=== PATIENT | male | born 1970 | race Caucasian/White ===

== ENCOUNTER 2023-07-01 12:40 | Outpatient (OUT) | payer BC, SELFPAY ==
[2023-07-01 13:27] LABS: Basophils Percent Auto 0.5 % (0.2-2.0); Eosinophils Absolute Auto 0.1 10^3/uL (0.0-0.7); Eosinophils Percent Auto 1.7 % (0.9-7.0); Hematocrit 39.2 % (42.0-54.0); Hemoglobin 12.4 g/dL (14.0-18.0); Immature Granulocytes Abs Auto 0.02 10^3/uL (0.00-0.03); Immature Granulocytes Pct Auto 0.3 % (0.0-0.5); Lymphocytes Absolute Auto 1.9 10^3/uL (1.2-3.8); Lymphocytes Percent Auto 24.4 % (20.5-60.0); Mean Corpuscular HGB Conc 31.6 g/dL (29.9-35.2); Mean Corpuscular Hemoglobin 26.4 pg (25.9-34.0); Mean Corpuscular Volume 83.6 fL (80.0-94.0); Mean Platelet Volume 10.8 fL (9.5-13.5); Monocytes Absolute Auto 0.5 10^3/uL (0.3-0.8); Monocytes Percent Auto 6.7 % (1.7-12.0); Neutrophils Absolute Auto 5.2 10^3/uL (1.4-6.5); Neutrophils Percent Auto 66.4 % (43.0-75.0); Platelet Count 280 10^3/uL (150-450); Red Blood Count 4.69 10^6/uL (4.70-6.10); Red Cell Distribution Width 15.3 % (11.0-15.0); White Blood Count 7.8 10^3/uL (4.0-11.0)
[2023-07-01 13:47] LABS: Estimated Average Glucose 134 mg/dL; Glycohemoglobin A1C 6.3 % (4.5-6.2)
[2023-07-01 14:05] LABS: Alanine Aminotransferase 31 U/L (16-63); Albumin Globulin Ratio 0.9; Albumin Level 3.5 g/dL (3.4-5.0); Alkaline Phosphatase 69 U/L (46-116); Aspartate Amino Transferase 18 U/L (15-37); BUN Creatinine Ratio 13.3; Bilirubin Total 0.5 mg/dL (0.2-1.0); Calcium 8.3 mg/dL (8.5-10.1); Carbon Dioxide 30.3 mmol/L (21.0-32.0); Chloride 102 mmol/L (98-107); Chol HDL Ratio 4.6; Cholesterol 205 mg/dL (<=200); Estimated GFR (African America >60 (>=60); Estimated GFR (Non-African Ame >60 (>=60); Free T3 2.54 pg/mL (2.18-3.98); Globulin 3.7 g/dL; Glucose 88 mg/dL (74-106); HDL Cholesterol 45 mg/dL (40-60); Potassium 3.3 mmol/L (3.5-5.1); Sodium 141 mmol/L (136-145); Thyroid Stimulating Hormone 0.834 uIU/mL (0.358-3.740); Total Protein 7.2 g/dL (6.4-8.2); Triglycerides 152 mg/dL (<=150); Uric Acid 9.2 mg/dL (3.5-7.2); VLDL CHOLESTEROL 30.4 mg/dL
[2023-07-01 14:34] LABS: Prostate Specific Antigen Scrn 168.74 ng/mL (<=4.00)
[2023-07-04 12:09] LABS: Insulin 20.5 uIU/mL (2.6-24.9)
== END 2023-07-01 12:41 | disposition home or self-care (01) ==
LOC: LAB 12:41
PROVIDERS: PCP Family Medicine; Visit Provider Family Medicine
DX: Z00.00 Encounter for general adult medical examination without abnormal findings (principal); Z12.5 Encounter for screening for malignant neoplasm of prostate; E78.5 Hyperlipidemia, unspecified; R73.09 Other abnormal glucose
CPT/HCPCS: 36415; 80053; 80061; 83036; 83525; 83880; 84436; 84443; 84481; 84550; 85025; G0103

== ENCOUNTER 2023-07-07 12:41 | Outpatient (OUT) | payer BC, SELFPAY ==
[2023-07-07 14:24] LABS: Prostate Specific Antigen Dx 180.42 ng/mL (<=4.00)
== END 2023-07-07 12:42 | disposition home or self-care (01) ==
LOC: LAB 12:42
PROVIDERS: PCP Family Medicine; Visit Provider Urology
DX: R97.20 Elevated prostate specific antigen [PSA] (principal)
CPT/HCPCS: 36415; 84153

== ENCOUNTER 2023-07-10 07:32 | Outpatient (OUT) | payer BC, SELFPAY ==
--- NOTE | 2023-07-10 07:36 | VEIN_ITS ---
Patient: BARRON CARTWRIGHT Exam Date: 07/10/2023 : 1970 Gender:M Ordering : DR Suleman Burden . Admission #: [id number] Family : Order #: [id number] CLICK HERE TO VIEW EXAM RADIOLOGY REPORT PROCEDURE: VC EXT VENOUS REFLUX REBEKA LMTD COMPARISON: None. INDICATIONS: Varicose veins bilateral lower extremity I86.8 TECHNIQUE: Duplex imaging of the lower extremity to assess the deep and superficial venous system for the presence of deep or superficial venous incompetence and to document the location and severity of disease. The study includes evaluation of the great saphenous vein (GSV), anterior accessory saphenous vein (AASV) and small saphenous vein (SSV). Patient scanned in reverse Trendelenburg and standing. 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 Compressibility: Partial compression of SSV. Flow: Moderate deep venous reflux. Preforator: Dist medial lower leg/ankle 5.1 mm with 4.8s reflux. Mid medial lower leg 3.9 mm with 0.8s reflux. Tech Note: Incompetent varicose vein mid medial lower leg measures 4.4 mm with 1.6s reflux. Mid medial thigh varicosity measures 5.2 mm with 0.5s reflux. LEFT LOWER EXTREMITY: Saphenofemoral Junction Reflux: Yes 11.5 mm 0.5 sec GSV: Diam (mm) Reflux/Time (sec) Proximal Thigh 8.7 Yes 1.6 Mid Thigh 7.3 Yes 4.1 Distal Thigh 5.0 Yes 0.9 Prox Calf 6.2 Yes 4.8 Mid Calf 3.8 Yes 0.8 Saphenopopliteal Junction Relux: 6.2 mm Yes 0.5 SSV: Proximal Calf 8.4 Yes 0.5 Mid Calf 5.1 Yes 1.6 AASV: Not present Thrombi: Partial chronic thrombus in mid SSV. Compressibility: Partial compression of mid SSV Flow: Mild deep venous reflux. Cotton Farmer: Distal medial lower leg 3.2 mm with 4.8s reflux. Tech Note: Incompetent varicose vein distal medial lower leg measures 5.2 mm with 4.4s reflux. Distal medial/anterior lower leg varicosity measures 5.4 mm with 4.8s reflux. Varicose vein proximal medial lower leg measures 7.5 mm with 4.9s reflux. Mid anterior thigh varicose vein measures 4.7 mm with 0.9s reflux. CONCLUSION: Severe bilateral great saphenous vein venous insufficiency with saphenofemoral junction reflux and dilatation Mild bilateral small saphenous vein venous insufficiency with dilatation Moderate right anterior accessory saphenous vein venous insufficiency Moderate right and mild deep vein reflux Bilateral incompetent perforating veins Bilateral incompetent varicose veins Dictated by: Barron Beckett MD on 07/10/2023 at 09:06 Approved by: Barron Beckett MD on 07/10/2023 at 09:10
== END 2023-07-10 07:33 | disposition home or self-care (01) ==
PROVIDERS: PCP Family Medicine; Visit Provider Family Medicine
DX: I86.8 Varicose veins of other specified sites (principal)
CPT/HCPCS: 93970

== ENCOUNTER 2023-08-04 12:13 | Outpatient (OUT) | payer BC, SELFPAY ==
--- NOTE | 2023-08-04 11:00 | NM_ITS ---
The [address] [address] Patient Name: 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 MRN: [id number] date: 1970 Sex: M Assigned Patient Location: [place] Current Patient Location: [place] Accession/Order Number: [id number] Exam Date: 08/04/2023 11:00 Report Date: 08/04/2023 15:03 At the request of: YANELI LUNDBERG Procedure: TX bone scan whole body EXAMINATION: TX bone scan whole body HISTORY: PROSTATE CANCER COMPARISON: No relevant comparison available. TECHNIQUE: After obtaining the patient's consent, 25.1 mCi Technetium 99m MDP was injected intravenously. Images were obtained approximately two hours later. FINDINGS: ABNORMALITIES: Single focus of intense radiotracer activity in anterior costochondral margin of right sixth rib . Mildly increased activity at the right sternoclavicular joint and at the skin internal-manubrial joint likely representing degenerative changes. Similar degenerative changes and radiotracer activity within the feet. OTHER: Negative. TX/TX bone scan whole body IMPRESSION: 1. Abnormal focus of radiotracer uptake in anterior costochondral margin of right sixth rib; fracture versus neoplastic activity. Correlate with clinical history. Consider CT chest without contrast for further evaluation; I doubt that a simple chest x-ray would provide clarification. Electronically authenticated by: DAVID WALLS Date: 08/04/2023 15:03
== END 2023-08-04 12:14 | disposition home or self-care (01) ==
LOC: NM 12:13
PROVIDERS: PCP Family Medicine; Visit Provider Urology
DX: C61 Malignant neoplasm of prostate (principal)
CPT/HCPCS: 78306; A9503

== ENCOUNTER 2023-08-08 13:37 | Outpatient (OUT) | payer BC, SELFPAY | END 2023-08-08 13:38 | disposition home or self-care (01) | LOC: PST 13:37 | PROVIDERS: PCP Family Medicine; Visit Provider Surgery | DX: Z01.818 Encounter for other preprocedural examination (principal); D50.0 Iron deficiency anemia secondary to blood loss (chronic) ==

== ENCOUNTER 2023-08-16 07:21 | Day surgery (SDC) | payer BC, SELFPAY ==
--- NOTE | 2023-08-16 | OP_ITS ---
OPERATION DATE: ??08/16/2023 PREOPERATIVE DIAGNOSIS:? Anemia. POSTOPERATIVE DIAGNOSIS:? Small hiatal hernia, normal colon. PROCEDURE:? EGD and colonoscopy to cecum. SURGEON:? Azeem Brito M.D. ANESTHESIA:? Monitored anesthesia care. ESTIMATED BLOOD LOSS:? Zero. INDICATIONS AND CONSENT:? Patient is a 52-year-old male, recently found to have anemia.? Indications, risks, benefits, alternatives of proceeding with EGD and colonoscopy were explained extensively to the patient, including the risks of bleeding, aspiration, esophageal/gastric/duodenal or colonic perforation or anesthetic complications.? \ All of his questions were answered.? Informed consent was obtained. PROCEDURE:? Patient brought to the operating room, placed in the left lateral decubitus position.? Monitored anesthesia care was provided.? Bite block was placed in the patient?s mouth.? Scope was inserted into the oropharynx.? Under direct visualization, it was advanced into the esophagus, past the cricopharyngeus, down to the stomach.? The stomach was insufflated with air.? The pylorus was traversed down to the descending portion of the duodenum.? There was no evidence of duodenitis or ulceration.? There was no scarring within the pyloric channel.?? Scope was pulled back into the stomach and retroflexed.? There was noted to be a small, sliding type hiatal hernia.? No other gastric mucosal abnormalities.? The GE junction was noted at approximately 45 cm.? There was no distal esophagitis or Flores?s changes. ?The remainder of the esophagus was unremarkable.? The scope was then withdrawn.? Patient was then positioned for colonoscopy.? Rectal exam was performed, which showed no masses or blood.? The scope was then inserted into the anal canal.? Under direct visualization, it was advanced.? It was advanced to the cecum where cecal markings were clearly identified.? There was noted to be a good prep.? Upon withdrawal of the scope, mucosal surfaces were carefully examined.? There were no mass lesions or inflammatory changes.? No significant diverticulosis.? The scope was retroflexed in the anal canal.? There was no significant hemorrhoidal disease.? The scope was then withdrawn.? The patient tolerated procedure well. Follow up screening colonoscopy should be in 10 years. CC:? Suleman Burden M.D. [facility]PITALWolfgang
[2023-08-16 07:27] VITALS: BP 142/100; PULSE 88; RESP 22; TEMP 36.3; O2SAT 97; BMI 45.3
[2023-08-16] MEDS: LACTATED RINGER'S SOLUTION 1,000 ML 50 ML IV (07:42)
[2023-08-16 08:30] VITALS: BP 91/60; PULSE 89; RESP 20; TEMP 36.4; O2SAT 96
[2023-08-16 08:45] VITALS: BP 115/60; PULSE 81; RESP 18; O2SAT 98
[2023-08-16 09:00] VITALS: BP 114/65; PULSE 80; RESP 18; O2SAT 96
== END 2023-08-16 09:03 | disposition home or self-care (01) ==
PROVIDERS: PCP Family Medicine; Visit Provider Surgery
PROC: (CPT 43235; principal; 2023-08-16 08:30)
DX: D50.0 Iron deficiency anemia secondary to blood loss (chronic) (principal); K44.9 Diaphragmatic hernia without obstruction or gangrene; R97.20 Elevated prostate specific antigen [PSA]; M10.9 Gout, unspecified; I10 Essential (primary) hypertension; E66.01 Morbid (severe) obesity due to excess calories; Z68.42 Body mass index [BMI] 45.0-49.9, adult; Z87.891 Personal history of nicotine dependence
CPT/HCPCS: 43235; 45378; J2704

== ENCOUNTER 2024-01-07 08:55 | Emergency (ER) | payer BC, SELFPAY ==
[2024-01-07] VITALS (13 sets, daily range): BP systolic 113–145; BP diastolic 63–92; PULSE 95–105; TEMP 37.1; O2SAT 96–100; BMI 47.5
--- OUTSIDE RECORDS SUMMARY | 2024-01-07 09:13 | XMS_ITS | CCD ---
Author Organization [facility] Care Team Providers Care Peanut Shaker Name Role Phone RUEL JAFFE Consulting Unavailable ALANNAH, RUEL Primary Care Unavailable RUEL JAFFE Admitting Unavailable RUEL JAFFE Attending Unavailable RUEL JAFFE Primary Care Unavailable CASPER, DR VUONG Attending Unavailable CASPER, DR VUONG Consulting Unavailable CASPER, DR VUONG Admitting Unavailable HENRY, DR OSIEL Meza Consulting Unavailable Carolann Shirley Primary Care Physician Carolann Shirley MD Primary Care Provider [phone] Gonzales INK JET OPERATOR.CONTROL SUPERVISOR, Damaris Unavailable Javi Singer MD Unavailable Lauren Paris MD Unavailable Kushal DIAZ, Trisha Unavailable [phone] Yaneli LUNDBERG Attending Unavailable LUNDBERG, Yaneli R Attending Unavailable LUNDBERG, Yaneli R Attending Unavailable LUNDBERG, Yaneli R Attending Unavailable LUNDBERG, Yaneli R Admitting Unavailable NILL, Azeem R Attending Unavailable NILL, Azeem R Attending Unavailable LUNDBERG, Yaneli R Attending Unavailable LUNDBERG, Yaneli R Attending Unavailable TOÑO, Yaneli Friedman Attending Unavailable Carolann Shirley MD Primary Care Provider [phone] YANELI LUNDBERG Referring Unavailable Lauren PARIS Attending Unavailable CAROLANN SHIRLEY Primary Care Unavailable JAVI SINGER Attending Unavailable Lauren PARIS Referring Unavailable CAROLANN SHIRLEY Primary Care Unavailable Lauren PARIS Attending Unavailable CAROLANN SHIRLEY M Primary Care Unavailable Lauren PARIS Referring Unavailable CAROLANN SHIRLEY M Primary Care Unavailable Lauren PARIS Referring Unavailable CAROLANN SHIRLEY Primary Care Unavailable CAROLANN SHIRLEY M Primary Care Unavailable Lauren PARIS Attending Unavailable CAROLANN SHIRLEY Primary Care Unavailable Lauren PARIS Referring Unavailable HOY, CAROLANN M Primary Care Unavailable Lauren PARIS Referring Unavailable HOY, CAROLANN M Primary Care Unavailable HOY, CAROLANN M Primary Care Unavailable HOY, CAROLANN M Primary Care Unavailable JAVI SINGER Referring Unavailable NEIL QUEZADA Attending Unavailable HOY, CAROLANN M Primary Care Unavailable Lauren PARIS Referring Unavailable HOY, CAROLANN M Primary Care Unavailable Lauren PARIS Attending Unavailable HOY, CAROLANN M Primary Care Unavailable Lauren PARIS Referring Unavailable HOY, CAROLANN M Primary Care Unavailable Lauren PARIS Referring Unavailable HOY, CAROLANN M Primary Care Unavailable Lauren PARIS Referring Unavailable HOY, CAROLANN M Primary Care Unavailable Lauren PARIS Attending Unavailable HOY, CAROLANN M Primary Care Unavailable Lauren PARIS Referring Unavailable HOY, CAROLANN M Primary Care Unavailable Lauren PARIS Referring Unavailable HOY, CAROLANN M Primary Care Unavailable Lauren PARIS Attending Unavailable HOY, CAROLANN M Primary Care Unavailable HOY, CAROLANN M Primary Care Unavailable Lauren PARIS Referring Unavailable HOY, CAROLANN M Primary Care Unavailable JAIV SINGER Attending Unavailable HOY, CAROLANN M Primary Care Unavailable JAVI SINGER Attending Unavailable HOY, CAROLANN M Primary Care Unavailable Lauren PARIS Referring Unavailable HOY, CAROLANN M Primary Care Unavailable Lauren PARIS Referring Unavailable HOY, CAROLANN M Primary Care Unavailable Lauren PARIS Referring Unavailable HOY, CAROLANN M Primary Care Unavailable Lauren PARIS Referring Unavailable HOY, CAROLANN M Primary Care Unavailable Lauren PARIS Attending Unavailable HOY, CAROLANN M Primary Care Unavailable Lauren PARIS Referring Unavailable Lauren PARIS Attending Unavailable HOY, CAROLANN M Primary Care Unavailable Lauren PARIS Referring Unavailable HOY, CAROLANN M Primary Care Unavailable Lauren PARIS Referring Unavailable HOY, CAROLANN M Primary Care Unavailable Lauren PARIS Attending Unavailable HOY, CAROLANN M Primary Care Unavailable Lauren PARIS Attending Unavailable HOY, CAROLANN M Primary Care Unavailable Lauren PARIS Referring Unavailable Lauren PARIS Attending Unavailable HOY, CAROLANN M Primary Care Unavailable HOY, CAROLANN M Primary Care Unavailable ENGELER, G GAURAV Referring Unavailable HOY, CAROLANN M Primary Care Unavailable ENGELER, G GAURAV Referring Unavailable HOY, CAROLANN M Primary Care Unavailable ENGELER, G GAURAV Referring Unavailable HOY, CAROLANN M Primary Care Unavailable ENGELER, G GAURAV Referring Unavailable HOY, CAROLANN M Primary Care Unavailable ENGELER, G GAURAV Attending Unavailable HOY, CAROLANN M Primary Care Unavailable ENGELER, G GAURAV Referring Unavailable HOY, CAROLANN M Primary Care Unavailable ENGELER, G GAURAV Referring Unavailable HOY, CAROLANN M Primary Care Unavailable ENGELER, G GAURAV Referring Unavailable HOY, CAROLANN M Primary Care Unavailable ENGELER, G GAURAV Referring Unavailable HOY, CAROLANN M Primary Care Unavailable ENGELER, G GAURAV Referring Unavailable HOY, CAROLANN M Primary Care Unavailable ENGELER, G GAURAV Referring Unavailable HOY, CAROLANN M Primary Care Unavailable YANELI LUNDBERG Referring Unavailable Allergies Allergy Classification Reported Allergen(s) Allergy Type Date of Onset Reaction(s) Facility (1 source) No Known Medication Allergies; Translations: [No Known Medication Allergies] Propensity to adverse reactions (disorder) [facility] Repository Medications Current Medications Medication Drug Class(es) Dates Sig (Normalized) Sig (Original) ciprofloxacin 500 mg oral tablet (3 sources) Quinolone Antimicrobial Start: 07-07-2023 End: 07-14-2023 take 1 tablet by mouth twice daily Cipro 500 mg Tab 500 mg = 1 tab(s), Oral, BID, X 7 day(s), # 14 tab(s), Refills(s) 0, Pharmacy: [id number], 182, cm, 07/07/23 10:41:00 EDT, Height/Length Dosing, 154, kg, 07/07/23 10:41:00 EDT, Weight Dosing Start Date: 07/07/23 Stop Date: 07/14/23 Status: Ordered Completed/Discontinued Medications Medication Drug Class(es) Dates Sig (Normalized) Sig (Original) abiraterone acetate 250 mg oral tablet (13 sources) Cytochrome P450 17A1 Inhibitor Start: 08-21-2023 End: 11-30-2023 take 4 tablets by mouth once daily abiraterone 250 mg tablet TAKE 4 TABLETS BY MOUTH 1 TIME A DAY 120 tablet 3 11/30/2023 Active Comment on above: Take 4 tablets by mo [facility] once daily. TAKE 4 TABLETS BY MO [facility] 1 TIME A DAY bicalutamide 50 mg oral tablet (10 sources) Androgen Receptor Inhibitor Start: 07-24-2023 End: 09-12-2023 take 1 tablet by mouth once bicalutamide (CASODEX) 50 mg tablet Take 1 tablet by mouth every afternoon. 0 07/24/2023 09/12/2023 Discontinued Start: 07-24-2023 take 1 tablet by benjamín every twenty-four hours Casodex 50 mg Tab 50 mg = 1 tab(s), Oral, q24hr, # 30 tab(s), Refills(s) 11, Pharmacy: [id number], 182, cm, 07/24/23 12:03:00 EDT, Height/Length Dosing, 154, kg, 07/24/23 12:03:00 EDT, Weight Dosing Start Date: 07/24/23 Status: Ordered Comment on above: Take 1 tablet by benjamín every afternoon. Calcium Carbonate / vitamin D3 (10 sources) take 1 tablet by mouth once daily calcium carbonate/vitamin D3 (CALCIUM WITH VITAMIN D ORAL) Take 1 tablet by mouth once daily. 0 Active Comment on above: Take 1 tablet by benjamín once daily. colchicine 0.6 mg oral tablet (20 sources) Start: colchicine 0.6 mg tablet Take 0.6 mg by mouth as needed. 0 07/06/2023 Active Comment on above: Refills(s) 0 Take 0.6 mg by mouth as needed. diclofenac sodium 75 mg delayed release oral tablet (20 sources) Nonsteroidal Anti-inflammatory Drug Start: 3 take 1 tablet by mouth every twelve hours diclofenac, EC, (VOLTAREN) 75 mg EC tablet Take 1 tablet by mouth every 12 hours. 0 06/27/2023 Active Comment on above: Take 1 tablet by benjamín every 12 hours. lisinopril 10 mg oral tablet (20 sources) Angiotensin Converting Enzyme Inhibitor Start: 3 take 1 tablet by mouth once lisinopril (ZESTRIL) 10 mg tablet Take 1 tablet by mouth every afternoon. 0 07/31/2023 Active Start: 07-06-2023 lisinopril 10 mg Tab Refills(s) 0 Start Date: 07/06/23 Status: Ordered Comment on above: Take 1 tablet by benjamín th every afternoon. predniSONE 5 mg oral tablet (13 sources) Start: 08-21-2023 End: 11-14-2023 take 1 tablet by mouth once daily predniSONE (DELTASONE) 5 mg tablet Take 1 tablet by mouth once daily. 90 tablet 3 11/14/2023 Active Comment on above: Take 1 tablet by benjamín th once daily. Problems Active Problems Problem Classification Problem Date Documented Da te Episodic/Chronic Cancer of prostate (15 sources) Malignant neoplasm of prostate; Translations: [Malignant tumor of prostate] Onset: 07-24-2023 Chronic Deficiency and other anemia (1 source) Anemia due to chronic blood loss; Translations: [Iron deficiency anemia secondary to blood loss (chronic)] Onset: 07-19-2023 Chronic Deficiency and other anemia (4 sources) Anemia due to blood loss 07-19-2023 Chronic Deficiency and other anemia (7 sources) Anemia 07-06-2023 Episodic Essential hypertension (7 sources) Hypertensive disorder 07-07-2023 Chronic Gout and other crystal arthropathies (7 sources) Gout 07-06-2023 Chronic Headache; including migraine (7 sources) Headache 07-07-2023 Episodic Other non-traumatic joint disorders (4 sources) Pain in right ankle and joints of right foot; Translations: [PAIN IN RIGHT ANKLE] Onset: 08-05-2022 Episodic Other nutritional; endocrine; and metabolic disorders (4 sources) Body mass index 40+ - severely obese 07-19-2023 Chronic Other nutritional; endocrine; and metabolic disorders (4 sources) Morbid obesity 07-19-2023 Chronic Other screening for suspected conditions (not mental disorders or infectious disease) (9 sources) Raised prostate specific antigen; Translations: [Elevated prostate specific antigen [PSA]] Onset: 07-07-2023 Episodic Unclassified (3 sources) CONTACT W/AND (SUSP) EXPOS COVID-19; Translations: [CONTACT W/AND (SUSP) EXPOS COVID-19] Onset: 10-21-2021 Unclassified (1 source) COUGH, UNSPECIFIED; Translations: [COUGH, UNSPECIFIED] Onset: 10-21-2021 Varicose veins of lower extremity (7 sources) Varicose veins of lower extremity 07-06-2023 Episodic Past or Other Problems Problem Classification Problem Date Documented Da te Episodic/Chronic Other upper respiratory infections (1 source) Acute sinusitis, unspecified; Translations: [ACUTE SINUSITIS UNSPECIFIED] Onset: 10-21-2021 Episodic Unclassified (1 source) CONTACT W/AND (SUSP) EXPOS COVID-19; Translations: [CONTACT W/AND (SUSP) EXPOS COVID-19] Onset: 10-19-2021 Results Test Name Value Interpretation Reference Range Facil ity CNOVon 12-06-2023 CNOV Office Visit (RADTSA ) ----- 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 ([id number]) 1970 M Date Time Provider Department 12/06/23 9:15 AM Lauren PARIS During your visit today, we recorded the following information about you: Temperature Pulse Respiration Blood pressure 96.5 degrees 92/minute 20/minute 123/80 Weight 160.3 kg Adrianne Weinstein RN 12/06/2023 9:02 AM Addendum AU 9 EMILY Schaffer G Phillip, MD 12/06/2023 9:16 AM Signed Radiation Oncology - Follow Up Note PATIENT NAME: Osiel Cartwright PATIENT DIAGNOSIS: Prostate adenocarcinoma, initial PSA 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 RADIATION SUMMARY: DATES OF TREATMENT: 10/10/2023 to 11/16/2023 AREA TREATED: Pelvis Prostate DELIVERED DOSE: Area: Pelvis Prostate 7,000 cGy in 28 fractions, 3 Verma, IMRT, 10MV with daily CBCT TOTAL: 7,000 cGy in 28 Fractions ELAPSED TIME: 37 days. INTERVAL HISTORY: The patient presents for routine follow-up. Having some continued urinary frequency. No significant obstructive symptoms. No dysuria or hematuria. He does have some generalized fatigue still working full-time. PSA HISTORY: PSA (ng/mL) Date Value 11/14/2023 0.60 09/19/2023 6.08 ALLERGIES No Known Allergies abiraterone 250 mg tablet TAKE 4 TABLETS BY MOUTH 1 TIME A DAY predniSONE (DELTASONE) 5 mg tablet Take 1 tablet by mouth once daily. calcium carbonate/vitamin D3 (CALCIUM WITH VITAMIN D ORAL) Take 1 tablet by mouth once daily. colchicine 0.6 mg tablet Take 0.6 mg by mouth as needed. diclofenac, EC, (VOLTAREN) 75 mg EC tablet Take 1 tablet by mouth every 12 hours. lisinopril (ZESTRIL) 10 mg tablet Take 1 tablet by mouth every afternoon. REVIEW OF SYSTEMS: D/N = 4-6/q2-3h Hematuria: No Dysuria: No Incontinence: No Urgency: mild Catheter use: No Medications to aid urination: no - Total AUA Score: 9 Bowel movement frequency: 1/day Bowel movement quality: normal Blood per rectum: none Last colonoscopy: na Androgen deprivation: lupron and abiriterone. PHYSICAL EXAM: BP 123/80 Pulse 92 Temp (!) 35.8 ?C (96.5 ?F) Resp 20 Wt (!) 160.3 kg (353 lb 6.4 oz) SpO2 98% BMI 47.92 kg/m? KPS: 100 General Appearance: Alert and oriented. No acute distress. Neck: No masses Lungs clear to auscultation percussion Cardiac regular S1-S2 without murmur or gallop Rectal exam is deferred. ASSESSMENT/PLAN: Prostate adenocarcinoma, initial PSA 180.42, biopsy Naco score 3 + 4 = 7 (grade group 2), clinical stage T2c, N0, M0, stage IIIA [T1-T2, N0, M0, PSA >=20, GG 1-4] (AJCC 8th ed.), s/p definitive pelvic and prostate radiation, continued ADT. Overall doing well. Resolving acute radiation related issues still with some bladder frequency. Has had a good PSA response. Continues ADT per Dr. Singer. Will plan to see patient back in 6 months for further postradiation follow-up. Signed by: Lauren Paris MD cc: Carolann Shirley [phone] [place] [address] No referring provider defined for this encounter. Allergies As of Date: 12/06/2023 (No Known Allergies) Date Reviewed: 12/06/2023 Reviewed by: Adrianne Weinstein RN - Fully Assessed Reason for Visit: Prostate Cancer [590] Primary Visit Diagnosis:Malignant neoplasm of prostate (HCC) [C61] Order(s):PSA/PROSTSPECAG DIAG [SQPSA] Order #: [id number] FUTURE Prescriptions as of 12/06/2023 - abiraterone 250 mg tablet TAKE 4 TABLETS BY MOUTH 1 TIME A DAY - predniSONE (DELTASONE) 5 mg tablet Take 1 tablet by mouth once daily. - calcium carbonate/vitamin D3 (CALCIUM WITH VITAMIN D ORAL) Take 1 tablet by mouth once daily. - colchicine 0.6 mg tablet Take 0.6 mg by mouth as needed. - diclofenac, EC, (VOLTAREN) 75 mg EC tablet Take 1 tablet by mouth every 12 hours. - lisinopril (ZESTRIL) 10 mg tablet Take 1 tablet by mouth every afternoon. Problem List As Of Date: 12/06/2023 (None) Visit Notes: >> Adrianne Weinstein RN MonDec 06, 2023 8:57 AM Status: Addendum AUA 9 Adrianne Weinstein RN Disposition: Return in about 6 months (around 06/05/2024). Follow-up and Disposition History for Encounter Date Provider Department Center 12/06/2023 [id number] PARIS [facility] Encounter Status:Closed by Lauren PARIS on 12/06/23 Normal [facility] Consultation Noteon 11-20-19 Consultation Note [id number] Normal [facility] CBC W Auto Differential pane l (Bld)on 11-14-2023 Basophils (Bld) [#/Vol] 10*3/uL Normal <0.11 [facility] Comment on above: Order Comment: Speci men Type: BLOOD SPECIMENOrdering Facility: [facility] Address: [address] [place] [address] [place] [address] Performed By: #### 5 7021-8 ####[facility] LABCLIA [id number] [place] [address] Basophils/100 WBC (Bld) 0.4 % Normal [facility] Comment on above: Order Comment: Speci men Type: BLOOD SPECIMENOrdering Facility: [facility] Address: [address] [place] [address] Performed By: #### 5 7021-8 ####[facility] LABCLIA [id number] [place] [address] Differential cell count method Nom (Bld) Auto Normal [facility] Comment on above: Order Comment: Speci men Type: BLOOD SPECIMENOrdering Facility: [facility] Address: [address] [place] [address] Performed By: #### 5 7021-8 ####[facility] LABCLIA [id number] [place] [address] Eosinophils (Bld) [#/Vol] 0.09 10*3/uL Normal <0.46 [facility] Comment on above: Order Comment: Speci men Type: BLOOD SPECIMENOrdering Facility: [facility] Address: [address] [place] [address] Performed By: #### 5 7021-8 ####[facility] LABCLIA [id number] [place] [address] Eosinophils/100 WBC (Bld) 1.8 % Normal [facility] Comment on above: Order Comment: Speci men Type: BLOOD SPECIMENOrdering Facility: [facility] Address: [address] [place] [address] Performed By: #### 5 7021-8 ####[facility] LABCLIA [id number] [place] [address] Erythrocyte distribution width (RBC) [Ratio] 17.6 % High 11.5-15.0 [facility] Comment on above: Order Comment: Speci men Type: BLOOD SPECIMENOrdering Facility: [facility] Address: [address] [place] [address] Performed By: #### 5 7021-8 ####[facility] LABCLIA [id number] [place] [address] Hematocrit (Bld) [Volume fraction] 35.8 % Low 39.0-51.0 [facility] Comment on above: Order Comment: Speci men Type: BLOOD SPECIMENOrdering Facility: [facility] Address: [address] [place] [address] Performed By: #### 5 7021-8 ####[facility] LABCLIA [id number] [place] [address] Hemoglobin (Bld) [Mass/Vol] 11.5 g/dL Low 13.0-17.0 [facility] Comment on above: Order Comment: Speci men Type: BLOOD SPECIMENOrdering Facility: [facility] Address: [address] [place] [address] Performed By: #### 5 7021-8 ####[facility] LABIA [id number] [place] [address] Immature granulocytes (Bld) [#/Vol] 0.03 10*3/uL Normal <0.10 [facility] Comment on above: Order Comment: Speci men Type: BLOOD SPECIMENOrdering Facility: [facility] Address: [address] [place] [address] Performed By: #### 5 7021-8 ####[facility] LABCLIA [id number] [place] [address] Immature granulocytes/100 WBC (Bld) 0.6 % Normal [facility] Comment on above: Order Comment: Speci men Type: BLOOD SPECIMENOrdering Facility: [facility] Address: [address] [place] [address] Performed By: #### 5 7021-8 ####[facility] LABCLIA [id number] [place] [address] Lymphocytes (Bld) [#/Vol] 0.37 10*3/uL Low 1.00-4.00 [facility] Comment on above: Order Comment: Speci men Type: BLOOD SPECIMENOrdering Facility: [facility] Address: [address] [place] [address] Performed By: #### 5 7021-8 ####[facility] LABCLIA [id number] [place] [address] Lymphocytes/100 WBC (Bld) 7.3 % Normal [facility] Comment on above: Order Comment: Speci men Type: BLOOD SPECIMENOrdering Facility: [facility] Address: [address] [place] [address] Performed By: #### 5 7021-8 ####[facility] LABCLIA [id number] [place] [address] MCH (RBC) [Entitic mass] 27.7 pg Normal 26.0-34.0 [facility] Comment on above: Order Comment: Speci men Type: BLOOD SPECIMENOrdering Facility: [facility] Address: [address] [place] [address] Performed By: #### 5 7021-8 ####[facility] LABCLIA [id number] [place] [address] MCHC (RBC) [Mass/Vol] 32.1 g/dL Normal 30.5-36.0 [facility] Comment on above: Order Comment: Speci men Type: BLOOD SPECIMENOrdering Facility: [facility] Address: [address] [place] [address] Performed By: #### 5 7021-8 ####[facility] LABCLIA [id number] [place] [address] MCV (RBC) [Entitic vol] 86.3 fL Normal 80.0-100.0 [facility] Comment on above: Order Comment: Speci men Type: BLOOD SPECIMENOrdering Facility: [facility] Address: [address] [place] [address] Performed By: #### 5 7021-8 ####[facility] LABCLIA [id number] [place] [address] Monocytes (Bld) [#/Vol] 0.47 10*3/uL Normal <0.87 [facility] Comment on above: Order Comment: Speci men Type: BLOOD SPECIMENOrdering Facility: [facility] Address: [address] [place] [address] Performed By: #### 5 7021-8 ####[facility] LABCLIA [id number] [place] [address] Monocytes/100 WBC (Bld) 9.3 % Normal [facility] Comment on above: Order Comment: Speci men Type: BLOOD SPECIMENOrdering Facility: [facility] Address: [address] [place] [address] Performed By: #### 5 7021-8 ####[facility] LABCLIA [id number] [place] [address] Neutrophils (Bld) [#/Vol] 4.09 10*3/uL Normal 1.45-7.50 [facility] Comment on above: Order Comment: Speci men Type: BLOOD SPECIMENOrdering Facility: [facility] Address: [address] [place] [address] Performed By: #### 5 7021-8 ####[facility] LABCLIA [id number] [place] [address] Neutrophils/100 WBC (Bld) 80.6 % Normal [facility] Comment on above: Order Comment: Speci men Type: BLOOD SPECIMENOrdering Facility: [facility] Address: [address] [place] [address] Performed By: #### 5 7021-8 ####[facility] LABCLIA [id number] [place] [address] Nucleated RBC (Bld) [#/Vol] 10*3/uL Normal <0.01 [facility] Comment on above: Order Comment: Speci men Type: BLOOD SPECIMENOrdering Facility: [facility] Address: [address] [place] [address] Performed By: #### 5 7021-8 ####[facility] LABCLIA [id number] [place] [address] Nucleated RBC/100 WBC (Bld) [Ratio] 0.0 /100 WBC Normal [facility] Comment on above: Order Comment: Speci men Type: BLOOD SPECIMENOrdering Facility: [facility] Address: [address] [place] [address] Performed By: #### 5 7021-8 ####[facility] LABIA [id number] [place] [address] Platelet mean volume (Bld) [Entitic vol] 9.7 fL Normal 9.0-12.7 [facility] Comment on above: Order Comment: Speci men Type: BLOOD SPECIMENOrdering Facility: [facility] Address: [address] [place] [address] Performed By: #### 5 7021-8 ####[facility] LABIA [id number] [place] [address] Platelets (Bld) [#/Vol] 232 10*3/uL Normal 150-400 [facility] Comment on above: Order Comment: Speci men Type: BLOOD SPECIMENOrdering Facility: [facility] Address: [address] [place] [address] Performed By: #### 5 7021-8 ####[facility] LABIA [id number] [place] [address] RBC (Bld) [#/Vol] 4.15 10*6/uL Low 4.20-6.00 [facility] Comment on above: Order Comment: Speci men Type: BLOOD SPECIMENOrdering Facility: [facility] Address: [address] [place] [address] Performed By: #### 5 7021-8 ####[facility] LABCLIA [id number] [place] [address] WBC (Bld) [#/Vol] 5.07 10*3/uL Normal 3.70-11.00 [facility] Comment on above: Order Comment: Speci men Type: BLOOD SPECIMENOrdering Facility: [facility] Address: [address] [place] [address] Performed By: #### 5 7021-8 ####[facility] LABCLIA [id number] [place] [address] Basophils (Bld) [#/Vol] <0.11 k/uL [facility] Basophils/100 WBC (Bld) 0.4 % [facility] Differential cell count method Nom (Bld) Auto [facility] Eosinophils (Bld) [#/Vol] 0.09 10*3/uL <0.46 k/uL [facility] Eosinophils/100 WBC (Bld) 1.8 % [facility] Erythrocyte distribution width (RBC) [Ratio] 17.6 % High 11.5 - 15.0 % [facility] Hematocrit (Bld) [Volume fraction] 35.8 % Low 39.0 - 51.0 % [facility] Hemoglobin (Bld) [Mass/Vol] 11.5 g/dL Low 13.0 - 17.0 g/dL [facility] Immature granulocytes (Bld) [#/Vol] 0.03 10*3/uL <0.10 k/uL [facility] Immature granulocytes/100 WBC (Bld) 0.6 % [facility] Lymphocytes (Bld) [#/Vol] 0.37 10*3/uL Low 1.00 - 4.00 k/uL [facility] Lymphocytes/100 WBC (Bld) 7.3 % [facility] MCH (RBC) [Entitic mass] 27.7 pg 26.0 - 34.0 pg [facility] MCHC (RBC) [Mass/Vol] 32.1 g/dL 30.5 - 36.0 g/dL [facility] MCV (RBC) [Entitic vol] 86.3 fL 80.0 - 100.0 fL [facility] Monocytes (Bld) [#/Vol] 0.47 10*3/uL <0.87 k/uL [facility] Monocytes/100 WBC (Bld) 9.3 % [facility] Neutrophils (Bld) [#/Vol] 4.09 10*3/uL 1.45 - 7.50 k/uL [facility] Neutrophils/100 WBC (Bld) 80.6 % [facility] Nucleated RBC (Bld) [#/Vol] <0.01 k/uL [facility] Nucleated RBC/100 WBC (Bld) [Ratio] 0.0 /100 WBC [facility] Platelet mean volume (Bld) [Entitic vol] 9.7 fL 9.0 - 12.7 fL [facility] Platelets (Bld) [#/Vol] 232 10*3/uL 150 - 400 k/uL [facility] RBC (Bld) [#/Vol] 4.15 10*6/uL Low 4.20 - 6.00 m/uL [facility] WBC (Bld) [#/Vol] 5.07 10*3/uL 3.70 - 11.00 k/u L [facility] CNOVSPon 11-14-2023 CNOVSP Visit (SP) Office ([place]) ----- 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 ([id number]) 1970 M Date Time Provider Department 11/14/23 9:00 AM JAVI SINGER During your visit today, we recorded the following information about you: Temperature Pulse Respiration Blood pressure 97.5 degrees 76/minute 18/minute 138/80 Weight Height 161.1 kg 1.829 m Javi Singer MD 11/14/2023 8:31 PM Signed PATIENT NAME: Osiel Cartwright DATE: 11/14/2021 PRIMARY CARE PHYSICIAN: Carolann Shirley MD OTHER PHYSICIANS: Dr. Lundberg, Dr. Paris Portions of this encounter note have been copied from my note from and has been updated where appropriate, and reflect my current medical decision making from today. CC: This is a 52 year old male with recently diagnosed prostate cancer, seen for scheduled follow-up. INTERIM HISTORY: Since the patient's last visit here he has remained on abiraterone/prednisone, and appears to be tolerating the medications well. He was started on radiation therapy 10/10/2022 and is tolerating it well. No difficulties with urination. No unusual pain. Overall feels well. MEDICATIONS: Current Outpatient Medications Medication Sig calcium carbonate/vitamin D3 (CALCIUM WITH VITAMIN D ORAL) Take 1 tablet by mouth once daily. abiraterone 250 mg tablet Take 4 tablets by mouth once daily. predniSONE (DELTASONE) 5 mg tablet Take 1 tablet by mouth once daily. colchicine 0.6 mg tablet Take 0.6 mg by mouth as needed. diclofenac, EC, (VOLTAREN) 75 mg EC tablet Take 1 tablet by mouth every 12 hours. lisinopril (ZESTRIL) 10 mg tablet Take 1 tablet by mouth every afternoon. No current facility-administered medications for this visit. ALLERGIES: ALLERGIES No Known Allergies PAST MEDICAL HISTORY: PAST MEDICAL HISTORY Diagnosis Date Arthritis Gout HTN (hypertension) Prostate cancer (HCC) PAST SURGICAL HISTORY: PAST SURGICAL HISTORY Procedure Laterality Date HERNIA REPAIR HX groin TONSILLECTOMY AND ADENOIDECTOMY US BIOPSY PROSTATE FAMILY HISTORY: FAMILY HISTORY Problem Relation Age of Onset Crohn's Disease Mother other (Rheumatoid arthritis) Mother other (Acute myocardial infarct) Father Diabetes Father SOCIAL HISTORY: Social History Tobacco Use Smoking status: Former Packs/day: 0.50 Years: 20.00 Additional pack years: 0.00 Total pack years: 10.00 Types: Cigarettes Quit date: 2012 Years since quittin.1 Passive exposure: Past Smokeless tobacco: Never Substance Use Topics Alcohol use: Yes Comment: socially Drug use: Not Currently COMPLETE REVIEW OF SYSTEMS: CONSTITUTION: Negative for pain, fatigue, weight loss, or appetite loss. EENT: Negative for mouth soreness, antibiotics use, epistaxis, visual problems, neck or facial swelling, fever/chills, bleeding gums, or hearing loss. CV: Negative for edema, calf swelling, palpitations, or chest pain. RESPIRATORY: Negative for cough, SOB, hemoptysis, or wheezing. GI: Negative for nausea/vomiting, heartburn, vomiting blood, dysphasia, diarrhea, blood in stool, constipation, early satiety, PICA, vegetarian, poor nutrition, abdominal fullness, or abdominal pain. NEUROLOGICAL: Negative for numbness/tingling, dizziness, gait disturbance, headache, speech disturbance, tremor, hemiparesis/sensory loss, or change in mental status. MUSCULOSKELETAL: Negative for joint pain, joint swelling, or proximal muscle weakness. SKIN: Negative for hair loss, bruising, nail changes, rash, itching, pallor, or jaundice. ENDO/URO: Negative for hot flashes, cold or heat intolerance, urinary frequency, urinary hesitancy, menorrhagia, or hematuria. PSYCH: Negative for anxiety, depression, or other. PHYSICAL EXAM: BP 138/80 Pulse 76 Temp 36.4 ?C (97.5 ?F) (Temporal) Resp 18 Ht 182.9 cm (6' 0.01 ) Wt (!) 161.1 kg (355 lb 2.6 oz) SpO2 99% BMI 48.16 kg/m? GENERAL EXAM: Well developed/well nourished; in no acute distress. SKIN: Negative for lesions, rashes, or ulcers on the upper and lower extremities and face. Negative for palpations/nodules, purpura, and ecchymosis. EENT: Negative for conjunctiva, mucosal pallor, JVD, LAP, thyromegaly, and glossitis. Supple AND PERRL. EXTREMITIES: Negative for cyanosis, clubbing, and crepitus. LUNGS: Negative to auscultation, respiratory effort, and percussion. CARDIOVASCULAR: Regular rate. Negative for murmurs/S3S4/abnormal sounds, edema, and carotid bruits. ABDOMEN: Negative for masses, hernia, and spleen/liver abnormalities. RECTAL: Not done PSYCHIATRIC: Negative for mood/affect changes, recent AND remote memory changes, and judgement and insight. NEUROLOGICAL: Alert, oriented x person, place, time. Cranial nerves 2-12 intact. Sensory for pain, light touch, vibration intact on all 4 extremities. Reflexes symmetric for biceps/brachioradial/rodrigues lla/achilles. MUSCULOSK (more content not included)... Normal [facility] Comprehensive metabolic 2000 panelon 11-14-2023 Albumin [Mass/Vol] 4.1 g/dL Normal 3.9-4.9 [facility] Comment on above: Order Comment: Speci men Type: BLOOD SPECIMENOrdering Facility: [facility] Address: [address] [place] [address] Performed By: #### 2 4323-8 ####[facility] LABCLIA [id number] [place] [address] ALP [Catalytic activity/Vol] 87 U/L Normal 38-113 [facility] Comment on above: Order Comment: Speci men Type: BLOOD SPECIMENOrdering Facility: [facility] Address: [address] [place] [address] Performed By: #### 2 4323-8 ####[facility] LABCLIA [id number] [place] [address] ALT [Catalytic activity/Vol] 24 U/L Normal 10-54 [facility] Comment on above: Order Comment: Speci men Type: BLOOD SPECIMENOrdering Facility: [facility] Address: [address] [place] [address] Performed By: #### 2 4323-8 ####[facility] LABCLIA [id number] [place] [address] Anion gap [Moles/Vol] 12 mmol/L Normal 9-18 [facility] Comment on above: Order Comment: Speci men Type: BLOOD SPECIMENOrdering Facility: [facility] Address: [address] [place] [address] Performed By: #### 2 4323-8 ####[facility] LABCLIA [id number] [place] [address] AST [Catalytic activity/Vol] 17 U/L Normal 14-40 [facility] Comment on above: Order Comment: Speci men Type: BLOOD SPECIMENOrdering Facility: [facility] Address: [address] [place] [address] Performed By: #### 2 4323-8 ####[facility] LABCLIA [id number] [place] [address] Bilirubin [Mass/Vol] 0.4 mg/dL Normal 0.2-1.3 [facility] Comment on above: Order Comment: Speci men Type: BLOOD SPECIMENOrdering Facility: [facility] Address: [address] [place] [address] Performed By: #### 2 4323-8 ####[facility] LABCLIA [id number] [place] [address] Calcium [Mass/Vol] 9.6 mg/dL Normal 8.5-10.2 [facility] Comment on above: Order Comment: Speci men Type: BLOOD SPECIMENOrdering Facility: [facility] Address: [address] [place] [address] Performed By: #### 2 4323-8 ####[facility] LABCLIA [id number] [place] [address] Chloride [Moles/Vol] 101 mmol/L Normal 97-105 [facility] Comment on above: Order Comment: Speci men Type: BLOOD SPECIMENOrdering Facility: [facility] Address: [address] [place] [address] Performed By: #### 2 4323-8 ####[facility] LABCLIA [id number] [place] [address] CO2 [Moles/Vol] 27 mmol/L Normal 22-30 [facility] Comment on above: Order Comment: Speci men Type: BLOOD SPECIMENOrdering Facility: [facility] Address: [address] [place] [address] Performed By: #### 2 4323-8 ####[facility] LABCLIA [id number] [place] [address] Creatinine [Mass/Vol] 0.83 mg/dL Normal 0.73-1.22 [facility] Comment on above: Order Comment: Speci men Type: BLOOD SPECIMENOrdering Facility: [facility] Address: [address] [place], [place] [address] Performed By: #### 2 4323-8 ####[facility] LABCLIA [id number] [place] [address] Creatinine and Glomerular filtration rate.predicted panel (S/P/Bld) 106 mL/min/1.73m??? Normal >=60 [facility] Comment on above: Order Comment: Michelle contreras Type: BLOOD SPECIMENOrdering Facility: [facility] Address: [address] [place] [address] Result Comment: Carmen mated Glomerular Filtration Rate (eGFR) is calculated using the 2020 CKD-EPI creatinine equation. This equation utilizes serum creatinine, sex, and age as parameters. The creatinine assay has traceable calibration to isotope dilution-mass spectrometry. Refer to KDIGO guidelines for clinical interpretation. In patients with unstable renal function, e.g. those with acute kidney injury, the eGFR may not accurately reflect actual GFR. Performed By: #### 2 4323-8 ####[facility] LABCLIA [id number] [place] [address] Glucose [Mass/Vol] 102 mg/dL High 74-99 [facility] Comment on above: Order Comment: Michelle contreras Type: BLOOD SPECIMENOrdering Facility: [facility] Address: [address] [place] [address] Result Comment: The [place] [employer] (ADA) provides guidance for cutoff values for fasting glucose and random glucose. The ADA defines fasting as no caloric intake for at least 8 hours. Fasting plasma glucose results between 100 to 125 mg/dL indicate increased risk for diabetes (prediabetes). Fasting plasma glucose results greater than or equal to 126 mg/dL meet the criteria for diagnosis of diabetes. In the absence of unequivocal hyperglycemia, results should be confirmed by repeat testing. In a patient with classic symptoms of hyperglycemia or hyperglycemic crisis, random plasma glucose results greater than or equal to 200 mg/dL meet the criteria for diagnosis of diabetes. Reference: Standards of Medical Care in Diabetes 2016, [place] [employer]. Diabetes Care. 2016.39(Suppl 1). Performed By: #### 2 4323-8 ####[facility] LABCLIA [id number] [place] [address] Potassium [Moles/Vol] 4.2 mmol/L Normal 3.7-5.1 [facility] Comment on above: Order Comment: Speci men Type: BLOOD SPECIMENOrdering Facility: [facility] Address: [address] [place] [address] Performed By: #### 2 4323-8 ####[facility] LABCLIA [id number] [place] [address] Protein [Mass/Vol] 6.7 g/dL Normal 6.3-8.0 [facility] Comment on above: Order Comment: Speci men Type: BLOOD SPECIMENOrdering Facility: [facility] Address: [address] [place] [address] Performed By: #### 2 4323-8 ####[facility] LABCLIA [id number] [place] [address] Sodium [Moles/Vol] 140 mmol/L Normal 136-144 [facility] Comment on above: Order Comment: Speci men Type: BLOOD SPECIMENOrdering Facility: [facility] Address: [address] [place] [address] Performed By: #### 2 4323-8 ####[facility] LABCLIA [id number] [place] [address] Urea nitrogen [Mass/Vol] 18 mg/dL Normal 9-24 [facility] Comment on above: Order Comment: Speci men Type: BLOOD SPECIMENOrdering Facility: [facility] Address: [address] [place] [address] Performed By: #### 2 4323-8 ####[facility] LABCLIA [id number] [place] [address] Albumin [Mass/Vol] 4.1 g/dL 3.9 - 4.9 g/dL [facility] ALP [Catalytic activity/Vol] 87 U/L 38 - 113 U/L [facility] ALT [Catalytic activity/Vol] 24 U/L 10 - 54 U/L [facility] Anion gap [Moles/Vol] 12 mmol/L 9 - 18 mmol/L [facility] AST [Catalytic activity/Vol] 17 U/L 14 - 40 U/L [facility] Bilirubin [Mass/Vol] 0.4 mg/dL 0.2 - 1.3 mg/dL [facility] Calcium [Mass/Vol] 9.6 mg/dL 8.5 - 10.2 mg/dL [facility] Chloride [Moles/Vol] 101 mmol/L 97 - 105 mmol/L [facility] CO2 [Moles/Vol] 27 mmol/L 22 - 30 mmol/L [facility] Creatinine [Mass/Vol] 0.83 mg/dL 0.73 - 1.22 mg/dL [facility] Estimated Glomerular Filtration Rate 106 mL/min/1.73m >=60 mL/min/1.73m [facility] Glucose [Mass/Vol] 102 mg/dL High 74 - 99 mg/dL [facility] Potassium [Moles/Vol] 4.2 mmol/L 3.7 - 5.1 mmol/L [facility] Protein [Mass/Vol] 6.7 g/dL 6.3 - 8.0 g/dL [facility] Sodium [Moles/Vol] 140 mmol/L 136 - 144 mmol/L [facility] Urea nitrogen [Mass/Vol] 18 mg/dL 9 - 24 mg/dL [facility] PSA SerPl-ncon 11-14-2023 Prostate specific Ag [Mass/Vol] 0.60 ng/mL Normal <2.60 [facility] Comment on above: Order Comment: Speci men Type: BLOOD SPECIMENOrdering Facility: [facility] Address: [address] [place] [address] Result Comment: Tota l PSA test methodology used is the Electrochemiluminescence Immunoassay by [employer]. Total PSA values by differing methodologies cannot be interchanged. Performed By: #### 2 857-1 ####[facility] LABCLIA [id number] [place] [address] [place] PSA/PROSTSPECAG DIAGon 11-14 Prostate specific Ag [Mass/Vol] 0.60 ng/mL <2.60 ng/mL [facility] CNOVon 11-13-2023 CNOV Office Visit (RADTSA ) ----- 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 ([id number]) 1970 M Date Time Provider Department 11/13/23 8:45 AM Lauren PARIS During your visit today, we recorded the following information about you: Temperature Pulse Respiration Blood pressure 96.7 degrees 79/minute 18/minute 143/92 Weight 160.7 kg Lauren Paris MD 11/13/2023 9:26 AM Signed Radiation Oncology - On Treatment Review (OTR) Note PATIENT NAME: Osiel Cartwright PATIENT DIAGNOSIS: Prostate adenocarcinoma, initial PSA 180.42, biopsy Jo-Ann score 3 + 4 = 7 (grade group 2), clinical stage T2c, N0, M0, stage IIIA [T1-T2, N0, M0, PSA >=20, GG 1-4] (AJCC 8th ed.), s/p TRUS Random biopsy. COURSE: definitive Current dose: 6250 cGy in 25 fx Planned dose: 7000 cGy in 28 fx SUBJECTIVE: Doing well. No new issues. PHYSICAL EXAM: 11/13/23 0917 BP: 143/92 Pulse: 79 Resp: 18 Temp: (!) 35.9 ?C (96.7 ?F) SpO2: 96% Weight: (!) 160.7 kg (354 lb 4.5 oz) KPS: 100 General Appearance: Alert and oriented. No acute distress. IMAGING/LAB RESULTS: Hemoglobin (g/dL) Date Value 09/19/2023 13.0 Hematocrit (%) Date Value 09/19/2023 40.3 WBC (k/uL) Date Value 09/19/2023 8.37 Platelet Count (k/uL) Date Value 09/19/2023 303 TOXICITY ASSESSMENT (CTC v4.0): Fatigue:grade 1 - Fatigue relieved by rest Radiation Dermatitis: grade 0 - No symptoms Diarrhea:grade 1 Proctitis: grade 0 - No symptoms Urinary frequency: grade 1 Dysuria: grade 0 - No symptoms Urinary incontinence: grade 0 (No symptoms) Urinary retention: grade 1 Treatment chart checked: Yes Patient treatment site reviewed and verified:Yes Port films reviewed and current:Yes Medications started: None ASSESSMENT/PLAN: Overall doing well. Patient will complete this week. He has follow-up with medical oncology. I will plan to see patient back in 3 to 4 weeks for follow-up. Lauren Paris MD Allergies As of Date: 11/13/2023 (No Known Allergies) Date Reviewed: 11/13/2023 Reviewed by: Adrianne Weinstein RN - Fully Assessed Primary Visit Diagnosis:Malignant neoplasm of prostate (HCC) [C61] Prescriptions as of 11/13/2023 - calcium carbonate/vitamin D3 (CALCIUM WITH VITAMIN D ORAL) Take 1 tablet by mouth once daily. - abiraterone 250 mg tablet Take 4 tablets by mouth once daily. - predniSONE (DELTASONE) 5 mg tablet Take 1 tablet by mouth once daily. - colchicine 0.6 mg tablet Take 0.6 mg by mouth as needed. - diclofenac, EC, (VOLTAREN) 75 mg EC tablet Take 1 tablet by mouth every 12 hours. - lisinopril (ZESTRIL) 10 mg tablet Take 1 tablet by mouth every afternoon. Problem List As Of Date: 11/13/2023 (None) Encounter Status:Closed by Lauren PARIS on 11/13/23 [facility] CNOVon 11-06-2023 CNOV Office Visit (RADTSA ) ----- CHAYOSIEL Drake ([id number]) 1970 M Date Time Provider Department 11/06/23 8:45 AM Lauren PARIS RADTSA During your visit today, we recorded the following information about you: Temperature Pulse Respiration Blood pressure 96.7 degrees 80/minute 18/minute 122/83 Weight 158.3 kg Lauren Paris MD 11/06/2023 10:42 AM Signed Radiation Oncology - On Treatment Review (OTR) Note PATIENT NAME: Osiel Cartwright PATIENT DIAGNOSIS: Prostate adenocarcinoma, initial PSA 180.42, biopsy Jo-Ann score 3 + 4 = 7 (grade group 2), clinical stage T2c, N0, M0, stage IIIA [T1-T2, N0, M0, PSA >=20, GG 1-4] (AJCC 8th ed.), s/p TRUS Random biopsy. COURSE: definitive Current dose: 5000 cGy in 20 fx Planned dose: 7000 cGy in 28 fx SUBJECTIVE: Doing well. Slight increased stool frequency couple episodes of diarrhea. Still some mild obstructive urinary symptoms. PHYSICAL EXAM: 11/06/23 1005 BP: 122/83 Pulse: 80 Resp: 18 Temp: (!) 35.9 ?C (96.7 ?F) SpO2: 96% Weight: (!) 158.3 kg (348 lb 15.8 oz) KPS: 100 General Appearance: Alert and oriented. No acute distress. IMAGING/LAB RESULTS: Hemoglobin (g/dL) Date Value 09/19/2023 13.0 Hematocrit (%) Date Value 09/19/2023 40.3 WBC (k/uL) Date Value 09/19/2023 8.37 Platelet Count (k/uL) Date Value 09/19/2023 303 TOXICITY ASSESSMENT (CTC v4.0): Fatigue:grade 1 - Fatigue relieved by rest Radiation Dermatitis: grade 0 - No symptoms Diarrhea:grade 1 Proctitis: grade 0 - No symptoms Urinary frequency: grade 1 Dysuria: grade 0 - No symptoms Urinary incontinence: grade 0 (No symptoms) Urinary retention: grade 1 Treatment chart checked: Yes Patient treatment site reviewed and verified:Yes Port films reviewed and current:Yes Medications started: None ASSESSMENT/PLAN: Overall doing well. Discussed diarrhea management. Hold off on Flomax for now. Continue radiation. Lauren Paris MD Allergies As of Date: 11/06/2023 (No Known Allergies) Date Reviewed: 11/06/2023 Reviewed by: Adrianne Weinstein RN - Fully Assessed Reason for Visit: Radiotherapy On-treatment Visit [1722] Primary Visit Diagnosis:Malignant neoplasm of prostate (HCC) [C61] Prescriptions as of 11/06/2023 - calcium carbonate/vitamin D3 (CALCIUM WITH VITAMIN D ORAL) Take 1 tablet by mouth once daily. - abiraterone 250 mg tablet Take 4 tablets by mouth once daily. - predniSONE (DELTASONE) 5 mg tablet Take 1 tablet by mouth once daily. - colchicine 0.6 mg tablet Take 0.6 mg by mouth as needed. - diclofenac, EC, (VOLTAREN) 75 mg EC tablet Take 1 tablet by mouth every 12 hours. - lisinopril (ZESTRIL) 10 mg tablet Take 1 tablet by mouth every afternoon. Problem List As Of Date: 11/06/2023 (None) Encounter Status:Closed by Lauren PARIS on 11/06/23 [facility] CNOVon 10-30-2023 CNOV Office Visit (RADTSA ) ----- SUKHWINDEROSIEL MICHELE ([id number]) 1970 M Date Time Provider Department 10/30/23 8:45 AM Lauren PARIS RADTSA During your visit today, we recorded the following information about you: Temperature Pulse Respiration Blood pressure 97.5 degrees 59/minute 18/minute 150/90 Weight 160 kg Lauren Paris MD 10/30/2023 10:49 AM Signed Radiation Oncology - On Treatment Review (OTR) Note PATIENT NAME: Osiel Prettysegundo PATIENT DIAGNOSIS: Prostate adenocarcinoma, initial PSA 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 COURSE: definitive Current dose: 3750 cGy in 15 fx Planned dose: 7000 cGy in 28 fx SUBJECTIVE: Doing well. Slight increase in obstructive symptoms. No other issues. PHYSICAL EXAM: 10/30/23 0931 BP: 150/90 Pulse: (!) 59 Resp: 18 Temp: 36.4 ?C (97.5 ?F) SpO2: 99% Weight: (!) 160 kg (352 lb 11.8 oz) KPS: 100 General Appearance: Alert and oriented. No acute distress. IMAGING/LAB RESULTS: None TOXICITY ASSESSMENT (CTC v4.0): Fatigue:grade 1 - Fatigue relieved by rest Radiation Dermatitis: grade 0 - No symptoms Diarrhea:grade 1 Proctitis: grade 0 - No symptoms Urinary frequency: grade 1 Dysuria: grade 0 - No symptoms Urinary incontinence: grade 0 (No symptoms) Urinary retention: grade 1 Treatment chart checked: Yes Patient treatment site reviewed and verified:Yes Port films reviewed and current:Yes Medications started: None ASSESSMENT/PLAN: Tolerating treatment well. Discussed Flomax for mild retention symptoms, will hold off for now. Encourage patient to let me know if should this worsen and we can start Flomax. Continue treatment as outlined. Lauren Paris MD Allergies As of Date: 10/30/2023 (No Known Allergies) Date Reviewed: 10/30/2023 Reviewed by: Ilda Rabago LPN - Fully Assessed Reason for Visit: Radiotherapy On-treatment Visit [1722] Primary Visit Diagnosis:Malignant neoplasm of prostate (HCC) [C61] Prescriptions as of 10/30/2023 - calcium carbonate/vitamin D3 (CALCIUM WITH VITAMIN D ORAL) Take 1 tablet by mouth once daily. - abiraterone 250 mg tablet Take 4 tablets by mouth once daily. - predniSONE (DELTASONE) 5 mg tablet Take 1 tablet by mouth once daily. - colchicine 0.6 mg tablet Take 0.6 mg by mouth as needed. - diclofenac, EC, (VOLTAREN) 75 mg EC tablet Take 1 tablet by mouth every 12 hours. - lisinopril (ZESTRIL) 10 mg tablet Take 1 tablet by mouth every afternoon. Problem List As Of Date: 10/30/2023 (None) Encounter Status:Closed by Lauren PARIS on 10/30/23 [facility] Nehemias 10-30-2023 SAY Telephone ([email or web address]) ----- 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 ([id number]) 1970 M Date Time Provider Department 10/30/23 NEIL QUEZADA During your visit today, we recorded the following information about you: Neil Quezada LGC 10/30/2023 3:08 PM Signed Results left on patient voicemail. Osiel Cartwright's Multi-Cancer panel through [facility] was negative for a pathogenic variant. Variant(s) of uncertain significance (VUS) detected: FLCN (c.175C>T). A VUS is a genetic variant for which insufficient data exists in order to determine if it is associated with disease (deleterious mutation) or is a normal genetic variant which can occur in the population without disease (benign polymorphism). Please see [employer] message for further discussion. Neil Quezada MS, [facility] Licensed, Certified Genetic Counselor Allergies As of Date: 10/30/2023 (No Known Allergies) Date Reviewed: 10/30/2023 Reviewed by: Ilda Rabago LPN - Fully Assessed Reason for Visit: Results [95] Prescriptions as of 10/30/2023 - calcium carbonate/vitamin D3 (CALCIUM WITH VITAMIN D ORAL) Take 1 tablet by mouth once daily. - abiraterone 250 mg tablet Take 4 tablets by mouth once daily. - predniSONE (DELTASONE) 5 mg tablet Take 1 tablet by mouth once daily. - colchicine 0.6 mg tablet Take 0.6 mg by mouth as needed. - diclofenac, EC, (VOLTAREN) 75 mg EC tablet Take 1 tablet by mouth every 12 hours. - lisinopril (ZESTRIL) 10 mg tablet Take 1 tablet by mouth every afternoon. Problem List As Of Date: 10/30/2023 (None) Encounter Status:Closed by NEIL QUEZADA on 10/30/23 [facility] CNOVon 10-23-2023 CNOV Office Visit (RADTSA ) ----- 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 ([id number]) 1970 M Date Time Provider Department 10/23/23 12:45 PM Lauren PARIS During your visit today, we recorded the following information about you: Temperature Pulse Respiration Blood pressure 96.9 degrees 93/minute 16/minute 124/78 Weight 159.4 kg Lauren Paris MD 10/23/2023 1:38 PM Signed Radiation Oncology - On Treatment Review (OTR) Note PATIENT NAME: Osiel Cartwright PATIENT DIAGNOSIS: Prostate adenocarcinoma, initial PSA 180.42, biopsy Jo-Ann score 3 + 4 = 7 (grade group 2), clinical stage T2c, N0, M0, stage IIIA [T1-T2, N0, M0, PSA >=20, GG 1-4] (AJCC 8th ed.), s/p TRUS Random biopsy. COURSE: definitive Current dose: 2500 cGy in 10 fx Planned dose: 7000 cGy in 28 fx SUBJECTIVE: Doing well. Some increased urinary frequency slightly slower stream. No further diarrhea. PHYSICAL EXAM: 10/23/23 1317 BP: 124/78 Pulse: 93 Resp: 16 Temp: 36.1 ?C (96.9 ?F) SpO2: 96% Weight: (!) 159.4 kg (351 lb 6.6 oz) KPS: 100 General Appearance: Alert and oriented. No acute distress. IMAGING/LAB RESULTS: None TOXICITY ASSESSMENT (CTC v4.0): Fatigue:grade 1 - Fatigue relieved by rest Radiation Dermatitis: grade 0 - No symptoms Diarrhea:grade 1 Proctitis: grade 0 - No symptoms Urinary frequency: grade 1 Dysuria: grade 0 - No symptoms Urinary incontinence: grade 0 (No symptoms) Urinary retention: grade 1 Treatment chart checked: Yes Patient treatment site reviewed and verified:Yes Port films reviewed and current:Yes Medications started: None ASSESSMENT/PLAN: Tolerating treatment well. Continue treatment as outlined. Lauren Paris MD Allergies As of Date: 10/23/2023 (No Known Allergies) Date Reviewed: 10/23/2023 Reviewed by: Adrianne Weinstein RN - Fully Assessed Reason for Visit: Radiotherapy On-treatment Visit [1722] Primary Visit Diagnosis:Malignant neoplasm of prostate (HCC) [C61] Prescriptions as of 10/23/2023 - calcium carbonate/vitamin D3 (CALCIUM WITH VITAMIN D ORAL) Take 1 tablet by mouth once daily. - abiraterone 250 mg tablet Take 4 tablets by mouth once daily. - predniSONE (DELTASONE) 5 mg tablet Take 1 tablet by mouth once daily. - colchicine 0.6 mg tablet Take 0.6 mg by mouth as needed. - diclofenac, EC, (VOLTAREN) 75 mg EC tablet Take 1 tablet by mouth every 12 hours. - lisinopril (ZESTRIL) 10 mg tablet Take 1 tablet by mouth every afternoon. Problem List As Of Date: 10/23/2023 (None) Encounter Status:Closed by Lauren PARIS on 10/23/23 [facility] SEND OUT TST 1on 2023 REFERRAL LAB 1 [facility] Comment on above: Order Comment: Michelle diane Type: BLOOD SPECIMENOrdering Facility: [facility] Address: [address] [place] [address] Performed By: #### M ISC1 ####NON-INTERFACED REF LABSCLIA SEE SCANNED RESULTS TEST 1 Multi Cancer Panel [facility] Comment on above: Order Comment: Michelle diane Type: BLOOD SPECIMENOrdering Facility: [facility] Address: [address] [place] [address] Performed By: #### M ISC1 ####NON-INTERFACED REF LABSCLIA SEE SCANNED RESULTS TEST RESULTS 1 View results in Scan marguerite Documents link when available. Normal [facility] Comment on above: Order Comment: Miguelmarie contreras Type: BLOOD SPECIMENOrdering Facility: [facility] Address: [address] [place] [address] Performed By: #### M ISC1 ####NON-INTERFACED REF LABSCLIA SEE SCANNED RESULTS CNOVon 10-16-2023 CNOV Office Visit (RADTSA ) ----- 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 ([id number]) 1970 M Date Time Provider Department 10/16/23 9:00 AM Lauren PARIS During your visit today, we recorded the following information about you: Temperature Pulse Respiration Blood pressure 96.9 degrees 86/minute 18/minute 112/72 Weight 160 kg Lauren Paris MD 10/16/2023 9:24 AM Signed Radiation Oncology - On Treatment Review (OTR) Note PATIENT NAME: Osiel Cartwright PATIENT DIAGNOSIS: Prostate adenocarcinoma, initial PSA 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 COURSE: definitive Current dose: 1250 cGy in 5 fx Planned dose: 7000 cGy in 28 fx SUBJECTIVE: Overall doing well. Episode of mild diarrhea today. No other issues. PHYSICAL EXAM: 10/16/23 0857 BP: 112/72 Pulse: 86 Resp: 18 Temp: 36.1 ?C (96.9 ?F) SpO2: 98% Weight: (!) 160 kg (352 lb 11.8 oz) KPS: 100 General Appearance: Alert and oriented. No acute distress. IMAGING/LAB RESULTS: None TOXICITY ASSESSMENT (CTC v4.0): Fatigue:grade 1 - Fatigue relieved by rest Radiation Dermatitis: grade 0 - No symptoms Diarrhea:grade 0 - No symptoms Proctitis: grade 0 - No symptoms Urinary frequency: grade 0 - No symptoms Dysuria: grade 0 - No symptoms Urinary incontinence: grade 0 (No symptoms) Urinary retention: grade 0 - No symptoms Treatment chart checked: Yes Patient treatment site reviewed and verified:Yes Port films reviewed and current:Yes Medications started: None ASSESSMENT/PLAN: Discussed diet and Imodium use for diarrhea. Tolerance good. Continue treatment as outlined. Lauren Paris MD Allergies As of Date: 10/16/2023 (No Known Allergies) Date Reviewed: 10/16/2023 Reviewed by: Ilda Rabago LPN - Fully Assessed Reason for Visit: Radiotherapy On-treatment Visit [1722] Primary Visit Diagnosis:Malignant neoplasm of prostate (HCC) [C61] Prescriptions as of 10/16/2023 - calcium carbonate/vitamin D3 (CALCIUM WITH VITAMIN D ORAL) Take 1 tablet by mouth once daily. - abiraterone 250 mg tablet Take 4 tablets by mouth once daily. - predniSONE (DELTASONE) 5 mg tablet Take 1 tablet by mouth once daily. - colchicine 0.6 mg tablet Take 0.6 mg by mouth as needed. - diclofenac, EC, (VOLTAREN) 75 mg EC tablet Take 1 tablet by mouth every 12 hours. - lisinopril (ZESTRIL) 10 mg tablet Take 1 tablet by mouth every afternoon. Problem List As Of Date: 10/16/2023 (None) Encounter Status:Closed by Lauren PARIS on 10/16/23 [facility] CNOVon 10-10-2023 CNOV Office Visit (RADTSA ) ----- 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 ([id number]) 1970 M Date Time Provider Department 10/10/23 9:00 AM Lauren PARIS During your visit today, we recorded the following information about you: Temperature Pulse Respiration Blood pressure 96.7 degrees 73/minute 18/minute 160/98 Weight 159.1 kg Lauren Paris MD 10/10/2023 9:43 AM Signed Radiation Oncology - On Treatment Review (OTR) Note PATIENT NAME: Osiel Cartwright PATIENT DIAGNOSIS: Prostate adenocarcinoma, initial PSA 180.42, biopsy Jo-Ann score 3 + 4 = 7 (grade group 2), clinical stage T2c, N0, M0, stage IIIA [T1-T2, N0, M0, PSA >=20, GG 1-4] (AJCC 8th ed.), s/p TRUS Random biopsy. COURSE: definitive Current dose: 250 cGy in 1 fx Planned dose: 7000 cGy in 28 fx SUBJECTIVE: Here to start radiation, doing well. PHYSICAL EXAM: KPS: 100 General Appearance: Alert and oriented. No acute distress. IMAGING/LAB RESULTS: None TOXICITY ASSESSMENT (CTC v4.0): Fatigue:grade 1 - Fatigue relieved by rest Radiation Dermatitis: grade 0 - No symptoms Diarrhea:grade 0 - No symptoms Proctitis: grade 0 - No symptoms Urinary frequency: grade 0 - No symptoms Dysuria: grade 0 - No symptoms Urinary incontinence: grade 0 (No symptoms) Urinary retention: grade 0 - No symptoms Treatment chart checked: Yes Patient treatment site reviewed and verified:Yes Port films reviewed and current:Yes Medications started: None ASSESSMENT/PLAN: Patient starting radiation today. Plan of care and expectations again reviewed. Plan, MU calculations and qa report reviewed. Initial imaging including cone beam ct and verification reviewed and approved. First treatment given. Continue radiation as prescribed. Lauren Paris MD Allergies As of Date: 10/10/2023 (No Known Allergies) Date Reviewed: 10/10/2023 Reviewed by: Adrianne Weinstein RN - Fully Assessed Primary Visit Diagnosis:Malignant neoplasm of prostate (HCC) [C61] Prescriptions as of 10/10/2023 - calcium carbonate/vitamin D3 (CALCIUM WITH VITAMIN D ORAL) Take 1 tablet by mouth once daily. - abiraterone 250 mg tablet Take 4 tablets by mouth once daily. - predniSONE (DELTASONE) 5 mg tablet Take 1 tablet by mouth once daily. - colchicine 0.6 mg tablet Take 0.6 mg by mouth as needed. - diclofenac, EC, (VOLTAREN) 75 mg EC tablet Take 1 tablet by mouth every 12 hours. - lisinopril (ZESTRIL) 10 mg tablet Take 1 tablet by mouth every afternoon. Problem List As Of Date: 10/10/2023 (None) Encounter Status:Closed by Lauren PARIS on 10/10/23 Normal [facility] Consultation Noteon 09-22-20 23 Consultation Note [id number]#[id number] Normal [facility] CBC W Auto Differential pane l (Bld)on 09-19-2023 Basophils (Bld) [#/Vol] 0.05 10*3/uL Normal <0.11 [facility] Comment on above: Order Comment: Speci men Type: BLOOD SPECIMENOrdering Facility: [facility] Address: [address] [place] [address] Performed By: #### 5 7021-8 ####[facility] LABCLIA [id number] [place] [address] Basophils/100 WBC (Bld) 0.6 % Normal [facility] Comment on above: Order Comment: Speci men Type: BLOOD SPECIMENOrdering Facility: [facility] Address: [address] [place] [address] Performed By: #### 5 7021-8 ####[facility] LABCLIA [id number] [place] [address] Differential cell count method Nom (Bld) Auto Normal [facility] Comment on above: Order Comment: Speci men Type: BLOOD SPECIMENOrdering Facility: [facility] Address: [address] [place] [address] Performed By: #### 5 7021-8 ####[facility] LABCLIA [id number] [place] [address] Eosinophils (Bld) [#/Vol] 0.06 10*3/uL Normal <0.46 [facility] Comment on above: Order Comment: Speci men Type: BLOOD SPECIMENOrdering Facility: [facility] Address: [address] [place] [address] Performed By: #### 5 7021-8 ####[facility] LABCLIA [id number] [place] [address] Eosinophils/100 WBC (Bld) 0.7 % Normal [facility] Comment on above: Order Comment: Speci men Type: BLOOD SPECIMENOrdering Facility: [facility] Address: [address] [place] [address] Performed By: #### 5 7021-8 ####[facility] LABCLIA [id number] [place] [address] Erythrocyte distribution width (RBC) [Ratio] 16.2 % High 11.5-15.0 [facility] Comment on above: Order Comment: Speci men Type: BLOOD SPECIMENOrdering Facility: [facility] Address: [address] [place] [address] Performed By: #### 5 7021-8 ####[facility] LABCLIA [id number] [place] [address] Hematocrit (Bld) [Volume fraction] 40.3 % Normal 39.0-51.0 [facility] Comment on above: Order Comment: Speci men Type: BLOOD SPECIMENOrdering Facility: [facility] Address: [address] [place] [address] Performed By: #### 5 7021-8 ####[facility] LABCLIA [id number] [place] [address] Hemoglobin (Bld) [Mass/Vol] 13.0 g/dL Normal 13.0-17.0 [facility] Comment on above: Order Comment: Speci men Type: BLOOD SPECIMENOrdering Facility: [facility] Address: [address] [place] [address] Performed By: #### 5 7021-8 ####[facility] LABCLIA [id number] [place] [address] Immature granulocytes (Bld) [#/Vol] 0.05 10*3/uL Normal <0.10 [facility] Comment on above: Order Comment: Speci men Type: BLOOD SPECIMENOrdering Facility: [facility] Address: [address] [place] [address] Performed By: #### 5 7021-8 ####[facility] LABCLIA [id number] [place] [address] Immature granulocytes/100 WBC (Bld) 0.6 % Normal [facility] Comment on above: Order Comment: Speci men Type: BLOOD SPECIMENOrdering Facility: [facility] Address: [address] [place] [address] Performed By: #### 5 7021-8 ####[facility] LABCLIA [id number] [place] [address] Lymphocytes (Bld) [#/Vol] 1.45 10*3/uL Normal 1.00-4.00 [facility] Comment on above: Order Comment: Speci men Type: BLOOD SPECIMENOrdering Facility: [facility] Address: [address] [place] [address] Performed By: #### 5 7021-8 ####[facility] LABCLIA [id number] [place] [address] Lymphocytes/100 WBC (Bld) 17.3 % Normal [facility] Comment on above: Order Comment: Speci men Type: BLOOD SPECIMENOrdering Facility: [facility] Address: [address] [place] [address] Performed By: #### 5 7021-8 ####[facility] LABCLIA [id number] [place] [address] MCH (RBC) [Entitic mass] 26.4 pg Normal 26.0-34.0 [facility] Comment on above: Order Comment: Speci men Type: BLOOD SPECIMENOrdering Facility: [facility] Address: [address] [place] [address] Performed By: #### 5 7021-8 ####[facility] LABCLIA [id number] [place] [address] MCHC (RBC) [Mass/Vol] 32.3 g/dL Normal 30.5-36.0 [facility] Comment on above: Order Comment: Speci men Type: BLOOD SPECIMENOrdering Facility: [facility] Address: [address] [place] [address] Performed By: #### 5 7021-8 ####[facility] LABCLIA [id number] [place] [address] MCV (RBC) [Entitic vol] 81.9 fL Normal 80.0-100.0 [facility] Comment on above: Order Comment: Speci men Type: BLOOD SPECIMENOrdering Facility: [facility] Address: [address] [place] [address] Performed By: #### 5 7021-8 ####[facility] LABCLIA [id number] [place] [address] Monocytes (Bld) [#/Vol] 0.69 10*3/uL Normal <0.87 [facility] Comment on above: Order Comment: Speci men Type: BLOOD SPECIMENOrdering Facility: [facility] Address: [address] [place] [address] Performed By: #### 5 7021-8 ####[facility] LABCLIA [id number] [place] [address] Monocytes/100 WBC (Bld) 8.2 % Normal [facility] Comment on above: Order Comment: Speci men Type: BLOOD SPECIMENOrdering Facility: [facility] Address: [address] [place] [address] Performed By: #### 5 7021-8 ####[facility] LABCLIA [id number] [place] [address] Neutrophils (Bld) [#/Vol] 6.07 10*3/uL Normal 1.45-7.50 [facility] Comment on above: Order Comment: Speci men Type: BLOOD SPECIMENOrdering Facility: [facility] Address: [address] [place] [address] Performed By: #### 5 7021-8 ####[facility] LABCLIA [id number] [place] [address] Neutrophils/100 WBC (Bld) 72.6 % Normal [facility] Comment on above: Order Comment: Speci men Type: BLOOD SPECIMENOrdering Facility: [facility] Address: [address] [place] [address] Performed By: #### 5 7021-8 ####[facility] LABCLIA [id number] [place] [address] Nucleated RBC (Bld) [#/Vol] 10*3/uL Normal <0.01 [facility] Comment on above: Order Comment: Speci men Type: BLOOD SPECIMENOrdering Facility: [facility] Address: [address] [place] [address] Performed By: #### 5 7021-8 ####[facility] LABCLIA [id number] [place] [address] Nucleated RBC/100 WBC (Bld) [Ratio] 0.0 /100 WBC Normal [facility] Comment on above: Order Comment: Speci men Type: BLOOD SPECIMENOrdering Facility: [facility] Address: [address] [place] [address] Performed By: #### 5 7021-8 ####[facility] LABCLIA [id number] [place] [address] Platelet mean volume (Bld) [Entitic vol] 9.9 fL Normal 9.0-12.7 [facility] Comment on above: Order Comment: Speci men Type: BLOOD SPECIMENOrdering Facility: [facility] Address: [address] [place] [address] Performed By: #### 5 7021-8 ####[facility] LABCLIA [id number] [place] [address] Platelets (Bld) [#/Vol] 303 10*3/uL Normal 150-400 [facility] Comment on above: Order Comment: Speci men Type: BLOOD SPECIMENOrdering Facility: [facility] Address: [address] [place] [address] Performed By: #### 5 7021-8 ####[facility] LABCLIA [id number] [place] [address] RBC (Bld) [#/Vol] 4.92 10*6/uL Normal 4.20-6.00 [facility] Comment on above: Order Comment: Speci men Type: BLOOD SPECIMENOrdering Facility: [facility] Address: [address] [place] [address] Performed By: #### 5 7021-8 ####[facility] LABCLIA [id number] [place] [address] WBC (Bld) [#/Vol] 8.37 10*3/uL Normal 3.70-11.00 [facility] Comment on above: Order Comment: Speci men Type: BLOOD SPECIMENOrdering Facility: [facility] Address: [facility] [place] [address] Performed By: #### 5 7021-8 ####[facility] LABCLIA [id number] [place] [address] CNOVon 09-19-2023 CNOV Office Visit (RADTSA ) ----- 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 ([id number]) 1970 M Date Time Provider Department 09/19/23 7:45 AM Lauren PARIS During your visit today, we recorded the following information about you: Allergies As of Date: 09/19/2023 (No Known Allergies) Date Reviewed: 09/12/2023 Reviewed by: Adrianne Weinstein, RN - Fully Assessed Reason for Visit: Simulation Request Form [1553] Primary Visit Diagnosis:Malignant neoplasm of prostate (HCC) [C61] Order(s):RADIATION TREATMENT PER RADIATION ONCOLOGIST PLAN [[id number]] Order #: [id number]: 1 PT ED CANCER [[id number]] Order #: [id number]: 1 CT SIM PLANNING RADIATION ONCOLOGY [0831832] Order #: [id number] Prescriptions as of 09/19/2023 - calcium carbonate/vitamin D3 (CALCIUM WITH VITAMIN D ORAL) Take 1 tablet by mouth once daily. - abiraterone 250 mg tablet Take 4 tablets by mouth once daily. - predniSONE (DELTASONE) 5 mg tablet Take 1 tablet by mouth once daily. - colchicine 0.6 mg tablet Take 0.6 mg by mouth as needed. - diclofenac, EC, (VOLTAREN) 75 mg EC tablet Take 1 tablet by mouth every 12 hours. - lisinopril (ZESTRIL) 10 mg tablet Take 1 tablet by mouth every afternoon. Problem List As Of Date: 09/19/2023 (None) Encounter Status:Closed by Lauren PARIS on 09/19/23 [facility] CNOVSPon 09-19-2023 CNOVSP Visit (SP) Office ([place]) ----- SUKHWINDEROSIEL MICHELE ([id number]) 1970 M Date Time Provider Department 09/19/23 3:45 PM JAVI SINGER During your visit today, we recorded the following information about you: Temperature Pulse Respiration Blood pressure 97.9 degrees 84/minute 16/minute 126/76 Weight Height 156.6 kg 1.829 m Javi Singer MD 09/20/2023 6:21 AM Signed PATIENT NAME: Osiel Cartwright DATE: 09/19/2023 PRIMARY CARE PHYSICIAN: Carolann Shirley MD OTHER PHYSICIANS: Dr. Lundberg, Dr. Paris Portions of this encounter note have been copied from my note from 08/21/2023 and has been updated where appropriate, and reflect my current medical decision making from today. CC: This is a 52 year old male with recently diagnosed prostate cancer, seen for scheduled follow-up. INTERIM HISTORY: Since the patient's initial visit here Casodex was discontinued and he started antiandrogen therapy with abiraterone/prednisone. He appears to be tolerating the medications well. He received his first Lupron injection on 08/22/2023. He has had mild hot flashes, no other adverse effects. On follow-up today feels quite well with no particular complaints. MEDICATIONS: Current Outpatient Medications Medication Sig calcium carbonate/vitamin D3 (CALCIUM WITH VITAMIN D ORAL) Take 1 tablet by mouth once daily. abiraterone 250 mg tablet Take 4 tablets by mouth once daily. predniSONE (DELTASONE) 5 mg tablet Take 1 tablet by mouth once daily. colchicine 0.6 mg tablet Take 0.6 mg by mouth as needed. diclofenac, EC, (VOLTAREN) 75 mg EC tablet Take 1 tablet by mouth every 12 hours. lisinopril (ZESTRIL) 10 mg tablet Take 1 tablet by mouth every afternoon. No current facility-administered medications for this visit. ALLERGIES: ALLERGIES No Known Allergies PAST MEDICAL HISTORY: PAST MEDICAL HISTORY Diagnosis Date Arthritis Gout HTN (hypertension) Prostate cancer (HCC) PAST SURGICAL HISTORY: PAST SURGICAL HISTORY Procedure Laterality Date HERNIA REPAIR HX groin TONSILLECTOMY AND ADENOIDECTOMY US BIOPSY PROSTATE FAMILY HISTORY: FAMILY HISTORY Problem Relation Age of Onset Crohn's Disease Mother other (Rheumatoid arthritis) Mother other (Acute myocardial infarct) Father Diabetes Father SOCIAL HISTORY: Social History Tobacco Use Smoking status: Former Packs/day: 0.50 Years: 20.00 Additional pack years: 0.00 Total pack years: 10.00 Types: Cigarettes Quit date: 2012 Years since quittin.9 Passive exposure: Past Smokeless tobacco: Never Substance Use Topics Alcohol use: Yes Comment: socially Drug use: Not Currently COMPLETE REVIEW OF SYSTEMS: CONSTITUTION: Negative for pain, fatigue, weight loss, or appetite loss. EENT: Negative for mouth soreness, antibiotics use, epistaxis, visual problems, neck or facial swelling, fever/chills, bleeding gums, or hearing loss. CV: Negative for edema, calf swelling, palpitations, or chest pain. RESPIRATORY: Negative for cough, SOB, hemoptysis, or wheezing. GI: Negative for nausea/vomiting, heartburn, vomiting blood, dysphasia, diarrhea, blood in stool, constipation, early satiety, PICA, vegetarian, poor nutrition, abdominal fullness, or abdominal pain. NEUROLOGICAL: Negative for numbness/tingling, dizziness, gait disturbance, headache, speech disturbance, tremor, hemiparesis/sensory loss, or change in mental status. MUSCULOSKELETAL: Negative for joint pain, joint swelling, or proximal muscle weakness. SKIN: Negative for hair loss, bruising, nail changes, rash, itching, pallor, or jaundice. ENDO/URO: Negative for hot flashes, cold or heat intolerance, urinary frequency, urinary hesitancy, menorrhagia, or hematuria. PSYCH: Negative for anxiety, depression, or other. PHYSICAL EXAM: BP 126/76 Pulse 84 Temp 36.6 ?C (97.9 ?F) (Temporal) Resp 16 Ht 182.9 cm (6' 0.01 ) Wt (!) 156.6 kg (345 lb 3.2 oz) SpO2 98% BMI 46.81 kg/m? GENERAL EXAM: Well developed/well nourished; in no acute distress. SKIN: Negative for lesions, rashes, or ulcers on the upper and lower extremities and face. Negative for palpations/nodules, purpura, and ecchymosis. EENT: Negative for conjunctiva, mucosal pallor, JVD, LAP, thyromegaly, and glossitis. Supple AND PERRL. EXTREMITIES: Negative for cyanosis, clubbing, and crepitus. LUNGS: Negative to auscultation, respiratory effort, and percussion. CARDIOVASCULAR: Regular rate. Negative for murmurs/S3S4/abnormal sounds, edema, and carotid bruits. ABDOMEN: Negative for masses, hernia, and spleen/liver abnormalities. RECTAL: Not done PSYCHIATRIC: Negative for mood/affect changes, recent AND remote memory changes, and judgement and insight. NEUROLOGICAL: Alert, oriented x person, place, time. Cranial nerves 2-12 intact. Sensory for pain, light touch, vibration intact (more content not included)... Normal [facility] Comprehensive metabolic 2000 panelon 09-19-2023 Albumin [Mass/Vol] 4.3 g/dL Normal 3.9-4.9 [facility] Comment on above: Order Comment: Speci men Type: BLOOD SPECIMENOrdering Facility: [facility] Address: [address] [place] [address] Performed By: #### 2 4323-8 ####[facility] LABCLIA [id number] [place] [address] ALP [Catalytic activity/Vol] 116 U/L High 38-113 [facility] Comment on above: Order Comment: Speci men Type: BLOOD SPECIMENOrdering Facility: [facility] Address: [address] [place] [address] Performed By: #### 2 4323-8 ####[facility] LABCLIA [id number] [place] [address] ALT [Catalytic activity/Vol] 30 U/L Normal 10-54 [facility] Comment on above: Order Comment: Speci men Type: BLOOD SPECIMENOrdering Facility: [facility] Address: [address] [place] [address] Performed By: #### 2 4323-8 ####[facility] LABCLIA [id number] [place] [address] Anion gap [Moles/Vol] 10 mmol/L Normal 9-18 [facility] Comment on above: Order Comment: Speci men Type: BLOOD SPECIMENOrdering Facility: [facility] Address: [address] [place] [address] Performed By: #### 2 4323-8 ####[facility] LABCLIA [id number] [place] [address] AST [Catalytic activity/Vol] Normal [facility] Comment on above: Order Comment: Speci men Type: BLOOD SPECIMENOrdering Facility: [facility] Address: [address] [place] [address] Result Comment: Unab le to assay. Specimen significantly hemolyzed. Performed By: #### 2 4323-8 ####[facility] LABCLIA [id number] [place] [address] Bilirubin [Mass/Vol] 0.3 mg/dL Normal 0.2-1.3 [facility] Comment on above: Order Comment: Speci men Type: BLOOD SPECIMENOrdering Facility: [facility] Address: [address] [place] [address] Performed By: #### 2 4323-8 ####[facility] LABCLIA [id number] [place] [address] Calcium [Mass/Vol] 9.4 mg/dL Normal 8.5-10.2 [facility] Comment on above: Order Comment: Speci men Type: BLOOD SPECIMENOrdering Facility: [facility] Address: [address] [place] [address] Performed By: #### 2 4323-8 ####[facility] LABCLIA [id number] [place] [address] Chloride [Moles/Vol] 99 mmol/L Normal 97-105 [facility] Comment on above: Order Comment: Speci men Type: BLOOD SPECIMENOrdering Facility: [facility] Address: [address] [place] [address] Performed By: #### 2 4323-8 ####[facility] LABCLIA [id number] [place] [address] CO2 [Moles/Vol] 29 mmol/L Normal 22-30 [facility] Comment on above: Order Comment: Speci men Type: BLOOD SPECIMENOrdering Facility: [facility] Address: [address] [place] [address] Performed By: #### 2 4323-8 ####[facility] LABCLIA [id number] [place] [address] Creatinine [Mass/Vol] 1.03 mg/dL Normal 0.73-1.22 [facility] Comment on above: Order Comment: Speci men Type: BLOOD SPECIMENOrdering Facility: [facility] Address: [address] [place] [address] Performed By: #### 2 4323-8 ####[facility] LABCLIA [id number] [place] [address] Creatinine and Glomerular filtration rate.predicted panel (S/P/Bld) 88 mL/min/1.73m??? Normal >=60 [facility] Comment on above: Order Comment: Speci men Type: BLOOD SPECIMENOrdering Facility: [facility] Address: [address] [place] [address] Result Comment: Carmen mated Glomerular Filtration Rate (eGFR) is calculated using the 2020 CKD-EPI creatinine equation. This equation utilizes serum creatinine, sex, and age as parameters. The creatinine assay has traceable calibration to isotope dilution-mass spectrometry. Refer to KDIGO guidelines for clinical interpretation. In patients with unstable renal function, e.g. those with acute kidney injury, the eGFR may not accurately reflect actual GFR. Performed By: #### 2 4323-8 ####[facility] LABCLIA [id number] [place] [address] Glucose [Mass/Vol] 104 mg/dL High 74-99 [facility] Comment on above: Order Comment: Speci men Type: BLOOD SPECIMENOrdering Facility: [facility] Address: [address] [place] [address] Result Comment: The [place] Diabetes Association (ADA) provides guidance for cutoff values for fasting glucose and random glucose. The ADA defines fasting as no caloric intake for at least 8 hours. Fasting plasma glucose results between 100 to 125 mg/dL indicate increased risk for diabetes (prediabetes). Fasting plasma glucose results greater than or equal to 126 mg/dL meet the criteria for diagnosis of diabetes. In the absence of unequivocal hyperglycemia, results should be confirmed by repeat testing. In a patient with classic symptoms of hyperglycemia or hyperglycemic crisis, random plasma glucose results greater than or equal to 200 mg/dL meet the criteria for diagnosis of diabetes. Reference: Standards of Medical Care in Diabetes 2016, [place] [employer] Association. Diabetes Care. 2016.39(Suppl 1). Performed By: #### 2 4323-8 ####[facility] LABCLIA [id number] [place] [address] Potassium [Moles/Vol] 4.8 mmol/L Normal 3.7-5.1 [facility] Comment on above: Order Comment: Speci men Type: BLOOD SPECIMENOrdering Facility: [facility] Address: [address] [place] [address] Performed By: #### 2 4323-8 ####[facility] LABCLIA [id number] [place] [address] Protein [Mass/Vol] 7.2 g/dL Normal 6.3-8.0 [facility] Comment on above: Order Comment: Speci men Type: BLOOD SPECIMENOrdering Facility: [facility] Address: [address] [place] [address] Performed By: #### 2 4323-8 ####[facility] LABCLIA [id number] [place] [address] Sodium [Moles/Vol] 138 mmol/L Normal 136-144 [facility] Comment on above: Order Comment: Speci men Type: BLOOD SPECIMENOrdering Facility: [facility] Address: [address] [place], [place] [address] Performed By: #### 2 4323-8 ####[facility] LABCLIA [id number] [place] [address] Urea nitrogen [Mass/Vol] 23 mg/dL Normal 9-24 [facility] Comment on above: Order Comment: Speci men Type: BLOOD SPECIMENOrdering Facility: [facility] Address: [address] [place] [address] Performed By: #### 2 4323-8 ####[facility] LABCLIA [id number] [place] [address] PSA [facility] 09-19-2023 Prostate specific Ag [Mass/Vol] 6.08 ng/mL High <2.60 [facility] Comment on above: Order Comment: Speci men Type: BLOOD SPECIMENOrdering Facility: [facility] Address: [address] [place] [address] Result Comment: Tota l PSA test methodology used is the Electrochemiluminescence Immunoassay by [employer]. Total PSA values by differing methodologies cannot be interchanged. For an individual patient, the significance of a PSA level should be interpreted in a broad clinical context, including age, race, family history, digital rectal exam, prostate size, results of prior testing (prostate biopsy, free PSA, PCA3), and use of 5-alpha reductase inhibitors. Considering the high incidence of asymptomatic cancer in the general population that may not pose an ultimate risk to a patient, the decision to recommend urological evaluation or prostate biopsy should be individualized after consideration of all these factors. REFERENCE: Siddhartha Fair M.D., M.P.H., Jeancarlos Mason M.D., Ph.D., Andre Espinoza M.D., Mary Blas, M.P.H., Amelia Lassiter Sc.D. Effect of Verification Bias on Screening for Prostate Cancer by Measurement of Prostatic Specific Antigen. N Engl J Med 2003,349:335-42. Performed By: #### 2 857-1 ####[facility] LABCLIA [id number] [place] [address] [place] Consultation Noteon 09-15-20 Consultation Note [id number] Normal [facility] CNCOon 09-12-2023 CNCO Letter Text Normal [facility] CNOVon 09-12-2023 CNOV Office Visit (RADTSA ) ----- 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 ([id number]) 1970 M Date Time Provider Department 09/12/23 9:00 AM Lauren PARIS During your visit today, we recorded the following information about you: Temperature Pulse Respiration Blood pressure 97.6 degrees 57/minute 18/minute 121/81 Weight 153.8 kg Lauren Paris MD 09/12/2023 11:10 AM Signed Radiation Oncology - Prostate Cancer New Patient/Consult Note PATIENT NAME: Osiel Cartwright PATIENT DIAGNOSIS: Prostate adenocarcinoma, initial PSA 180.42, biopsy Jo-Ann score 3 + 4 = 7 (grade group 2), clinical stage T2c, N0, M0, stage IIIA [T1-T2, N0, M0, PSA >=20, GG 1-4] (AJCC 8th ed.), s/p TRUS Random biopsy. HPI: Patient has started ADT including abiraterone and prednisone. Denies any problems. Bladder function stable. Staging Studies: Bone Scan Results: 08/04/2023; uptake within right sixth rib, fracture versus neoplastic activity. PSMA PET 08/09/2023: Head and neck: -No suspicious PSMA expressing neoplastic process. Chest: -No evidence of PSMA expressing neoplastic process Abdomens and Pelvis: -Avid uptake in the prostatic region suspicious for PSMA expressing neoplasm. Bones and soft tissues: - No evidence of PSMA expressing neoplastic process. Mild activity right anterior sixth rib likely trauma. Previous Treatment for Prostate Cancer: None Genomic Testing: None The patient reports the following pertinent history: Urinary frequency (D/N): 4-5/1-2 Dysuria: No Incontinence: 1- No pads Hematuria: No - Total AUA Score: 2 Bowel Movement Frequency: 1/day Bowel Movement Quality: Normal Blood per Rectum: No Last Colonoscopy: na Baseline Erectile Function: 2- Diminished but usually satisfactory for intercourse Prior Radiation Therapy, Collagen Vascular Disease, or Inflammatory Bowel Disease: No Any implanted or external electric devices? No Currently on Anticoagulation: No History of Hip Replacement: No History of Prior TURP: No ALLERGIES No Known Allergies calcium carbonate/vitamin D3 (CALCIUM WITH VITAMIN D ORAL) Take 1 tablet by mouth once daily. abiraterone 250 mg tablet Take 4 tablets by mouth once daily. predniSONE (DELTASONE) 5 mg tablet Take 1 tablet by mouth once daily. bicalutamide (CASODEX) 50 mg tablet Take 1 tablet by mouth every afternoon. colchicine 0.6 mg tablet Take 0.6 mg by mouth as needed. diclofenac, EC, (VOLTAREN) 75 mg EC tablet Take 1 tablet by mouth every 12 hours. lisinopril (ZESTRIL) 10 mg tablet Take 1 tablet by mouth every afternoon. PAST MEDICAL HISTORY Diagnosis Date Arthritis Gout HTN (hypertension) Prostate cancer (HCC) PAST SURGICAL HISTORY Procedure Laterality Date HERNIA REPAIR HX groin TONSILLECTOMY AND ADENOIDECTOMY US BIOPSY PROSTATE FAMILY HISTORY Problem Relation Age of Onset Crohn's Disease Mother other (Rheumatoid arthritis) Mother other (Acute myocardial infarct) Father Diabetes Father Social History Tobacco Use Smoking status: Former Packs/day: 0.50 Years: 20.00 Additional pack years: 0.00 Total pack years: 10.00 Types: Cigarettes Quit date: 2012 Years since quittin.9 Passive exposure: Past Smokeless tobacco: Never Substance Use Topics Alcohol use: Yes Comment: socially Drug use: Not Currently REVIEW OF SYSTEMS: GENERAL: feeling well without fatigue, no recent change in weight NECK: denies swelling or pain in neck RESPIRATORY: no cough, no wheezing or shortness of breath CARDIOVASCULAR: no chest pain, no palpitations MUSCULOSKELETAL: denies any painful or swollen joints, no muscle aches, patient does not recall traumatic rib injury but has been very active physically in the past All other ROS: negative As noted in HPI PHYSICAL EXAM: VS: There were no vitals taken for this visit. KARNOFSKY PERFORMANCE STATUS: 100 General Appearance: Alert and oriented. No acute distress. HEENT: NCAT. Sclera anicteric. PERRL. EOMI. Neck: Normal ROM. No palpable cervical or supraclavicular adenopathy. Chest: No respiratory distress. Lungs clear to auscultation bilaterally. Heart: Regular rate and rhythm. Abdomen: Soft. Nontender. Nondistended. Musculoskeletal: No edema. Normal ROM in extremities. No bone or spine tenderness. Neuro: Speech fluent. Gait normal. No focal deficits. Skin: No rashes noted Lymphatics: No palpable lymphadenopathy. GENITOURINARY: Deferred exam RECTAL: Deferred exam RADIOLOGY/LABORATORY DATA: see [facility] ASSESSMENT/PLAN: Prostate adenocarcinoma, initial PSA 180.42, biopsy Jo-Ann score 3 + 4 = 7 (grade group 2), clinical stage T2c, N0, M0, stage IIIA [T1-T2, N0, M0, PSA >=20, GG 1-4] (AJCC 8th ed.), s/p TRUS Random biopsy. Prostate cancer (C61), 2019 NCCN Risk Group: Very high risk group Clinical State: Localized Cancer - New Diagnosis Discussed again (more content not included)... Normal [facility] [place] 09-05-2023 [facility] Telephone (JENNY) ----- 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 ([id number]) 1970 M Date Time Provider Department 09/05/23 TRISHA NIEVES During your visit today, we recorded the following information about you: Trisha Nieves RN 09/05/2023 3:55 PM Signed ORAL ANTI-CANCER AGENTS FOLLOW-UP PHONE CALL/VISIT Patient identified by name and date of . YES Patient is on cycle 1, week 1, day 8 of Abiraterone (Zytiga) and Prednisone for Prostate Cancer. SYMPTOM ASSESSMENT Headache: No Visual Changes: No Dizziness: No Do you have any periods of confusion? No Mood changes: No Mouth or throat pain: No Appetite: no changes in appetite, appetite good Taste changes: No Nausea: No Vomiting: No Heartburn: No. Weight gain/loss: No Episodes of palpitations/chest discomfort/pressure/pain No Shortness of breath: No Cough: Yes; dry and occasional Diarrhea: no Constipation: Reports that he his having stools daily. Notes his stools appear to be harder though. Bladder/Urinary Changes: Increased output Pain: Denies any new pain. Fever: No Chills: No Cold sensitivity: No Numbness/weakness: No Edema: No Skin changes: No Itching: No Yellowing of skin or eyes: No Musculoskeletal/joint changes/issues No Bleeding issues: No Activity Level (0-100%): Rates his fatigue 4-5/10. Still working. Tires easily though w/ activity. Do you need to take naps? No Pt verbalizes correct dose and frequency of both the Abiraterone AND Prednisone. Does the patient need interventions or same day appointment:No ADDITIONAL FOLLOW UP: The next outreach call is due on: Advised pt to call w/ any questions or concerns and was scheduled NA The following lab tests are due: CBC, CMP, PSA on 09/19/23. Verified patient is aware of next appointment in the cancer center: Yes. Verified patient verbalized how to correctly refill the oral agent prescription. Yes Does the patient have any financial difficulties affording this medication? No Patient verbalizes understanding of when to seek Medical Attention? YES Patient verbalizes understanding of after-hours and weekend phone number? YES Patient verbalized importance of medication compliance in taking the oral agent as prescribed. Patient instructed to call if unable to comply. Trisha Nieves RN Allergies As of Date: 09/05/2023 (No Known Allergies) Date Reviewed: 08/28/2023 Reviewed by: Trisha Nieves RN - Fully Assessed Reason for Visit: Care Coordination [3491] Cmt: Oral Anti-Cancer Agent Follow Up Prescriptions as of 09/05/2023 - calcium carbonate/vitamin D3 (CALCIUM WITH VITAMIN D ORAL) Take 1 tablet by mouth once daily. - abiraterone 250 mg tablet Take 4 tablets by mouth once daily. - predniSONE (DELTASONE) 5 mg tablet Take 1 tablet by mouth once daily. - bicalutamide (CASODEX) 50 mg tablet Take 1 tablet by mouth every afternoon. - colchicine 0.6 mg tablet Take 0.6 mg by mouth as needed. - diclofenac, EC, (VOLTAREN) 75 mg EC tablet Take 1 tablet by mouth every 12 hours. - lisinopril (ZESTRIL) 10 mg tablet Take 1 tablet by mouth every afternoon. Problem List As Of Date: 09/05/2023 (None) Encounter Status:Closed by TRISHA NIEVES on 09/05/23 [facility] [place] 08-28-2023 [facility] Telephone (HEMASA) ----- 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 ([id number]) 1970 M Date Time Provider Department 08/28/23 TRISHA NIEVES During your visit today, we recorded the following information about you: Trisha Nieves RN 08/28/2023 9:23 AM Signed Patient started/will start taking Abiraterone AND Prednisone on 08/29/23. Trisha Nieves RN Allergies As of Date: 08/28/2023 (No Known Allergies) Date Reviewed: 08/28/2023 Reviewed by: Trisha Nieves RN - Fully Assessed Reason for Visit: Care Coordination [0701] Cmt: Abiraterone/Prednisone Start Date Prescriptions as of 08/28/2023 - calcium carbonate/vitamin D3 (CALCIUM WITH VITAMIN D ORAL) Take 1 tablet by mouth once daily. - abiraterone 250 mg tablet Take 4 tablets by mouth once daily. - predniSONE (DELTASONE) 5 mg tablet Take 1 tablet by mouth once daily. - bicalutamide (CASODEX) 50 mg tablet Take 1 tablet by mouth every afternoon. - colchicine 0.6 mg tablet Take 0.6 mg by mouth as needed. - diclofenac, EC, (VOLTAREN) 75 mg EC tablet Take 1 tablet by mouth every 12 hours. - lisinopril (ZESTRIL) 10 mg tablet Take 1 tablet by mouth every afternoon. Problem List As Of Date: 08/28/2023 (None) Encounter Status:Closed by TRISHA NIEVES on 08/28/23 [facility] Consultation Noteon 08-25-20 Consultation Note [id number] [facility] 08-23-2023 Screens [id number] [facility] Ambulatory Visit Summaryon 1 10-22-2022 Ambulatory Visit Summary CHAYOSIEL Drake :1970 Visit Date:08/22/2023 Ambulatory Visit Instructions Your Diagnosis Prostate cancer Your Care Team Attending Physician - Yaneli LUNDBERG MD Primary Care Physician - Carolann Shirley MD This Is Your Medications List bicalutamide (Casodex 50 mg Tab) Contact prescribing physician if questions or concerns colchicine (colchicine 0.6 mg Tab) diclofenac (diclofenac sodium 75 mg Oral EC Tab) lisinopril (lisinopril 10 mg Tab) Procedures Performed Transrectal biopsy of prostate using ultrasound (US) guidance (07/12/2023), Repair of right inguinal hernia, Tonsillectomy. Discharge Vitals Blood Pressure 132/84 Height 182 cm Height 72 in Weight 152.9 kg Weight 336.38 lb BMI 46.16 What to do next Scheduled Follow-Up Appointments Monday. 2023 8:00 AM EDT With: TOÑO STANTON, Yaneli Friedman Where: [facility] ----- 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 ([id number]) 1970 M Date Time Provider Department 08/22/23 SISSY SHARP [facility] During your visit today, we recorded the following information about you: Sissy Sharp [facility] 08/22/2023 10:29 AM Signed Abiraterone to be filled through [facility] per insurance. Rx pended - Unaware of cost at this time since filling at another pharmacy. If assistance is required, patient will be instructed how to apply, etc. by [facility]. Patient notified of this plan. Chemo Ed scheduled for 08/28/23. Allergies As of Date: 08/22/2023 (No Known Allergies) Date Reviewed: 08/21/2023 Reviewed by: Alba Issa - Fully Assessed Prescriptions as of 08/22/2023 - abiraterone 250 mg tablet Take 4 tablets by mouth once daily. - predniSONE (DELTASONE) 5 mg tablet Take 1 tablet by mouth once daily. - bicalutamide (CASODEX) 50 mg tablet Take 1 tablet by mouth every afternoon. - colchicine 0.6 mg tablet Refills(s) 0 - diclofenac, EC, (VOLTAREN) 75 mg EC tablet Take 1 tablet by mouth every 12 hours. - lisinopril (ZESTRIL) 10 mg tablet Take 1 tablet by mouth every afternoon. Problem List As Of Date: 08/22/2023 (None) Encounter Status:Closed by SISSY SHARP on 08/22/23 Normal [facility] Patient Educationon 08-22-20 Patient Education Oncology Prostate Cancer The prostate is a small gland that produces fluid that makes up semen (seminal fluid). It is located below the bladder in men, in front of the rectum. Prostate cancer is the abnormal growth of cells in the prostate gland. What are the causes? The exact cause of this condition is not known. What increases the risk? You are more likely to develop this condition if: ? You are 65 years of age or older. ? You have a family history of prostate cancer. ? You have a family history of breast and ovarian cancer. ? You have genes that are passed from parent to child (inherited), such as BRCA1 and BRCA2. ? You have Jones syndrome. men and men of descent are diagnosed with prostate cancer at higher rates than other men. The reasons for this are not well understood and are likely due to a combination of genetic and environmental factors. What are the signs or symptoms? Symptoms of this condition include: ? Problems with urination. This may include: ? A weak or interrupted flow of urine. ? Trouble starting or stopping urination. ? Trouble emptying the bladder all the way. ? The need to urinate more often, especially at night. ? Blood in urine or semen. ? Persistent pain or discomfort in the lower back, lower abdomen, or hips. ? Trouble getting an erection. ? Weakness or numbness in the legs or feet. How is this diagnosed? This condition can be diagnosed with: ? A digital rectal exam. For this exam, a health care provider inserts a gloved finger into the rectum to feel the prostate gland. ? A blood test called a prostate-specific antigen (PSA) test. ? A procedure in which a sample of tissue is taken from the prostate and checked under a microscope (prostate biopsy). ? An imaging test called transrectal ultrasonography. Once the condition is diagnosed, tests will be done to determine how far the cancer has spread. This is called staging the cancer. Staging may involve imaging tests, such as a bone scan, CT scan, PET scan, or MRI. Stages of prostate cancer The stages of prostate cancer are as follows: ? Stage 1 (I). At this stage, the cancer is found in the prostate only. The cancer is not visible on imaging tests, and it is usually found by accident, such as during prostate surgery. ? Stage 2 (II). At this stage, the cancer is more advanced than it is in stage 1, but the cancer has not spread outside the prostate. ? Stage 3 (III). At this stage, the cancer has spread beyond the outer layer of the prostate to nearby tissues. The cancer may be found in the seminal vesicles, which are near the bladder and the prostate. ? Stage 4 (IV). At this stage, the cancer has spread to other parts of the body, such as the lymph nodes, bones, bladder, rectum, liver, or lungs. Prostate cancer grading Prostate cancer is also graded according to how the cancer cells look under a microscope. This is called the Jo-Ann score and the total score can range from 6?10, indicating how likely it is that the cancer will spread (metastasize) to other parts of the body. The higher the score, the greater the likelihood that the cancer will spread. ? Jo-Ann 6 or lower: This indicates that the cancer cells look similar to normal prostate cells (well differentiated). ? Jo-Ann 7: This indicates that the cancer cells look somewhat similar to normal prostate cells (moderately differentiated). ? [place] 8, 9, or 10: This indicates that the cancer cells look very different than normal prostate cells (poorly differentiated). How is this treated? Treatment for this condition depends on several factors, including the stage of the cancer, your age, personal preferences, and your overall health. Talk with your health care provider about treatment options that are recommended for you. Common treatments include: ? Observation for early stage prostate cancer (active surveillance). This involves having exams, blood tests, and in some cases, more biopsies. For some men, this is the only treatment needed. ? Surgery. Types of surgeries include: ? Open surgery (radical prostatectomy). In this surgery, a larger incision is made to remove the prostate. ? A laparoscopic radical prostatectomy. This is a surgery to remove the prostate and lymph nodes through several small incisions. It is often referred to as a minimally invasive surgery. ? A robotic radical prostatectomy. This is laparoscopic surgery to remove the prostate and lymph nodes with the help of robotic arms that are controlled by the surgeon. ? Cryoablation. This is surgery to freeze and destroy cancer cells. ? Radiation treatment. Types of radiation treatment include: ? External beam radiation. This type aims beams of radiation from outside the body at the prostate to destroy cancerous cells. ? Brachytherapy. This type uses radioactive needles, seeds, wires, or tubes that are implanted into the prostate gland. Like external be (more content not included)... Normal [facility] Provider Letteron 08-22-2023 Provider Letter (Inserted Image. Sandhya ble to display) August 22, 2023 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 [address] [place] [id number] : 1970 To Whom It May Concern, Please excuse above patient from work. Date of Illness: From: 08/22/23 To: 08/22/23 May Return to Work On: 08/22/23 Restrictions: None Comments: Patient had an appointment with Dr. Lundberg today 08/22/23 Sincerely, [facility] Urology Office/Clinic Noteon 08-22-2023 Urology Office/Clinic Note Chief Complaint 2 week F/U for PSMA HPI Staff 2 week follow up w/PSMA done 08/09/23 w/Lupron injection. Previous DX: prostate ca. S/p TRUS/bx 07/12/23. Bone scan 08/04/23. IPSS 3 Could not give a urine sample today Dysuria: _denies Incomplete bladder emptying: denies Hematuria: denies visible blood Frequency: 6x daily Urgency: denies Nocturia: 1-2x nightly Stream: _denies hesitation, normal stream Leaking: denies Post void dripping: once and a while Wearing pads/ Depends: denies Urge incontinence: denies Stress incontinence: denies Incontinence without Sensory Awareness: denies Abdominal pain: denies Flank pain: denies Sexual complaints: denies History of Present Illness Tests reviewed: reviewed UA, and PSMA. I have reviewed the previous health record information and history for this patient from . I have reviewed and verified the staff HPI to be accurate for this encounter. There have been no associated fever, chills, flank pain, or blood in the urine. Denies any urinary infections since last encounter. Review of Systems PHQ Score Initial Depression Screen Score: 0 SCORE ROS - Provider Constitutional: denies weight loss, denies hot flashes. Eyes: denies eye problems. Gastrointestinal: denies nausea, denies vomiting. Cardiovascular: denies chest pain or angina. Integumentary: no dryness Musculoskeletal: denies musculoskeletal symptoms. ENMT: denies otolaryngeal symptoms. Respiratory: no shortness of breath. Heme/Lymph: denies easy bleeding tendency, denies easy bruising tendency. Psychiatric: no confusion, no anxiety. Genitourinary: See HPI. Physical Exam Vitals & Measurements BP: 132/84 HT: 72 in HT: 182 cm WT: 152.9 kg WT: 336.38 lb BMI: 46.16 General Appearance: alert, no distress, well nourished, well developed male. Assessment/Plan 1. Prostate cancer (C61: Malignant neoplasm of prostate) PSA: 07/03/23 - 168.74 (first PSA ever) 07/07/23 - 180.42 Denies family hx of prostate cancer [1]. JESUS 07/07/23 - 30 gms, not accurate due to prostate being distant. S/p TRUS/Bx 07/12/23 - GS 7 (3+4) in 12/12 cores, lowest percentage of core involvement 35%, highest percentage of core involvement 97%. Prostate volume 35.7 cc. NM bone scan whole body 08/04/23 [facility] - Abnormal focus of radiotracer uptake in the anterior costochondral margin of right sixth rib; fracture vs neoplastic activity. PSMA PET Scan 08/09/23 - avid uptake in the prostate region suspicious for PSMA expressing neoplasm, no evidence of PSMA expressing neoplastic process, mild activity Rt anterior sixth rib likely trauma IPSS 3(2.5) Could not give a urine sample today. Pt is taking Casodex 50 mg QD. he may switch to zytiga and prednisone if he can get it at a reasonable cost. Lupron 45 mgIM injection given today with no complications. Left glute. Pt. denies side effects at this time. Discussed Lupron side effects (hot flashes, decreased libido, difficulty achieving/maintaining erection, bone thinning). Pt to start taking OTC vitamin C and D QD for bone health. Discussed imaging results with pt, the only way to know if the rib had been effected with the prostate cancer would to get a bx done, but this is not recommended at this point. Discussed getting a normal KUB done but we can wait to do this. Pt states that he had talked to rad onc after his PSMA scan, discussed switching to a different alpha aide, may have needed to start the new one after his appt, was not told at that time. Advised pt that if he starts the Zytiga and low dose steroid, he is to stop the Casodex. Next appt for rad onc is September 12. Pt states that he is going to do a genetic testing due to not having any knowing family history of prostate cancer. Follow up in 6 mos w/PSA, T Level and Lupron. All questions/concerns were discussed. Pt to call the office if he encounters any issues prior. Pt acknowledges understanding. -Pt to start taking OTC vitamin C and D QD for bone health. -Will order PSA and Testosterone. Follow-up With When Contact Information Yaneli LUNDBERG MD, URL In 6 months [facility] [address], [place] [address]- Additional Instructions: w/PSA, Testosterone, and Lurpon Patient Education Prostate Cancer I, Mare Toussaint , personally scribed for Dr. Lundberg on 08/22/2023 09:40:52. . Portions of this record may have been created with voice recognition artificial intelligence software, specifically [employer], Portable [employer]ores and or epacube. Substitutions may have occurred due to the inherent limitations of voice recognition and artificial intelligence software. Documentation recorded by the scribeMare, accurately reflects the services(s) I performed and decisions made by me. Problem List/Past Medical History Ongoing Anemia Anemia due to GI blood loss BMI 45.0-49.9, adult E (more content not included)... Normal [facility] Comment on above: Result Comment: Elec tronically Signed By: Yaneli LUNDBERG MD\.br\Date and Time Signed: 08/22/23 09:42 EST\.br\Electronically Co-Signed By: Mare Toussaint\.br\Date and Time Co-Signed: 08/22/23 09:41 EST CNOVSPon 08-21-2023 CNOVSP Visit (SP) Office ([facility]) ----- 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 ([id number]) 1970 M Date Time Provider Department 08/21/23 4:00 PM JAVI SINGER During your visit today, we recorded the following information about you: Temperature Pulse Respiration Blood pressure 97.8 degrees 64/minute 18/minute 154/90 Weight Height 153.4 kg 1.829 m Javi Singer MD 08/23/2023 7:13 AM Signed PATIENT NAME: Osiel Cartwright DATE: 08/21/2023 PRIMARY CARE PHYSICIAN: Carolann Shirley MD OTHER PHYSICIANS: Dr. Lundberg, Dr. Paris HPI: This is a 52 year old male with recently diagnosed prostate cancer, referred for further management. The patient underwent a screening PSA on 07/03/2023 which was surprisingly elevated at 168. Repeat PSA 4 days later further elevated at 180. Subsequently he was seen by urology, and on 08/12/2023 underwent a TRUS prostate biopsy. This confirmed 12 of 12 cores involved with adenocarcinoma, [place] 7. Staging CAT scans and bone scan were negative. Subsequent PSMA PET scan 08/09/2023 revealed uptake in the prostate, but no evidence of distant metastases. Per urology he was started on Casodex July 2023. Plans are to proceed with Lupron starting 08/12/2023. He was seen by radiation oncology, and plans are to proceed with EBRT in the near future. He currently is referred to discuss other treatment options. On evaluation today he feels well. He has had no significant urinary symptoms. No unusual pain or other systemic complaints. Past medical history significant for hypertension and intermittent gout, otherwise no major problems. He has a history of smoking, quit in 2011. He drinks alcohol socially. Family history is essentially negative. He currently is but , and has 2 grown sons. 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 MEDICATIONS: Current Outpatient Medications Medication Sig bicalutamide (CASODEX) 50 mg tablet Take 1 tablet by mouth every afternoon. colchicine 0.6 mg tablet Refills(s) 0 diclofenac, EC, (VOLTAREN) 75 mg EC tablet Take 1 tablet by mouth every 12 hours. lisinopril (ZESTRIL) 10 mg tablet Take 1 tablet by mouth every afternoon. No current facility-administered medications for this visit. ALLERGIES: ALLERGIES No Known Allergies PAST MEDICAL HISTORY: PAST MEDICAL HISTORY Diagnosis Date Arthritis Gout HTN (hypertension) Prostate cancer (HCC) PAST SURGICAL HISTORY: PAST SURGICAL HISTORY Procedure Laterality Date HERNIA REPAIR HX groin TONSILLECTOMY AND ADENOIDECTOMY US BIOPSY PROSTATE FAMILY HISTORY: FAMILY HISTORY Problem Relation Age of Onset Crohn's Disease Mother other (Rheumatoid arthritis) Mother other (Acute myocardial infarct) Father Diabetes Father SOCIAL HISTORY: Social History Tobacco Use Smoking status: Former Packs/day: 0.50 Years: 20.00 Additional pack years: 0.00 Total pack years: 10.00 Types: Cigarettes Quit date: 2012 Years since quittin.8 Passive exposure: Past Smokeless tobacco: Never Substance Use Topics Alcohol use: Yes Comment: socially Drug use: Not Currently COMPLETE REVIEW OF SYSTEMS: CONSTITUTION: Negative for pain, fatigue, weight loss, or appetite loss. EENT: Negative for mouth soreness, antibiotics use, epistaxis, visual problems, neck or facial swelling, fever/chills, bleeding gums, or hearing loss. CV: Negative for edema, calf swelling, palpitations, or chest pain. RESPIRATORY: Negative for cough, SOB, hemoptysis, or wheezing. GI: Negative for nausea/vomiting, heartburn, vomiting blood, dysphasia, diarrhea, blood in stool, constipation, early satiety, PICA, vegetarian, poor nutrition, abdominal fullness, or abdominal pain. NEUROLOGICAL: Negative for numbness/tingling, dizziness, gait disturbance, headache, speech disturbance, tremor, hemiparesis/sensory loss, or change in mental status. MUSCULOSKELETAL: Negative for joint pain, joint swelling, or proximal muscle weakness. SKIN: Negative for hair loss, bruising, nail changes, rash, itching, pallor, or jaundice. ENDO/URO: Negative for hot flashes, cold or heat intolerance, urinary frequency, urinary hesitancy, menorrhagia, or hematuria. PSYCH: Negative for anxiety, depression, or other. PHYSICAL EXAM: BP 154/90 Pulse 64 Temp 36.6 ?C (97.8 ?F) (Temporal) Resp 18 Ht 182.9 cm (6' 0.01 ) Wt (!) 153.4 kg (338 lb 3.2 oz) SpO2 99% BMI 45.86 kg/m? GENERAL EXAM: Well developed/well nourished; in no acute distress. SKIN: Negative for lesions, rashes, or ulcers on the upper and lower extremities and face. Negative for palpations/nodules, purpura, and ecchymosis. EENT: Negative for conjunctiva, mucosal pallor, JVD, LAP, thyromegaly, and glossitis. Supple AND PERRL. EXTREMITIES: Negative for cyanosis, clubbing, and crepitus. LUNGS: Negative to auscultation, respiratory eff (more content not included)... [facility] Consultation Noteon 08-18-20 Consultation Note [id number]#[id number] Normal [facility] Outside Colonoscopyon 2022 Outside Colonoscopy [id number]#1.00TIFF Normal [facility] Reminderson 08-17-2023 Reminders - From: Britt Acosta LPN To: [facility] - Clinical; Sent: 08/17/2023 09:51:58 EST Show up: 07/16/2033 07:00:00 EDT Subject: colonoscopy recall Due Date/Time: 08/16/2033 07:00:00 EST Reminder/Recall Patient due for screening colonoscopy 08/16/2033. 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 :1970 Visit Date:08/09/2023 Ambulatory Visit Instructions Your Diagnosis Prostate cancer Tests Performed Urnls Dip Stick Auto w/o Microscopy POC 34296 Your Care Team Attending Physician - TOÑO STANTON, Yaneli Friedman Primary Care Physician - Carolann Shirley MD This Is Your Medications List bicalutamide (Casodex 50 mg Tab) Contact prescribing physician if questions or concerns colchicine (colchicine 0.6 mg Tab) diclofenac (diclofenac sodium 75 mg Oral EC Tab) lisinopril (lisinopril 10 mg Tab) Procedures Performed Transrectal biopsy of prostate using ultrasound (US) guidance (07/12/2023), Repair of right inguinal hernia, Tonsillectomy. Discharge Vitals Blood Pressure 124/84 Height 182 cm Height 72 in Weight 156.1 kg Weight 343.42 lb BMI 47.13 What to do next Scheduled Follow-Up Appointments Monday 8:45 AM EST With: TOÑO STANTON, Yaneli Friedman Where: [facility] CNOV 08-09-2023 CNOV Office Visit ([facility] ) ----- SUKHWINDEROSIEL MICHELE ([id number]) 1970 M Date Time Provider Department 08/09/23 3:30 PM Lauren PARIS During your visit today, we recorded the following information about you: Temperature Pulse Respiration Blood pressure 97.7 degrees 63/minute 18/minute 144/82 Weight Height 153.8 kg 1.829 m Ilda Rabago LPN 08/15/2023 8:36 AM Signed AUA= 2 Lauren Paris MD 08/15/2023 8:36 AM Signed Radiation Oncology - Prostate Cancer New Patient/Consult Note PATIENT NAME: Osiel Juan Chay PATIENT REQUESTING PROVIDER: Dr. Lundberg DIAGNOSIS: 52 year old male with prostate adenocarcinoma, initial PSA 180.42, biopsy Jo-Ann score 3 + 4 = 7 (grade group 2), clinical stage T2c, N0, M0, stage IIIA [T1-T2, N0, M0, PSA >=20, GG 1-4] (AJCC 8th ed.), s/p TRUS Random biopsy. HPI: 52 year old male with prostate adenocarcinoma who presents for an opinion regarding the role of radiation therapy in the management of the patient's disease. Final recommendations will be communicated back to the requesting physician by way of the shared medical record, or letter to requesting physician via US mail. The patient was diagnosed with prostate cancer and comes in today to discuss treatment options. Patient presented with PSA, first he had had, on 07/03/2023 he had a value 168.74. This was repeated 07/07/2023, 180.42. Patient subsidy underwent transrectal ultrasound-guided biopsy. Prostate biopsy on August 12, 2023 revealed: 45.7 cm? gland. All 12 cores involved with Jo-Ann 7 (3+4) adenocarcinoma. Perineural invasion described. Cribriform pattern identified. Total # of positive biopsy cores: 12 Total # of biopsy cores sampled: 12 Greatest % cancer in any single core: Greater than 50% Staging Studies: Bone Scan Results: 08/04/2023; uptake within right sixth rib, fracture versus neoplastic activity. PSMA PET 08/09/2023: Head and neck: -No suspicious PSMA expressing neoplastic process. Chest: -No evidence of PSMA expressing neoplastic process Abdomens and Pelvis: -Avid uptake in the prostatic region suspicious for PSMA expressing neoplasm. Bones and soft tissues: - No evidence of PSMA expressing neoplastic process. Mild activity right anterior sixth rib likely trauma. Previous Treatment for Prostate Cancer: None Genomic Testing: None The patient reports the following pertinent history: Urinary frequency (D/N): 4-5/1-2 Dysuria: No Incontinence: 1- No pads Hematuria: No - Total AUA Score: 2 Bowel Movement Frequency: 1/day Bowel Movement Quality: Normal Blood per Rectum: No Last Colonoscopy: na Baseline Erectile Function: 2- Diminished but usually satisfactory for intercourse Prior Radiation Therapy, Collagen Vascular Disease, or Inflammatory Bowel Disease: No Any implanted or external electric devices? No Currently on Anticoagulation: No History of Hip Replacement: No History of Prior TURP: No ALLERGIES No Known Allergies bicalutamide (CASODEX) 50 mg tablet Take 1 tablet by mouth every afternoon. colchicine 0.6 mg tablet Refills(s) 0 diclofenac, EC, (VOLTAREN) 75 mg EC tablet Take 1 tablet by mouth every 12 hours. lisinopril (ZESTRIL) 10 mg tablet Take 1 tablet by mouth every afternoon. PAST MEDICAL HISTORY Diagnosis Date Arthritis Gout HTN (hypertension) PAST SURGICAL HISTORY Procedure Laterality Date HERNIA REPAIR HX groin TONSILLECTOMY AND ADENOIDECTOMY History reviewed. No pertinent family history. Social History Tobacco Use Smoking status: Former Packs/day: 0.50 Years: 20.00 Additional pack years: 0.00 Total pack years: 10.00 Types: Cigarettes Quit date: 2012 Years since quittin.8 Smokeless tobacco: Never Substance Use Topics Alcohol use: Yes Comment: socially Drug use: Not Currently REVIEW OF SYSTEMS: GENERAL: feeling well without fatigue, no recent change in weight NECK: denies swelling or pain in neck RESPIRATORY: no cough, no wheezing or shortness of breath CARDIOVASCULAR: no chest pain, no palpitations MUSCULOSKELETAL: denies any painful or swollen joints, no muscle aches, patient does not recall traumatic rib injury but has been very active physically in the past All other ROS: negative As noted in HPI PHYSICAL EXAM: VS: BP 144/82 Pulse 63 Temp 36.5 ?C (97.7 ?F) Resp 18 Ht 182.9 cm (6') Wt (!) 153.8 kg (339 lb) SpO2 98% BMI 45.98 kg/m? KARNOFSKY PERFORMANCE STATUS: 100 General Appearance: Alert and oriented. No acute distress. HEENT: NCAT. Sclera anicteric. PERRL. EOMI. Neck: Normal ROM. No palpable cervical or supraclavicular adenopathy. Chest: No respiratory distress. Lungs clear to auscultation bilaterally. Heart: Regular rate and rhythm. Abdomen: Soft. Nontender. Nondistended. Musculoskeletal: No edema. Normal ROM in extremities. No bon (more content not included)... Normal [facility] PET/CT PROSTATE WBon 11-0 ID PET/CT PROSTATE WB * * *Final Report* * * DATE OF EXAM: Aug 09 2023 3:28PM NRN [id number] - ID PET/CT PROSTATE WB / PROCEDURE REASON: Prostate Cancer * * * * Physician Interpretation * * * * RESULT: [id number] WHOLE BODY PET/CT SCAN HISTORY: 52-year-old man prostate cancer OTHER COMPARISON: Bone scan 08/04/2023 TECHNIQUE: 10.8 mCi of [id number]-MECF. The PET imaging was obtained between TOP OF HEAD THROUGH PROXIMAL THIGH approximately 60 minutes after injection. Non-contrast spiral CT was also performed for attenuation correction. CT Dose-Length Product (DLP): 541mGy*cm CT Dose Reduction Employed: Yes RESULTS: Background liver SUV 8.3 HEAD AND NECK: Lymph nodes: No avid, PSMA expressing lymph nodes. Mild activity submental lymph node likely inflammatory. Other: Physiologic uptake in the salivary glands, lacrimal glands, tonsillar tissues, larynx. CHEST: Lymphnodes: No suspicious avid PSMA expressing lymph nodes. Few mild activity axillary and mediastinal lymph nodes likely reactive. Small focus of activity in the subcutaneous left anterior chest wall possibly due to inflammation. Lungs and airways: No avid lung nodules. Cardiovascular structures: No lesions with abnormal tracer uptake. Pleura: No pleural effusion or lesions with abnormal tracer uptake. ABDOMEN AND PELVIS: Physiologic uptake in the liver, spleen, stomach, loops of bowel, GI tract, kidneys, urinary bladder. Hepatobiliary and pancreas: Physiologic uptake. No PSMA-avid lesions. No PSMA-avid lesions. Spleen: Physiologic uptake. No splenomegaly or PSMA-avid lesions. Adrenal Glands: No PSMA-avid lesions. Kidneys: Physiologic activity but no PSMA-avid lesions. Mesentery and retroperitoneum: No PSMA-avid lymph nodes or other lesions. GI tract: Physiologic activity but no PSMA-avid abnormalities. Pelvis: Prostate bed: Diffuse uptake in the prostatic region (Max SUV 32). Seminal Vesicles bed: No avid uptake Lymph nodes: No avid PSMA expressing lymph nodes, in the iliac, presacral, perirectal or inguinal regions. Right: * Common iliac: No PSMA-avid nodes. * External iliac: No PSMA-avid nodes. * Internal iliac: No PSMA-avid nodes. * Obturator: No PSMA-avid nodes. Left: * Common iliac: No PSMA-avid nodes. * External iliac: No PSMA-avid nodes. * Internal iliac: No PSMA-avid nodes. * Obturator: No PSMA-avid nodes. Pre-sacral: No PSMA-avid nodes. Madie-rectal: No PSMA-avid nodes. Other findings: Right inguinal hernia. BONE AND OTHER FINDINGS: No PSMA-avid osseous destructive lesions. Mild activity associated with patchy changes/fracture deformity in the right anterior sixth rib (max SUV 1.8) favored to be due to trauma. IMPRESSION: Head and neck: -No suspicious PSMA expressing neoplastic process. Chest: -No evidence of PSMA expressing neoplastic process Abdomens and Pelvis: -Avid uptake in the prostatic region suspicious for PSMA expressing neoplasm. Bones and soft tissues: - No evidence of PSMA expressing neoplastic process. Mild activity right anterior sixth rib likely trauma. Transcribe Date/Time: Aug 09 2023 3:39P Dictated by: KENNETH VILLA MD This examination was interpreted and the report reviewed and electronically signed by: KENNETH VILLA MD on Aug 09 2023 4:26PM EST Thank you for allowing us to participate in the care of your patient. Should there be any questions regarding this interpretation, please call [phone]. If you are unable to reach us at the number above, please feel free to contact [facility] at [phone]. [id number] Normal [facility] Patient Educationon 08-09-20 Patient Education Oncology Brachytherapy for Prostate Cancer Brachytherapy for prostate cancer is a type of internal radiation treatment that involves placing a source of radiation right inside the prostate gland. This allows the delivery of a higher dose of radiation than would be possible with external radiation therapy treatment. There are many types of brachytherapy: ? Low-dose rate (LDR) therapy. This involves temporary or permanent implants of radioactive seeds or pellets that give off a low dose of radiation. ? Temporary low-dose implants are left in the prostate for 1?7 days. The radioactive material is contained within a delivery tool, which may be a needle, a small, thin tube (catheter), or another type of applicator. You will need to stay in the hospital while the delivery tool and radioactive material are in place. ? Permanent low-dose implants are left in the prostate. They slowly give off radiation for many months after they are inserted. After the radiation is gone, they just stay in the body. They do not cause any harm and are not removed. ? High-dose rate (HDR) therapy. This involves inserting a material that gives off a higher dose of radiation for only a few minutes. The radioactive material is often wires or ribbons contained within a delivery tool (needle, applicator, or catheter). The delivery tool is removed after treatment, and no radioactive material is left in the prostate. In brachytherapy, the radiation does not travel far from the prostate, so healthy tissues around the prostate receive only a small dose of radiation. This helps to protect those tissues from injury. In some cases, brachytherapy may be given along with external beam radiation. Tell a health care provider about: ? Any allergies you have. ? All medicines you are taking, including vitamins, herbs, eye drops, creams, and wsve-ijw-wvlsucz medicines. ? Any problems you or family members have had with anesthetic medicines. ? Any bleeding problems you have. ? Any surgeries you have had. ? Any medical conditions you have. ? Any prostate infections you have had. What are the risks? Generally, this is a safe procedure. However, problems may occur, including: ? Inflammation of the rectum. ? Problems getting or keeping an erection (erectile dysfunction). ? Inability to control when you urinate or have bowel movements (incontinence). ? Damage to nearby structures or organs. ? Diarrhea. ? Bleeding. What happens before the procedure? Staying hydrated Follow instructions from your health care provider about hydration, which may include: ? Up to 2 hours before the procedure ? you may continue to drink clear liquids, such as water, clear fruit juice, black coffee, and plain tea. Eating and drinking restrictions Follow instructions from your health care provider about eating and drinking, which may include: ? 8 hours before the procedure ? stop eating heavy meals or foods, such as meat, fried foods, or fatty foods. ? 6 hours before the procedure ? stop eating light meals or foods, such as toast or cereal. ? 6 hours before the procedure ? stop drinking milk or drinks that contain milk. ? 2 hours before the procedure ? stop drinking clear liquids. Medicines ? Ask your health care provider about: ? Changing or stopping your regular medicines. This is especially important if you are taking diabetes medicines or blood thinners. ? Taking medicines such as aspirin and ibuprofen. These medicines can thin your blood. Do not take these medicines unless your health care provider tells you to take them. ? Taking rpix-mei-odjgsay medicines, vitamins, herbs, and supplements. ? Follow your health care provider's instructions about cleaning out your bowels. Surgery safety Ask your health care provider: ? How your surgery site will be marked. ? What steps will be taken to help prevent infection. These may include: ? Removing hair at the procedure site. ? Washing skin with a germ-killing soap. ? Taking antibiotic medicine before and after the procedure. General instructions ? You may have exams or testing done before or after the procedure. Blood or urine samples may be taken. You may need imaging tests, such as a CT scan or an MRI. ? Do not use any products that contain nicotine or tobacco for at least 4 weeks before the procedure. This includes cigarettes, chewing tobacco, and vaping devices, such as e-cigarettes. If you need help quitting, ask your health care provider. ? Plan to have a responsible adult take you home from the hospital or clinic. ? Plan to have a responsible adult care for you for the time you are told after you leave the hospital or clinic. What happens during the procedure? ? An IV will be put into one of the veins in your arm or hand. ? You may be given: ? A medicine to help you relax (sedative). ? A medicine to numb the area (local anesthetic). ? A medicine to make you fall asleep (general anest (more content not included)... Normal [facility] Urology Office/Clinic Noteon 08-09-2023 Urology Office/Clinic Note Chief Complaint 2 week F/U HPI Staff 52 yo male here for 2 wk f/u with bone scan and pet scan. PSMA PET scan was denied by insurance. Getting this done this afternoon Previous Dx: prostate ca. S/p TRUS/bx 07/12/23. Bone scan 08/04/23 IPSS 2 Dysuria: denies Incomplete bladder emptying: denies Hematuria: denies visible blood Frequency: 4-5 x daily Urgency: denies Nocturia: 1-2 nightly Stream: denies hesitation, normal stream Leaking: denies Post void dripping: occasionally Wearing pads/ Depends: denies Urge incontinence: denies Stress incontinence: denies Incontinence without Sensory Awareness: denies Abdominal pain: denies Flank pain: denies Sexual complaints: denies History of Present Illness Tests reviewed: reviewed UA, bone scan I have reviewed the previous health record information and history for this patient from Dr. Lundberg. I have reviewed and verified the staff HPI to be accurate for this encounter. There have been no associated fever, chills, flank pain, or blood in the urine. Denies any urinary infections since last encounter. Review of Systems PHQ Score Initial Depression Screen Score: 0 ROS - Provider Constitutional: denies weight loss, denies hot flashes. Eyes: denies eye problems. Gastrointestinal: denies nausea, denies vomiting. Cardiovascular: denies chest pain or angina. Integumentary: no dryness Musculoskeletal: denies musculoskeletal symptoms. ENMT: denies otolaryngeal symptoms. Respiratory: no shortness of breath. Heme/Lymph: denies easy bleeding tendency, denies easy bruising tendency. Psychiatric: no confusion, no anxiety. Genitourinary: See HPI. Physical Exam Vitals & Measurements BP: 124/84 HT: 72 in HT: 182 cm WT: 156.1 kg WT: 343.42 lb BMI: 47.13 General Appearance: alert, no distress, well nourished, well developed male. Genitourinary: normal scrotum, normal testes, normal urethra, normal epididymis, normal vas deferens/spermatic cord. Flank Pain: none. Bladder: nonpalpable. Assessment/Plan 1. Prostate cancer (C61: Malignant neoplasm of prostate) PSA: 07/03/23 - 168.74 (first PSA ever) 07/07/23 - 180.42 Denies family hx of prostate cancer [1]. JESUS 07/07/23 - 30 gms, not accurate due to prostate being distant [1]. S/p TRUS/Bx 07/12/23 - GS 7 (3+4) in 12/12 cores, lowest percentage of core involvement 35%, highest percentage of core involvement 97%. Prostate volume 35.7 cc. NM bone scan whole body 08/04/23 [facility] - Abnormal focus of radiotracer uptake in the anterior costochondral margin of right sixth rib; fracture vs neoplastic activity. UA today negative for blood and infection. IPSS 2.5. Started Casodex 50 mg qd at prior encounter. PSMA PET scan was originally denied by insurance, was finally approved. Getting done this afternoon. Reviewed bone scan with pt, explained abnormal activity may be patient admitting representative of metastatic prostate ca. Pt is not aware of any personal hx of breaking a rib. Discussed further evaluating with a CT. Will wait to start Lupron pending PSMA PET scan results. Discussed referral to rad onc to discuss radiation therapy options like brachytherapy and EBRT. Follow up 2 weeks to review below and possible first Lupron injection, or sooner if needed. Pt understands and agrees with plan. -Refer to rad onc. -Will possibly order CT chest wo con pending PSMA PET scan results. Follow-up With When Contact Information TOÑO STANTON, Yaneli Friedman, URL [facility] [address], [place] [address]- Additional Instructions: 2 wks for possible first Lupron injection, PSMA PET and possible CT chest wo con pending PEt results Patient Education Brachytherapy for Prostate Cancer Hormone Suppression Therapy for Prostate Cancer I, Erin Pitt, personally scribed for Dr. Lundberg on 08/09/2023 08:42:34. . Documentation recorded by the scribe, Erin Pitt, accurately reflects the services(s) I performed and decisions made by me. Authenticated by Dr. Lundberg on 08/09/2023 08:45:56. Problem List/Past Medical History Ongoing Anemia Anemia due to GI blood loss BMI 45.0-49.9, adult Elevated PSA Gout Headache Hypertension Morbid obesity Prostate cancer Varicose veins of legs Historical No qualifying data Procedure/Surgical History Transrectal biopsy of prostate using ultrasound (US) guidance (07/12/2023), Repair of right inguinal hernia, Tonsillectomy. Medications Casodex 50 mg Tab, 50 mg= 1 tab(s), Oral, q24hr, 11 refills colchicine 0.6 mg Tab diclofenac sodium 75 mg Oral EC Tab lisinopril 10 mg Tab Allergies No Known Medication Allergies Social History Alcohol - Denies Alcohol Use, 07/19/2023 Substance Abuse - Denies Substance Abuse, 07/19/2023 Tobacco quit 10 years ago Tobacco Use:. Never Smokeless Tobacco Use:. Cigarettes, 0.5 per day. Started age 18.0 Years. Stopped age 38 Years., 08/09/2023 Family History Acute my (more content not included)... [facility] Comment on above: Result Comment: Elec tronically Signed By: Yaneli LUNDBERG MD\.br\Date and Time Signed: 08/09/23 08:46 EDT\.br\Electronically Co-Signed By: Erin Pitt\.br\Date and Time Co-Signed: 08/09/23 08:43 EDT Pre-Certification Formon Pre-Certification Form [id number]#1.00TIFF [facility] RAD - Pet Scan Reporton 07-11 RAD - Pet Scan Report [id number]#1.00TIFF [facility] CNPNon 08-01-2023 CNPN Telephone (NCCAP) ----- 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 ([id number]) 1970 M Date Time Provider Department 08/01/23 [facility] During your visit today, we recorded the following information about you: Owen Houser 08/01/2023 2:50 PM Signed This form is used for MAIN CAMPUS APPOINTMENTS ONLY. Is this request for a Main [place] PET scan appointment? Yes: Sports Journalist: Owen Knight Requesting Person Dr lundberg: Area Code + Phone/Pager: [phone] Who do we call to schedule this appointment? Other Contact: PSMA PLEASE ROUTE TO [place] MARTINEZ IN [place] Requesting Staff Dr lundberg Area Code + Phone/Pager: [phone] PET Orders (A delay in scheduling will result if the orders are not present at time of review): External. Has the External Clinical Order been scanned into [facility]? Yes ADDITIONAL ACTION MAY BE REQUIRED IF PATIENTS OON INSURANCE OR SELF PAY COVERAGE HAS NOT BEEN CLEARED FOR REQUESTED APPOINTMENT. Scheduling: ZACHERY: As soon as insurance will allow ((Pts insurance is already authed) outside order What account will this PET appointment be linked to? P/F Type of PET: Oncology: Are there additional diagnostic CT scans required to be done at time of PET scan? No Is the request for a PET MR ? No What account will diagnostic testing appointment be linked to? P/F Will the patient need anesthesia? NO Send requests to P COORD REVIEW Alba Hwang, EMILY 08/01/2023 4:14 PM Signed Authorization number: PSMA Authorization date range: PSMA Primary Insurance: Luca [id number] Diagnosis: Prostate cancer C61 DX Imaging: N/A Pathology: 07-12-23 Adenocarcinoma [place] Score 7 3+4 Labs: 06-02-23 PSA 168.74 9-29-23 PSA 180.42 Clinical Notes Reviewed: 07-24-23 Urology Date of last: Plan to start Casodex and Lupron Additional Information: N/A Radiologist Reviewed: N/A Initial/Subsequent: Initial Treatment Strategy: 92 PET Protocol: PSMA Diagnostic Imaging Requested: No Is this a Pretreatment and/or an initial Pet scan: No - Schedule as requested Comments for Credit Verification Clerk: Frandy ROUTE TO SCHEDULERS POOL P PET LITIGATION MANAGER MC or P NM SPECIAL STUDIES Alba Hwang RN 08/01/2023 4:14 PM Signed PET/Ct Prostate scan CPT 79961 with PSMA A9595 DX C61 approved by ordering physician auth [id number] from 07-24-23 to 08-22-23 1 dos Auth letter scanned into [employer] As of Date: 08/01/2023 (Not on File) Date Reviewed: Never Reviewed Reason for Visit: Nm Pet Request [3598] Problem List As Of Date: 08/01/2023 (None) Encounter Status:Closed by OWEN HOUSER on 08/02/23 Normal [facility] Insurance Correspondenceon 1 Insurance Correspondence [id number]#1.00TIFF Normal [facility] Insurance Correspondenceon 1 Insurance Correspondence [id number]#1.00TIFF Normal [facility] Insurance Correspondence [id number]#1.00TIFF [facility] Pre-Certification Formon Pre-Certification Form [id number]#1.00TIFF Normal [facility] Ambulatory Visit Summaryon 1 Ambulatory Visit Summary 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 Your Care Team Attending Physician - Yaneli LUNDBERG MD Primary Care Physician - Carolann Shirley MD This Is Your Medications List Contact prescribing physician if questions or concerns colchicine (colchicine 0.6 mg Tab) diclofenac (diclofenac sodium 75 mg Oral EC Tab) lisinopril (lisinopril 10 mg Tab) Procedures Performed Transrectal biopsy of prostate using ultrasound (US) guidance (07/12/2023), Repair of right inguinal hernia, Tonsillectomy. Discharge Vitals Heart Rate (Peripheral) 68 Respiratory Rate 16 Blood Pressure 132/86 Height 182 cm Height 72 in Weight 154 kg Weight 338.8 lb BMI 46.49 What to do next You Need to Schedule the Following Appointments Follow Up with TOÑO STANTON, Yaneli Friedman, DARIEL When: In 2 weeks Comments: w/PSMA PET Scan and Bone Scan Where: [facility] [address] , [place] [address]- Medications What When Instructions Unchanged colchicine (colchicine 0.6 mg Tab) Contact prescribing physician if questions or concerns Unchanged diclofenac (diclofenac sodium 75 mg Oral EC Tab) Contact prescribing physician if questions or concerns Unchanged lisinopril (lisinopril 10 mg Tab) Contact prescribing physician if questions or concerns Test Results Urnls Dip Stick Auto w/o Microscopy POC 17585 (07/24/2023) Bilirubin Urine Dipstick - Negative Blood Urine Dipstick - 2+ Moderate Glucose Urine Dipstick - Negative Ketones Urine Dipstick - Negative Leukocytes Urine Dipstick - Negative Nitrite Urine Dipstick - Negative Protein Urine Dipstick - Negative Specific [place] Urine Dipstick - 1.025 Urine Appearance Urine Dipstick - Clear Urine Color Urine Dipstick - Yellow Urobilinogen Urine Dipstick - Normal 0.2-1 EU/dl pH Urine Dipstick - 5.5 Allergies No Known Medication Allergies Problems Ongoing - Any problem that you are currently receiving treatment for. Anemia Anemia due to GI blood loss BMI 45.0-49.9, adult Elevated PSA Gout Headache Hypertension Morbid obesity Prostate cancer Varicose veins of legs Education Materials Prostate Cancer The prostate is a small gland that produces fluid that makes up semen (seminal fluid). It is located below the bladder in men, in front of the rectum. Prostate cancer is the abnormal growth of cells in the prostate gland. What are the causes? The exact cause of this condition is not known. What increases the risk? You are more likely to develop this condition if: ? You are 65 years of age or older. ? You have a family history of prostate cancer. ? You have a family history of breast and ovarian cancer. ? You have genes that are passed from parent to child (inherited), such as BRCA1 and BRCA2. ? You have Jones syndrome. men and men of descent are diagnosed with prostate cancer at higher rates than other men. The reasons for this are not well understood and are likely due to a combination of genetic and environmental factors. What are the signs or symptoms? Symptoms of this condition include: ? Problems with urination. This may include: ? A weak or interrupted flow of urine. ? Trouble starting or stopping urination. ? Trouble emptying the bladder all the way. ? The need to urinate more often, especially at night. ? Blood in urine or semen. ? Persistent pain or discomfort in the lower back, lower abdomen, or hips. ? Trouble getting an erection. ? Weakness or numbness in the legs or feet. How is this diagnosed? This condition can be diagnosed with: ? A digital rectal exam. For this exam, a health care provider inserts a gloved finger into the rectum to feel the prostate gland. ? A blood test called a prostate-specific antigen (PSA) test. ? A procedure in which a sample of tissue is taken from the prostate and checked under a microscope (prostate biopsy). ? An imaging test called transrectal ultrasonography. Once the condition is diagnosed, tests will be done to determine how far the cancer has spread. This is called staging the cancer. Staging may involve imaging tests, such as a bone scan, CT scan, PET scan, or MRI. Stages of prostate cancer The stages of prostate cancer are as follows: ? Stage 1 (I). At this stage, the cancer is found in the prostate only. The cancer is not visible on imaging tests, and it is usually found by accident, such as during prostate surgery. ? Stage 2 (II). At this stage, the cancer is more advanced than it is in stage 1, but the cancer has not sp (more content not included)... Normal [facility] Insurance Correspondenceon 1 Insurance Correspondence [id number]#1.00TIFF Normal [facility] Patient Educationon 07-24-20 23 Patient Education Oncology Prostate Cancer The prostate is a small gland that produces fluid that makes up semen (seminal fluid). It is located below the bladder in men, in front of the rectum. Prostate cancer is the abnormal growth of cells in the prostate gland. What are the causes? The exact cause of this condition is not known. What increases the risk? You are more likely to develop this condition if: ? You are 65 years of age or older. ? You have a family history of prostate cancer. ? You have a family history of breast and ovarian cancer. ? You have genes that are passed from parent to child (inherited), such as BRCA1 and BRCA2. ? You have Jones syndrome. men and men of descent are diagnosed with prostate cancer at higher rates than other men. The reasons for this are not well understood and are likely due to a combination of genetic and environmental factors. What are the signs or symptoms? Symptoms of this condition include: ? Problems with urination. This may include: ? A weak or interrupted flow of urine. ? Trouble starting or stopping urination. ? Trouble emptying the bladder all the way. ? The need to urinate more often, especially at night. ? Blood in urine or semen. ? Persistent pain or discomfort in the lower back, lower abdomen, or hips. ? Trouble getting an erection. ? Weakness or numbness in the legs or feet. How is this diagnosed? This condition can be diagnosed with: ? A digital rectal exam. For this exam, a health care provider inserts a gloved finger into the rectum to feel the prostate gland. ? A blood test called a prostate-specific antigen (PSA) test. ? A procedure in which a sample of tissue is taken from the prostate and checked under a microscope (prostate biopsy). ? An imaging test called transrectal ultrasonography. Once the condition is diagnosed, tests will be done to determine how far the cancer has spread. This is called staging the cancer. Staging may involve imaging tests, such as a bone scan, CT scan, PET scan, or MRI. Stages of prostate cancer The stages of prostate cancer are as follows: ? Stage 1 (I). At this stage, the cancer is found in the prostate only. The cancer is not visible on imaging tests, and it is usually found by accident, such as during prostate surgery. ? Stage 2 (II). At this stage, the cancer is more advanced than it is in stage 1, but the cancer has not spread outside the prostate. ? Stage 3 (III). At this stage, the cancer has spread beyond the outer layer of the prostate to nearby tissues. The cancer may be found in the seminal vesicles, which are near the bladder and the prostate. ? Stage 4 (IV). At this stage, the cancer has spread to other parts of the body, such as the lymph nodes, bones, bladder, rectum, liver, or lungs. Prostate cancer grading Prostate cancer is also graded according to how the cancer cells look under a microscope. This is called the Jo-Ann score and the total score can range from 6?10, indicating how likely it is that the cancer will spread (metastasize) to other parts of the body. The higher the score, the greater the likelihood that the cancer will spread. ? Jo-Ann 6 or lower: This indicates that the cancer cells look similar to normal prostate cells (well differentiated). ? Jo-Ann 7: This indicates that the cancer cells look somewhat similar to normal prostate cells (moderately differentiated). ? Jo-Ann 8, 9, or 10: This indicates that the cancer cells look very different than normal prostate cells (poorly differentiated). How is this treated? Treatment for this condition depends on several factors, including the stage of the cancer, your age, personal preferences, and your overall health. Talk with your health care provider about treatment options that are recommended for you. Common treatments include: ? Observation for early stage prostate cancer (active surveillance). This involves having exams, blood tests, and in some cases, more biopsies. For some men, this is the only treatment needed. ? Surgery. Types of surgeries include: ? Open surgery (radical prostatectomy). In this surgery, a larger incision is made to remove the prostate. ? A laparoscopic radical prostatectomy. This is a surgery to remove the prostate and lymph nodes through several small incisions. It is often referred to as a minimally invasive surgery. ? A robotic radical prostatectomy. This is laparoscopic surgery to remove the prostate and lymph nodes with the help of robotic arms that are controlled by the surgeon. ? Cryoablation. This is surgery to freeze and destroy cancer cells. ? Radiation treatment. Types of radiation treatment include: ? External beam radiation. This type aims beams of radiation from outside the body at the prostate to destroy cancerous cells. ? Brachytherapy. This type uses radioactive needles, seeds, wires, or tubes that are implanted into the prostate gland. Like external be (more content not included)... Normal [facility] Urology Office/Clinic Noteon 07-24-2023 Urology Office/Clinic Note Chief Complaint elevated PSA, prosate cancer HPI Staff 52 yo male here for f/u to review pathology from TRUS/bx done 07/12/23. Previous Dx: elevated PSA. Dysuria: no Incomplete bladder emptying: no Hematuria: no Frequency: no Urgency: no Nocturia: 1-2x Stream: no straining Leaking: no Post void dripping: no Wearing pads/ Depends: no Urge incontinence: no Stress incontinence: no Incontinence without Sensory Awareness: no Abdominal pain: no Flank pain: pt has back issues Sexual complaints: no History of Present Illness Tests reviewed: reviewed UA and Path Report. I have reviewed the previous health record information and history for this patient from . I have reviewed and verified the staff HPI to be accurate for this encounter. There have been no associated fever, chills, flank pain, or blood in the urine. Denies any urinary infections since last encounter. Review of Systems PHQ Score Initial Depression Screen Score: 0 ROS - Provider Constitutional: denies weight loss, denies hot flashes. Eyes: denies eye problems. Gastrointestinal: denies nausea, denies vomiting. Cardiovascular: denies chest pain or angina. Integumentary: no dryness Musculoskeletal: denies musculoskeletal symptoms. ENMT: denies otolaryngeal symptoms. Respiratory: no shortness of breath. Heme/Lymph: denies easy bleeding tendency, denies easy bruising tendency. Psychiatric: no confusion, no anxiety. Genitourinary: See HPI. Physical Exam Vitals & Measurements HR: 68(Peripheral) RR: 16 BP: 132/86 HT: 72 in HT: 182 cm WT: 154 kg WT: 338.8 lb BMI: 46.49 General Appearance: alert, no distress, well nourished, well developed male. Assessment/Plan 1. Prostate cancer (C61: Malignant neoplasm of prostate) JESUS 07/07/23: 30gms, not accurate due to prostate being distant Denies fam hx of prostate cancer. PSA 07/03/23 - 168.74 (first PSA ever) 07/07/23 - 180.42 S/p TRUS/Bx 07/12/23 - Path Report shows GS 7(3+4) in 12/12 cores. The pathology report was reviewed with the patient in detail today. The report confirms evidence of malignancy. This was discussed with the patient and all questions were answered in terms the patient could understand completely, along with the implications. We will be making plans for further treatment and evaluation as the results demand. The patient understands and agrees with this plan. Advised pt that he will need to get a PSMA PET scan, Bone scan, start Casodex, and start Lupron injections. Advised pt that he would not be able to have a prostatectomy and would need to start hormone therapy and have EBRT due to his PSA's. Advised pt that his cancer can be managed. Follow up in 2 weeks w/imaging. All questions/concerns were discussed. Pt to call the office if he encounters any issues prior. Pt acknowledges understanding. -Will order PSMA PET Scan and Bone Scan. -Will start Casodex 50mg q24hrs. and Lupron every 6 mos. Discussed the medication side effects, and the patient will monitor closely for these, as well as for symptom improvement. If severe side effects occur, the medication should be stopped and the office notified. Follow-up With When Contact Information TOÑO STANTON, Yaneli Friedman, DARIEL In 2 weeks [facility] [address], [place] [address]- Additional Instructions: w/PSMA PET Scan and Bone Scan Patient Education Prostate Cancer I, Mare Toussaint , personally scribed for Dr. Lundberg on 07/24/2023 12:55:21. . Documentation recorded by the scribe, Mare Toussaint, accurately reflects the services(s) I performed and decisions made by me. Problem List/Past Medical History Ongoing Anemia Anemia due to GI blood loss BMI 45.0-49.9, adult Elevated PSA Gout Headache Hypertension Morbid obesity Prostate cancer Varicose veins of legs Historical No qualifying data Procedure/Surgical History Transrectal biopsy of prostate using ultrasound (US) guidance (07/12/2023), Repair of right inguinal hernia, Tonsillectomy. Medications colchicine 0.6 mg Tab diclofenac sodium 75 mg Oral EC Tab lisinopril 10 mg Tab Allergies No Known Medication Allergies Social History Alcohol - Denies Alcohol Use, 07/19/2023 Substance Abuse - Denies Substance Abuse, 07/19/2023 Tobacco Former smoker, quit more than 30 days ago, quit 10 years ago Tobacco Use:. Never Smokeless Tobacco Use:. Cigarettes, 0.5 per day. Started age 18.0 Years. Stopped age 38 Years., 07/19/2023 Family History Acute myocardial infarction: Father. Crohn's disease: Mother. Diabetes mellitus type 2: Father. Rheumatoid arthritis: Mother. Lab Results Ambulatory Point of Care Results Bilirubin Urine Dipstick: Negative (07/24/23 11:57:00) Blood Urine Dipstick: 2+ Moderate (07/24/23 11:57:00) Glucose Urine Dipstick: Negative (07/24/23 11:57:00) Ketones Urine Dipstick: Negative (07/24/23 11:57:00) Leukocy (more content not included)... 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 Discharge Vitals Heart Rate (Peripheral) 72 Respiratory Rate 16 Blood Pressure 138/94 Height 182 cm Height 72 in Weight 158 kg Weight 347.6 lb BMI 47.7 What to do next Scheduled Follow-Up Appointments Monday 11:45 AM EDT With: TOÑO STANTON, Yaneli Friedman Where: [facility] [place] Normal [facility] Prostate Histology ([facility]) on 07-19-2023 Prostate Histology Diagnosis Info Invalid Interpretation Code [facility] Comment on above: Result Comment: A:Pr ostate,Left Lateral Base:Needle Biopsy Interpretation - - Acinar adenocarcinoma of prostate; Naco score 7(3+4); Tumor measures 1.2 cm in length; 85% of the core involved by tumor; 1 of 1 core involved; Perineural invasion identified. MicroScopic Description - B:Prostate,Left Lateral Mid:Needle Biopsy Interpretation - - Acinar adenocarcinoma of prostate; Naco score 7(3+4); Tumor measures 1.43 cm in length; 89% of the core involved by tumor; 1 of 1 core involved. MicroScopic Description - C:Prostate,Left Lateral [place]:Needle Biopsy Interpretation - - Acinar adenocarcinoma of prostate; Jo-Ann score 7(3+4); Tumor measures 0.5 cm in length; 35% of the core involved by tumor; 1 of 2 cores involved. MicroScopic Description - D:Prostate,Left Base:Needle Biopsy Interpretation - - Acinar adenocarcinoma of prostate; Naco score 7(3+4); Tumor measures 1.46 cm in length; 97% of the core involved by tumor; 1 of 1 core involved. MicroScopic Description - E:Prostate,Left Mid:Needle Biopsy Interpretation - - Acinar adenocarcinoma of prostate; Naco score 7(3+4); Tumor measures 1 cm in length; 66% of the core involved by tumor; 1 of 1 core involved. MicroScopic Description - F:Prostate,Left Val[place]:Needle Biopsy Interpretation - - Acinar adenocarcinoma of prostate; Naco score 7(3+4); Tumor measures 0.66 cm in length; 44% of the core involved by tumor; 1 of 1 core involved. MicroScopic Description - G:Prostate,Right Base:Needle Biopsy Interpretation - - Acinar adenocarcinoma of prostate; Jo-Ann score 7(3+4); Tumor measures 0.8 cm in length; 66% of the core involved by tumor; 1 of 1 core involved; Perineural invasion identified. MicroScopic Description - H:Prostate,Right Mid:Needle Biopsy Interpretation - - Acinar adenocarcinoma of prostate; Naco score 7(3+4); Tumor measures 1 cm in length; 58% of the core involved by tumor; 1 of 1 core involved. MicroScopic Description - I:Prostate,Right Val[place]:Needle Biopsy Interpretation - - Acinar adenocarcinoma of prostate; Naco score 7(3+4); Tumor measures 0.85 cm in length; 70% of the core involved by tumor; 1 of 2 cores involved. MicroScopic Description - J:Prostate,Right Lateral Base:Needle Biopsy Interpretation - - Acinar adenocarcinoma of prostate; Jo-Ann score 7(3+4); Tumor measures 0.6 cm in length; 37% of the core involved by tumor; 1 of 1 core involved. MicroScopic Description - K:Prostate,Right Lateral Mid:Needle Biopsy Interpretation - - Acinar adenocarcinoma of prostate; Jo-Ann score 7(3+4); Tumor measures 1.2 cm in length; 74% of the core involved by tumor; 1 of 1 core involved. MicroScopic Description - L:Prostate,Right Lateral Val[place]:Needle Biopsy Interpretation - - Acinar adenocarcinoma of prostate; Jo-Ann score 7(3+4); Tumor measures 0.8 cm in length; 61% of the core involved by tumor; 1 of 1 core involved. MicroScopic Description - Gross Description Site ID:A color mast-white fixative Formalin cores 1 units cm Site ID:B color mast-white fixative Formalin cores 1 units cm Site ID:C color mast-white fixative Formalin cores 2 units cm Site ID:D color mast-white fixative Formalin cores 1 units cm Site ID:E color mast-white fixative Formalin cores 1 units cm Site ID:F color mast-white fixative Formalin cores 1 units cm Site ID:G color mast-white fixative Formalin cores 1 units cm Site ID:H color mast-white fixative Formalin cores 1 units cm Site ID:I color mast-white fixative Formalin cores 2 units cm Site ID:J color mast-white fixative Formalin cores 1 units cm Site ID:K color mast-white fixative Formalin cores 1 units cm Site ID:L color mast-white fixative Formalin cores 1 units cm Highest grade group: Jo-Ann score 3+4=7, grade group 2. Highest percentage of core involvement: 97% Cribriform pattern 4: Identified Perineural invasion: Identified This Grade Group system was recently endorsed by both the International Society of Urological Pathology (ISUP, 2015) and the World Health Organization (WHO). CPT 31353 x 12 Electronically signed by : on: 07/19/2023 11:44:55 Performed By: #### 1 [id number] ####[facility] [address] [place] [address] RAD - Ultrasound Reporton RAD - Ultrasound Report [id number]#1.00TIFF Normal [facility] Lab Reportson 07-14-2023 Lab Reports [id number]#1.00TIFF Normal [facility] Consent for Procedure/Surger yon 07-13-2023 Consent for Procedure/Surgery [id number]#1.00CD:12 7 Normal [facility] Ambulatory Visit Summaryon 1 Ambulatory Visit Summary 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 Discharge Vitals Heart Rate (Peripheral) 89 Blood Pressure 140/88 Height 182 cm Height 72 in Weight 154 kg Weight 338.8 lb BMI 46.49 What to do next Scheduled Follow-Up Appointments Monday 3:40 PM EDT With: FRANCES STANTON, Azeem Friedman Where: General Surgery [facility] Normal [address] [place] [address]- \.br\ You Need to Schedule the Following Appointments\.br\ Follow Up with TOÑO STANTON, Yaneli Friedman, URL When: \.br\ Comments:\.br\ f/u scheduled 07/24/23 to review path\.br\ Where:\.br\ [facility] [address]\.br\ [place] [address]-\.br\ [phone]\.br\ Medications\.br\ What How Much When Instructions\.br\ Unchanged ciprofloxacin (Cipro 500 mg Tab) 1 Tablets By Mouth 2 times a day Duration: 7 Days\.br\ Unchanged colchicine (colchicine 0.6 mg Tab) Contact prescribing physician if questions or concerns \.br\ Unchanged diclofenac (diclofenac sodium 75 mg Oral EC Tab) Contact prescribing physician if questions or concerns \.br\ Unchanged lisinopril (lisinopril 10 mg Tab) Contact prescribing physician if questions or concerns \.br\ Medications and Immunizations Administered\.br\ Given\.br\ gentamicin 40 mg/mL Inj, 80 mg, IntraMuscular. For: Elevated PSA\.br\ lidocaine 2% Inj 20 mL, 10 mL, Misc. For: Elevated PSA\.br\ lidocaine Top 2% Gel w/Appl 11 mL, 11 mL, Topical. For: Elevated PSA\.br\ lidocaine Top 2% Gel w/Appl 11 mL, 11 mL, Topical. For: Elevated PSA\.br\ Allergies\.br\ No Known Allergies\.br\ No Known Medication Allergies\.br\ Problems\.br\ Ongoing - Any problem that you are currently receiving treatment for.\.br\ Anemia\.br\ Elevated PSA\.br\ Gout\.br\ Headache\.br\ Hypertension\.br\ Varicose veins of legs\.br\ Education Materials\.br\ Transrectal Ultrasound-Guided Prostate Biopsy, Care After\.br\ The following information offers guidance on how to care for yourself after your procedure. Your health care provider may also give you more specific instructions. If you have problems or questions, contact your health care provider.\.br\ What can I expect after the procedure?\.br\ After the procedure, it is common to have:\.br\ ? \.br\ Pain and discomfort near your rectum, especially while sitting.\.br\ ? \.br\ Farmland-colored urine due to small amounts of blood in your urine.\.br\ ? \.br\ A burning feeling while urinating.\.br\ ? \.br\ Blood in your stool (feces) or bleeding from your rectum.\.br\ ? \.br\ Blood in your semen.\.br\ Follow these instructions at home:\.br\ Medicines\.br\ ? \.br\ Take eevd-jek-ukxozpk and prescription medicines only as told by your health care provider.\.br\ ? \.br\ If you were given a sedative during your procedure, it can affect you for several hours. Do not drive or operate machinery until your health care provider says that it is safe.\.br\ ? \.br\ If you were prescribed an antibiotic medicine, take it as told by your health care provider. Do not stop using the antibiotic even if you start to feel better.\.br\ Activity\.br\ \.br\ ? \.br\ Return to your normal activities as told by your health care provider. Ask your health care provider what activities are safe for you.\.br\ ? \.br\ Ask your health care provider when it is okay for you to resume sexual activity.\.br\ ? \.br\ You may have to avoid lifting. Ask your health care provider how much you can safely lift.\.br\ General instructions\.br\ \.br\ ? \.br\ Drink enough fluid to keep your urine pale yellow.\.br\ ? \.br\ Watch your urine, stool, and semen for new or increased bleeding.\.br\ ? \.br\ Keep all follow-up visits. This is important.\.br\ Contact a health care provider if:\.br\ ? \.br\ You have any of the following:\.br\ ? \.br\ Blood clots in your urine or stool.\.br\ ? \.br\ Blood in your urine more than 2 weeks after the procedure.\.br\ ? \.br\ Blood in your semen more than 2 months after the procedure.\.br\ ? \.br\ New or increased bleeding in your urine, stool, or semen.\.br\ ? \.br\ Severe pain in your abdomen.\.br\ ? \.br\ Your urine smells bad or unusual.\.br\ ? \.br\ You have trouble urinating.\.br\ ? \.br\ Your lower abdomen feels firm.\.br\ ? \.br\ You have problems getting an erection.\.br\ ? \.br\ You have nausea or you vomit.\.br\ Get help right away if:\.br\ ? \.br\ You have a fever or chills. This could be a sign of infection.\.br\ ? \.br\ You have bright red urine.\.br\ ? \.br\ You have severe pain that does not get better with medicine.\.br\ ? \.br\ You cannot urinate.\.br\ Summary\.br\ ? \.br\ After this procedure, it is common to have pain and discomfort around your rectum, especially while sitting.\.br\ ? \.br\ You may have blood in your urine and stool after the procedure.\.br\ ? \.br\ It is common to have blood in your semen after this procedure.\.br\ ? \.br\ Get help right away if you have a fever or chills. This could be a sign of infection.\.br\ This information is not intended to replace advice given to you by your health care provider. Make sure you discuss any questions you have with your health care provider.\.br\ Document Revised: 03/21/2022 Document Reviewed: 03/21/2022 Elsevier Patient Education ? 2022 Elsevier Inc.\.br\ \.br\ [facility] Formson 07-12-2023 Forms [id number]#1.00CD:12 7 Normal [facility] Lab Reportson 07-12-2023 Lab Reports [id number]#1.00CD:12 7 Normal [facility] Patient Educationon 07-12-20 Patient Education Oncology Transrectal Ultrasound-Guided Prostate Biopsy, Care After The following information offers guidance on how to care for yourself after your procedure. Your health care provider may also give you more specific instructions. If you have problems or questions, contact your health care provider. What can I expect after the procedure? After the procedure, it is common to have: ? Pain and discomfort near your rectum, especially while sitting. ? Farmland-colored urine due to small amounts of blood in your urine. ? A burning feeling while urinating. ? Blood in your stool (feces) or bleeding from your rectum. ? Blood in your semen. Follow these instructions at home: Medicines ? Take hhez-poj-atirkpq and prescription medicines only as told by your health care provider. ? If you were given a sedative during your procedure, it can affect you for several hours. Do not drive or operate machinery until your health care provider says that it is safe. ? If you were prescribed an antibiotic medicine, take it as told by your health care provider. Do not stop using the antibiotic even if you start to feel better. Activity ? Return to your normal activities as told by your health care provider. Ask your health care provider what activities are safe for you. ? Ask your health care provider when it is okay for you to resume sexual activity. ? You may have to avoid lifting. Ask your health care provider how much you can safely lift. General instructions ? Drink enough fluid to keep your urine pale yellow. ? Watch your urine, stool, and semen for new or increased bleeding. ? Keep all follow-up visits. This is important. Contact a health care provider if: ? You have any of the following: ? Blood clots in your urine or stool. ? Blood in your urine more than 2 weeks after the procedure. ? Blood in your semen more than 2 months after the procedure. ? New or increased bleeding in your urine, stool, or semen. ? Severe pain in your abdomen. ? Your urine smells bad or unusual. ? You have trouble urinating. ? Your lower abdomen feels firm. ? You have problems getting an erection. ? You have nausea or you vomit. Get help right away if: ? You have a fever or chills. This could be a sign of infection. ? You have bright red urine. ? You have severe pain that does not get better with medicine. ? You cannot urinate. Summary ? After this procedure, it is common to have pain and discomfort around your rectum, especially while sitting. ? You may have blood in your urine and stool after the procedure. ? It is common to have blood in your semen after this procedure. ? Get help right away if you have a fever or chills. This could be a sign of infection. This information is not intended to replace advice given to you by your health care provider. Make sure you discuss any questions you have with your health care provider. Document Revised: 03/21/2022 Document Reviewed: 03/21/2022 [employer] Patient Education ? 2022 [employer] Normal [facility] Physician Referralon 023 Physician Referral [id number]#1.00CD:12 7 Normal [facility] Physician Referral [id number]#1.00CD:1 27 Normal [facility] Prostate Histology ( Labs) on 07-12-2023 PH Method of Extraction Needle Biopsy Normal [facility] Comment on above: Performed By: #### 1 [id number] ####[facility] [address] [place] [address] PH Number of Jars 2 Invalid Interpretation Code [facility] Comment on above: Performed By: #### 1 [id number] ####[facility] [address] [place] [address] PH Specimen 1 R Base Prostate Normal [facility] Comment on above: Performed By: #### 1 [id number] ####[facility] [address] [place] [address] PH Specimen 10 L Lat Mid Prost Normal [facility] Comment on above: Performed By: #### 1 [id number] ####[facility] [address] [place] [address] PH Specimen 11 L Apx Prostate Normal [facility] Comment on above: Performed By: #### 1 [id number] ####[facility] [address] [place] [address] PH Specimen 12 L Lat Apx Prost Normal [facility] Comment on above: Performed By: #### 1 [id number] ####[facility] [address] [place] [address] PH Specimen 2 R Lat Bse Prost Normal [facility] Comment on above: Performed By: #### 1 [id number] ####[facility] [address] [place] [address] PH Specimen 3 R Mid Prostate Normal [facility] Comment on above: Performed By: #### 1 [id number] ####[facility] [address] [place] [address] PH Specimen 4 R Lat Mid Prost Normal [facility] Comment on above: Performed By: #### 1 [id number] ####[facility] [address] [place] [address] PH Specimen 5 R Apx Prostate Normal [facility] Comment on above: Performed By: #### 1 [id number] ####[facility] [address] [place] [address] PH Specimen 6 R Lat Apx Prost Normal [facility] Comment on above: Performed By: #### 1 [id number] ####[facility] [address] [place] [address] PH Specimen 7 L Base Prostate Normal [facility] Comment on above: Performed By: #### 1 [id number] ####[facility] [address] [place] [address] PH Specimen 8 L Lat Bse Prost Normal [facility] Comment on above: Performed By: #### 1 [id number] ####[facility] [address] [place] [address] PH Specimen 9 L Mid Prostate Normal [facility] Comment on above: Performed By: #### 1 [id number] ####[facility] [address] [place] [address] PH Type of Service Technical Only Normal [facility] Comment on above: Performed By: #### 1 [id number] ####[facility] [address] [place] [address] Screenson 07-12-2023 Screens [id number]:1 27 Normal [facility] Urology Office/Clinic Noteon 07-12-2023 Urology Office/Clinic Note Chief Complaint Pt is here for TRUS/bx HPI Staff Osiel is a 52 y.o. male here for TRUS/bx. ABX taken. History of Present Illness Tests reviewed: none I have reviewed the previous health record information and history for this patient from Dr. Lundberg. I have reviewed and verified the staff HPI to be accurate for this encounter. There have been no associated fever, chills, flank pain, or blood in the urine. Denies any urinary infections since last encounter. Review of Systems PHQ Score Initial Depression Screen Score: 0 ROS - Provider Constitutional: denies weight loss, denies hot flashes. Eyes: denies eye problems. Gastrointestinal: denies nausea, denies vomiting. Cardiovascular: denies chest pain or angina. Integumentary: no dryness Musculoskeletal: denies musculoskeletal symptoms. ENMT: denies otolaryngeal symptoms. Respiratory: no shortness of breath. Heme/Lymph: denies easy bleeding tendency, denies easy bruising tendency. Psychiatric: no confusion, no anxiety. Genitourinary: See HPI. Physical Exam Vitals & Measurements HR: 89(Peripheral) BP: 140/88 HT: 72 in HT: 182 cm WT: 154 kg WT: 338.8 lb BMI: 46.49 General Appearance: alert, no distress, well nourished, well developed male. Genitourinary: normal scrotum, normal testes, normal urethra, normal epididymis, normal vas deferens/spermatic cord. Flank Pain: none. Bladder: nonpalpable. Procedure Operative Information Anesthesia Type: Local Procedure: Transrectal Ultrasound and Transrectal Ultrasound-Guided Biopsy of the Prostate Complications: None Surgical risks, benefits, details of the procedure have been explained to the patient. Full informed consent has been obtained. Intraoperative Information Prepped: The patient was brought into the office suite and placed in the modified left lateral Borden position. The patient was draped appropriately. 80 mg Gentamicin IM injection administered. Procedure: Then 2% Xylocaine jelly was used for intrarectal anesthesia. After waiting several minutes, a well lubricated ultrasound probe was introduced per rectum. The prostate was carefully evaluated in the AP and Sagittal views. Volume: _35.7 mL Specimens Removed: A total of 12 biopsies were taken, 6 from each side, and sent to pathology. Postoperative Information The patient tolerated the procedure well and was discharged home in satisfactory condition. The patient was instructed to finish antibiotics, avoid strenuous activity, and go to the emergency room for gross bleeding, fever, or chills. Radiology Report Procedure: Transrectal US guided needle biopsy of the prostate Narrative: Ultrasound probe is introduced and performed in the longitudinal and transverse plains. The prostatic capsule and seminal vesicles appear to be within normal limits. Ultrasound guidance was then utilized to obtain 12 biopsies. These were sent to pathology for evaluation. The gland measures: _ 48.8 MM Length, _ 53.1 MM Width, _ 26.3 MM Depth, with a calculated volume of _ 35.7 CC. The peripheral zone demonstrates: _ Rest of the prostate demonstrates: _ Assessment/Plan 1. Elevated PSA (R97.20: Elevated prostate specific antigen [PSA]) IPSS (5). JESUS 07/07/23: 30gms, not accurate due to prostate being distant Denies fam hx of prostate cancer. PSA 07/03/23 - 168.74 (first PSA ever) 07/07/23 - 180.42 Pt had TRUS/bx done IO today wo complications. Prophy abx taken prior. Follow up in 2 weeks to review pathology or sooner if needed. Pt understands and agrees with plan. Follow-up With When Contact Information TOÑO STANTON, Yaneli Friedman, URL [facility] [address], [place] [address] [phone] Additional Instructions: f/u scheduled 07/24/23 to review path Patient Education Transrectal Ultrasound-Guided Prostate Biopsy, Care After I, Cecily Carpenter, personally scribed for Dr. Lundberg on 07/12/2023 13:35:24. . Documentation recorded by the scribe, Cecily Carpenter, accurately reflects the services(s) I performed and decisions made by me. Authenticated by Dr. Lundberg on 07/12/2023 13:37:29. Problem List/Past Medical History Ongoing Anemia Elevated PSA Gout Headache Hypertension Varicose veins of legs Historical No qualifying data Procedure/Surgical History Transrectal biopsy of prostate using ultrasound (US) guidance (07/12/2023), Repair of right inguinal hernia, Tonsillectomy. Medications Cipro 500 mg Tab, 500 mg= 1 tab(s), Oral, BID colchicine 0.6 mg Tab diclofenac sodium 75 mg Oral EC Tab lisinopril 10 mg Tab Allergies No Known Allergies No Known Medication Allergies Social History Tobacco quit 10 years ago Tobacco Use:. Never Smokeless Tobacco Use:. Cigarettes, 07/07/2023 Family History Acute myocardial infarction: Father. Crohn's disease: Mother. Diabetes mellitus type 2: Father. Rheumatoid arthritis: Mother. Normal [facility] Comment on above: Result Comment: Elec tronically Signed By: Yaneli LUNDBERG MD\.br\Date and Time Signed: 07/12/23 13:37 EDT\.br\Electronically Co-Signed By: Cecily Carpenter\.br\Date and Time Co-Signed: 07/12/23 13:35 EDT Insurance Correspondenceon 1 Insurance Correspondence [id number]#1.00CD:12 7 Normal [facility] Ambulatory Visit Summaryon 0 07-07-2023 Ambulatory Visit Summary CHAY OSIEL :1970 Visit Date:07/07/2023 Ambulatory Visit Instructions Your Diagnosis Elevated PSA Your Care Team Attending Physician - Yaneli LUNDBERG MD Primary Care Physician - Carolann Shirley MD This Is Your Medications List ciprofloxacin (Cipro 500 mg Tab) Contact prescribing physician if questions or concerns colchicine (colchicine 0.6 mg Tab) diclofenac (diclofenac sodium 75 mg Oral EC Tab) lisinopril (lisinopril 10 mg Tab) Procedures Performed Repair of right inguinal hernia, Tonsillectomy. Discharge Vitals Temperature (Temporal Artery) 36.8 ?C Heart Rate (Peripheral) 78 Blood Pressure 128/84 Height 182 cm Height 72 in Weight 154 kg Weight 338.8 lb BMI 46.49 What to do next Scheduled Follow-Up Appointments Monday 3:40 PM EDT With: Azeem DANIELS MD Where: General [facility] [place] [facility] [address] [place] [address] [place] [address]- \.br\ You Need to Schedule the Following Appointments\.br\ Follow Up with TOÑO STANTON, Yaneli Friedman, URL When: \.br\ Comments:\.br\ Sched TRUS/bx of prostate\.br\ Where:\.br\ [facility] [address]\.br\ [place] [address].br\ Medications\.br\ What How Much When Instructions\.br\ New ciprofloxacin (Cipro 500 mg Tab) 1 Tablets By Mouth 2 times a day Duration: 7 Days Pickup at [facility]\.br\ Unchanged colchicine (colchicine 0.6 mg Tab) Contact prescribing physician if questions or concerns \.br\ Unchanged diclofenac (diclofenac sodium 75 mg Oral EC Tab) Contact prescribing physician if questions or concerns \.br\ Unchanged lisinopril (lisinopril 10 mg Tab) Contact prescribing physician if questions or concerns \.br\ Pharmacy Information\.br\ [facility]: [address] [place] [id number] [phone]\.br\ Allergies\.br\ No Known Allergies\.br\ No Known Medication Allergies\.br\ Problems\.br\ Ongoing - Any problem that you are currently receiving treatment for.\.br\ Anemia\.br\ Elevated PSA\.br\ Gout\.br\ Headache\.br\ Hypertension\.br\ Varicose veins of legs\.br\ Education Materials\.br\ Prostate Cancer Screening\.br\ \.br\ Prostate cancer screening is testing that is done to check for the presence of prostate cancer in men. The prostate gland is a walnut-sized gland that is located below the bladder and in front of the rectum in males. The function of the prostate is to add fluid to semen during ejaculation. Prostate cancer is one of the most common types of cancer in men.\.br\ Who should have prostate cancer screening?\.br\ Screening recommendations vary based on age and other risk factors, as well as between the professional organizations who make the recommendations.\ .br\ In general, screening is recommended if:\.br\ ? \.br\ You are age 50 to 70 and have an average risk for prostate cancer. You should talk with your health care provider about your need for screening and how often screening should be done. Because most prostate cancers are slow growing and will not cause , screening in this age group is generally reserved for men who have a 10- to 15-year life expectancy.\.br\ ? \.br\ You are younger than age 50, and you have these risk factors:\.br\ ? \.br\ Having a father, brother, or uncle who has been diagnosed with prostate cancer. The risk is higher if your family member's cancer occurred at an early age or if you have multiple family members with prostate cancer at an early age.\.br\ ? \.br\ Being a male who is Black or is of [place] or sub-Saharan descent.\.br\ In general, screening is not recommended if:\.br\ ? \.br\ You are younger than age 40.\.br\ ? \.br\ You are between the ages of 40 and 49 and you have no risk factors.\.br\ ? \.br\ You are 70 years of age or older. At this age, the risks that screening can cause are greater than the benefits that it may provide.\.br\ If you are at high risk for prostate cancer, your health care provider may recommend that you have screenings more often or that you start screening at a younger age.\.br\ How is screening for prostate cancer done?\.br\ The recommended prostate cancer screening test is a blood test called the prostate-specific antigen (PSA) test. PSA is a protein that is made in the prostate. As you age, your prostate naturally produces more PSA. Abnormally high PSA levels may be caused by:\.br\ ? \.br\ Prostate cancer.\.br\ ? \.br\ An enlarged prostate that is not caused by cancer (benign prostatic hyperplasia, or BPH). This condition is very common in older men.\.br\ ? \.br\ A prostate gland infection (prostatitis) or urinary tract infection.\.br\ ? \.br\ Certain medicines such as male hormones (like testosterone) or other medicines that raise testosterone levels.\.br\ A rectal exam may be done as part of prostate cancer screening to help provide information about the size of your prostate gland. When a rectal exam is performed, it should be done after the PSA level is drawn to avoid any effect on the results.\.br\ Depending on the PSA results, you may need more tests, such as:\.br\ ? \.br\ A physical exam to check the size of your prostate gland, if not done as part of screening.\.br\ ? \.br\ Blood and imaging tests.\.br\ ? \.br\ A procedure to remove tissue samples from your prostate gland for testing (biopsy). This is the only way to know for certain if you have prostate cancer.\.br\ What are the benefits of prostate cancer screening?\.br\ ? \.br\ Screening can help to identify cancer at an early stage, before symptoms start and when the cancer can be treated more easily.\.br\ ? \.br\ There is a small chance that screening may lower your risk of dying from prostate cancer. The chance is small because prostate cancer is a slow-growing cancer, and most men with prostate cancer from a different cause.\.br\ What are the risks of prostate cancer screening?\.br\ The main risk of prostate cancer screening is diagnosing and treating prostate cancer that would never have caused any symptoms or problems. This is called overdiagnosisand overtreatment. PSA screening cannot tell you if your PSA is high due to cancer or a different cause. A prostate biopsy is the only procedure to diagnose prostate cancer. Even the results of a biopsy may not tell you if your cancer needs to be treated. Slow-growing prostate cancer may not need any treatment other than monitoring, so diagnosing and treating it may cause unnecessary stress or other side effects.\.br\ Questions to ask your health care provider\.br\ ? \.br\ When should I start prostate cancer screening?\.br\ ? \.br\ What is my risk for prostate cancer?\.br\ ? \.br\ How often do I need screening?\.br\ ? \.br\ What type of screening tests do I need?\.br\ ? \.br\ How do I get my test results?\.br\ ? \.br\ What do my results mean?\.br\ ? \.br\ Do I need treatment?\.br\ Where to find more information\.br\ ? \.br\ The [place] [employer]: www.cancer.org\.b r\ ? \.br\ [place] [employer]: www.auanet.org\.b r\ Contact a health care provider if:\.br\ ? \.br\ You have difficulty urinating.\.br\ ? \.br\ You have pain when you urinate or ejaculate.\.br\ ? \.br\ You have blood in your urine or semen.\.br\ ? \.br\ You have pain in your back or in the area of your prostate.\.br\ Summary\.br\ ? \.br\ Prostate cancer is a common type of cancer in men. The prostate gland is located below the bladder and in front of the rectum. This gland adds fluid to semen during ejaculation.\.br\ ? \.br\ Prostate cancer screening may identify cancer at an early stage, when the cancer can be treated more easily and is less likely to have spread to other areas of the body.\.br\ ? \.br\ The prostate-specific antigen (PSA) test is the recommended screening test for prostate cancer, but it has associated risks.\.br\ ? \.br\ Discuss the risks and benefits of prostate cancer screening with your health care provider. If you are age 70 or older, the risks that screening can cause are greater than the benefits that it may provide.\.br\ This information is not intended to replace advice given to you by your health care provider. Make sure you discuss any questions you have with your health care provider.\.br\ Document Revised: 03/21/2022 Document Reviewed: 03/21/2022 Elsevier Patient Education ? 2022 [facility] Patient Educationon 07-07-20 23 Patient Education Oncology Prostate Cancer Screening Prostate cancer screening is testing that is done to check for the presence of prostate cancer in men. The prostate gland is a walnut-sized gland that is located below the bladder and in front of the rectum in males. The function of the prostate is to add fluid to semen during ejaculation. Prostate cancer is one of the most common types of cancer in men. Who should have prostate cancer screening? Screening recommendations vary based on age and other risk factors, as well as between the professional organizations who make the recommendations. In general, screening is recommended if: ? You are age 50 to 70 and have an average risk for prostate cancer. You should talk with your health care provider about your need for screening and how often screening should be done. Because most prostate cancers are slow growing and will not cause , screening in this age group is generally reserved for men who have a 10- to 15-year life expectancy. ? You are younger than age 50, and you have these risk factors: ? Having a father, brother, or uncle who has been diagnosed with prostate cancer. The risk is higher if your family member's cancer occurred at an early age or if you have multiple family members with prostate cancer at an early age. ? Being a male who is Black or is of [place] or sub-Saharan descent. In general, screening is not recommended if: ? You are younger than age 40. ? You are between the ages of 40 and 49 and you have no risk factors. ? You are 70 years of age or older. At this age, the risks that screening can cause are greater than the benefits that it may provide. If you are at high risk for prostate cancer, your health care provider may recommend that you have screenings more often or that you start screening at a younger age. How is screening for prostate cancer done? The recommended prostate cancer screening test is a blood test called the prostate-specific antigen (PSA) test. PSA is a protein that is made in the prostate. As you age, your prostate naturally produces more PSA. Abnormally high PSA levels may be caused by: ? Prostate cancer. ? An enlarged prostate that is not caused by cancer (benign prostatic hyperplasia, or BPH). This condition is very common in older men. ? A prostate gland infection (prostatitis) or urinary tract infection. ? Certain medicines such as male hormones (like testosterone) or other medicines that raise testosterone levels. A rectal exam may be done as part of prostate cancer screening to help provide information about the size of your prostate gland. When a rectal exam is performed, it should be done after the PSA level is drawn to avoid any effect on the results. Depending on the PSA results, you may need more tests, such as: ? A physical exam to check the size of your prostate gland, if not done as part of screening. ? Blood and imaging tests. ? A procedure to remove tissue samples from your prostate gland for testing (biopsy). This is the only way to know for certain if you have prostate cancer. What are the benefits of prostate cancer screening? ? Screening can help to identify cancer at an early stage, before symptoms start and when the cancer can be treated more easily. ? There is a small chance that screening may lower your risk of dying from prostate cancer. The chance is small because prostate cancer is a slow-growing cancer, and most men with prostate cancer from a different cause. What are the risks of prostate cancer screening? The main risk of prostate cancer screening is diagnosing and treating prostate cancer that would never have caused any symptoms or problems. This is called overdiagnosisand overtreatment. PSA screening cannot tell you if your PSA is high due to cancer or a different cause. A prostate biopsy is the only procedure to diagnose prostate cancer. Even the results of a biopsy may not tell you if your cancer needs to be treated. Slow-growing prostate cancer may not need any treatment other than monitoring, so diagnosing and treating it may cause unnecessary stress or other side effects. Questions to ask your health care provider ? When should I start prostate cancer screening? ? What is my risk for prostate cancer? ? How often do I need screening? ? What type of screening tests do I need? ? How do I get my test results? ? What do my results mean? ? Do I need treatment? Where to find more information ? The [place] [employer]: www.cancer.org ? [place] [employer]: www.auanet.org Contact a health care provider if: ? You have difficulty urinating. ? You have pain when you urinate or ejaculate. ? You have blood in your urine or semen. ? You have pain in your back or in the area of your prostate. Summary ? Prostate cancer is a common type of cancer in men. The prostate gland is located below the bladder and in front of the rectum. This gland adds flu (more content not included)... [facility] Provider Letteron 07-07-2023 Provider Letter (Inserted Image. Sandhya ble to display) July 07, 2023 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 [address] [place] [id number] : 1970 To Whom It May Concern, Please excuse above patient from work. Date of Illness: From: 07/07/2023 To: 07/07/2023 May Return to Work On:07/07/23 Restrictions: None Comments: Patient had an appointment at [facility] on 07/07/2023. 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 Shirley. Current PSA done 07/03/23 is 168.74. The only PSA he has ever done IPSS 5 Could not give a urine sample today Dysuria: _denies Incomplete bladder emptying: denies Hematuria: denies visible blood Frequency: 3-4 x times Urgency: _denies Nocturia: 1-2 times nightly Stream: _denies hesitation, normal stream Leaking: _denies Post void dripping: _sometimes Wearing pads/ Depends: denies Urge incontinence: denies Stress incontinence: denies Incontinence without Sensory Awareness: denies Abdominal pain: denies Flank pain: denies Sexual complaints: denies History of Present Illness Tests reviewed: reviewed UA and External Records. I have reviewed the previous health record information and history for this patient from External Provider. I have reviewed and verified the staff HPI to be accurate for this encounter. There have been no associated fever, chills, flank pain, or blood in the urine. Denies any urinary infections since last encounter. Review of Systems PHQ Score Initial Depression Screen Score: 0 ROS - Provider Constitutional: denies weight loss, denies hot flashes. Eyes: denies eye problems. Gastrointestinal: denies nausea, denies vomiting. Cardiovascular: denies chest pain or angina. Integumentary: no dryness Musculoskeletal: denies musculoskeletal symptoms. ENMT: denies otolaryngeal symptoms. Respiratory: no shortness of breath. Heme/Lymph: denies easy bleeding tendency, denies easy bruising tendency. Psychiatric: no confusion, no anxiety. Genitourinary: See HPI. Physical Exam Vitals & Measurements T: 36.8 ?C(Temporal Artery) HR: 78(Peripheral) BP: 128/84 HT: 72 in HT: 182 cm WT: 154 kg WT: 338.8 lb BMI: 46.49 General Appearance: alert, no distress, well nourished, well developed male. Head: normocephalic . Eyes: normal orbit and globe. ENMT: normal examination of external ears. Chest: Lungs CTA, respirations non labored. Cardiovascular: regular rate and rhythm. Abdomen: soft, non distended, no tenderness, no mass or organomegaly, no hernia. Genitourinary: normal scrotum, normal testes, normal urethra, normal epididymis, normal vas deferens/spermatic cord. Flank Pain: none. Bladder: nonpalpable. Penis: normal shaft, normal glans. Prostate: abnormal prostate, distant and unable to examine due to pt anatomy, estimated weight 30 gms, no hard nodule observed, not accurate due to prostate being distant. Lymph Nodes: unremarkable palpation of the cervical area. Skin: warm, dry, no bruising. Psychiatric: cooperative, affect appropriate for age, normal judgement, euthymic mood. Assessment/Plan 1. Elevated PSA (R97.20: Elevated prostate specific antigen [PSA]) Current PSA done 07/03/23 is 168.74. The only PSA he has ever done. Denies any fam hx of prostate cancer that he knows of. IPSS 5 Pt could not give UA today. Pt denies any urinary concerns, infections, and visible blood in urine. JESUS: 30gms, not accurate due to prostate being distant Counseled pt on what the PSA is and what it is used for. Advised pt of his levels and the risks of a PSA being this high. Discussed getting a repeat PSA for verification purposes and a TRUS/bx done. Advised pt that if the PSA is normal(lab error), then we can cxl the TRUS/bx. Pt inquired about how he doesn't have signs. Advised pt that there are not really any physical sxs that point towards prostate cancer. -PSA drawn IO today. -Will schedule TRUS of Prostate with Biopsy. The procedural risks, benefits, details, and treatment alternatives have been discussed with the patient. These include minimal to severe bleeding, infection, blood in the semen, inability to urinate, and severe infection requiring hospitalization and IV antibiotics, among others. Full informed consent has been obtained. Will order Local anesthesia. -Will send Cipro 500mg BID x7 days to pharm on file. Discussed the medication side effects, and the patient will monitor closely for these, as well as for symptom improvement. If severe side effects occur, the medication should be stopped and the office notified. Follow-up With When Contact Information TOÑO STANTON, Yaneli [place], URL [facility] [address] [place] [address]- Additional Instructions: Sched TRUS/bx of prostate Patient Education Prostate Cancer Screening I, Mare Toussaint , personally scribed for Dr. Lundberg on 07/07/2023 11:47:27. . Documentation recorded by the scribe, Mare Toussaint, accurately reflects the services(s) I performed and decisions made by me. Problem List/Past Medical History Ongoing Anemia Elevated PSA Gout Headache Hypertension Varicose veins of legs Historical No qualifying data Procedure/Surgical History Repair of right inguinal hernia, Tonsillectomy. Medications colchici (more content not included)... [facility] Comment on above: Result Comment: Elec tronically Signed By: TOÑO STANTON, Yaneli [place]\.br\Date and Time Signed: 07/07/23 11:55 EDT\.br\Electronically Co-Signed By: Mare Toussaint\.br\Date and Time Co-Signed: 07/07/23 11:47 EDT\.br\Electronically Co-Signed By: Mare Toussaint\.br\Date and Time Co-Signed: 07/07/23 11:51 EDT Physician Referralon 023 Physician Referral [id number]:[id number] [facility] SARS-CoV-2 (COVID-19) RNA ELVIS+probe Ql (Unsp spec) Not detected Normal NOT DETECTED [facility] Comment on above: Result Comment: This test is not yet approved or cleared by the [place] FDA. When there are no FDA-approved or cleared tests available, and other criteria are met, FDA can make tests available under an emergency access mechanism called an Emergency Use Authorization (EUA). The EUA for this test is supported by the Social And Human Services Assistant of Health and Human Service's (HHS's) declaration that circumstances exist to justify the emergency use of in vitro diagnostics for the detection and/or diagnosis of the virus that causes COVID-19. This EUA will remain in effect (meaning this test can be used) for the duration of the COVID-19 declaration justifying emergency of IVDs, unless it is terminated or revoked by FDA (after which the test may no longer be used). When diagnostic testing is negative, the possibility of a false negative should be considered in the context of a patient's recent exposures and the presence of clinical signs and symptoms consistent with SARS-CoV-2. Performed By: #### C TB #### [facility] [address] [place] [address] Dr. Katja Mendoza Vital Signs Date Time Vital Sign Value Performing Clinician Facility 12-06-2023 08:57-0500 Body temperature 96.49 [degF] TUCKER Paris MD Work Phone: [facility] 12-06-2023 08:57-0500 Body weight 160.3 kg TUCKER Paris MD Work Phone: [facility] 12-06-2023 08:57-0500 Diastolic blood pressure 80 mm[Hg] TUCKER Paris MD Work Phone: [facility] 12-06-2023 08:57-0500 Heart rate 92 /min TUCKER Paris MD Work Phone: [facility] 12-06-2023 08:57-0500 Respiratory rate 20 /min TUCKER Paris MD Work Phone: [facility] 12-06-2023 08:57-0500 SaO2% (BldA) [Mass fraction] 98 % TUCKER Paris MD Work Phone: [facility] 12-06-2023 08:57-0500 Systolic blood pressure 123 mm[Hg] TUCKER Paris MD Work Phone: [facility] 11-14-2023 09:16-0500 Diastolic blood pressure 80 mm[Hg] Javi Singer MD Work Phone: [facility] 11-14-2023 09:16-0500 Systolic blood pressure 138 mm[Hg] Javi Singer MD Work Phone: [facility] 11-14-2023 09:12-0500 Body height 182.9 cm Javi Singer MD Work Phone: [facility] 11-14-2023 09:12-0500 Body temperature 97.5 [degF] Javi Singer MD Work Phone: [facility] 11-14-2023 09:12-0500 Body weight 161.1 kg Javi Singer MD Work Phone: [facility] 11-14-2023 09:12-0500 Heart rate 76 /min Javi Singer MD Work Phone: [facility] 11-14-2023 09:12-0500 Respiratory rate 18 /min Javi Singer MD Work Phone: [facility] 11-14-2023 09:12-0500 SaO2% (BldA) [Mass fraction] 99 % Javi Singer MD Work Phone: [facility] 09-12-2023 08:59-0500 Body temperature 97.59 [degF] TUCKER Paris MD Work Phone: [facility] 09-12-2023 08:59-0500 Body weight 153.77 kg TUCKER Paris MD Work Phone: [facility] 09-12-2023 08:59-0500 Diastolic blood pressure 81 mm[Hg] TUCKER Paris MD Work Phone: [facility] 09-12-2023 08:59-0500 Heart rate 57 /min TUCKER Paris MD Work Phone: [facility] 09-12-2023 08:59-0500 Respiratory rate 18 /min TUCKER Paris MD Work Phone: [facility] 09-12-2023 08:59-0500 SaO2% (BldA) [Mass fraction] 98 % TUCKER Paris MD Work Phone: [facility] 09-12-2023 08:59-0500 Systolic blood pressure 121 mm[Hg] TUCKER Paris MD Work Phone: [facility] 08-22-2023 08:42-0500 Blood Pressure Location Yaneli TOÑO [facility] 08-22-2023 08:42-0500 Diastolic blood pressure 84 mm[Hg] Yaneli LUNDBERG [facility] 08-22-2023 08:42-0500 Systolic blood pressure 132 mm[Hg] Yaneli LUNDBERG [facility] 08-21-2023 15:35-0500 Body height 182.9 cm Javi Singer MD Work Phone: [facility] 08-21-2023 15:35-0500 Body temperature 97.81 [degF] Javi Singer MD Work Phone: [facility] 08-21-2023 15:35-0500 Body weight 153.41 kg Javi Singer MD Work Phone: [facility] 08-21-2023 15:35-0500 Diastolic blood pressure 90 mm[Hg] Javi Singer MD Work Phone: [facility] 08-21-2023 15:35-0500 Heart rate 64 /min Javi Singer MD Work Phone: [facility] 08-21-2023 15:35-0500 Respiratory rate 18 /min Javi Singer MD Work Phone: [facility] 08-21-2023 15:35-0500 SaO2% (BldA) [Mass fraction] 99 % Javi Singer MD Work Phone: [facility] 08-21-2023 15:35-0500 Systolic blood pressure 154 mm[Hg] Javi Singer MD Work Phone: [facility] 08-09-2023 15:35-0400 Body height 182.9 cm TUCKER Paris MD Work Phone: [facility] 08-09-2023 15:35-0400 Body temperature 97.7 [degF] TUCKER Paris MD Work Phone: [facility] 08-09-2023 15:35-0400 Body weight 153.77 kg TUCKER Paris MD Work Phone: [facility] 08-09-2023 15:35-0400 Diastolic blood pressure 82 mm[Hg] TUCKER Paris MD Work Phone: [facility] 08-09-2023 15:35-0400 Heart rate 63 /min TUCKER Paris MD Work Phone: [facility] 08-09-2023 15:35-0400 Respiratory rate 18 /min TUCKER Paris MD Work Phone: [facility] 08-09-2023 15:35-0400 SaO2% (BldA) [Mass fraction] 98 % TUCKER Paris MD Work Phone: [facility] 08-09-2023 15:35-0400 Systolic blood pressure 144 mm[Hg] TUCKER Paris MD Work Phone: [facility] 08-09-2023 07:59-0400 Blood Pressure Location Yaneli LUNDBERG [facility] 08-09-2023 07:59-0400 Diastolic blood pressure 84 mm[Hg] Yaneli LUNDBERG [facility] 08-09-2023 07:59-0400 Systolic blood pressure 124 mm[Hg] Yaneli LUNDBERG [facility] 07-24-2023 11:50-0400 Blood Pressure Location Yaneli LUNDBERG [facility] 07-24-2023 11:50-0400 Diastolic blood pressure 86 mm[Hg] Yaneli LUNDBERG [facility] 07-24-2023 11:50-0400 Heart rate 68 /min Ayneli LUNDBERG [facility] 07-24-2023 11:50-0400 Respiratory rate 16 /min Yaneli LUNDBERG [facility] 07-24-2023 11:50-0400 Systolic blood pressure 132 mm[Hg] Yaneli LUNDBERG [facility] 07-19-2023 15:49-0400 Blood Pressure Location Azeem NILL [facility] 07-19-2023 15:49-0400 Diastolic blood pressure 94 mm[Hg] Azeem NILL [facility] 07-19-2023 15:49-0400 Heart rate 72 /min Azeem NILL [facility] 07-19-2023 15:49-0400 Respiratory rate 16 /min Azeem NILL [facility] 07-19-2023 15:49-0400 Systolic blood pressure 138 mm[Hg] Azeem NILL [facility] 07-12-2023 13:03-0400 Blood Pressure Location Yaneli LUNDBERG [facility] 07-12-2023 13:03-0400 Diastolic blood pressure 88 mm[Hg] Yaneli LUNDBERG [facility] 07-12-2023 13:03-0400 Heart rate 89 /min Yaneli LUNDBERG [facility] 07-12-2023 13:03-0400 Systolic blood pressure 140 mm[Hg] Yaneli LUNDBERG [facility] 07-07-2023 10:34-0400 Blood Pressure Location Yaneli LUNDBERG [facility] 07-07-2023 10:34-0400 Body temperature 98.24 [degF] Yaneli LUNDBERG [facility] 07-07-2023 10:34-0400 Diastolic blood pressure 84 mm[Hg] Yaneli LUNDBERG [facility] 07-07-2023 10:34-0400 Heart rate 78 /min Yaneli LUNDBERG [facility] 07-07-2023 10:34-0400 Systolic blood pressure 128 mm[Hg] Yanelimicah LUNDBERG [facility] Encounters Encounter Date Encounter Type Care Provider Facility Start: 12-06-2023 End: 12-06-2023 ambulatory Lauren GARUAV PARIS Facility:[facility] Start: 12-06-2023 End: 12-06-2023 Patient encounter procedure Lauren Paris MD Work Phone: Radiation Oncology Comment on above: Malignant neoplasm o f prostate (HCC) (Primary Dx) Start: 11-30-2023 Refill Javi Singer MD Work Phone: Hematology/Oncology Comment on above: Refill Request Start: 11-16-2023 Patient encounter procedure Lauren Paris MD Work Phone: [facility] Start: 11-16-2023 Radiation Oncology Note Lauren Paris MD Work Phone: Radiation Oncology Comment on above: Completion Note Start: 11-16-2023 End: 11-16-2023 ambulatory Lauren PARIS Facility:[facility] Start: 11-15-2023 End: 11-15-2023 ambulatory Lauren PARIS Facility:[facility] Start: 11-14-2023 End: 11-14-2023 ambulatory Javi Singer MD Work Phone: Hematology/Oncology Comment on above: Prostate cancer (HCC ) (Primary Dx) Start: 11-14-2023 End: 11-14-2023 Patient encounter procedure Javi Singer MD Work Phone: [facility] Start: 11-13-2023 End: 11-13-2023 ambulatory G GAURAV ENGELER Facility:[facility] Start: 11-10-2023 End: 11-10-2023 ambulatory G GAURAV ENGELER Facility:[facility] Start: 11-09-2023 End: 11-09-2023 ambulatory G GAURAV ENGELER Facility:[facility] Start: 11-08-2023 End: 11-08-2023 ambulatory G GAURAV ENGELER Facility:[facility] Start: 11-07-2023 End: 11-07-2023 ambulatory G GAURAV ENGELER Facility:[facility] Start: 11-06-2023 End: 11-06-2023 ambulatory G GAURAV ENGELER Facility:[facility] Start: 11-03-2023 End: 11-03-2023 ambulatory G GAURAV ENGELER Facility:[facility] Start: 11-02-2023 End: 11-02-2023 ambulatory G GAURAV ENGELER Facility:[facility] Start: 11-01-2023 End: 11-01-2023 ambulatory G GAURAV ENGELER Facility:[facility] Start: 10-31-2023 End: 10-31-2023 ambulatory G GAURAV ENGELER Facility:[facility] Start: 10-30-2023 End: 10-30-2023 ambulatory G GAURAV ENGELER Facility:[facility] Start: 10-27-2023 End: 10-27-2023 ambulatory G GAURAV ENGELER Facility:[facility] Start: 10-26-2023 End: 10-26-2023 ambulatory G GAURAV ENGELER Facility:[facility] Start: 10-25-2023 End: 10-25-2023 ambulatory G GAURAV ENGELER Facility:[facility] Start: 10-24-2023 End: 10-24-2023 ambulatory G GAURAV ENGELER Facility:[facility] Start: 10-23-2023 End: 10-23-2023 ambulatory G GAURAV ENGELER Facility:[facility] Start: 10-20-2023 End: 10-20-2023 ambulatory G GAURAV ENGELER Facility:[facility] Start: 10-19-2023 End: 10-19-2023 ambulatory Lauren GAURAV PARIS Facility:[facility] Start: 10-18-2023 End: 10-18-2023 ambulatory JAVI SINGER Facility:[facility] Start: 10-17-2023 End: 10-17-2023 ambulatory Lauren GAURAV LUISAJUAN Facility:[facility] Start: 10-16-2023 End: 10-16-2023 ambulatory Lauren GAURAV PARIS Facility:[facility] Start: 10-13-2023 End: 10-13-2023 ambulatory Lauren GAURAV ENGJUAN Facility:[facility] Start: 10-12-2023 End: 10-12-2023 ambulatory Lauren GAURAV ENGJUAN Facility:[facility] Start: 10-11-2023 End: 10-11-2023 ambulatory Lauren GAURAV ENGJUAN Facility:[facility] Start: 10-10-2023 End: 10-10-2023 ambulatory Lauren GAURAV PARIS Facility:[facility] Start: 09-19-2023 End: 09-19-2023 ambulatory JAVI SINGER Facility:[facility] Start: 09-19-2023 End: 09-19-2023 Patient encounter procedure Lauren Paris MD Work Phone: Radiation Oncology Comment on above: Malignant neoplasm o f prostate (HCC) (Primary Dx) Start: 09-19-2023 Radiation Oncology Note Lauren Paris MD Work Phone: Radiation Oncology Comment on above: Treatment Planning Start: 09-19-2023 End: 09-20-2023 ambulatory Lauren PARIS Facility:[facility] Start: 09-12-2023 End: 09-12-2023 ambulatory Adrianne Weinstein RN Hematology/Oncology Comment on above: Patient Education Start: 09-12-2023 End: 09-12-2023 Patient encounter procedure Lauren Paris MD Work Phone: Radiation Oncology Comment on above: Malignant neoplasm o f prostate (HCC) (Primary Dx) Start: 08-28-2023 End: 08-28-2023 ambulatory Trisha Nieves RN Work Phone: Hematology/Oncology Comment on above: Oral Anti-cancer Age nt Education (Abiraterone & Prednisone) Start: 08-28-2023 Telephone encounter Trisha henry RN Work Phone: Hematology/Oncology Comment on above: Care Coordination (A biraterone/Prednisone Start Date) Start: 08-22-2023 Telephone encounter Sissy Sharp [facility] Start: 08-22-2023 End: 08-23-2023 ambulatory Yaneli LUNDBERG Facility: [facility] Start: 08-22-2023 End: 08-22-2023 Patient encounter procedure Yaneli LUNDBERG [facility] Start: 08-21-2023 End: 08-21-2023 ambulatory Javi Singer MD Work Phone: Hematology/Oncology Comment on above: Prostate cancer (HCC ) (Primary Dx) Start: 08-21-2023 End: 08-21-2023 Patient encounter procedure Javi Singer MD Work Phone: [facility] Start: 08-16-2023 End: 08-17-2023 ambulatory Azeem DANIELS Facility:[id number] Start: 08-15-2023 Patient encounter procedure [facility] Provider [facility] Department Start: 08-09-2023 End: 08-10-2023 ambulatory YANELI LUNDBERG Facility:[facility] Start: 08-09-2023 End: 08-09-2023 ambulatory YANELI LUNDBERG Facility:[facility] Start: 08-09-2023 End: 08-09-2023 Patient encounter procedure Lauren Paris MD Work Phone: Radiation Oncology Comment on above: Malignant neoplasm o f prostate (HCC) (Primary Dx) Start: 08-09-2023 End: 08-10-2023 ambulatory Yaneli LUNDBERG Facility:[facility] Start: 08-09-2023 End: 08-09-2023 Patient encounter procedure Yaneli LUNDBERG [facility] Start: 07-24-2023 End: 07-25-2023 ambulatory Yaneli LUNDBERG Facility:[facility] Start: 07-24-2023 End: 07-24-2023 Patient encounter procedure Yaneli LUNDBERG [facility] Start: 07-19-2023 End: 07-20-2023 ambulatory Azeem R NILL Facility: [facility] Start: 07-19-2023 End: 07-19-2023 Patient encounter procedure Azeem R NILL [facility] Start: 07-14-2023 ambulatory Yaneli LUNDBERG Facility : [facility] Start: 07-12-2023 End: 07-13-2023 ambulatory Yanelimicah LUNDBERG Facility:[facility] Start: 07-12-2023 End: 07-13-2023 ambulatory Yanelimicah LUNDBERG Facility:[facility] Start: 07-12-2023 End: 07-12-2023 Lab Drop off Yaneli LUNDBERG [facility] Start: 07-12-2023 End: 07-12-2023 Patient encounter procedure Yaneli LUNDBERG [facility] Start: 07-11-2023 ambulatory Yaneli LUNDBERG Facility :[facility] Start: 07-07-2023 End: 07-08-2023 ambulatory Yaneli R TOÑO Facility:[facility] Start: 07-07-2023 End: 07-07-2023 Patient encounter procedure Yaneli R LUNDBERG [facility] Start: 07-03-2023 ambulatory Yaneli LUNDBERG Facility : [place] Start: 08-05-2022 End: 08-06-2022 ambulatory RUEL JAFFE Facility:[facility] Start: 10-19-2021 End: 10-19-2021 ambulatory RUELEUSEBIO SHAHMER Facility:[facility] Procedures Date Procedure Procedure Detail Performing Clinician Start: 07-12-2023 Transrectal biopsy o f prostate using ultrasound guidance Yaneli TOÑO Repair of right ingu inal hernia Yaneli TOÑO Tonsillectomy Yaneli TOÑO Plan of Treatment Date Care Activity Detail Author Start: 11-14-2026 Diabetes Screening Diabetes Screenin [facility] Start: 09-19-2026 Diabetes Screening Diabetes Screenin [facility] Start: 06-05-2024 End: 09-04-2024 Prostate specific Ag [Mass/volume] in Serum or Plasma PSA/PROSTSPECAG DIAG Lab Routine Malignant neoplasm of prostate (HCC) Expected: 06/05/2024 (Approximate), Expires: 09/04/2024 [facility] Work Phone: Comment on above: Expected: 06/05/2024 (Approximate), Expires: 09/04/2024 Start: 02-07-2024 ambulatory Ambulatory Facility:[facility] Start: 02-06-2024 End: 05-07-2024 CBC W Auto Differential panel - Blood CBC + DIFF Lab Routine Prostate cancer (HCC) Expected: 02/06/2024, Expires: 05/07/2024 [facility] Work Phone: Comment on above: Expected: 02/06/2024 , Expires: 05/07/2024 Start: 02-06-2024 End: 05-07-2024 Comprehensive metabolic 2000 panel - Serum or Plasma COMP METABOLIC PANEL Lab Routine Prostate cancer (HCC) Expected: 02/06/2024, Expires: 05/07/2024 [facility] Work Phone: Comment on above: Expected: 02/06/2024 , Expires: 05/07/2024 Start: 02-06-2024 End: 05-07-2024 Prostate specific Ag [Mass/volume] in Serum or Plasma PSA/PROSTSPECAG DIAG Lab Routine Prostate cancer (HCC) Expected: 02/06/2024, Expires: 05/07/2024 [facility] Work Phone: Comment on above: Expected: 02/06/2024 , Expires: 05/07/2024 Start: 02-06-2024 End: 05-07-2024 Testosterone [Mass/volume] in Serum or Plasma TESTOSTERONE TOTAL Lab Routine Prostate cancer (HCC) Expected: 02/06/2024, Expires: 05/07/2024 [facility] Work Phone: Comment on above: Expected: 02/06/2024 , Expires: 05/07/2024 Start: 10-09-2023 [facility] Start: 06-09-2023 Influenza vaccination Influenza Vacc ine (#1) [facility] Start: 10-09-2022 Depression Assessment [facility] Start: 12-13-2021 Shingrix Vaccine (1 of 2) Shingrix Vaccine (1 of 2) [facility] Start: 12-13-2016 Cologuard (FIT-DNA) Cologuard (FIT-D NA) [facility] Start: 12-13-2016 Colonoscopy Colonoscopy [facility] Start: 12-13-2016 Colorectal Cancer Screening Colorectal Cancer Screening [facility] Start: 12-13-[address] Colonography [facility] Start: 12-13-2016 Diabetes Screening Diabetes Screenin g [facility] Start: 12-13-2016 Fecal Occult Blood Fecal Occult Bloo d [facility] Start: 12-13-2016 Screening for malign ant neoplasm of colon [facility] Start: 12-13-2016 Sigmoidoscopy Sigmoidoscopy [facility] Start: 12-13-2006 Lipid 1996 panel - S gale or Plasma Lipid Screening [facility] Start: 12-13-2006 Lipid panel Lipid Screening [facility] Start: 12-13-1990 Urine microalbumin profile DTaP,Tdap,Td Vaccine (1 - Tdap) [facility] Start: 12-13-1989 Hepatitis C Screening Hepatitis C [facility] Start: 12-13-1989 Hepatitis C screening Hepatitis C [facility] Start: 12-13-1989 HIV Screening HIV Screening [facility] Start: 12-13-1989 HIV screening HIV Screening [facility] Start: 06-15-1972 Covid-19 Vaccine (#1) Covid-19 Vacci ne (#1) [facility] Start: 1970 Hepatitis B Vaccine (1 of 3 - 3-dose series) Hepatitis B Vaccine (1 of 3 - 3-dose series) [facility] CT SIM [facility] RADIATION ONCOLOGY CT SIM PLANNING RADIATION ONCOLOGY Radiology Routine Malignant neoplasm of prostate (HCC) Ordered: 09/19/2023 [facility] Work Phone: Comment on above: Ordered: 09/19/2023 [facility] Payers Date Payer Category Payer Unknown [id number] 2022 Unknown [employer] PPO [id number] 2022-Present [phone] [address] [place] [address] PPO [id number] 1971 Unknown [id number] 1971 Unknown [id number] 1971 Unknown [id number] 1971 Unknown [id number] 1971 Unknown [id number] 1971 Unknown [id number] 1971 Unknown [id number] 1971 Unknown [id number] 1971 Unknown [id number] 1971 Unknown [id number] 1971 Unknown [id number] 1959 Unknown [id number] 1959 Unknown [id number] Social History Date Type Detail Facility Start: 07-07-2023 End: 08-22-2023 Tobacco smoking status Never [facility] Start: 08-09-2023 End: 08-21-2023 Sex Assigned At Male [facility] Start: 07-19-2023 End: 08-16-2023 Tobacco smoking status Ex-smoker (finding) [facility] End: 10-09-2012 History of tobacco use Current smoker [facility] End: 10-09-2012 History of tobacco use Cigarette Smoker [facility] Start: 08-09-2023 End: 08-21-2023 Cigarettes smoked current (pack per day) - Reported 0.5 [facility] Start: 08-09-2023 End: 08-16-2023 Tobacco use and exposure Smokeless tobacco non-user [facility] Start: 08-09-2023 End: 11-14-2023 Alcohol intake Current drinker of alcohol (finding) [facility] Start: 08-09-2023 Alcohol Comment socially [facility] Start: 1970 Sex Assigned At Not on file [facility] History of tobacco use Passive smoker [facility] Start: 1970 Sex Assigned At [facility] Start: 09-10-2023 Sexual orientation Heterosexual (caleb guzman) [facility] Functional Status Date Assessment Result Facility 08-22-2023 Functional Status N/A [facility] 08-09-2023 Functional Status N/A [facility] 07-24-2023 Functional Status N/A [facility] 07-19-2023 Functional Status N/A [facility] 07-12-2023 Functional Status N/A [facility] 07-07-2023 Functional Status N/A [facility] Clinical Notes 08-05-2022 to 12-06-2023 Lauren Paris MD - 12/06/2023 9:15 AM Adrianne Becerra RN - 12/06/2023 8:57 AM Lauren Del Real MD - 11/16/2023 12:00 AM Javi Khan MD - 11/14/2023 5:28 AM EST Note Date & Type Note Facility 12-06-2023 Note HNO ID: [id number] Author: Lauren PARIS MD Service: ? Author Type: Physician Type: Progress Notes Filed: 12/06/2023 09:16 Note Text: Radiation Oncology - Follow Up Note PATIENT NAME: Osiel Cartwright PATIENT DIAGNOSIS: Prostate adenocarcinoma, initial PSA 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 RADIATION SUMMARY: DATES OF TREATMENT: 10/10/2023 to 11/16/2023 AREA TREATED: Pelvis Prostate DELIVERED DOSE: Area: Pelvis Prostate 7,000 cGy in 28 fractions, 3 Verma, IMRT, 10MV with daily CBCT TOTAL: 7,000 cGy in 28 Fractions ELAPSED TIME: 37 days. INTERVAL HISTORY: The patient presents for routine follow-up. Having some continued urinary frequency. No significant obstructive symptoms. No dysuria or hematuria. He does have some generalized fatigue still working full-time. PSA HISTORY: PSA (ng/mL) Date Value 11/14/2023 0.60 09/19/2023 6.08 ALLERGIES No Known Allergies abiraterone 250 mg tablet TAKE 4 TABLETS BY MOUTH 1 TIME A DAY predniSONE (DELTASONE) 5 mg tablet Take 1 tablet by mouth once daily. calcium carbonate/vitamin D3 (CALCIUM WITH VITAMIN D ORAL) Take 1 tablet by mouth once daily. colchicine 0.6 mg tablet Take 0.6 mg by mouth as needed. diclofenac, EC, (VOLTAREN) 75 mg EC tablet Take 1 tablet by mouth every 12 hours. lisinopril (ZESTRIL) 10 mg tablet Take 1 tablet by mouth every afternoon. REVIEW OF SYSTEMS: D/N = 4-6/q2-3h Hematuria: No Dysuria: No Incontinence: No Urgency: mild Catheter use: No Medications to aid urination: no - Total AUA Score: 9 Bowel movement frequency: 1/day Bowel movement quality: normal Blood per rectum: none Last colonoscopy: na Androgen deprivation: lupron and abiriterone. PHYSICAL EXAM: BP 123/80 Pulse 92 Temp (!) 35.8 ?C (96.5 ?F) Resp 20 Wt (!) 160.3 kg (353 lb 6.4 oz) SpO2 98% BMI 47.92 kg/m? KPS: 100 General Appearance: Alert and oriented. No acute distress. Neck: No masses Lungs clear to auscultation percussion Cardiac regular S1-S2 without murmur or gallop Rectal exam is deferred. ASSESSMENT/PLAN: Prostate adenocarcinoma, initial PSA 180.42, biopsy Jo-Ann score 3 + 4 = 7 (grade group 2), clinical stage T2c, N0, M0, stage IIIA [T1-T2, N0, M0, PSA >=20, GG 1-4] (AJCC 8th ed.), s/p definitive pelvic and prostate radiation, continued ADT. Overall doing well. Resolving acute radiation related issues still with some bladder frequency. Has had a good PSA response. Continues ADT per Dr. Singer. Will plan to see patient back in 6 months for further postradiation follow-up. Signed by: Lauren Paris MD cc: Carolann Shirley [address] [phone] No referring provider defined for this encounter. [facility] 12-06-2023 History of Present illness Narrative Radiation Oncology - Follow Up Note PATIENT NAME: Osiel Cartwright PATIENT DIAGNOSIS: Prostate adenocarcinoma, initial PSA 180.42, biopsy Jo-Ann score 3 + 4 = 7 (grade group 2), clinical stage T2c, N0, M0, stage IIIA [T1-T2, N0, M0, PSA >=20, GG 1-4] (AJCC 8th ed.), s/p TRUS Random biopsy. RADIATION SUMMARY: DATES OF TREATMENT: 10/10/2023 to 11/16/2023 AREA TREATED: Pelvis Prostate DELIVERED DOSE: Area: Pelvis Prostate 7,000 cGy in 28 fractions, 3 Verma, IMRT, 10MV with daily CBCT TOTAL: 7,000 cGy in 28 Fractions ELAPSED TIME: 37 days. INTERVAL HISTORY: The patient presents for routine follow-up. Having some continued urinary frequency. No significant obstructive symptoms. No dysuria or hematuria. He does have some generalized fatigue still working full-time. PSA HISTORY: PSA (ng/mL) Date Value 11/14/2023 0.60 09/19/2023 6.08 ALLERGIES No Known Allergies abiraterone 250 mg tablet TAKE 4 TABLETS BY MOUTH 1 TIME A DAY predniSONE (DELTASONE) 5 mg tablet Take 1 tablet by mouth once daily. calcium carbonate/vitamin D3 (CALCIUM WITH VITAMIN D ORAL) Take 1 tablet by mouth once daily. colchicine 0.6 mg tablet Take 0.6 mg by mouth as needed. diclofenac, EC, (VOLTAREN) 75 mg EC tablet Take 1 tablet by mouth every 12 hours. lisinopril (ZESTRIL) 10 mg tablet Take 1 tablet by mouth every afternoon. REVIEW OF SYSTEMS: D/N = 4-6/q2-3h Hematuria: No Dysuria: No Incontinence: No Urgency: mild Catheter use: No Medications to aid urination: no - Total AUA Score: 9 Bowel movement frequency: 1/day Bowel movement quality: normal Blood per rectum: none Last colonoscopy: na Androgen deprivation: lupron and abiriterone. PHYSICAL EXAM: BP 123/80 Pulse 92 Temp (!) 35.8 C (96.5 F) Resp 20 Wt (!) 160.3 kg (353 lb 6.4 oz) SpO2 98% BMI 47.92 kg/m KPS: 100 General Appearance: Alert and oriented. No acute distress. Neck: No masses Lungs clear to auscultation percussion Cardiac regular S1-S2 without murmur or gallop Rectal exam is deferred. ASSESSMENT/PLAN: Prostate adenocarcinoma, initial PSA 180.42, biopsy Naco score 3 + 4 = 7 (grade group 2), clinical stage T2c, N0, M0, stage IIIA [T1-T2, N0, M0, PSA >=20, GG 1-4] (AJCC 8th ed.), s/p definitive pelvic and prostate radiation, continued ADT. Overall doing well. Resolving acute radiation related issues still with some bladder frequency. Has had a good PSA response. Continues ADT per Dr. Singer. Will plan to see patient back in 6 months for further postradiation follow-up. Signed by: Lauren Paris MD cc: Carolann Shirley [address] [place] [address] No referring provider defined for this encounter. documented in this encounter [facility] 12-06-2023 Nurse Note AUA 9 Adrianne Weinstein RN documented in this encounter [facility] 11-16-2023 Note HNO ID: [id number] Author: Lauren PARIS MD Service: ? Author Type: Physician Type: Progress Notes Filed: 11/29/2023 15:22 Note Text: [facility] Radiation Oncology Department RADIATION ONCOLOGY - COMPLETION NOTE PATIENT: 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: 1970 DATES OF TREATMENT: 10/10/2023 to 11/16/2023 DIAGNOSIS: Prostate adenocarcinoma, initial PSA 180.42, biopsy Jo-Ann score 3 + 4 = 7 (grade group 2), clinical stage T2c, N0, M0, stage IIIA [T1-T2, N0, M0, PSA >=20, GG 1-4] (AJCC 8th ed.), s/p TRUS Random biopsy. AREA TREATED: Pelvis Prostate DELIVERED DOSE: Area: Pelvis Prostate 7,000 cGy in 28 fractions, 3 Verma, IMRT, 10MV with daily CBCT TOTAL: 7,000 cGy in 28 Fractions ELAPSED TIME: 37 days. CLINICAL SUMMARY: The patient tolerated radiation with mild radiation related diarrhea, cystitis and fatigue as expected. No other issues. The patient was able to complete treatment as intended without break interruption or modification of prescription plan. The disease response will be assessed in clinic. The patient will be seen again in 2 weeks for post radiation follow-up. Staff Physician Gaurav Paris M.D. / KG 43:22 PM Electronically Signed cc: Dr. Casper Singer [facility] 11-16-2023 History of Present illness Narrative [facility] Radiation Oncology Department RADIATION ONCOLOGY - COMPLETION NOTE PATIENT: 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: 1970 DATES OF TREATMENT: 10/10/2023 to 11/16/2023 DIAGNOSIS: Prostate adenocarcinoma, initial PSA 180.42, biopsy Jo-Ann score 3 + 4 = 7 (grade group 2), clinical stage T2c, N0, M0, stage IIIA [T1-T2, N0, M0, PSA >=20, GG 1-4] (AJCC 8th ed.), s/p TRUS Random biopsy. AREA TREATED: Pelvis Prostate DELIVERED DOSE: Area: Pelvis Prostate 7,000 cGy in 28 fractions, 3 Verma, IMRT, 10MV with daily CBCT TOTAL: 7,000 cGy in 28 Fractions ELAPSED TIME: 37 days. CLINICAL SUMMARY: The patient tolerated radiation with mild radiation related diarrhea, cystitis and fatigue as expected. No other issues. The patient was able to complete treatment as intended without break interruption or modification of prescription plan. The disease response will be assessed in clinic. The patient will be seen again in 2 weeks for post radiation follow-up. Staff Physician Gaurav Paris M.D. / KG 43:22 PM Electronically Signed cc: Dr. Casper Singer documented in this encounter [facility] 11-14-2023 Note HNO ID: [id number] Author: JAVI SINGER MD Service: ? Author Type: Physician Type: Progress Notes Filed: 11/14/2023 20:31 Note Text: PATIENT NAME: Osiel Cartwright DATE: 11/14/2021 PRIMARY CARE PHYSICIAN: Carolann Shirley MD OTHER PHYSICIANS: Dr. Lundberg, Dr. Paris Portions of this encounter note have been copied from my note from /2023 and has been updated where appropriate, and reflect my current medical decision making from today. CC: This is a 52 year old male with recently diagnosed prostate cancer, seen for scheduled follow-up. INTERIM HISTORY: Since the patient's last visit here he has remained on abiraterone/prednisone, and appears to be tolerating the medications well. He was started on radiation therapy 10/10/2022 and is tolerating it well. No difficulties with urination. No unusual pain. Overall feels well. MEDICATIONS: Current Outpatient Medications Medication Sig calcium carbonate/vitamin D3 (CALCIUM WITH VITAMIN D ORAL) Take 1 tablet by mouth once daily. abiraterone 250 mg tablet Take 4 tablets by mouth once daily. predniSONE (DELTASONE) 5 mg tablet Take 1 tablet by mouth once daily. colchicine 0.6 mg tablet Take 0.6 mg by mouth as needed. diclofenac, EC, (VOLTAREN) 75 mg EC tablet Take 1 tablet by mouth every 12 hours. lisinopril (ZESTRIL) 10 mg tablet Take 1 tablet by mouth every afternoon. No current facility-administered medications for this visit. ALLERGIES: ALLERGIES No Known Allergies PAST MEDICAL HISTORY: PAST MEDICAL HISTORY Diagnosis Date Arthritis Gout HTN (hypertension) Prostate cancer (HCC) PAST SURGICAL HISTORY: PAST SURGICAL HISTORY Procedure Laterality Date HERNIA REPAIR HX groin TONSILLECTOMY AND ADENOIDECTOMY US BIOPSY PROSTATE FAMILY HISTORY: FAMILY HISTORY Problem Relation Age of Onset Crohn's Disease Mother other (Rheumatoid arthritis) Mother other (Acute myocardial infarct) Father Diabetes Father SOCIAL HISTORY: Social History Tobacco Use Smoking status: Former Packs/day: 0.50 Years: 20.00 Additional pack years: 0.00 Total pack years: 10.00 Types: Cigarettes Quit date: 2012 Years since quittin.1 Passive exposure: Past Smokeless tobacco: Never Substance Use Topics Alcohol use: Yes Comment: socially Drug use: Not Currently COMPLETE REVIEW OF SYSTEMS: CONSTITUTION: Negative for pain, fatigue, weight loss, or appetite loss. EENT: Negative for mouth soreness, antibiotics use, epistaxis, visual problems, neck or facial swelling, fever/chills, bleeding gums, or hearing loss. CV: Negative for edema, calf swelling, palpitations, or chest pain. RESPIRATORY: Negative for cough, SOB, hemoptysis, or wheezing. GI: Negative for nausea/vomiting, heartburn, vomiting blood, dysphasia, diarrhea, blood in stool, constipation, early satiety, PICA, vegetarian, poor nutrition, abdominal fullness, or abdominal pain. NEUROLOGICAL: Negative for numbness/tingling, dizziness, gait disturbance, headache, speech disturbance, tremor, hemiparesis/sensory loss, or change in mental status. MUSCULOSKELETAL: Negative for joint pain, joint swelling, or proximal muscle weakness. SKIN: Negative for hair loss, bruising, nail changes, rash, itching, pallor, or jaundice. ENDO/URO: Negative for hot flashes, cold or heat intolerance, urinary frequency, urinary hesitancy, menorrhagia, or hematuria. PSYCH: Negative for anxiety, depression, or other. PHYSICAL EXAM: BP 138/80 Pulse 76 Temp 36.4 ?C (97.5 ?F) (Temporal) Resp 18 Ht 182.9 cm (6' 0.01 ) Wt (!) 161.1 kg (355 lb 2.6 oz) SpO2 99% BMI 48.16 kg/m? GENERAL EXAM: Well developed/well nourished; in no acute distress. SKIN: Negative for lesions, rashes, or ulcers on the upper and lower extremities and face. Negative for palpations/nodules, purpura, and ecchymosis. EENT: Negative for conjunctiva, mucosal pallor, JVD, LAP, thyromegaly, and glossitis. Supple AND PERRL. EXTREMITIES: Negative for cyanosis, clubbing, and crepitus. LUNGS: Negative to auscultation, respiratory effort, and percussion. CARDIOVASCULAR: Regular rate. Negative for murmurs/S3S4/abnormal sounds, edema, and carotid bruits. ABDOMEN: Negative for masses, hernia, and spleen/liver abnormalities. RECTAL: Not done PSYCHIATRIC: Negative for mood/affect changes, recent AND remote memory changes, and judgement and insight. NEUROLOGICAL: Alert, oriented x person, place, time. Cranial nerves 2-12 intact. Sensory for pain, light touch, vibration intact on all 4 extremities. Reflexes symmetric for biceps/brachioradial/patella/achil les. MUSCULOSKELETAL: Negative examination of joints, bones, muscles/tendons of all four extremities for inspection, percussion, and palpation. Negative for misallignment, asymmetry, crepitation, tenderness, mass, effusions. Range of motion normal. Negative for joint instability, laxity, dislocation. Gait steady. Negative for s (more content not included)... [facility] 11-14-2023 History of Present illness Narrative PATIENT NAME: Osiel Cartwright DATE: 11/14/2021 PRIMARY CARE PHYSICIAN: Carolann Shirley MD OTHER PHYSICIANS: Dr. Lundberg, Dr. Paris Portions of this encounter note have been copied from my note from and has been updated where appropriate, and reflect my current medical decision making from today. CC: This is a 52 year old male with recently diagnosed prostate cancer, seen for scheduled follow-up. INTERIM HISTORY: Since the patient's last visit here he has remained on abiraterone/prednisone, and appears to be tolerating the medications well. He was started on radiation therapy 10/10/2022 and is tolerating it well. No difficulties with urination. No unusual pain. Overall feels well. MEDICATIONS: Current Outpatient Medications Medication Sig calcium carbonate/vitamin D3 (CALCIUM WITH VITAMIN D ORAL) Take 1 tablet by mouth once daily. abiraterone 250 mg tablet Take 4 tablets by mouth once daily. predniSONE (DELTASONE) 5 mg tablet Take 1 tablet by mouth once daily. colchicine 0.6 mg tablet Take 0.6 mg by mouth as needed. diclofenac, EC, (VOLTAREN) 75 mg EC tablet Take 1 tablet by mouth every 12 hours. lisinopril (ZESTRIL) 10 mg tablet Take 1 tablet by mouth every afternoon. No current facility-administered medications for this visit. ALLERGIES: ALLERGIES No Known Allergies PAST MEDICAL HISTORY: PAST MEDICAL HISTORY Diagnosis Date Arthritis Gout HTN (hypertension) Prostate cancer (HCC) PAST SURGICAL HISTORY: PAST SURGICAL HISTORY Procedure Laterality Date HERNIA REPAIR HX groin TONSILLECTOMY & ADENOIDECTOMY <AGE 13 US BIOPSY PROSTATE FAMILY HISTORY: FAMILY HISTORY Problem Relation Age of Onset Crohn's Disease Mother other (Rheumatoid arthritis) Mother other (Acute myocardial infarct) Father Diabetes Father SOCIAL HISTORY: Social History Tobacco Use Smoking status: Former Packs/day: 0.50 Years: 20.00 Additional pack years: 0.00 Total pack years: 10.00 Types: Cigarettes Quit date: 2012 Years since quittin.1 Passive exposure: Past Smokeless tobacco: Never Substance Use Topics Alcohol use: Yes Comment: socially Drug use: Not Currently COMPLETE REVIEW OF SYSTEMS: CONSTITUTION: Negative for pain, fatigue, weight loss, or appetite loss. EENT: Negative for mouth soreness, antibiotics use, epistaxis, visual problems, neck or facial swelling, fever/chills, bleeding gums, or hearing loss. CV: Negative for edema, calf swelling, palpitations, or chest pain. RESPIRATORY: Negative for cough, SOB, hemoptysis, or wheezing. GI: Negative for nausea/vomiting, heartburn, vomiting blood, dysphasia, diarrhea, blood in stool, constipation, early satiety, PICA, vegetarian, poor nutrition, abdominal fullness, or abdominal pain. NEUROLOGICAL: Negative for numbness/tingling, dizziness, gait disturbance, headache, speech disturbance, tremor, hemiparesis/sensory loss, or change in mental status. MUSCULOSKELETAL: Negative for joint pain, joint swelling, or proximal muscle weakness. SKIN: Negative for hair loss, bruising, nail changes, rash, itching, pallor, or jaundice. ENDO/URO: Negative for hot flashes, cold or heat intolerance, urinary frequency, urinary hesitancy, menorrhagia, or hematuria. PSYCH: Negative for anxiety, depression, or other. PHYSICAL EXAM: BP 138/80 Pulse 76 Temp 36.4 C (97.5 F) (Temporal) Resp 18 Ht 182.9 cm (6' 0.01 ) Wt (!) 161.1 kg (355 lb 2.6 oz) SpO2 99% BMI 48.16 kg/m GENERAL EXAM: Well developed/well nourished; in no acute distress. SKIN: Negative for lesions, rashes, or ulcers on the upper and lower extremities and face. Negative for palpations/nodules, purpura, and ecchymosis. EENT: Negative for conjunctiva, mucosal pallor, JVD, LAP, thyromegaly, and glossitis. Supple & PERRL. EXTREMITIES: Negative for cyanosis, clubbing, and crepitus. LUNGS: Negative to auscultation, respiratory effort, and percussion. CARDIOVASCULAR: Regular rate. Negative for murmurs/S3S4/abnormal sounds, edema, and carotid bruits. ABDOMEN: Negative for masses, hernia, and spleen/liver abnormalities. RECTAL: Not done PSYCHIATRIC: Negative for mood/affect changes, recent & remote memory changes, and judgement and insight. NEUROLOGICAL: Alert, oriented x person, place, time. Cranial nerves 2-12 intact. Sensory for pain, light touch, vibration intact on all 4 extremities. Reflexes symmetric for biceps/brachioradial/patella/achil les. MUSCULOSKELETAL: Negative examination of joints, bones, muscles/tendons of all four extremities for inspection, percussion, and palpation. Negative for misallignment, asymmetry, crepitation, tenderness, mass, effusions. Range of motion normal. Negative for joint instability, laxity, dislocation. Gait steady. Negative for swelling, erythema, tenderness, soft tissue swelling, and atrophy. PATHOLOGY: 07/12/2023 TRUS Prostate biopsy ([facility]) Acinar adenocarcinoma prostate, Jo-Ann score 7 (3+4). Grade 4 pattern identified. 12 of 12 cores involved. LABS: Hemoglobin (g/dL) Date Value 11/14/2023 11.5 Hematocrit (%) Date Value 11/14/2023 35.8 WBC (k/uL) Date Value 11/14/2023 5.07 Platelet Count (k/uL) Date Value 11/14/2023 232 PSA 07/01/2023 168.7 07/07/2023 180.4 09/19/2023 6.08 11/14/2027 RADIOLOGY/OTHER STUDIES: 08/09/2023 PSMA PET scan IMPRESSION: Head and neck: -No suspicious PSMA expressing neoplastic process. Chest: -No evidence of PSMA expressing neoplastic process Abdomens and Pelvis: -Avid uptake in the prostatic region suspicious for PSMA expressing neoplasm. Bones and soft tissues: - No evidence of PSMA expressing neoplastic process. Mild activity right anterior sixth rib likely trauma. 08/04/2023 Nuclear bone scan ([facility]) Abnormal focus of radiotracer uptake in the anterior costochondral margin of right sixth rib, fracture versus neoplastic activity. ASSESSMENT/PLAN: 1. Prostate cancer (HCC) - ICD9: 185, ICD10: C61 Stage IIIa adenocarcinoma of the prostate (T2, N0, M0; PSA >20; grade group 1-4) diagnosed August 2023. Screening PSA June 2023 significantly elevated at 180. TRUS prostate biopsy 08/12/2023 confirmed 12 of 12 cores involved with adenocarcinoma, [place] 7. PSMA PET scan 08/09/2023 revealed uptake in the prostate, but no evidence of distant metastases. Genomic analysis at the time of diagnosis was negative for deleterious mutations. Per urology he was started on Casodex July 2023. August 2023 Casodex was changed to abiraterone/prednisone. The patient received Lupron 45 mg on 08/22/2023, with plans to continue every 6 months. The patient received involved field radiation with EBRT starting 10/10/2023, scheduled to finish 11/16/2023. At this time the patient will continue his current medications, and continue radiation as planned. I will see him back in 12 weeks for follow-up and labs. He anticipates his next Lupron injection per Dr. Lundberg February 2024. 2. Hypertension Diagnosed age 51. Stable on current medications. Continue management per PCP. 3. History of intermittent gout Stable on current medications. Continue management per PCP. Javi Singer MD CC: Dr. Yaneli Lundberg, [facility] Urology documented in this encounter [facility] 11-13-2023 Note HNO ID: [id number] Author: Lauren PARIS MD Service: ? Author Type: Physician Type: Progress Notes Filed: 11/13/2023 09:26 Note Text: Radiation Oncology - On Treatment Review (OTR) Note PATIENT NAME: Osiel Cartwright PATIENT DIAGNOSIS: Prostate adenocarcinoma, initial PSA 180.42, biopsy Jo-Ann score 3 + 4 = 7 (grade group 2), clinical stage T2c, N0, M0, stage IIIA [T1-T2, N0, M0, PSA >=20, GG 1-4] (AJCC 8th ed.), s/p TRUS Random biopsy. COURSE: definitive Current dose: 6250 cGy in 25 fx Planned dose: 7000 cGy in 28 fx SUBJECTIVE: Doing well. No new issues. PHYSICAL EXAM: 11/13/23 0917 BP: 143/92 Pulse: 79 Resp: 18 Temp: (!) 35.9 ?C (96.7 ?F) SpO2: 96% Weight: (!) 160.7 kg (354 lb 4.5 oz) KPS: 100 General Appearance: Alert and oriented. No acute distress. IMAGING/LAB RESULTS: Hemoglobin (g/dL) Date Value 09/19/2023 13.0 Hematocrit (%) Date Value 09/19/2023 40.3 WBC (k/uL) Date Value 09/19/2023 8.37 Platelet Count (k/uL) Date Value 09/19/2023 303 TOXICITY ASSESSMENT (CTC v4.0): Fatigue:grade 1 - Fatigue relieved by rest Radiation Dermatitis: grade 0 - No symptoms Diarrhea:grade 1 Proctitis: grade 0 - No symptoms Urinary frequency: grade 1 Dysuria: grade 0 - No symptoms Urinary incontinence: grade 0 (No symptoms) Urinary retention: grade 1 Treatment chart checked: Yes Patient treatment site reviewed and verified:Yes Port films reviewed and current:Yes Medications started: None ASSESSMENT/PLAN: Overall doing well. Patient will complete this week. He has follow-up with medical oncology. I will plan to see patient back in 3 to 4 weeks for follow-up. Lauren Paris MD [facility] 11-06-2023 Note HNO ID: [id number] Author: Lauren PARIS MD Service: ? Author Type: Physician Type: Progress Notes Filed: 11/06/2023 10:42 Note Text: Radiation Oncology - On Treatment Review (OTR) Note PATIENT NAME: Osiel Cartwright PATIENT DIAGNOSIS: Prostate adenocarcinoma, initial PSA 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 COURSE: definitive Current dose: 5000 cGy in 20 fx Planned dose: 7000 cGy in 28 fx SUBJECTIVE: Doing well. Slight increased stool frequency couple episodes of diarrhea. Still some mild obstructive urinary symptoms. PHYSICAL EXAM: 11/06/23 1005 BP: 122/83 Pulse: 80 Resp: 18 Temp: (!) 35.9 ?C (96.7 ?F) SpO2: 96% Weight: (!) 158.3 kg (348 lb 15.8 oz) KPS: 100 General Appearance: Alert and oriented. No acute distress. IMAGING/LAB RESULTS: Hemoglobin (g/dL) Date Value 09/19/2023 13.0 Hematocrit (%) Date Value 09/19/2023 40.3 WBC (k/uL) Date Value 09/19/2023 8.37 Platelet Count (k/uL) Date Value 09/19/2023 303 TOXICITY ASSESSMENT (CTC v4.0): Fatigue:grade 1 - Fatigue relieved by rest Radiation Dermatitis: grade 0 - No symptoms Diarrhea:grade 1 Proctitis: grade 0 - No symptoms Urinary frequency: grade 1 Dysuria: grade 0 - No symptoms Urinary incontinence: grade 0 (No symptoms) Urinary retention: grade 1 Treatment chart checked: Yes Patient treatment site reviewed and verified:Yes Port films reviewed and current:Yes Medications started: None ASSESSMENT/PLAN: Overall doing well. Discussed diarrhea management. Hold off on Flomax for now. Continue radiation. Lauren Paris MD [facility] 10-30-2023 Note HNO ID: [id number] Author: Lauren PARIS MD Service: ? Author Type: Physician Type: Progress Notes Filed: 10/30/2023 10:49 Note Text: Radiation Oncology - On Treatment Review (OTR) Note PATIENT NAME: Osiel Cartwright PATIENT DIAGNOSIS: Prostate adenocarcinoma, initial PSA 180.42, biopsy Jo-Ann score 3 + 4 = 7 (grade group 2), clinical stage T2c, N0, M0, stage IIIA [T1-T2, N0, M0, PSA >=20, GG 1-4] (AJCC 8th ed.), s/p TRUS Random biopsy. COURSE: definitive Current dose: 3750 cGy in 15 fx Planned dose: 7000 cGy in 28 fx SUBJECTIVE: Doing well. Slight increase in obstructive symptoms. No other issues. PHYSICAL EXAM: 10/30/23 0931 BP: 150/90 Pulse: (!) 59 Resp: 18 Temp: 36.4 ?C (97.5 ?F) SpO2: 99% Weight: (!) 160 kg (352 lb 11.8 oz) KPS: 100 General Appearance: Alert and oriented. No acute distress. IMAGING/LAB RESULTS: None TOXICITY ASSESSMENT (CTC v4.0): Fatigue:grade 1 - Fatigue relieved by rest Radiation Dermatitis: grade 0 - No symptoms Diarrhea:grade 1 Proctitis: grade 0 - No symptoms Urinary frequency: grade 1 Dysuria: grade 0 - No symptoms Urinary incontinence: grade 0 (No symptoms) Urinary retention: grade 1 Treatment chart checked: Yes Patient treatment site reviewed and verified:Yes Port films reviewed and current:Yes Medications started: None ASSESSMENT/PLAN: Tolerating treatment well. Discussed Flomax for mild retention symptoms, will hold off for now. Encourage patient to let me know if should this worsen and we can start Flomax. Continue treatment as outlined. Lauren Paris MD [facility] 10-23-2023 Note HNO ID: [id number] Author: Lauren PARIS MD Service: ? Author Type: Physician Type: Progress Notes Filed: 10/23/2023 13:38 Note Text: Radiation Oncology - On Treatment Review (OTR) Note PATIENT NAME: Osiel Cartwright PATIENT DIAGNOSIS: Prostate adenocarcinoma, initial PSA 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 COURSE: definitive Current dose: 2500 cGy in 10 fx Planned dose: 7000 cGy in 28 fx SUBJECTIVE: Doing well. Some increased urinary frequency slightly slower stream. No further diarrhea. PHYSICAL EXAM: 10/23/23 1317 BP: 124/78 Pulse: 93 Resp: 16 Temp: 36.1 ?C (96.9 ?F) SpO2: 96% Weight: (!) 159.4 kg (351 lb 6.6 oz) KPS: 100 General Appearance: Alert and oriented. No acute distress. IMAGING/LAB RESULTS: None TOXICITY ASSESSMENT (CTC v4.0): Fatigue:grade 1 - Fatigue relieved by rest Radiation Dermatitis: grade 0 - No symptoms Diarrhea:grade 1 Proctitis: grade 0 - No symptoms Urinary frequency: grade 1 Dysuria: grade 0 - No symptoms Urinary incontinence: grade 0 (No symptoms) Urinary retention: grade 1 Treatment chart checked: Yes Patient treatment site reviewed and verified:Yes Port films reviewed and current:Yes Medications started: None ASSESSMENT/PLAN: Tolerating treatment well. Continue treatment as outlined. Lauren Paris MD [facility] 10-18-2023 Note HNO ID: [id number] Author: NEIL QUEZADA LGC Service: ? Author Type: Genetic Counselor Type: Progress Notes Filed: 10/18/2023 09:45 Note Text: [facility] Consultation Note Genetic Counselor: Neil Quezada, MS, [facility] Patient: Osiel Cartwright Patient Name and confirmed at initiation of visit. Appointment occurred with audiovisual communication through [employer] Virtual Visit. I have communicated my name and active licensure. The patient's identity and physical location were verified at the time of this visit. Either the patient or their legal patient admitting representative has been informed of the risks and benefits of -- and alternatives to -- treatment through a remote evaluation and consents to proceed with the evaluation remotely. HIGH LEVEL SUMMARY: The patient's personal history is potentially suggestive of a hereditary cancer syndrome. The patient provided informed consent for Multi-Cancer panel through [facility]. Results are expected in 2-3 weeks. IDENTIFICATION AND CHIEF COMPLAINT: Dr. Javi Singer requested a consultation for genetic counseling and risk assessment for Osiel Cartwright, a 52 year old male, for discussion of his recent diagnosis of prostate cancer. He presents to clinic today to discuss the possibility of a genetic predisposition to cancer, and to further clarify his risks, as well as his family members' risks for cancer. HISTORY OF PRESENT ILLNESS: In July of 2023, at the age of 52, Osiel Cartwright was diagnosed with adenocarcinoma of the prostate (Jo-Ann score 7). This is being treated with antiandrogen therapy with abiraterone/prednisone. She will also pursue radiation therapy. PAST MEDICAL HISTORY Diagnosis Date Arthritis Gout HTN (hypertension) Prostate cancer (HCC) PAST SURGICAL HISTORY Procedure Laterality Date HERNIA REPAIR HX groin TONSILLECTOMY AND ADENOIDECTOMY US BIOPSY PROSTATE SOCIAL HISTORY: Social History Tobacco Use Smoking status: Former Packs/day: 0.50 Years: 20.00 Additional pack years: 0.00 Total pack years: 10.00 Types: Cigarettes Quit date: 2012 Years since quittin.0 Passive exposure: Past Smokeless tobacco: Never Substance Use Topics Alcohol use: Yes Comment: socially Drug use: Not Currently FAMILY HISTORY: We obtained a detailed, 4-generation family history. Significant diagnoses are listed below: FAMILY HISTORY Problem Relation Age of Onset Crohn's Disease Mother other (Rheumatoid arthritis) Mother other (Acute myocardial infarct) Father Diabetes Father A copy of the patient's pedigree will be available under the scanned documents tab following today's visit. GENETIC COUNSELING RISK ASSESSMENT, DISCUSSION, AND SUGGESTED FOLLOW UP: We reviewed the natural history and genetic etiology of sporadic, familial and hereditary cancer syndromes. The patient's personal history is potentially suggestive of: a hereditary cancer syndrome The patient meets NCCN HBOC testing criteria based on his personal history of high- or dlxm-melc-ldzo group prostate cancer. We discussed that identification of a hereditary cancer syndrome may help his care providers tailor his medical management. If a mutation is detected, the patient will be referred back to the referring provider and to any additional appropriate care providers to discuss the relevant options. Inheritance of hereditary cancer syndromes was discussed with the patient. If a mutation is not found in the patient, this will decrease the likelihood of a hereditary cancer syndrome as the explanation for the patient's personal history of cancer. However, it cannot completely rule out this possibility. Cancer surveillance options would be discussed for the patient according to the appropriate standard National Comprehensive Cancer Network and [place] [employer] guidelines, with consideration of their personal and family history risk factors. In this case, the patient will be referred back to their care providers for discussions of management. Based on this assessment of the patient's family and personal history, genetic testing is recommended. The patient was offered Multi-Cancer panel through [facility]. After considering the risks, benefits, and limitations, the patient chose to pursue and provided informed consent for the following testing: Multi-Cancer panel through [facility]. The Multi-Cancer Panel includes AIP, ALK, APC, BERNARD, AXIN2, BAP1, BARD1, BLM, BMPR1A, BRCA1, BRCA2, BRIP1, CDC73, CDH1, CDK4, CDKN1B, CDKN2A, CHEK2, CTNNA1, DICER1, EGFR, EPCAM, FH, FLCN, GREM1, HOXB13, KIT, LZTR1, MAX, MBD4, MEN1, MET, MITF, MLH1, MSH2, MSH3, MSH6, MUTYH, NF1, NF2, NTHL1, PALB2, PDGFRA, PMS2, POLD1, POLE, POT1, UNBVE9V, PTCH1, PTEN, RAD51C, RAD51D, RB1, RET, SDHA, SDHAF2, SDHB, SDHC, SDHD, SMAD4, SMARCA4, SMARCB1, SMARCE1, STK11, SUFU, [id number] (more content not included)... [facility] 10-16-2023 Note HNO ID: [id number] Author: Lauren PARIS MD Service: ? Author Type: Physician Type: Progress Notes Filed: 10/16/2023 09:24 Note Text: Radiation Oncology - On Treatment Review (OTR) Note PATIENT NAME: Osiel Cartwright PATIENT DIAGNOSIS: Prostate adenocarcinoma, initial PSA 180.42, biopsy Jo-Ann score 3 + 4 = 7 (grade group 2), clinical stage T2c, N0, M0, stage IIIA [T1-T2, N0, M0, PSA >=20, GG 1-4] (AJCC 8th ed.), s/p TRUS Random biopsy. COURSE: definitive Current dose: 1250 cGy in 5 fx Planned dose: 7000 cGy in 28 fx SUBJECTIVE: Overall doing well. Episode of mild diarrhea today. No other issues. PHYSICAL EXAM: 10/16/23 0857 BP: 112/72 Pulse: 86 Resp: 18 Temp: 36.1 ?C (96.9 ?F) SpO2: 98% Weight: (!) 160 kg (352 lb 11.8 oz) KPS: 100 General Appearance: Alert and oriented. No acute distress. IMAGING/LAB RESULTS: None TOXICITY ASSESSMENT (CTC v4.0): Fatigue:grade 1 - Fatigue relieved by rest Radiation Dermatitis: grade 0 - No symptoms Diarrhea:grade 0 - No symptoms Proctitis: grade 0 - No symptoms Urinary frequency: grade 0 - No symptoms Dysuria: grade 0 - No symptoms Urinary incontinence: grade 0 (No symptoms) Urinary retention: grade 0 - No symptoms Treatment chart checked: Yes Patient treatment site reviewed and verified:Yes Port films reviewed and current:Yes Medications started: None ASSESSMENT/PLAN: Discussed diet and Imodium use for diarrhea. Tolerance good. Continue treatment as outlined. Lauren Paris MD [facility] 10-10-2023 Note HNO ID: [id number] Author: Lauren Paris MD Service: ? Author Type: Physician Type: Progress Notes Filed: 10/10/2023 9:43 AM Note Text: Radiation Oncology - On Treatment Review (OTR) Note PATIENT NAME: Osiel Cartwright PATIENT DIAGNOSIS: Prostate adenocarcinoma, initial PSA 180.42, biopsy Jo-Ann score 3 + 4 = 7 (grade group 2), clinical stage T2c, N0, M0, stage IIIA [T1-T2, N0, M0, PSA >=20, GG 1-4] (AJCC 8th ed.), s/p TRUS Random biopsy. COURSE: definitive Current dose: 250 cGy in 1 fx Planned dose: 7000 cGy in 28 fx SUBJECTIVE: Here to start radiation, doing well. PHYSICAL EXAM: KPS: 100 General Appearance: Alert and oriented. No acute distress. IMAGING/LAB RESULTS: None TOXICITY ASSESSMENT (CTC v4.0): Fatigue:grade 1 - Fatigue relieved by rest Radiation Dermatitis: grade 0 - No symptoms Diarrhea:grade 0 - No symptoms Proctitis: grade 0 - No symptoms Urinary frequency: grade 0 - No symptoms Dysuria: grade 0 - No symptoms Urinary incontinence: grade 0 (No symptoms) Urinary retention: grade 0 - No symptoms Treatment chart checked: Yes Patient treatment site reviewed and verified:Yes Port films reviewed and current:Yes Medications started: None ASSESSMENT/PLAN: Patient starting radiation today. Plan of care and expectations again reviewed. Plan, MU calculations and qa report reviewed. Initial imaging including cone beam ct and verification reviewed and approved. First treatment given. Continue radiation as prescribed. Lauren Paris MD [facility] 09-19-2023 Note HNO ID: [id number] Author: Lauren Paris MD Service: ? Author Type: Physician Type: Progress Notes Filed: 09/21/2023 12:36 AM Note Text: 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 [id number] 09/19/2023 [facility] Radiation Oncology Department SIMULATION NOTE DATE OF SIMULATION: 09/19/2023 THERAPIST: Amina Cesar MACHINE: [email or web address] mCT DIAGNOSIS: Malignant neoplasm of [id number] AREA: PELVIS CONTRAST: None Consent in Epic: Yes PATIENT POSITION: Supine. FIXATION DEVICE: In order to achieve accurate and reproducible treatments, the patient is immobilized with ORFIT AIO. A time-out was conducted and recorded by the therapist. CT scan was completed for target localization and planning. Field arrangement will be determined after plan has been completed. The patient is scheduled for a verification simulation on the treatment machine to ensure proper set-up and field arrangement is correct prior to the first treatment of primary and boost verma if applicable. Patient education will be completed per nursing. Electronically Signed Gaurav Paris M.D. / ANJEL :43 PM [facility] 09-19-2023 Note HNO ID: [id number] Author: Lauren Paris MD Service: ? Author Type: Physician Type: Progress Notes Filed: 09/30/2023 12:33 AM Note Text: 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 [id number] 09/19/2023 [facility] Department of Radiation Oncology Treatment Planning Note For reasons stated in the consult note, Osiel Cartwright is a candidate for radiation therapy. Based on review and interpretation of the relevant diagnostic studies together with the exam findings, Osiel Cartwright was simulated on 09/19/2023 at which time the target volume and/or requisite verma were delineated, as indicated in the simulation note, to be treated according to the prescription. The treatment target and organs at risk were contoured on the simulation scan using the fused MRI . After reviewing multiple treatment plans with dosimetry, the best plan was approved to deliver the prescribed course of radiation to the target area using inverse planning to allow for the best isodose distribution, treating to the 97.8% isodose line with 10MV and 3 verma. Custom MLC asym jaws for IMRT were the treatment devices used to shape/modify the beams. Limiting dose to normal tissue was confirmed upon review of the calculated dose volume histogram. IMRT planning was used because it best met the dose/volume constraints for the organs at risk for this patient, better than what could be achieved using conventional or 3D planning. The specific dose requirements for the PTV, organs at risk and dose-volume histograms are contained in this treatment plan and/or elsewhere in the medical record. A completed summary of this plan dated 09/29/2023 incorporated herein by reference includes dose, beam arrangements, energy, blocking, isodose distribution, and/or ports and DVH. Electronically Signed Gaurav Paris M.D. 0:04 AM [facility] 09-19-2023 Note HNO ID: [id number] Author: Javi Singer MD Service: ? Author Type: Physician Type: Progress Notes Filed: 09/20/2023 6:21 AM Note Text: PATIENT NAME: Osiel Cartwright DATE: 09/19/2023 PRIMARY CARE PHYSICIAN: Carolann Shirley MD OTHER PHYSICIANS: Dr. Lundberg, Dr. Paris Portions of this encounter note have been copied from my note from 08/21/2023 and has been updated where appropriate, and reflect my current medical decision making from today. CC: This is a 52 year old male with recently diagnosed prostate cancer, seen for scheduled follow-up. INTERIM HISTORY: Since the patient's initial visit here Casodex was discontinued and he started antiandrogen therapy with abiraterone/prednisone. He appears to be tolerating the medications well. He received his first Lupron injection on 08/22/2023. He has had mild hot flashes, no other adverse effects. On follow-up today feels quite well with no particular complaints. MEDICATIONS: Current Outpatient Medications Medication Sig calcium carbonate/vitamin D3 (CALCIUM WITH VITAMIN D ORAL) Take 1 tablet by mouth once daily. abiraterone 250 mg tablet Take 4 tablets by mouth once daily. predniSONE (DELTASONE) 5 mg tablet Take 1 tablet by mouth once daily. colchicine 0.6 mg tablet Take 0.6 mg by mouth as needed. diclofenac, EC, (VOLTAREN) 75 mg EC tablet Take 1 tablet by mouth every 12 hours. lisinopril (ZESTRIL) 10 mg tablet Take 1 tablet by mouth every afternoon. No current facility-administered medications for this visit. ALLERGIES: ALLERGIES No Known Allergies PAST MEDICAL HISTORY: PAST MEDICAL HISTORY Diagnosis Date Arthritis Gout HTN (hypertension) Prostate cancer (HCC) PAST SURGICAL HISTORY: PAST SURGICAL HISTORY Procedure Laterality Date HERNIA REPAIR HX groin TONSILLECTOMY AND ADENOIDECTOMY US BIOPSY PROSTATE FAMILY HISTORY: FAMILY HISTORY Problem Relation Age of Onset Crohn's Disease Mother other (Rheumatoid arthritis) Mother other (Acute myocardial infarct) Father Diabetes Father SOCIAL HISTORY: Social History Tobacco Use Smoking status: Former Packs/day: 0.50 Years: 20.00 Additional pack years: 0.00 Total pack years: 10.00 Types: Cigarettes Quit date: 2012 Years since quittin.9 Passive exposure: Past Smokeless tobacco: Never Substance Use Topics Alcohol use: Yes Comment: socially Drug use: Not Currently COMPLETE REVIEW OF SYSTEMS: CONSTITUTION: Negative for pain, fatigue, weight loss, or appetite loss. EENT: Negative for mouth soreness, antibiotics use, epistaxis, visual problems, neck or facial swelling, fever/chills, bleeding gums, or hearing loss. CV: Negative for edema, calf swelling, palpitations, or chest pain. RESPIRATORY: Negative for cough, SOB, hemoptysis, or wheezing. GI: Negative for nausea/vomiting, heartburn, vomiting blood, dysphasia, diarrhea, blood in stool, constipation, early satiety, PICA, vegetarian, poor nutrition, abdominal fullness, or abdominal pain. NEUROLOGICAL: Negative for numbness/tingling, dizziness, gait disturbance, headache, speech disturbance, tremor, hemiparesis/sensory loss, or change in mental status. MUSCULOSKELETAL: Negative for joint pain, joint swelling, or proximal muscle weakness. SKIN: Negative for hair loss, bruising, nail changes, rash, itching, pallor, or jaundice. ENDO/URO: Negative for hot flashes, cold or heat intolerance, urinary frequency, urinary hesitancy, menorrhagia, or hematuria. PSYCH: Negative for anxiety, depression, or other. PHYSICAL EXAM: BP 126/76 Pulse 84 Temp 36.6 ?C (97.9 ?F) (Temporal) Resp 16 Ht 182.9 cm (6' 0.01 ) Wt (!) 156.6 kg (345 lb 3.2 oz) SpO2 98% BMI 46.81 kg/m? GENERAL EXAM: Well developed/well nourished; in no acute distress. SKIN: Negative for lesions, rashes, or ulcers on the upper and lower extremities and face. Negative for palpations/nodules, purpura, and ecchymosis. EENT: Negative for conjunctiva, mucosal pallor, JVD, LAP, thyromegaly, and glossitis. Supple AND PERRL. EXTREMITIES: Negative for cyanosis, clubbing, and crepitus. LUNGS: Negative to auscultation, respiratory effort, and percussion. CARDIOVASCULAR: Regular rate. Negative for murmurs/S3S4/abnormal sounds, edema, and carotid bruits. ABDOMEN: Negative for masses, hernia, and spleen/liver abnormalities. RECTAL: Not done PSYCHIATRIC: Negative for mood/affect changes, recent AND remote memory changes, and judgement and insight. NEUROLOGICAL: Alert, oriented x person, place, time. Cranial nerves 2-12 intact. Sensory for pain, light touch, vibration intact on all 4 extremities. Reflexes symmetric for biceps/brachioradial/patella/achil les. MUSCULOSKELETAL: Negative examination of joints, bones, muscles/tendons of all four extremities for inspection, percussion, and palpation. Negative for misallignment, asymmetry, crepitation, tenderness, mass, effusions. Ran (more content not included)... [facility] 09-19-2023 History of Present illness Narrative SUKHWINDERSEGNUDOOSIEL Drake [id number] 09/19/2023 [facility] Department of Radiation Oncology Treatment Planning Note For reasons stated in the consult note, Osiel Cartwright is a candidate for radiation therapy. Based on review and interpretation of the relevant diagnostic studies together with the exam findings, Osiel Cartwright was simulated on 09/19/2023 at which time the target volume and/or requisite verma were delineated, as indicated in the simulation note, to be treated according to the prescription. The treatment target and organs at risk were contoured on the simulation scan using the fused MRI . After reviewing multiple treatment plans with dosimetry, the best plan was approved to deliver the prescribed course of radiation to the target area using inverse planning to allow for the best isodose distribution, treating to the 97.8% isodose line with 10MV and 3 verma. Custom MLC asym jaws for IMRT were the treatment devices used to shape/modify the beams. Limiting dose to normal tissue was confirmed upon review of the calculated dose volume histogram. IMRT planning was used because it best met the dose/volume constraints for the organs at risk for this patient, better than what could be achieved using conventional or 3D planning. The specific dose requirements for the PTV, organs at risk and dose-volume histograms are contained in this treatment plan and/or elsewhere in the medical record. A completed summary of this plan dated 09/29/2023 incorporated herein by reference includes dose, beam arrangements, energy, blocking, isodose distribution, and/or ports and DVH. Electronically Signed Gaurav Paris M.D. 0:04 AM documented in this encounter [facility] 09-12-2023 Note Education (HEMASA) 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 ([id number]) 1970 M Date Time Provider Department 09/12/23 ADRIANNE WEINSTEIN Reason for Visit: Patient Education [91] During your visit today, we recorded the following information about you: Allergies As of Date: 09/12/2023 (No Known Allergies) Date Reviewed: 09/12/2023 Reviewed by: Adrianne Weinstein RN - Fully Assessed Prescriptions as of 09/12/2023 - calcium carbonate/vitamin D3 (CALCIUM WITH VITAMIN D ORAL) Take 1 tablet by mouth once daily. - abiraterone 250 mg tablet Take 4 tablets by mouth once daily. - predniSONE (DELTASONE) 5 mg tablet Take 1 tablet by mouth once daily. - colchicine 0.6 mg tablet Take 0.6 mg by mouth as needed. - diclofenac, EC, (VOLTAREN) 75 mg EC tablet Take 1 tablet by mouth every 12 hours. - lisinopril (ZESTRIL) 10 mg tablet Take 1 tablet by mouth every afternoon. Encounter Status:Closed by ADRIANNE WEINSTEIN on 09/12/23 [facility] 09-12-2023 Note HNO ID: [id number] Author: Adrianne Weinstein RN Service: ? Author Type: Registered Nurse Type: Progress Notes Filed: 09/12/2023 9:33 AM Note Text: Radiation Therapy - Patient Education Note PATIENT NAME: Osiel Cartwright PATIENT September 12, 2023 [facility] FACILITY/LOCATION: [facility] READINESS TO LEARN Cognitive Ability: Alert and oriented Motivation to learn: Eager Family Support: Unable to assess - Family not present Instruction provide to: Patient Patient learns best by: Individual Instruction Factors effecting learning: None Physical limitations effecting learning: None LEARNING RESPONSE Diagnosis: Pt educated today for radiation therapy to pelvis. Education Topic/Teaching Points: Radiation therapy, Side effects, and OTV: Method of instruction: Individual instruction Patient /Family response: Patient verbalized understanding of radiation treatments, side effects, OTV, and transportation. Follow-up plan: Complete - No need for follow-up Supplemental material: Informational handouts on Pelvic handout and Prostate external beam. Referral (recommendation): None, Pt denied need for social work, van service, and broom stitcher. Was approved? No Signed by: Adrianne Weinstein RN [facility] 09-12-2023 Note HNO ID: [id number] Author: Lauren Paris MD Service: ? Author Type: Physician Type: Progress Notes Filed: 09/12/2023 11:10 AM Note Text: Radiation Oncology - Prostate Cancer New Patient/Consult Note PATIENT NAME: Osiel Cartwright PATIENT DIAGNOSIS: Prostate adenocarcinoma, initial PSA 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 HPI: Patient has started ADT including abiraterone and prednisone. Denies any problems. Bladder function stable. Staging Studies: Bone Scan Results: 08/04/2023; uptake within right sixth rib, fracture versus neoplastic activity. PSMA PET 08/09/2023: Head and neck: -No suspicious PSMA expressing neoplastic process. Chest: -No evidence of PSMA expressing neoplastic process Abdomens and Pelvis: -Avid uptake in the prostatic region suspicious for PSMA expressing neoplasm. Bones and soft tissues: - No evidence of PSMA expressing neoplastic process. Mild activity right anterior sixth rib likely trauma. Previous Treatment for Prostate Cancer: None Genomic Testing: None The patient reports the following pertinent history: Urinary frequency (D/N): 4-5/1-2 Dysuria: No Incontinence: 1- No pads Hematuria: No - Total AUA Score: 2 Bowel Movement Frequency: 1/day Bowel Movement Quality: Normal Blood per Rectum: No Last Colonoscopy: na Baseline Erectile Function: 2- Diminished but usually satisfactory for intercourse Prior Radiation Therapy, Collagen Vascular Disease, or Inflammatory Bowel Disease: No Any implanted or external electric devices? No Currently on Anticoagulation: No History of Hip Replacement: No History of Prior TURP: No ALLERGIES No Known Allergies calcium carbonate/vitamin D3 (CALCIUM WITH VITAMIN D ORAL) Take 1 tablet by mouth once daily. abiraterone 250 mg tablet Take 4 tablets by mouth once daily. predniSONE (DELTASONE) 5 mg tablet Take 1 tablet by mouth once daily. bicalutamide (CASODEX) 50 mg tablet Take 1 tablet by mouth every afternoon. colchicine 0.6 mg tablet Take 0.6 mg by mouth as needed. diclofenac, EC, (VOLTAREN) 75 mg EC tablet Take 1 tablet by mouth every 12 hours. lisinopril (ZESTRIL) 10 mg tablet Take 1 tablet by mouth every afternoon. PAST MEDICAL HISTORY Diagnosis Date Arthritis Gout HTN (hypertension) Prostate cancer (HCC) PAST SURGICAL HISTORY Procedure Laterality Date HERNIA REPAIR HX groin TONSILLECTOMY AND ADENOIDECTOMY US BIOPSY PROSTATE FAMILY HISTORY Problem Relation Age of Onset Crohn's Disease Mother other (Rheumatoid arthritis) Mother other (Acute myocardial infarct) Father Diabetes Father Social History Tobacco Use Smoking status: Former Packs/day: 0.50 Years: 20.00 Additional pack years: 0.00 Total pack years: 10.00 Types: Cigarettes Quit date: 2012 Years since quittin.9 Passive exposure: Past Smokeless tobacco: Never Substance Use Topics Alcohol use: Yes Comment: socially Drug use: Not Currently REVIEW OF SYSTEMS: GENERAL: feeling well without fatigue, no recent change in weight NECK: denies swelling or pain in neck RESPIRATORY: no cough, no wheezing or shortness of breath CARDIOVASCULAR: no chest pain, no palpitations MUSCULOSKELETAL: denies any painful or swollen joints, no muscle aches, patient does not recall traumatic rib injury but has been very active physically in the past All other ROS: negative As noted in HPI PHYSICAL EXAM: VS: There were no vitals taken for this visit. KARNOFSKY PERFORMANCE STATUS: 100 General Appearance: Alert and oriented. No acute distress. HEENT: NCAT. Sclera anicteric. PERRL. EOMI. Neck: Normal ROM. No palpable cervical or supraclavicular adenopathy. Chest: No respiratory distress. Lungs clear to auscultation bilaterally. Heart: Regular rate and rhythm. Abdomen: Soft. Nontender. Nondistended. Musculoskeletal: No edema. Normal ROM in extremities. No bone or spine tenderness. Neuro: Speech fluent. Gait normal. No focal deficits. Skin: No rashes noted Lymphatics: No palpable lymphadenopathy. GENITOURINARY: Deferred exam RECTAL: Deferred exam RADIOLOGY/LABORATORY DATA: see HPI ASSESSMENT/PLAN: Prostate adenocarcinoma, initial PSA 180.42, biopsy Jo-Ann score 3 + 4 = 7 (grade group 2), clinical stage T2c, N0, M0, stage IIIA [T1-T2, N0, M0, PSA >=20, GG 1-4] (AJCC 8th ed.), s/p TRUS Random biopsy. Prostate cancer (C61), 2019 NCCN Risk Group: Very high risk group Clinical State: Localized Cancer - New Diagnosis Discussed again options of local management. Discussed both external beam treatment alone or with brachytherapy boost. I do feel given PSMA PET that brachytherapy could be considered as a component of treatment. However after long discussion patient wants to proceed with external beam only. We will plan to (more content not included)... [facility] 09-12-2023 History of Present illness Narrative Radiation Therapy - Patient Education Note PATIENT NAME: Osiel Cartwright PATIENT September 12, 2023 [facility] FACILITY/LOCATION: [facility] READINESS TO LEARN Cognitive Ability: Alert and oriented Motivation to learn: Eager Family Support: Unable to assess - Family not present Instruction provide to: Patient Patient learns best by: Individual Instruction Factors effecting learning: None Physical limitations effecting learning: None LEARNING RESPONSE Diagnosis: Pt educated today for radiation therapy to pelvis. Education Topic/Teaching Points: Radiation therapy, Side effects, and OTV: Method of instruction: Individual instruction Patient /Family response: Patient verbalized understanding of radiation treatments, side effects, OTV, and transportation. Follow-up plan: Complete - No need for follow-up Supplemental material: Informational handouts on Pelvic handout and Prostate external beam. Referral (recommendation): None, Pt denied need for social work, van service, and broom stitcher. Was approved? No Signed by: Adrianne Weinstein, RN documented in this encounter [facility] 09-12-2023 History of Present illness Narrative Radiation Oncology - Prostate Cancer New Patient/Consult Note PATIENT NAME: Osiel Cartwright PATIENT DIAGNOSIS: Prostate adenocarcinoma, initial PSA 180.42, biopsy Jo-Ann score 3 + 4 = 7 (grade group 2), clinical stage T2c, N0, M0, stage IIIA [T1-T2, N0, M0, PSA >=20, GG 1-4] (AJCC 8th ed.), s/p TRUS Random biopsy. HPI: Patient has started ADT including abiraterone and prednisone. Denies any problems. Bladder function stable. Staging Studies: Bone Scan Results: 08/04/2023; uptake within right sixth rib, fracture versus neoplastic activity. PSMA PET 08/09/2023: Head and neck: -No suspicious PSMA expressing neoplastic process. Chest: -No evidence of PSMA expressing neoplastic process Abdomens and Pelvis: -Avid uptake in the prostatic region suspicious for PSMA expressing neoplasm. Bones and soft tissues: - No evidence of PSMA expressing neoplastic process. Mild activity right anterior sixth rib likely trauma. Previous Treatment for Prostate Cancer: None Genomic Testing: None The patient reports the following pertinent history: Urinary frequency (D/N): 4-5/1-2 Dysuria: No Incontinence: 1- No pads Hematuria: No - Total AUA Score: 2 Bowel Movement Frequency: 1/day Bowel Movement Quality: Normal Blood per Rectum: No Last Colonoscopy: na Baseline Erectile Function: 2- Diminished but usually satisfactory for intercourse Prior Radiation Therapy, Collagen Vascular Disease, or Inflammatory Bowel Disease: No Any implanted or external electric devices? No Currently on Anticoagulation: No History of Hip Replacement: No History of Prior TURP: No ALLERGIES No Known Allergies calcium carbonate/vitamin D3 (CALCIUM WITH VITAMIN D ORAL) Take 1 tablet by mouth once daily. abiraterone 250 mg tablet Take 4 tablets by mouth once daily. predniSONE (DELTASONE) 5 mg tablet Take 1 tablet by mouth once daily. bicalutamide (CASODEX) 50 mg tablet Take 1 tablet by mouth every afternoon. colchicine 0.6 mg tablet Take 0.6 mg by mouth as needed. diclofenac, EC, (VOLTAREN) 75 mg EC tablet Take 1 tablet by mouth every 12 hours. lisinopril (ZESTRIL) 10 mg tablet Take 1 tablet by mouth every afternoon. PAST MEDICAL HISTORY Diagnosis Date Arthritis Gout HTN (hypertension) Prostate cancer (HCC) PAST SURGICAL HISTORY Procedure Laterality Date HERNIA REPAIR HX groin TONSILLECTOMY & ADENOIDECTOMY <AGE 13 US BIOPSY PROSTATE FAMILY HISTORY Problem Relation Age of Onset Crohn's Disease Mother other (Rheumatoid arthritis) Mother other (Acute myocardial infarct) Father Diabetes Father Social History Tobacco Use Smoking status: Former Packs/day: 0.50 Years: 20.00 Additional pack years: 0.00 Total pack years: 10.00 Types: Cigarettes Quit date: 2012 Years since quittin.9 Passive exposure: Past Smokeless tobacco: Never Substance Use Topics Alcohol use: Yes Comment: socially Drug use: Not Currently REVIEW OF SYSTEMS: GENERAL: feeling well without fatigue, no recent change in weight NECK: denies swelling or pain in neck RESPIRATORY: no cough, no wheezing or shortness of breath CARDIOVASCULAR: no chest pain, no palpitations MUSCULOSKELETAL: denies any painful or swollen joints, no muscle aches, patient does not recall traumatic rib injury but has been very active physically in the past All other ROS: negative As noted in HPI PHYSICAL EXAM: VS: There were no vitals taken for this visit. KARNOFSKY PERFORMANCE STATUS: 100 General Appearance: Alert and oriented. No acute distress. HEENT: NCAT. Sclera anicteric. PERRL. EOMI. Neck: Normal ROM. No palpable cervical or supraclavicular adenopathy. Chest: No respiratory distress. Lungs clear to auscultation bilaterally. Heart: Regular rate and rhythm. Abdomen: Soft. Nontender. Nondistended. Musculoskeletal: No edema. Normal ROM in extremities. No bone or spine tenderness. Neuro: Speech fluent. Gait normal. No focal deficits. Skin: No rashes noted Lymphatics: No palpable lymphadenopathy. GENITOURINARY: Deferred exam RECTAL: Deferred exam RADIOLOGY/LABORATORY DATA: see HPI ASSESSMENT/PLAN: Prostate adenocarcinoma, initial PSA 180.42, biopsy Jo-Ann score 3 + 4 = 7 (grade group 2), clinical stage T2c, N0, M0, stage IIIA [T1-T2, N0, M0, PSA >=20, GG 1-4] (AJCC 8th ed.), s/p TRUS Random biopsy. Prostate cancer (C61), 2019 NCCN Risk Group: Very high risk group Clinical State: Localized Cancer - New Diagnosis Discussed again options of local management. Discussed both external beam treatment alone or with brachytherapy boost. I do feel given PSMA PET that brachytherapy could be considered as a component of treatment. However after long discussion patient wants to proceed with external beam only. We will plan to have him back in 1 to 2 weeks for simulation and anticipate starting treatment in early October. Signed by: Lauren Paris MD cc: Carolann Shirley [facility] [place] [address] Yaneli Lundberg [address] [place] [address] Dr. Singer documented in this encounter [facility] 09-12-2023 Nurse Note AUA 4 Adrianne Weinstein RN documented in this encounter [facility] 08-28-2023 Note Education (HEMASA) 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 ([id number]) 1970 M Date Time Provider Department 08/28/23 TRISHA NIEVES Reason for Visit: Oral Anti-cancer Agent Education [2512] Cmt: Abiraterone AND Prednisone Primary Visit Diagnosis:Prostate cancer (HCC) [C61] During your visit today, we recorded the following information about you: Allergies As of Date: 08/28/2023 (No Known Allergies) Date Reviewed: 08/28/2023 Reviewed by: Trisha Nieves RN - Fully Assessed Prescriptions as of 08/28/2023 - calcium carbonate/vitamin D3 (CALCIUM WITH VITAMIN D ORAL) Take 1 tablet by mouth once daily. - abiraterone 250 mg tablet Take 4 tablets by mouth once daily. - predniSONE (DELTASONE) 5 mg tablet Take 1 tablet by mouth once daily. - bicalutamide (CASODEX) 50 mg tablet Take 1 tablet by mouth every afternoon. - colchicine 0.6 mg tablet Take 0.6 mg by mouth as needed. - diclofenac, EC, (VOLTAREN) 75 mg EC tablet Take 1 tablet by mouth every 12 hours. - lisinopril (ZESTRIL) 10 mg tablet Take 1 tablet by mouth every afternoon. Encounter Status:Closed by TRISHA NIEVES on 08/28/23 [facility] 08-28-2023 Note HNO ID: [id number] Author: Trisha Nieves RN Service: ? Author Type: Registered Nurse Type: Progress Notes Filed: 08/28/2023 9:21 AM Note Text: ORAL ANTI-CANCER AGENTS EDUCATION patient here today for oral medication education of Abiraterone AND Prednisone for Prostate Cancer READINESS TO LEARN Cognitive Ability: Alert and oriented Motivation to Learn: Interested Family Support: Unable to assess - Family not present Instruction Provided to: Patient Patient learns best by: Multiple Methods Factors affecting learning: None Physical limitation affecting learning: None JARAMILLO ASSESSMENT: 1.) Verified that patient knows that the oral agents are for cancer and are taken by mouth. Yes 2.) Medication review completed during visit. Yes 3.) Patient is able to swallow pills. Yes 4.) Patient is able to read the drug label/information. Yes 5.) Patient is able to open the medication bottles and packages. Yes 6.) Has patient taken other pills for cancer? YES, please explain: Casodex - pt is aware that he is to stop taking the Casodex. 7.) Is patient experiencing any symptoms that would affect their ability to keep down pills, for example nausea or vomiting? No 8.) Verified that patient understands prescription delivery, benefit investigation and refill process. Yes - Phone number for [facility] pharmacy provided. DRUG-SPECIFIC EDUCATION: 1.) Verified patient knows the drug name. Yes 2.) Verified patient understands the dose and schedule of oral anti cancer agent. Yes 3.) Verified patient knows what to do if a medication dose is missed. Yes 4.) Verified patient understands where to store the drug. Yes 5.) Verified patient understands potential side effects and how to manage them. Yes 6.)Verified patient understands handling precautions of oral anti cancer agent. Yes 7.) Verified patient was given written instructions and understands when and whom to call with questions. Yes 8.) Verified patient understands where and how to return drug. Yes 9.) Verified patient received drug specific adult education handout and neutropenic wallet card Yes EVALUATE: The patient demonstrated an understanding of all the above education using the teach-back method. Yes Instructed to call us with any questions, concerns, and/or unresolved symptoms. Will continue to follow up and provide reinforcement of teaching topics as needed. Trisha Neives RN [facility] 08-28-2023 Miscellaneous Notes Patient started/will start taking Abiraterone & Prednisone on 08/29/23. Trisha Nieves, RN documented in this encounter [facility] 08-28-2023 History of Present illness Narrative ORAL ANTI-CANCER AGENTS EDUCATION patient here today for oral medication education of Abiraterone & Prednisone for Prostate Cancer READINESS TO LEARN Cognitive Ability: Alert and oriented Motivation to Learn: Interested Family Support: Unable to assess - Family not present Instruction Provided to: Patient Patient learns best by: Multiple Methods Factors affecting learning: None Physical limitation affecting learning: None JARAMILLO ASSESSMENT: 1.) Verified that patient knows that the oral agents are for cancer and are taken by mouth. Yes 2.) Medication review completed during visit. Yes 3.) Patient is able to swallow pills. Yes 4.) Patient is able to read the drug label/information. Yes 5.) Patient is able to open the medication bottles and packages. Yes 6.) Has patient taken other pills for cancer? YES, please explain: Casodex - pt is aware that he is to stop taking the Casodex. 7.) Is patient experiencing any symptoms that would affect their ability to keep down pills, for example nausea or vomiting? No 8.) Verified that patient understands prescription delivery, benefit investigation and refill process. Yes - Phone number for [facility] pharmacy provided. DRUG-SPECIFIC EDUCATION: 1.) Verified patient knows the drug name. Yes 2.) Verified patient understands the dose and schedule of oral anti cancer agent. Yes 3.) Verified patient knows what to do if a medication dose is missed. Yes 4.) Verified patient understands where to store the drug. Yes 5.) Verified patient understands potential side effects and how to manage them. Yes 6.)Verified patient understands handling precautions of oral anti cancer agent. Yes 7.) Verified patient was given written instructions and understands when and whom to call with questions. Yes 8.) Verified patient understands where and how to return drug. Yes 9.) Verified patient received drug specific adult education handout and neutropenic wallet card Yes EVALUATE: The patient demonstrated an understanding of all the above education using the teach-back method. Yes Instructed to call us with any questions, concerns, and/or unresolved symptoms. Will continue to follow up and provide reinforcement of teaching topics as needed. Trisha Nieves RN documented in this encounter [facility] 08-22-2023 Hospital Discharge instructions Patient Education 08/22/2023 09:32:41 Prostate Cancer Prostate Cancer The prostate is a small gland that produces fluid that makes up semen (seminal fluid). It is located below the bladder in men, in front of the rectum. Prostate cancer is the abnormal growth of cells in the prostate gland. What are the causes? The exact cause of this condition is not known. What increases the risk? You are more likely to develop this condition if: You are 65 years of age or older. You have a family history of prostate cancer. You have a family history of breast and ovarian cancer. You have genes that are passed from parent to child (inherited), such as BRCA1 and BRCA2. You have Jones syndrome. men and men of descent are diagnosed with prostate cancer at higher rates than other men. The reasons for this are not well understood and are likely due to a combination of genetic and environmental factors. What are the signs or symptoms? Symptoms of this condition include: Problems with urination. This may include: ?A weak or interrupted flow of urine. ?Trouble starting or stopping urination. ?Trouble emptying the bladder all the way. ?The need to urinate more often, especially at night. Blood in urine or semen. Persistent pain or discomfort in the lower back, lower abdomen, or hips. Trouble getting an erection. Weakness or numbness in the legs or feet. How is this diagnosed? This condition can be diagnosed with: A digital rectal exam. For this exam, a health care provider inserts a gloved finger into the rectum to feel the prostate gland. A blood test called a prostate-specific antigen (PSA) test. A procedure in which a sample of tissue is taken from the prostate and checked under a microscope (prostate biopsy). An imaging test called transrectal ultrasonography. Once the condition is diagnosed, tests will be done to determine how far the cancer has spread. This is called staging the cancer. Staging may involve imaging tests, such as a bone scan, CT scan, PET scan, or MRI. Stages of prostate cancer The stages of prostate cancer are as follows: Stage 1 (I). At this stage, the cancer is found in the prostate only. The cancer is not visible on imaging tests, and it is usually found by accident, such as during prostate surgery. Stage 2 (II). At this stage, the cancer is more advanced than it is in stage 1, but the cancer has not spread outside the prostate. Stage 3 (III). At this stage, the cancer has spread beyond the outer layer of the prostate to nearby tissues. The cancer may be found in the seminal vesicles, which are near the bladder and the prostate. Stage 4 (IV). At this stage, the cancer has spread to other parts of the body, such as the lymph nodes, bones, bladder, rectum, liver, or lungs. Prostate cancer grading Prostate cancer is also graded according to how the cancer cells look under a microscope. This is called the Naco score and the total score can range from 6 10, indicating how likely it is that the cancer will spread (metastasize) to other parts of the body. The higher the score, the greater the likelihood that the cancer will spread. Jo-Ann 6 or lower: This indicates that the cancer cells look similar to normal prostate cells (well differentiated). Jo-Ann 7: This indicates that the cancer cells look somewhat similar to normal prostate cells (moderately differentiated). Naco 8, 9, or 10: This indicates that the cancer cells look very different than normal prostate cells (poorly differentiated). How is this treated? Treatment for this condition depends on several factors, including the stage of the cancer, your age, personal preferences, and your overall health. Talk with your health care provider about treatment options that are recommended for you. Common treatments include: Observation for early stage prostate cancer (active surveillance). This involves having exams, blood tests, and in some cases, more biopsies. For some men, this is the only treatment needed. Surgery. Types of surgeries include: ?Open surgery (radical prostatectomy). In this surgery, a larger incision is made to remove the prostate. ?A laparoscopic radical prostatectomy. This is a surgery to remove the prostate and lymph nodes through several small incisions. It is often referred to as a minimally invasive surgery. ?A robotic radical prostatectomy. This is laparoscopic surgery to remove the prostate and lymph nodes with the help of robotic arms that are controlled by the surgeon. ?Cryoablation. This is surgery to freeze and destroy cancer cells. Radiation treatment. Types of radiation treatment include: ?External beam radiation. This type aims beams of radiation from outside the body at the prostate to destroy cancerous cells. ?Brachytherapy. This type uses radioactive needles, seeds, wires, or tubes that are implanted into the prostate gland. Like external beam radiation, brachytherapy destroys cancerous cells. An advantage is that this type of radiation limits the damage to surrounding tissue and has fewer side effects. Chemotherapy. This treatment kills cancer cells or stops them from multiplying. It kills both cancer cells and normal cells. Targeted therapy. This treatment uses medicines to kill cancer cells without damaging normal cells. Hormone treatment. This treatment involves taking medicines that act on testosterone, one of the male hormones, by: ?Stopping your body from producing testosterone. ?Blocking testosterone from reaching cancer cells. Follow these instructions at home: Lifestyle Do not use any products that contain nicotine or tobacco. These products include cigarettes, chewing tobacco, and vaping devices, such as e-cigarettes. If you need help quitting, ask your health care provider. Eat a healthy diet. To do this: ?Eat foods that are high in fiber. These include beans, whole grains, and fresh fruits and vegetables. ?Limit foods that are high in fat and sugar. These include fried or sweet foods. Treatment for prostate cancer may affect sexual function. If you have a partner, continue to have intimate moments. This may include touching, holding, hugging, and caressing your partner. Get plenty of sleep. Consider joining a support group for men who have prostate cancer. Meeting with a support group may help you learn to manage the stress of having cancer. General instructions Take [id number] and prescription medicines only as told by your health care provider. If you have to go to the hospital, notify your cancer specialist (oncologist). Keep all follow-up visits. This is important. Where to find more information [place] [employer]: www.cancer.org [place] [employer]: www.cancer.net National Cancer [place]: www.cancer.gov Contact a health care provider if: You have new or increasing trouble urinating. You have new or increasing blood in your urine. You have new or increasing pain in your hips, back, or chest. Get help right away if: You have weakness or numbness in your legs. You cannot control urination or your bowel movements (incontinence). You have chills or a fever. Summary The prostate is a small gland that is involved in the production of semen. It is located below a man's bladder, in front of the rectum. Prostate cancer is the abnormal growth of cells in the prostate gland. Treatment for this condition depends on the stage of the cancer, your age, personal preferences, and your overall health. Talk with your health care provider about treatment options that are recommended for you. Consider joining a support group for men who have prostate cancer. Meeting with a support group may help you learn to manage the stress of having cancer. This information is not intended to replace advice given to you by your health care provider. Make sure you discuss any questions you have with your health care provider. Document Revised: 12/22/2021 Document Reviewed: 12/22/2021 [employer] Patient Education 2022 [employer]. Follow Up Care 08/09/2023 08:54:33 With:TOÑO STANTON, Yaneli Friedman, URL Address: [facility] [address] [place] [address]- When:Within 6 Month(s) Comments:w/PSA, Testosterone, and Lurpon [facility] 08-22-2023 Miscellaneous Notes Abiraterone to be filled through [facility] per insurance. Rx pended - Unaware of cost at this time since filling at another pharmacy. If assistance is required, patient will be instructed how to apply, etc. by [facility]. Patient notified of this plan. Chemo Ed scheduled for 08/28/23. documented in this encounter [facility] 08-21-2023 Note HNO ID: [id number] Author: Javi Singer MD Service: ? Author Type: Physician Type: Progress Notes Filed: 08/23/2023 7:13 AM Note Text: PATIENT NAME: Osiel Cartwright DATE: 08/21/2023 PRIMARY CARE PHYSICIAN: Carolann Shirley MD OTHER PHYSICIANS: Dr. Lundberg, Dr. Paris HPI: This is a 52 year old male with recently diagnosed prostate cancer, referred for further management. The patient underwent a screening PSA on 07/03/2023 which was surprisingly elevated at 168. Repeat PSA 4 days later further elevated at 180. Subsequently he was seen by urology, and on 08/12/2023 underwent a TRUS prostate biopsy. This confirmed 12 of 12 cores involved with adenocarcinoma, Jo-Ann 7. Staging CAT scans and bone scan were negative. Subsequent PSMA PET scan 08/09/2023 revealed uptake in the prostate, but no evidence of distant metastases. Per urology he was started on Casodex July 2023. Plans are to proceed with Lupron starting 08/12/2023. He was seen by radiation oncology, and plans are to proceed with EBRT in the near future. He currently is referred to discuss other treatment options. On evaluation today he feels well. He has had no significant urinary symptoms. No unusual pain or other systemic complaints. Past medical history significant for hypertension and intermittent gout, otherwise no major problems. He has a history of smoking, quit in 2011. He drinks alcohol socially. Family history is essentially negative. He currently is but , and has 2 grown sons. 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 MEDICATIONS: Current Outpatient Medications Medication Sig bicalutamide (CASODEX) 50 mg tablet Take 1 tablet by mouth every afternoon. colchicine 0.6 mg tablet Refills(s) 0 diclofenac, EC, (VOLTAREN) 75 mg EC tablet Take 1 tablet by mouth every 12 hours. lisinopril (ZESTRIL) 10 mg tablet Take 1 tablet by mouth every afternoon. No current facility-administered medications for this visit. ALLERGIES: ALLERGIES No Known Allergies PAST MEDICAL HISTORY: PAST MEDICAL HISTORY Diagnosis Date Arthritis Gout HTN (hypertension) Prostate cancer (HCC) PAST SURGICAL HISTORY: PAST SURGICAL HISTORY Procedure Laterality Date HERNIA REPAIR HX groin TONSILLECTOMY AND ADENOIDECTOMY US BIOPSY PROSTATE FAMILY HISTORY: FAMILY HISTORY Problem Relation Age of Onset Crohn's Disease Mother other (Rheumatoid arthritis) Mother other (Acute myocardial infarct) Father Diabetes Father SOCIAL HISTORY: Social History Tobacco Use Smoking status: Former Packs/day: 0.50 Years: 20.00 Additional pack years: 0.00 Total pack years: 10.00 Types: Cigarettes Quit date: 2012 Years since quittin.8 Passive exposure: Past Smokeless tobacco: Never Substance Use Topics Alcohol use: Yes Comment: socially Drug use: Not Currently COMPLETE REVIEW OF SYSTEMS: CONSTITUTION: Negative for pain, fatigue, weight loss, or appetite loss. EENT: Negative for mouth soreness, antibiotics use, epistaxis, visual problems, neck or facial swelling, fever/chills, bleeding gums, or hearing loss. CV: Negative for edema, calf swelling, palpitations, or chest pain. RESPIRATORY: Negative for cough, SOB, hemoptysis, or wheezing. GI: Negative for nausea/vomiting, heartburn, vomiting blood, dysphasia, diarrhea, blood in stool, constipation, early satiety, PICA, vegetarian, poor nutrition, abdominal fullness, or abdominal pain. NEUROLOGICAL: Negative for numbness/tingling, dizziness, gait disturbance, headache, speech disturbance, tremor, hemiparesis/sensory loss, or change in mental status. MUSCULOSKELETAL: Negative for joint pain, joint swelling, or proximal muscle weakness. SKIN: Negative for hair loss, bruising, nail changes, rash, itching, pallor, or jaundice. ENDO/URO: Negative for hot flashes, cold or heat intolerance, urinary frequency, urinary hesitancy, menorrhagia, or hematuria. PSYCH: Negative for anxiety, depression, or other. PHYSICAL EXAM: BP 154/90 Pulse 64 Temp 36.6 ?C (97.8 ?F) (Temporal) Resp 18 Ht 182.9 cm (6' 0.01 ) Wt (!) 153.4 kg (338 lb 3.2 oz) SpO2 99% BMI 45.86 kg/m? GENERAL EXAM: Well developed/well nourished; in no acute distress. SKIN: Negative for lesions, rashes, or ulcers on the upper and lower extremities and face. Negative for palpations/nodules, purpura, and ecchymosis. EENT: Negative for conjunctiva, mucosal pallor, JVD, LAP, thyromegaly, and glossitis. Supple AND PERRL. EXTREMITIES: Negative for cyanosis, clubbing, and crepitus. LUNGS: Negative to auscultation, respiratory effort, and percussion. CARDIOVASCULAR: Regular rate. Negative for murmurs/S3S4/abnormal sounds, edema, and carotid bruits. ABDOMEN: Negative for masses, hernia, and spleen/liver abnormalities. RECTAL: Not done PSYCHIATRIC: Negative for mood/affect changes, recent AND remote memory changes, and judgement an (more content not included)... [facility] 08-21-2023 History of Present illness Narrative PATIENT NAME: Osiel Cartwright DATE: 08/21/2023 PRIMARY CARE PHYSICIAN: Carolann Shirley MD OTHER PHYSICIANS: Dr. Lundberg, Dr. Paris HPI: This is a 52 year old male with recently diagnosed prostate cancer, referred for further management. The patient underwent a screening PSA on 07/03/2023 which was surprisingly elevated at 168. Repeat PSA 4 days later further elevated at 180. Subsequently he was seen by urology, and on 08/12/2023 underwent a TRUS prostate biopsy. This confirmed 12 of 12 cores involved with adenocarcinoma, Jo-Ann 7. Staging CAT scans and bone scan were negative. Subsequent PSMA PET scan 08/09/2023 revealed uptake in the prostate, but no evidence of distant metastases. Per urology he was started on Casodex July 2023. Plans are to proceed with Lupron starting 08/12/2023. He was seen by radiation oncology, and plans are to proceed with EBRT in the near future. He currently is referred to discuss other treatment options. On evaluation today he feels well. He has had no significant urinary symptoms. No unusual pain or other systemic complaints. Past medical history significant for hypertension and intermittent gout, otherwise no major problems. He has a history of smoking, quit in 2011. He drinks alcohol socially. Family history is essentially negative. He currently is but , and has 2 grown sons. 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 MEDICATIONS: Current Outpatient Medications Medication Sig bicalutamide (CASODEX) 50 mg tablet Take 1 tablet by mouth every afternoon. colchicine 0.6 mg tablet Refills(s) 0 diclofenac, EC, (VOLTAREN) 75 mg EC tablet Take 1 tablet by mouth every 12 hours. lisinopril (ZESTRIL) 10 mg tablet Take 1 tablet by mouth every afternoon. No current facility-administered medications for this visit. ALLERGIES: ALLERGIES No Known Allergies PAST MEDICAL HISTORY: PAST MEDICAL HISTORY Diagnosis Date Arthritis Gout HTN (hypertension) Prostate cancer (HCC) PAST SURGICAL HISTORY: PAST SURGICAL HISTORY Procedure Laterality Date HERNIA REPAIR HX groin TONSILLECTOMY & ADENOIDECTOMY <AGE 13 US BIOPSY PROSTATE FAMILY HISTORY: FAMILY HISTORY Problem Relation Age of Onset Crohn's Disease Mother other (Rheumatoid arthritis) Mother other (Acute myocardial infarct) Father Diabetes Father SOCIAL HISTORY: Social History Tobacco Use Smoking status: Former Packs/day: 0.50 Years: 20.00 Additional pack years: 0.00 Total pack years: 10.00 Types: Cigarettes Quit date: 2012 Years since quittin.8 Passive exposure: Past Smokeless tobacco: Never Substance Use Topics Alcohol use: Yes Comment: socially Drug use: Not Currently COMPLETE REVIEW OF SYSTEMS: CONSTITUTION: Negative for pain, fatigue, weight loss, or appetite loss. EENT: Negative for mouth soreness, antibiotics use, epistaxis, visual problems, neck or facial swelling, fever/chills, bleeding gums, or hearing loss. CV: Negative for edema, calf swelling, palpitations, or chest pain. RESPIRATORY: Negative for cough, SOB, hemoptysis, or wheezing. GI: Negative for nausea/vomiting, heartburn, vomiting blood, dysphasia, diarrhea, blood in stool, constipation, early satiety, PICA, vegetarian, poor nutrition, abdominal fullness, or abdominal pain. NEUROLOGICAL: Negative for numbness/tingling, dizziness, gait disturbance, headache, speech disturbance, tremor, hemiparesis/sensory loss, or change in mental status. MUSCULOSKELETAL: Negative for joint pain, joint swelling, or proximal muscle weakness. SKIN: Negative for hair loss, bruising, nail changes, rash, itching, pallor, or jaundice. ENDO/URO: Negative for hot flashes, cold or heat intolerance, urinary frequency, urinary hesitancy, menorrhagia, or hematuria. PSYCH: Negative for anxiety, depression, or other. PHYSICAL EXAM: BP 154/90 Pulse 64 Temp 36.6 C (97.8 F) (Temporal) Resp 18 Ht 182.9 cm (6' 0.01 ) Wt (!) 153.4 kg (338 lb 3.2 oz) SpO2 99% BMI 45.86 kg/m GENERAL EXAM: Well developed/well nourished; in no acute distress. SKIN: Negative for lesions, rashes, or ulcers on the upper and lower extremities and face. Negative for palpations/nodules, purpura, and ecchymosis. EENT: Negative for conjunctiva, mucosal pallor, JVD, LAP, thyromegaly, and glossitis. Supple & PERRL. EXTREMITIES: Negative for cyanosis, clubbing, and crepitus. LUNGS: Negative to auscultation, respiratory effort, and percussion. CARDIOVASCULAR: Regular rate. Negative for murmurs/S3S4/abnormal sounds, edema, and carotid bruits. ABDOMEN: Negative for masses, hernia, and spleen/liver abnormalities. RECTAL: Not done PSYCHIATRIC: Negative for mood/affect changes, recent & remote memory changes, and judgement and insight. NEUROLOGICAL: Alert, oriented x person, place, time. Cranial nerves 2-12 intact. Sensory for pain, light touch, vibration intact on all 4 extremities. Reflexes symmetric for biceps/brachioradial/patella/achil les. MUSCULOSKELETAL: Negative examination of joints, bones, muscles/tendons of all four extremities for inspection, percussion, and palpation. Negative for misallignment, asymmetry, crepitation, tenderness, mass, effusions. Range of motion normal. Negative for joint instability, laxity, dislocation. Gait steady. Negative for swelling, erythema, tenderness, soft tissue swelling, and atrophy. PATHOLOGY: 07/12/2023 TRUS Prostate biopsy ([facility]) Acinar adenocarcinoma prostate, Naco score 7 (3+4). Grade 4 pattern identified. 12 of 12 cores involved. LABS: PSA 07/01/2023 168.7 07/07/2023 180.4 RADIOLOGY/OTHER STUDIES: 08/09/2023 PSMA PET scan IMPRESSION: Head and neck: -No suspicious PSMA expressing neoplastic process. Chest: -No evidence of PSMA expressing neoplastic process Abdomens and Pelvis: -Avid uptake in the prostatic region suspicious for PSMA expressing neoplasm. Bones and soft tissues: - No evidence of PSMA expressing neoplastic process. Mild activity right anterior sixth rib likely trauma. 08/04/2023 Nuclear bone scan ([facility]) Abnormal focus of radiotracer uptake in the anterior costochondral margin of right sixth rib, fracture versus neoplastic activity. ASSESSMENT/PLAN: 1. Prostate cancer (HCC) - ICD9: 185, ICD10: C61 Stage IIIa adenocarcinoma of the prostate (T2, N0, M0; PSA >20; grade group 1-4) diagnosed August 2023. Screening PSA June 2023 significantly elevated at 180. TRUS prostate biopsy 08/12/2023 confirmed 12 of 12 cores involved with adenocarcinoma, Naco 7. PSMA PET scan 08/09/2023 revealed uptake in the prostate, but no evidence of distant metastases. Options for further management were discussed at length with the patient. Standard of care would be EBRT plus hormonal therapy with total androgen blockade. Per urology he was started on Casodex July 2023. Plans are to proceed with Lupron starting 08/22/2023. He was seen by radiation oncology, and plans are to proceed with EBRT in the near future. Recent data indicates that novel antiandrogens improve disease-free survival when given upfront. After much discussion we have elected to change Casodex to abiraterone/prednisone. The patient will start when the medications are available. Otherwise he will continue as planned with Lupron per urology, and EBRT per radiation oncology. I will see the patient back in 4 weeks for follow-up. Because of his young age he will be referred to medical genetics for genomic analysis. Results of this would influence his potential future treatment options, and would dictate the need for screening for his immediate family members. 2. Hypertension Diagnosed age 51. Stable on current medications. Continue management per PCP. 3. History of intermittent gout Stable on current medications. Continue management per PCP. Javi Singer MD CC: Dr. Yaneli Lundberg, [facility] Urology documented in this encounter [facility] 08-09-2023 Note HNO ID: [id number] Author: Lauren Paris MD Service: ? Author Type: Physician Type: Progress Notes Filed: 08/15/2023 8:36 AM Note Text: Radiation Oncology - Prostate Cancer New Patient/Consult Note PATIENT NAME: Osiel Cartwright PATIENT REQUESTING PROVIDER: Dr. Lundberg DIAGNOSIS: 52 year old male with prostate adenocarcinoma, initial PSA 180.42, biopsy Jo-Ann score 3 + 4 = 7 (grade group 2), clinical stage T2c, N0, M0, stage IIIA [T1-T2, N0, M0, PSA >=20, GG 1-4] (AJCC 8th ed.), s/p TRUS Random biopsy. HPI: 52 year old male with prostate adenocarcinoma who presents for an opinion regarding the role of radiation therapy in the management of the patient's disease. Final recommendations will be communicated back to the requesting physician by way of the shared medical record, or letter to requesting physician via [place] mail. The patient was diagnosed with prostate cancer and comes in today to discuss treatment options. Patient presented with PSA, first he had had, on 07/03/2023 he had a value 168.74. This was repeated 07/07/2023, 180.42. Patient subsidy underwent transrectal ultrasound-guided biopsy. Prostate biopsy on August 12, 2023 revealed: 45.7 cm? gland. All 12 cores involved with Naco 7 (3+4) adenocarcinoma. Perineural invasion described. Cribriform pattern identified. Total # of positive biopsy cores: 12 Total # of biopsy cores sampled: 12 Greatest % cancer in any single core: Greater than 50% Staging Studies: Bone Scan Results: 08/04/2023; uptake within right sixth rib, fracture versus neoplastic activity. PSMA PET 08/09/2023: Head and neck: -No suspicious PSMA expressing neoplastic process. Chest: -No evidence of PSMA expressing neoplastic process Abdomens and Pelvis: -Avid uptake in the prostatic region suspicious for PSMA expressing neoplasm. Bones and soft tissues: - No evidence of PSMA expressing neoplastic process. Mild activity right anterior sixth rib likely trauma. Previous Treatment for Prostate Cancer: None Genomic Testing: None The patient reports the following pertinent history: Urinary frequency (D/N): 4-5/1-2 Dysuria: No Incontinence: 1- No pads Hematuria: No - Total AUA Score: 2 Bowel Movement Frequency: 1/day Bowel Movement Quality: Normal Blood per Rectum: No Last Colonoscopy: na Baseline Erectile Function: 2- Diminished but usually satisfactory for intercourse Prior Radiation Therapy, Collagen Vascular Disease, or Inflammatory Bowel Disease: No Any implanted or external electric devices? No Currently on Anticoagulation: No History of Hip Replacement: No History of Prior TURP: No ALLERGIES No Known Allergies bicalutamide (CASODEX) 50 mg tablet Take 1 tablet by mouth every afternoon. colchicine 0.6 mg tablet Refills(s) 0 diclofenac, EC, (VOLTAREN) 75 mg EC tablet Take 1 tablet by mouth every 12 hours. lisinopril (ZESTRIL) 10 mg tablet Take 1 tablet by mouth every afternoon. PAST MEDICAL HISTORY Diagnosis Date Arthritis Gout HTN (hypertension) PAST SURGICAL HISTORY Procedure Laterality Date HERNIA REPAIR HX groin TONSILLECTOMY AND ADENOIDECTOMY History reviewed. No pertinent family history. Social History Tobacco Use Smoking status: Former Packs/day: 0.50 Years: 20.00 Additional pack years: 0.00 Total pack years: 10.00 Types: Cigarettes Quit date: 2012 Years since quittin.8 Smokeless tobacco: Never Substance Use Topics Alcohol use: Yes Comment: socially Drug use: Not Currently REVIEW OF SYSTEMS: GENERAL: feeling well without fatigue, no recent change in weight NECK: denies swelling or pain in neck RESPIRATORY: no cough, no wheezing or shortness of breath CARDIOVASCULAR: no chest pain, no palpitations MUSCULOSKELETAL: denies any painful or swollen joints, no muscle aches, patient does not recall traumatic rib injury but has been very active physically in the past All other ROS: negative As noted in HPI PHYSICAL EXAM: VS: BP 144/82 Pulse 63 Temp 36.5 ?C (97.7 ?F) Resp 18 Ht 182.9 cm (6') Wt (!) 153.8 kg (339 lb) SpO2 98% BMI 45.98 kg/m? KARNOFSKY PERFORMANCE STATUS: 100 General Appearance: Alert and oriented. No acute distress. HEENT: NCAT. Sclera anicteric. PERRL. EOMI. Neck: Normal ROM. No palpable cervical or supraclavicular adenopathy. Chest: No respiratory distress. Lungs clear to auscultation bilaterally. Heart: Regular rate and rhythm. Abdomen: Soft. Nontender. Nondistended. Musculoskeletal: No edema. Normal ROM in extremities. No bone or spine tenderness. Neuro: Speech fluent. Gait normal. No focal deficits. Skin: No rashes noted Lymphatics: No palpable lymphadenopathy. GENITOURINARY: Deferred exam RECTAL: Deferred exam RADIOLOGY/LABORATORY DATA: see HPI ASSESSMENT/PLAN: Prostate cancer (C61), 2019 NCCN Risk Group: Very high risk group Clinical State: Localized Cancer - New Diag (more content not included)... [facility] 08-09-2023 History of Present illness Narrative Radiation Oncology - Prostate Cancer New Patient/Consult Note PATIENT NAME: Osiel Cartwright PATIENT REQUESTING PROVIDER: Dr. Lundberg DIAGNOSIS: 52 year old male with prostate adenocarcinoma, initial PSA 180.42, biopsy Jo-Ann score 3 + 4 = 7 (grade group 2), clinical stage T2c, N0, M0, stage IIIA [T1-T2, N0, M0, PSA >=20, GG 1-4] (AJCC 8th ed.), s/p TRUS Random biopsy. HPI: 52 year old male with prostate adenocarcinoma who presents for an opinion regarding the role of radiation therapy in the management of the patient's disease. Final recommendations will be communicated back to the requesting physician by way of the shared medical record, or letter to requesting physician via [place] mail. The patient was diagnosed with prostate cancer and comes in today to discuss treatment options. Patient presented with PSA, first he had had, on 07/03/2023 he had a value 168.74. This was repeated 07/07/2023, 180.42. Patient subsidy underwent transrectal ultrasound-guided biopsy. Prostate biopsy on August 12, 2023 revealed: 45.7 cm gland. All 12 cores involved with Naco 7 (3+4) adenocarcinoma. Perineural invasion described. Cribriform pattern identified. Total # of positive biopsy cores: 12 Total # of biopsy cores sampled: 12 Greatest % cancer in any single core: Greater than 50% Staging Studies: Bone Scan Results: 08/04/2023; uptake within right sixth rib, fracture versus neoplastic activity. PSMA PET 08/09/2023: Head and neck: -No suspicious PSMA expressing neoplastic process. Chest: -No evidence of PSMA expressing neoplastic process Abdomens and Pelvis: -Avid uptake in the prostatic region suspicious for PSMA expressing neoplasm. Bones and soft tissues: - No evidence of PSMA expressing neoplastic process. Mild activity right anterior sixth rib likely trauma. Previous Treatment for Prostate Cancer: None Genomic Testing: None The patient reports the following pertinent history: Urinary frequency (D/N): 4-5/1-2 Dysuria: No Incontinence: 1- No pads Hematuria: No - Total AUA Score: 2 Bowel Movement Frequency: 1/day Bowel Movement Quality: Normal Blood per Rectum: No Last Colonoscopy: na Baseline Erectile Function: 2- Diminished but usually satisfactory for intercourse Prior Radiation Therapy, Collagen Vascular Disease, or Inflammatory Bowel Disease: No Any implanted or external electric devices? No Currently on Anticoagulation: No History of Hip Replacement: No History of Prior TURP: No ALLERGIES No Known Allergies bicalutamide (CASODEX) 50 mg tablet Take 1 tablet by mouth every afternoon. colchicine 0.6 mg tablet Refills(s) 0 diclofenac, EC, (VOLTAREN) 75 mg EC tablet Take 1 tablet by mouth every 12 hours. lisinopril (ZESTRIL) 10 mg tablet Take 1 tablet by mouth every afternoon. PAST MEDICAL HISTORY Diagnosis Date Arthritis Gout HTN (hypertension) PAST SURGICAL HISTORY Procedure Laterality Date HERNIA REPAIR HX groin TONSILLECTOMY & ADENOIDECTOMY <AGE 13 History reviewed. No pertinent family history. Social History Tobacco Use Smoking status: Former Packs/day: 0.50 Years: 20.00 Additional pack years: 0.00 Total pack years: 10.00 Types: Cigarettes Quit date: 2012 Years since quittin.8 Smokeless tobacco: Never Substance Use Topics Alcohol use: Yes Comment: socially Drug use: Not Currently REVIEW OF SYSTEMS: GENERAL: feeling well without fatigue, no recent change in weight NECK: denies swelling or pain in neck RESPIRATORY: no cough, no wheezing or shortness of breath CARDIOVASCULAR: no chest pain, no palpitations MUSCULOSKELETAL: denies any painful or swollen joints, no muscle aches, patient does not recall traumatic rib injury but has been very active physically in the past All other ROS: negative As noted in HPI PHYSICAL EXAM: VS: BP 144/82 Pulse 63 Temp 36.5 C (97.7 F) Resp 18 Ht 182.9 cm (6') Wt (!) 153.8 kg (339 lb) SpO2 98% BMI 45.98 kg/m KARNOFSKY PERFORMANCE STATUS: 100 General Appearance: Alert and oriented. No acute distress. HEENT: NCAT. Sclera anicteric. PERRL. EOMI. Neck: Normal ROM. No palpable cervical or supraclavicular adenopathy. Chest: No respiratory distress. Lungs clear to auscultation bilaterally. Heart: Regular rate and rhythm. Abdomen: Soft. Nontender. Nondistended. Musculoskeletal: No edema. Normal ROM in extremities. No bone or spine tenderness. Neuro: Speech fluent. Gait normal. No focal deficits. Skin: No rashes noted Lymphatics: No palpable lymphadenopathy. GENITOURINARY: Deferred exam RECTAL: Deferred exam RADIOLOGY/LABORATORY DATA: see HPI ASSESSMENT/PLAN: Prostate cancer (C61), 2019 NCCN Risk Group: Very high risk group Clinical State: Localized Cancer - New Diagnosis Patient presents with a very high risk process given his PSA greater than 100 and 12 of 12 cores positive on biopsy. However no high-grade disease, though there is cribriform histology present. I did discuss with patient the implications of his presentation. Fortunately no evidence of metastatic disease. I do feel patient would benefit from definitive treatment. Discussed options including surgical approach as well as radiation approach. In terms of radiation approach would consider combined androgen deprivation therapy (which is being initiated by Dr. Lundberg) and radiation with either external beam or with external beam and brachytherapy boost. The latter would allow for dose escalation and this I do feel it is important given extent of disease on staging biopsies. It is unclear whether patient would benefit from additional/second generation antiandrogen i.e. abiraterone and he may benefit from medical oncology consult regarding this. We will plan to have patient back for further discussion and planning of treatment management. Signed by: Lauren Paris MD cc: Carolann Shirley [address] [place] [phone] Yaneli Lundberg [address] [facility] [id number] documented in this encounter [facility] 08-09-2023 Nurse Note AUA= 2 documented in this encounter [facility] 08-09-2023 Note HNO ID: [id number] Author: Trisha Martinez RT(R) Service: ? Author Type: Technologist Type: Progress Notes Filed: 08/09/2023 1:54 PM Note Text: RADIOLOGY SERVICE PROGRESS NOTE SERVICE DATE: 08/09/2023 SERVICE TIME: 1:53 PM PATIENT IDENTITY VERIFICATION COMPLETED USING TWO (2) STANDARD IDENTIFIERS: Name and Date of confirmed by patient verbally POST EXAM PIV STATUS: Discontinued PROCEDURE TYPE: NM INJECT: PET/CT BODY SCAN. 10.8 mCi [id number]. No other medications given.. ADMINISTRATION TIME: 1337 PATIENT DISCHARGED TO: Ambulatory patient, left ID department area. A Diagnostic radioactive procedure has taken place, with no further precautions necessary other than routine body substance precautions. More information regarding radiation safety can be found using this link: [email or web address] SIGNATURE: RT Alejandro(R) PATIENT NAME: Osiel Cartwright DATE: August 09, 2023 TIME: 1:53 PM PAGER/CONTACT #: [facility] 08-09-2023 Note HNO ID: [id number] Author: Kaleigh Daniels RN Service: ? Author Type: Registered Nurse Type: Progress Notes Filed: 08/09/2023 1:40 PM Note Text: Radiology Service Progress Note DATE OF SERVICE: August 09, 2023 TIME: 1:39 PM PATIENT IDENTITY VERIFICATION COMPLETED USING TWO (2) STANDARD IDENTIFIERS: Name and Date of confirmed by patient verbally. FALL SCREENING: Has the patient had 2 falls in the last year or 1 fall with injury or currently using an Ambulatory Assistive Device (Walker, Cane, Wheelchair, Crutches, etc.)? No PATIENT GENDER DATA: Male EXAM: CT -CONTRAST INDUCED NEPHROPATHY RISK FACTORS: Not applicable CREATININE: No results found for: CREAT , EGFROTH , EGFRAA P.O.C.T. RESULTS: N/A August 09, 2023 TREATMENT: N/A IV SITE: Ambulatory: A peripheral IV was started in the Right hand with a Angio cath: 22 gauge. IV SITE APPEARANCE: Clean,Dry and Intact SIGNATURE: Kaleigh Daniels RN PATIENT NAME: Osiel Cartwright DATE: August 09, 2023 TIME: 1:39 PM [facility] 08-09-2023 Hospital Discharge instructions Patient Education 08/09/2023 08:39:48 Brachytherapy for Prostate Cancer Brachytherapy for Prostate Cancer Brachytherapy for prostate cancer is a type of internal radiation treatment that involves placing a source of radiation right inside the prostate gland. This allows the delivery of a higher dose of radiation than would be possible with external radiation therapy treatment. There are many types of brachytherapy: Low-dose rate (LDR) therapy. This involves temporary or permanent implants of radioactive seeds or pellets that give off a low dose of radiation. ?Temporary low-dose implants are left in the prostate for 1 7 days. The radioactive material is contained within a delivery tool, which may be a needle, a small, thin tube (catheter), or another type of applicator. You will need to stay in the hospital while the delivery tool and radioactive material are in place. ?Permanent low-dose implants are left in the prostate. They slowly give off radiation for many months after they are inserted. After the radiation is gone, they just stay in the body. They do not cause any harm and are not removed. High-dose rate (HDR) therapy. This involves inserting a material that gives off a higher dose of radiation for only a few minutes. The radioactive material is often wires or ribbons contained within a delivery tool (needle, applicator, or catheter). The delivery tool is removed after treatment, and no radioactive material is left in the prostate. In brachytherapy, the radiation does not travel far from the prostate, so healthy tissues around the prostate receive only a small dose of radiation. This helps to protect those tissues from injury. In some cases, brachytherapy may be given along with external beam radiation. Tell a health care provider about: Any allergies you have. All medicines you are taking, including vitamins, herbs, eye drops, creams, and qyct-scm-btiwweh medicines. Any problems you or family members have had with anesthetic medicines. Any bleeding problems you have. Any surgeries you have had. Any medical conditions you have. Any prostate infections you have had. What are the risks? Generally, this is a safe procedure. However, problems may occur, including: Inflammation of the rectum. Problems getting or keeping an erection (erectile dysfunction). Inability to control when you urinate or have bowel movements (incontinence). Damage to nearby structures or organs. Diarrhea. Bleeding. What happens before the procedure? Staying hydrated Follow instructions from your health care provider about hydration, which may include: Up to 2 hours before the procedure you may continue to drink clear liquids, such as water, clear fruit juice, black coffee, and plain tea. Eating and drinking restrictions Follow instructions from your health care provider about eating and drinking, which may include: 8 hours before the procedure stop eating heavy meals or foods, such as meat, fried foods, or fatty foods. 6 hours before the procedure stop eating light meals or foods, such as toast or cereal. 6 hours before the procedure stop drinking milk or drinks that contain milk. 2 hours before the procedure stop drinking clear liquids. Medicines Ask your health care provider about: ?Changing or stopping your regular medicines. This is especially important if you are taking diabetes medicines or blood thinners. ?Taking medicines such as aspirin and ibuprofen. These medicines can thin your blood. Do not take these medicines unless your health care provider tells you to take them. ?Taking [id number] medicines, vitamins, herbs, and supplements. Follow your health care provider's instructions about cleaning out your bowels. Surgery safety Ask your health care provider: How your surgery site will be marked. What steps will be taken to help prevent infection. These may include: ?Removing hair at the procedure site. ?Washing skin with a germ-killing soap. ?Taking antibiotic medicine before and after the procedure. General instructions You may have exams or testing done before or after the procedure. Blood or urine samples may be taken. You may need imaging tests, such as a CT scan or an MRI. Do not use any products that contain nicotine or tobacco for at least 4 weeks before the procedure. This includes cigarettes, chewing tobacco, and vaping devices, such as e-cigarettes. If you need help quitting, ask your health care provider. Plan to have a responsible adult take you home from the hospital or clinic. Plan to have a responsible adult care for you for the time you are told after you leave the hospital or clinic. What happens during the procedure? An IV will be put into one of the veins in your arm or hand. You may be given: ?A medicine to help you relax (sedative). ?A medicine to numb the area (local anesthetic). ?A medicine to make you fall asleep (general anesthetic). A thin, flexible tube (Tovar catheter) might be put into your penis, through your urethra, and into your bladder to drain your urine. Your surgeon will insert the radioactive material. The method used will depend on whether you are receiving temporary or permanent brachytherapy. Temporary low-dose or high-dose brachytherapy A delivery tool (needle, applicator, or catheter) will be put into the prostate. It will be inserted through a body cavity, like the rectum, or through the perineum, which is the area beneath the scrotum. An X-ray, ultrasound, MRI, or CT scan will be used to guide the delivery tool into the prostate. Radioactive seeds, pellets, wires, or ribbons will be fed through the delivery tool. If the high-dose method is used: ?The radioactive material will be left in for a few minutes and then removed. ?When the treatment is finished, the delivery tool will be removed. If the low-dose method is used: ?The delivery tool containing the radioactive material will stay in place for 1 7 days. ?You will stay in the hospital while the implant is in place. ?When the treatment is finished, the radioactive material and delivery tool will be removed. Permanent low-dose brachytherapy A tube or needle will be used to inject small, radioactive seeds or pellets into your prostate. The needle or tube will be removed, leaving the seeds or pellets in the prostate. The procedure may vary among health care providers and hospitals. What happens after the procedure? Your blood pressure, heart rate, breathing rate, and blood oxygen level will be monitored until you leave the hospital or clinic. If you were given a sedative during the procedure, it can affect you for several hours. Do not drive or operate machinery until your health care provider says that it is safe. If radiation seeds were left in your prostate, be sure you understand any safety precautions you are to follow at home. Summary Brachytherapy for prostate cancer is a type of radiation treatment that involves placing a source of radiation right inside the prostate gland. There are several types of brachytherapy for prostate cancer: low-dose temporary treatment, low-dose permanent treatment, and high-dose temporary treatment. The amount of time that the source of radiation is left in your prostate will depend on the type of brachytherapy you are having. This information is not intended to replace advice given to you by your health care provider. Make sure you discuss any questions you have with your health care provider. Document Revised: 12/22/2021 Document Reviewed: 12/22/2021 [employer] Patient Education 2022 [employer]. 08/09/2023 08:03:55 Hormone Suppression Therapy for Prostate Cancer Hormone Suppression Therapy for Prostate Cancer Hormone suppression therapy is a treatment for prostate cancer that can help slow the growth of cancer cells in the prostate gland. It is also called androgen deprivation therapy (ADT) or androgen suppression therapy. Hormone suppression therapy targets male sex hormones (androgens) in the body that help cancer cells grow. Hormone suppression therapy alone will not cure prostate cancer, but it can slow the growth of cancer cells and may shrink tumors over time. Your health care provider can help you find the best treatment that fits your lifestyle. Hormone suppression therapy may be used in the following cases: When prostate cancer has spread too far to other places in the body and cannot be cured by surgery or radiation. When a person has health problems that prevent the use of surgery or radiation. Before radiation to help shrink the size of the cancer and make the radiation treatment more effective. If the prostate cancer remains or comes back following treatment with surgery or radiation. What are the types of hormone suppression therapy? Orchiectomy Orchiectomy, also called surgical castration, is a surgery to remove one or both testicles. The testicles make the two main androgens testosterone and dihydrotestosterone (DHT). This surgery reduces the levels of testosterone in the blood, leading to decreased androgen production. Medicine therapy Medicine therapy, also called medical or chemical castration, involves taking medicines to keep your body from making or using androgens. Medicines can do this in one of three ways: 1.Reducing androgen production by the testicles. Luteinizing hormone-releasing hormone (LHRH) agonists. These medicines are injected or implanted under your skin to lower the amount of androgens that your testicles make. Depending on the medicine, they can be given monthly or up to every 3 to 6 months. If you take these medicines, you may also be prescribed other medicines to help with side effects. LHRH antagonists. These medicines also work to lower the amount of androgens made in the testicles, but they work faster than LHRH agonist medicines and have less severe side effects. They are given as a monthly injection under the skin, and they are used when prostate cancer is in an advanced stage. Estrogens. These medicines are female hormones that help to reduce androgen production by the testicles. Estrogens are not used as commonly as other types of hormone suppression therapy due to their side effects. However, they may be used if other treatments do not work. 2.Blocking androgen attachment throughout the body. Anti-androgen medicines, also called androgen receptor antagonists, block areas on the body where androgens attach. These are pills that are usually used in combination with other types of hormone suppression therapy, like orchiectomy and other medicines. 3.Blocking androgen production throughout the body. Androgen synthesis inhibitor medicines. These medicines help to stop other areas of the body from making androgens. They are taken as pills. They may be used if the prostate cancer is advanced and has not gotten better with surgery or other medicines. A steroid medicine may be given with this type of medicine to help with side effects. What are the risks? Hormone suppression therapy may cause side effects, including: Hot flashes. Diarrhea and nausea. Itching. Sexual side effects, such as: ?Decrease or lack of sexual desire. ?Decrease in size of the penis or testicles. ?Inability to get an erection (erectile dysfunction, or impotence). ?Breast tenderness or increase in breast size. Fatigue. Weight gain. Anemia. Thinning of the bones (osteoporosis) and loss of muscle mass. Depression, mood swings, and trouble with thinking or focusing. Hormone suppression therapy may also increase your risk of high blood pressure, increased cholesterol levels, stroke, heart attack, or diabetes. What are the benefits? One of the main benefits of hormone suppression therapy is having additional treatment options. You may have only one type of treatment, or two or more types at the same time. Treatments may be combined to: Help with side effects. Treat advanced cancer. Where to find more information [place] [employer]: www.cancer.org National Cancer [place]: www.cancer.gov Contact a health care provider if: You have pain or side effects that do not get better with treatment. You have trouble urinating. You have new side effects that do not go away. Get help right away if: You have severe chest pain. You have trouble breathing. You have an irregular heartbeat. You have numbness or paralysis in the lower half of your body. You are confused. You have trouble talking or understanding speech. These symptoms may be an emergency. Do not wait to see if the symptoms will go away. Get medical help right away. Call your local emergency services (911 in the [place] Do not drive yourself to the hospital. Summary Hormone suppression therapy is a treatment for prostate cancer that can help to slow the growth of cancer cells in the prostate gland. Hormone suppression therapy alone will not cure prostate cancer, but it can slow the growth of prostate cancer and may shrink tumors over time. Treatment to suppress hormones may include surgery or medicines. Side effects such as hot flashes, changes in sexual function or desire, and weakened bones can result from hormone suppression therapy. This information is not intended to replace advice given to you by your health care provider. Make sure you discuss any questions you have with your health care provider. Document Revised: 01/06/2022 Document Reviewed: 01/06/2022 [employer] Patient Education 2022 [employer]. Follow Up Care 07/24/2023 13:01:11 With:TOÑO STANTONYaneli, URL Address: [facility] [address] [place] [address]- When: Unknown [facility] 07-24-2023 Hospital Discharge instructions Patient Education 07/24/2023 12:50:13 Prostate Cancer Prostate Cancer The prostate is a small gland that produces fluid that makes up semen (seminal fluid). It is located below the bladder in men, in front of the rectum. Prostate cancer is the abnormal growth of cells in the prostate gland. What are the causes? The exact cause of this condition is not known. What increases the risk? You are more likely to develop this condition if: You are 65 years of age or older. You have a family history of prostate cancer. You have a family history of breast and ovarian cancer. You have genes that are passed from parent to child (inherited), such as BRCA1 and BRCA2. You have Jones syndrome. men and men of descent are diagnosed with prostate cancer at higher rates than other men. The reasons for this are not well understood and are likely due to a combination of genetic and environmental factors. What are the signs or symptoms? Symptoms of this condition include: Problems with urination. This may include: ?A weak or interrupted flow of urine. ?Trouble starting or stopping urination. ?Trouble emptying the bladder all the way. ?The need to urinate more often, especially at night. Blood in urine or semen. Persistent pain or discomfort in the lower back, lower abdomen, or hips. Trouble getting an erection. Weakness or numbness in the legs or feet. How is this diagnosed? This condition can be diagnosed with: A digital rectal exam. For this exam, a health care provider inserts a gloved finger into the rectum to feel the prostate gland. A blood test called a prostate-specific antigen (PSA) test. A procedure in which a sample of tissue is taken from the prostate and checked under a microscope (prostate biopsy). An imaging test called transrectal ultrasonography. Once the condition is diagnosed, tests will be done to determine how far the cancer has spread. This is called staging the cancer. Staging may involve imaging tests, such as a bone scan, CT scan, PET scan, or MRI. Stages of prostate cancer The stages of prostate cancer are as follows: Stage 1 (I). At this stage, the cancer is found in the prostate only. The cancer is not visible on imaging tests, and it is usually found by accident, such as during prostate surgery. Stage 2 (II). At this stage, the cancer is more advanced than it is in stage 1, but the cancer has not spread outside the prostate. Stage 3 (III). At this stage, the cancer has spread beyond the outer layer of the prostate to nearby tissues. The cancer may be found in the seminal vesicles, which are near the bladder and the prostate. Stage 4 (IV). At this stage, the cancer has spread to other parts of the body, such as the lymph nodes, bones, bladder, rectum, liver, or lungs. Prostate cancer grading Prostate cancer is also graded according to how the cancer cells look under a microscope. This is called the Naco score and the total score can range from 6 10, indicating how likely it is that the cancer will spread (metastasize) to other parts of the body. The higher the score, the greater the likelihood that the cancer will spread. Naco 6 or lower: This indicates that the cancer cells look similar to normal prostate cells (well differentiated). Jo-Ann 7: This indicates that the cancer cells look somewhat similar to normal prostate cells (moderately differentiated). Naco 8, 9, or 10: This indicates that the cancer cells look very different than normal prostate cells (poorly differentiated). How is this treated? Treatment for this condition depends on several factors, including the stage of the cancer, your age, personal preferences, and your overall health. Talk with your health care provider about treatment options that are recommended for you. Common treatments include: Observation for early stage prostate cancer (active surveillance). This involves having exams, blood tests, and in some cases, more biopsies. For some men, this is the only treatment needed. Surgery. Types of surgeries include: ?Open surgery (radical prostatectomy). In this surgery, a larger incision is made to remove the prostate. ?A laparoscopic radical prostatectomy. This is a surgery to remove the prostate and lymph nodes through several small incisions. It is often referred to as a minimally invasive surgery. ?A robotic radical prostatectomy. This is laparoscopic surgery to remove the prostate and lymph nodes with the help of robotic arms that are controlled by the surgeon. ?Cryoablation. This is surgery to freeze and destroy cancer cells. Radiation treatment. Types of radiation treatment include: ?External beam radiation. This type aims beams of radiation from outside the body at the prostate to destroy cancerous cells. ?Brachytherapy. This type uses radioactive needles, seeds, wires, or tubes that are implanted into the prostate gland. Like external beam radiation, brachytherapy destroys cancerous cells. An advantage is that this type of radiation limits the damage to surrounding tissue and has fewer side effects. Chemotherapy. This treatment kills cancer cells or stops them from multiplying. It kills both cancer cells and normal cells. Targeted therapy. This treatment uses medicines to kill cancer cells without damaging normal cells. Hormone treatment. This treatment involves taking medicines that act on testosterone, one of the male hormones, by: ?Stopping your body from producing testosterone. ?Blocking testosterone from reaching cancer cells. Follow these instructions at home: Lifestyle Do not use any products that contain nicotine or tobacco. These products include cigarettes, chewing tobacco, and vaping devices, such as e-cigarettes. If you need help quitting, ask your health care provider. Eat a healthy diet. To do this: ?Eat foods that are high in fiber. These include beans, whole grains, and fresh fruits and vegetables. ?Limit foods that are high in fat and sugar. These include fried or sweet foods. Treatment for prostate cancer may affect sexual function. If you have a partner, continue to have intimate moments. This may include touching, holding, hugging, and caressing your partner. Get plenty of sleep. Consider joining a support group for men who have prostate cancer. Meeting with a support group may help you learn to manage the stress of having cancer. General instructions Take [id number] and prescription medicines only as told by your health care provider. If you have to go to the hospital, notify your cancer specialist (oncologist). Keep all follow-up visits. This is important. Where to find more information [place] [employer]: www.cancer.org [place] [employer]: www.cancer.net National Cancer [place]: www.cancer.gov Contact a health care provider if: You have new or increasing trouble urinating. You have new or increasing blood in your urine. You have new or increasing pain in your hips, back, or chest. Get help right away if: You have weakness or numbness in your legs. You cannot control urination or your bowel movements (incontinence). You have chills or a fever. Summary The prostate is a small gland that is involved in the production of semen. It is located below a man's bladder, in front of the rectum. Prostate cancer is the abnormal growth of cells in the prostate gland. Treatment for this condition depends on the stage of the cancer, your age, personal preferences, and your overall health. Talk with your health care provider about treatment options that are recommended for you. Consider joining a support group for men who have prostate cancer. Meeting with a support group may help you learn to manage the stress of having cancer. This information is not intended to replace advice given to you by your health care provider. Make sure you discuss any questions you have with your health care provider. Document Revised: 12/22/2021 Document Reviewed: 12/22/2021 [employer] Patient Education 2022 [employer]. Follow Up Care 07/07/2023 12:01:52 With:TOÑO STANTON, Yaneli Friedman, URL Address: [facility] [address] [place] [address]- When:Within 2 Week(s) Comments:w/PSMA PET Scan and Bone Scan [facility] 07-19-2023 Note Chief Complaint consultation for anemia HPI Staff 52 year old male presents on consultation from Dr. Shirley for anemia. Labs completed 07/01- H/H 12.4/39.2. Denies abdominal or rectal pain. No rectal bleeding or change in bowel habits. Denies nausea or vomiting. No unexplained weight loss. Denies dizziness, lightheadedness, SOB or fatigue. Never had colonoscopy in the past. No known family history of colon cancer. Mother with history of Crohn's. History of Present Illness 52 yo male with h/o htn, gout, elevated psa, referred for anemia; found on routine blood work; no change in bms or blood in stools, no abd complaints; only abd operation RIHR, no previous endoscopy; on Diclofenac daily, no asa or NSAID use; no tobacco use; fmhx of Crohn's disease in patient's mother and son, no fmhx of GI malignancy. Review of Systems PHQ Score Initial Depression Screen Score: 0 ROS - Provider Constitutional: no fever, no sweats, no weight loss. Eyes: no glasses, no blurred vision, no visual loss. ENMT: no dentures, no hoarseness, no swallowing difficulties, no hearing loss, no ear infection(s), no nose bleeds. Cardiovascular: normal blood pressure, no chest pain, regular heartbeat, no heart murmur. Respiratory: no shortness of breath, no cough, no asthma, no wheezing. Gastrointestinal: no nausea, no vomiting, no diarrhea, no constipation, no blood in stool, no change in bowel habits, no abdominal pain, no hepatitis. Genitourinary: no kidney stones, no urine infection, no dysuria. Musculoskeletal: no pain, no weakness. Skin: no changing moles, no rash, no skin lumps. Neurologic: no seizures, no epilepsy, no headache. Psychiatric: no emotional or psychiatric problem. Heme/Lymph: no bleeding problems, no anemia, no blood clots, no transfusions. Allergy/Immunologic: no swollen lymph nodes/glands, no IV drug abuse. Other: Additional ROS info: Except as noted in the above Review of Systems and in the History of Present Illness, all other systems have been reviewed and are negative or noncontributory. Physical Exam Vitals & Measurements HR: 72(Peripheral) RR: 16 BP: 138/94 HT: 72 in HT: 182 cm WT: 158 kg WT: 347.6 lb BMI: 47.7 HEENT: normal conjunctiva, sclera clear, no scleral icterus, EOM intact, PERRLA, oral mucosa moist without lesions. Neck: trachea midline, no mass, symmetric, no thyromegaly or nodules, no adenopathy Respiratory: lungs CTA, respirations non labored. Cardiovascular: regular rate and rhythm, no murmur, no pedal edema or varicosities. Gastrointestinal: soft, non distended, no tenderness, no masses, no palpable hernias, diastasis recti no, no hepatosplenomegaly; normal bs Lymphatic: no cervical adenopathy, no supraclavicular adenopathy. Musculoskeletal: normal gait, digits and nails without infection, nodes, cyanosis, clubbing. Skin: no rashes, no lesions, no ulcers, no subcutaneous nodules, induration. Psychiatric/Neuro: oriented to time, place, person, judgement normal, affect appropriate for age, insight intact, no focal deficits. Tests: labs reviewed, review of old records completed , Discussed surgical options, risks, and possible complications with patient. Assessment/Plan 1. 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 Follow-up No qualifying data available Problem List/Past Medical History Ongoing Anemia Anemia due to GI blood loss BMI 45.0-49.9, adult Elevated PSA Gout Headache Hypertension Morbid obesity Varicose veins of legs Historical No qualifying data Procedure/Surgical History Transrectal biopsy of prostate using ultrasound (US) guidance (07/12/2023), Repair of right inguinal hernia, Tonsillectomy. Medications colchicine 0.6 mg Tab diclofenac sodium 75 mg Oral EC Tab lisinopril 10 mg Tab Allergies No Known Allergies No Known Medication Allergies Social History Alcohol - Denies Alcohol Use, 07/19/2023 Substance Abuse - Denies Substance Abuse, 07/19/2023 Tobacco Former smoker, quit more than 30 days ago, quit 10 years ago Tobacco Use:. Never Smokeless Tobacco Use:. Cigarettes, 0.5 per day. Started age 17.0 Years. Stopped age 38 Years., 07/19/2023 Family History Acute myocardial infarction: Father. Crohn's disease: Mother. Diabetes mellitus type 2: Father. Rheumatoid arthritis: Mother. [facility] Comment on above: Result Comment: Elec tronically Signed By: FRANCES STANTON, Azeem Noriega.dylan\Date and Time Signed: 07/19/23 16:14 EDT 07-12-2023 Hospital Discharge instructions Patient Education 07/12/2023 12:25:46 Transrectal Ultrasound-Guided Prostate Biopsy, Care After Transrectal Ultrasound-Guided Prostate Biopsy, Care After The following information offers guidance on how to care for yourself after your procedure. Your health care provider may also give you more specific instructions. If you have problems or questions, contact your health care provider. What can I expect after the procedure? After the procedure, it is common to have: Pain and discomfort near your rectum, especially while sitting. [place]-colored urine due to small amounts of blood in your urine. A burning feeling while urinating. Blood in your stool (feces) or bleeding from your rectum. Blood in your semen. Follow these instructions at home: Medicines Take yxya-cfc-[id number] and prescription medicines only as told by your health care provider. If you were given a sedative during your procedure, it can affect you for several hours. Do not drive or operate machinery until your health care provider says that it is safe. If you were prescribed an antibiotic medicine, take it as told by your health care provider. Do not stop using the antibiotic even if you start to feel better. Activity Return to your normal activities as told by your health care provider. Ask your health care provider what activities are safe for you. Ask your health care provider when it is okay for you to resume sexual activity. You may have to avoid lifting. Ask your health care provider how much you can safely lift. General instructions Drink enough fluid to keep your urine pale yellow. Watch your urine, stool, and semen for new or increased bleeding. Keep all follow-up visits. This is important. Contact a health care provider if: You have any of the following: ?Blood clots in your urine or stool. ?Blood in your urine more than 2 weeks after the procedure. ?Blood in your semen more than 2 months after the procedure. ?New or increased bleeding in your urine, stool, or semen. ?Severe pain in your abdomen. Your urine smells bad or unusual. You have trouble urinating. Your lower abdomen feels firm. You have problems getting an erection. You have nausea or you vomit. Get help right away if: You have a fever or chills. This could be a sign of infection. You have bright red urine. You have severe pain that does not get better with medicine. You cannot urinate. Summary After this procedure, it is common to have pain and discomfort around your rectum, especially while sitting. You may have blood in your urine and stool after the procedure. It is common to have blood in your semen after this procedure. Get help right away if you have a fever or chills. This could be a sign of infection. This information is not intended to replace advice given to you by your health care provider. Make sure you discuss any questions you have with your health care provider. Document Revised: 03/21/2022 Document Reviewed: 03/21/2022 [employer] Patient Education 2022 [employer]. Follow Up Care 07/07/2023 14:11:29 With:TOÑO STANTON, Yaneli Friedman, URL Address: [facility] [address] , [place] [address]- [phone] When: Unknown Comments:f/u scheduled 07/24/23 to review path [facility] 07-07-2023 Hospital Discharge instructions Patient Education 07/07/2023 11:40:43 Prostate Cancer Screening Prostate Cancer Screening Prostate cancer screening is testing that is done to check for the presence of prostate cancer in men. The prostate gland is a walnut-sized gland that is located below the bladder and in front of the rectum in males. The function of the prostate is to add fluid to semen during ejaculation. Prostate cancer is one of the most common types of cancer in men. Who should have prostate cancer screening? Screening recommendations vary based on age and other risk factors, as well as between the professional organizations who make the recommendations. In general, screening is recommended if: You are age 50 to 70 and have an average risk for prostate cancer. You should talk with your health care provider about your need for screening and how often screening should be done. Because most prostate cancers are slow growing and will not cause , screening in this age group is generally reserved for men who have a 10- to 15-year life expectancy. You are younger than age 50, and you have these risk factors: ?Having a father, brother, or uncle who has been diagnosed with prostate cancer. The risk is higher if your family member's cancer occurred at an early age or if you have multiple family members with prostate cancer at an early age. ?Being a male who is Black or is of [place] or sub-Saharan descent. In general, screening is not recommended if: You are younger than age 40. You are between the ages of 40 and 49 and you have no risk factors. You are 70 years of age or older. At this age, the risks that screening can cause are greater than the benefits that it may provide. If you are at high risk for prostate cancer, your health care provider may recommend that you have screenings more often or that you start screening at a younger age. How is screening for prostate cancer done? The recommended prostate cancer screening test is a blood test called the prostate-specific antigen (PSA) test. PSA is a protein that is made in the prostate. As you age, your prostate naturally produces more PSA. Abnormally high PSA levels may be caused by: Prostate cancer. An enlarged prostate that is not caused by cancer (benign prostatic hyperplasia, or BPH). This condition is very common in older men. A prostate gland infection (prostatitis) or urinary tract infection. Certain medicines such as male hormones (like testosterone) or other medicines that raise testosterone levels. A rectal exam may be done as part of prostate cancer screening to help provide information about the size of your prostate gland. When a rectal exam is performed, it should be done after the PSA level is drawn to avoid any effect on the results. Depending on the PSA results, you may need more tests, such as: A physical exam to check the size of your prostate gland, if not done as part of screening. Blood and imaging tests. A procedure to remove tissue samples from your prostate gland for testing (biopsy). This is the only way to know for certain if you have prostate cancer. What are the benefits of prostate cancer screening? Screening can help to identify cancer at an early stage, before symptoms start and when the cancer can be treated more easily. There is a small chance that screening may lower your risk of dying from prostate cancer. The chance is small because prostate cancer is a slow-growing cancer, and most men with prostate cancer from a different cause. What are the risks of prostate cancer screening? The main risk of prostate cancer screening is diagnosing and treating prostate cancer that would never have caused any symptoms or problems. This is called overdiagnosisand overtreatment. PSA screening cannot tell you if your PSA is high due to cancer or a different cause. A prostate biopsy is the only procedure to diagnose prostate cancer. Even the results of a biopsy may not tell you if your cancer needs to be treated. Slow-growing prostate cancer may not need any treatment other than monitoring, so diagnosing and treating it may cause unnecessary stress or other side effects. Questions to ask your health care provider When should I start prostate cancer screening? What is my risk for prostate cancer? How often do I need screening? What type of screening tests do I need? How do I get my test results? What do my results mean? Do I need treatment? Where to find more information The [place] [employer]: www.cancer.org [place] [employer]: www.auanet.org Contact a health care provider if: You have difficulty urinating. You have pain when you urinate or ejaculate. You have blood in your urine or semen. You have pain in your back or in the area of your prostate. Summary Prostate cancer is a common type of cancer in men. The prostate gland is located below the bladder and in front of the rectum. This gland adds fluid to semen during ejaculation. Prostate cancer screening may identify cancer at an early stage, when the cancer can be treated more easily and is less likely to have spread to other areas of the body. The prostate-specific antigen (PSA) test is the recommended screening test for prostate cancer, but it has associated risks. Discuss the risks and benefits of prostate cancer screening with your health care provider. If you are age 70 or older, the risks that screening can cause are greater than the benefits that it may provide. This information is not intended to replace advice given to you by your health care provider. Make sure you discuss any questions you have with your health care provider. Document Revised: 03/21/2022 Document Reviewed: 03/21/2022 [employer] Patient Education 2022 [employer]. Follow Up Care 07/03/2023 12:08:52 With:Yaneli LUNDBERG MD, URL Address: [facility] [address], [place] [address]- When: Unknown Comments:Sched TRUS/bx of prostate [facility] 08-05-2022 Note PROCEDURE: XR ANKLE RT MIN 3 VIEWS COMPARISON: None. HISTORY: Arthralgia of the ankle and/or foot FINDINGS: BONES:No acute fracture or dislocation. Moderate enthesopathic spurring of the calcaneus. Mild degenerative changes. SOFT TISSUES:Mild diffuse soft tissue swelling EFFUSION:Moderate ankle joint effusion OTHER: Negative. IMPRESSION: Degenerative changes and joint effusion No acute fracture Electronically authenticated by: OSIEL FIGUEROA Date: 2022-08-05 18:23 [facility] Evaluation + Plan note Future Appointments Appointment Date:07/12/2023 01:00:00 PM Scheduled Provider:Yaneli LUNDBERG MD Location:[facility] Appointment Type:URO Procedure 30 min Appointment Date:07/19/2023 03:40:00 PM Scheduled Provider:Azeem DANIELS MD Location:[facility] Appointment Type: Appointment Date:07/24/2023 11:45:00 AM Scheduled Provider:Yaneli LUNDBERG MD Location:[facility] Appointment Type:URO Office Visit Diagnostic Tests PendingPSA Total 07/07/23 [facility] Evaluation + Plan note Future Appointments Appointment Date:07/19/2023 03:40:00 PM Scheduled Provider:Azeem DANIELS MD Location:[facility] Appointment Type: Appointment Date:07/24/2023 11:45:00 AM Scheduled Provider:Yaneli LUNDBERG MD Location:[facility] Appointment Type:URO Office Visit [facility] Evaluation + Plan note Future Appointments Appointment Date:07/19/2023 03:40:00 PM Scheduled Provider:Azeem DANIELS MD Location:[facility] Appointment Type: Appointment Date:07/24/2023 11:45:00 AM Scheduled Provider:Yaneli LUNDBERG MD Location:[facility] Appointment Type:URO Office Visit Diagnostic Tests PendingProstate Histology ([facility]) 07/12/23 [facility] Evaluation + Plan note Future Appointments Appointment Date:07/24/2023 11:45:00 AM Scheduled Provider:Yaneli LUNDBERG MD Location:[facility] Appointment Type:URO Office Visit General Surgery [facility] Evaluation + Plan note Future Appointments Appointment Date:08/09/2023 08:00:00 AM Scheduled Provider:Yaneli LUNDBERG MD Location:[facility] Appointment Type:URO Office Visit [facility] Evaluation + Plan note Future Appointments Appointment Date:08/22/2023 08:45:00 AM Scheduled Provider:Yaneli LUNDBERG MD Location:[facility] Appointment Type:URO Office Visit [facility] Evaluation + Plan note Future Appointments Appointment Date:02/07/2024 08:00:00 AM Scheduled Provider:Yaneli LUNDBERG MD Location:[facility] Appointment Type:URO Office Visit Diagnostic Tests PendingPSA Total 08/22/23Testosterone Level Total 08/22/23 [facility] Evaluation note Diagnosis Malignant neoplasm of prostate (HCC)- Primary Malignant neoplasm of prostate documented in this encounter [facility] note* Diagnosis Prostate cancer (HCC)- Primary Malignant neoplasm of prostate documented in this encounter [facility] note* Diagnosis Prostate cancer (HCC)- Primary Malignant neoplasm of prostate documented in this encounter [facility] note* Diagnosis Malignant neoplasm of prostate (HCC)- Primary Malignant neoplasm of prostate documented in this encounter [facility] note* Diagnosis Malignant neoplasm of prostate (HCC)- Primary Malignant neoplasm of prostate documented in this encounter [facility] note* Diagnosis Prostate cancer (HCC)- Primary Malignant neoplasm of prostate documented in this encounter [facility] note* Diagnosis Malignant neoplasm of prostate (HCC)- Primary Malignant neoplasm of prostate [facility] course Narrative No data available for this section [facility] Discharge instructions No data available for this section [facility] No data available for this section [facility] Summary Purpose Family History No Family History Records Found No data available for this section No data available for this section No data available for this section No data available for this section No data available for this section No data available for this section No data available for this section No Family History Records FoundNo Family History Records Found Advance Directives No Advanced Directives Records FoundNo Advanced Directives Records FoundNo Advanced Directives Records Found Reason for Referral Specialty Diagnoses / Procedures Referred By Contac t Referred To Contact Diagnoses Malignant neoplasm of prostate (HCC) Procedures CT SIM PLANNING RADIATION ONCOLOGY THER RAD SIMULAJ-AIDED FIELD SETTING COMPLEX Lauren Paris MD [facility] [place] [address] Referral ID Status Reason Start Date Expiration Date Visits Requested Visits Authorized [id number] Pending Review PCP Requested Referral 3 12/18/2023 1 1 Specialty Diagnoses / Procedures Referred By Contac t Referred To Contact Diagnoses Prostate cancer (HCC) Procedures CONSULT TO MEDICAL GENETICS - CANCER MEDICAL GENETICS COUNSELING EACH 30 MINUTES Javi Singer MD [facility] [place] [address] [facility] [place] [address] Referral ID Status Reason Start Date Expiration Date Visits Requested Visits Authorized [id number] Pending Review PCP Requested Referral Auto-Generate d Referral 08/20/2024 1 1 Specialty Diagnoses / Procedures Referred By Contac t Referred To Contact Oncology Diagnoses Malignant neoplasm of prostate (HCC) Procedures CONSULT TO ONCOLOGY OFFICE/OUTPATIENT [facility] HIGH MDM 60-74 MINUTES Lauren Paris MD [address] [place] [address] [place] [address] Referral ID Status Reason Start Date Expiration Date Visits Requested Visits Authorized [id number] Authorized PCP Requested Referral 08/09/2023 08/08/2024 1 1 Additional Source Comments (unrecognized sect ion and content) No Status Records FoundNo Status Records FoundNo Status Records Found INFORMATION SOURCE (unrecogn ized section and content) DATE CREATED AUTHOR 08/09/2022 [facility] DATE CREATED AUTHOR AUTHOR'S ORGANIZ ATION 11/21/2023 [facility] DATE CREATED AUTHOR AUTHOR'S ORGANIZ ATION 12/07/2023 [facility] Patient Care team informatio n (unrecognized section and content) Peanut Shaker Relationship Specialty Start Date End Date Carolann Shirley MD [address] [place] [address] PCP - General Family Medicine 08/09/23 Peanut Shaker Relationship Specialty Start Date End Date Carolann Shirley MD [address] [place] [address] PCP - General Family Medicine 08/09/23 Peanut Shaker Relationship Specialty Start Date End Date Carolann Shirley MD [address] [place] [address] PCP - General Family Medicine 08/09/23 Damaris Rolon, INK JET OPERATOR.CONTROL SUPERVISOR [address] [facility] [place] [address] Nurse Practitioner Hematology/Oncology 08/22/23 Javi Singer MD [address] [facility] [place] [address] Physician Hematology/Oncology 08/22/23 Lauren Paris MD [address] [facility] [place] [address] Physician Radiation Oncology 08/22/23 Trisha Nieves, EMILY [address] [facility] [place] [address] Specialty Telescope Operator Hematology/Oncology 08/22/23 Peanut Shaker Relationship Specialty Start Date End Date Carolann Shirley MD [address] [place] [address] PCP - General Family Medicine 08/09/23 Peanut Shaker Relationship Specialty Start Date End Date Carolann Shirley MD [address] [place] [address] PCP - General Family Medicine 08/09/23 Damaris Rolon, INK JET OPERATOR.CONTROL SUPERVISOR [address] [facility] [facility] [place] [address] Nurse Practitioner Hematology/Oncology 08/22/23 Javi Singer MD [address] [facility] [place] [address] Physician Hematology/Oncology 08/22/23 Lauren Paris MD [address] [facility] [place] [address] Physician Radiation Oncology 08/22/23 Trisha Nieves, EMILY [address] [facility] [address] Specialty Telescope Operator Hematology/Oncology 08/22/23 Peanut Shaker Relationship Specialty Start Date End Date Carolann Shirley MD [address] [place] [address] PCP - General Family Medicine 08/09/23 Damaris Rolon, INK JET OPERATOR.CONTROL SUPERVISOR [address] [facility] [place] [address] Nurse Practitioner Hematology/Oncology 08/22/23 Javi Singer MD [address] [facility] [place] [address] Physician Hematology/Oncology 08/22/23 Lauren Paris MD [address] [facility] [place] [address] Physician Radiation Oncology 08/22/23 Trisha Nieves, EMILY [address] [facility] [place] [address] Specialty Telescope Operator Hematology/Oncology 08/22/23 Peanut Shaker Relationship Specialty Start Date End Date Carolann Shirley MD [address] [place] [address] PCP - General Family Medicine 08/09/23 Damaris Rolon, INK JET OPERATOR.CONTROL SUPERVISOR [address] [facility] [place] [address] Nurse Practitioner Hematology/Oncology 08/22/23 Javi Singer MD [address] [facility] [place] [address] Physician Hematology/Oncology 08/22/23 Lauren Paris MD [address] [facility] [place] [address] Physician Radiation Oncology 08/22/23 Trisha Nieves, EMILY [address] [facility] [place] [address] Specialty Telescope Operator Hematology/Oncology 08/22/23 Peanut Shaker Relationship Specialty Start Date End Date Carolann Shirley MD [address] [place] [address] PCP - General Family Medicine 08/09/23 Damaris Rolon, CYNTHIA.CONTROL SUPERVISOR [address] [facility] [place] [address] Nurse Practitioner Hematology/Oncology 08/22/23 Javi Singer MD [address] [facility] [place] [address] Physician Hematology/Oncology 08/22/23 Lauren Paris MD [address] [facility] [place] [address] Physician Radiation Oncology 08/22/23 Trisha Nieves, EMILY [address] [facility] [place] [address] Specialty Telescope Operator Hematology/Oncology 08/22/23 Peanut Shaker Relationship Specialty Start Date End Date Carolann Shirley MD [address] [place] [address] PCP - General Family Medicine 08/09/23 Damaris Rolon, CYNTHIA.CONTROL SUPERVISOR [address] [facility] [place] [address] Nurse Practitioner Hematology/Oncology 08/22/23 Javi Singer MD [address] [facility] [place] [address] Physician Hematology/Oncology 08/22/23 Lauren Paris MD [address] [facility] [place] [address] Physician Radiation Oncology 08/22/23 Trisha Nieves, RN [address] [facility] [place] [address] Specialty Telescope Operator Hematology/Oncology 08/22/23 Peanut Shaker Relationship Specialty Start Date End Date Carolann Shirley MD [address] [place] [address] PCP - General Family Medicine 08/09/23 Damaris Rolon, INK JET OPERATOR.CONTROL SUPERVISOR [address] [facility] [address] Nurse Practitioner Hematology/Oncology 08/22/23 Javi Singer MD [address] [facility] [address] Physician Hematology/Oncology 08/22/23 Lauren Paris MD [address] [facility] [address] Physician Radiation Oncology 08/22/23 Trisha Nieves, EMILY [address] [place] [address] Specialty Telescope Operator Hematology/Oncology 08/22/23 Peanut Shaker Relationship Specialty Start Date End Date Carolann Shirley MD [address] [facility] [place] [address] PCP - General Family Medicine 08/09/23 Damaris Rolon, INK JET OPERATOR.CONTROL SUPERVISOR [address] [facility] [place] [address] Nurse Practitioner Hematology/Oncology 08/22/23 Javi Singer MD [address] [facility] [place] [address] Physician Hematology/Oncology 08/22/23 Lauren Paris MD [address] [facility] [place] [address] Physician Radiation Oncology 08/22/23 Trisha Nieves, EMILY [address] [facility] [place] [address] Specialty Telescope Operator Hematology/Oncology 08/22/23 Peanut Shaker Relationship Specialty Start Date End Date Carolann Shirley MD [address] [facility] [place] [address] PCP - General Family Medicine 08/09/23 Damaris Rolon, INK JET OPERATOR.CONTROL SUPERVISOR [address] [facility] [place] [address] Nurse Practitioner Hematology/Oncology 08/22/23 Javi Singer MD [address] [facility] [place] [address] Physician Hematology/Oncology 08/22/23 Lauren Paris MD [address] [facility] [address] Physician Radiation Oncology 08/22/23 Trisha Nieves RN [address] [facility] [address] Specialty Telescope Operator Hematology/Oncology 08/22/23 Source Comments (unrecognize d section and content) In the event this informatio n is protected by the Federal Confidentiality of Alcohol and Drug Abuse Patient Records regulations: The Federal rules restrict any use of the information to criminally investigate or prosecute any alcohol or drug abuse patient.[facility] the event this information is protected by the Federal Confidentiality of Alcohol and Drug Abuse Patient Records regulations: The Federal rules restrict any use of the information to criminally investigate or prosecute any alcohol or drug abuse patient.[facility] Hospital[facility] the event this information is protected by the Federal Confidentiality of Alcohol and Drug Abuse Patient Records regulations: The Federal rules restrict any use of the information to criminally investigate or prosecute any alcohol or drug abuse patient.[facility] Hospital[facility] the event this information is protected by the Federal Confidentiality of Alcohol and Drug Abuse Patient Records regulations: The Federal rules restrict any use of the information to criminally investigate or prosecute any alcohol or drug abuse patient.[facility] Hospital[facility] the event this information is protected by the Federal Confidentiality of Alcohol and Drug Abuse Patient Records regulations: The Federal rules restrict any use of the information to criminally investigate or prosecute any alcohol or drug abuse patient.[facility] HospitalIn the event this information is protected by the Federal Confidentiality of Alcohol and Drug Abuse Patient Records regulations: The Federal rules restrict any use of the information to criminally investigate or prosecute any alcohol or drug abuse patient.[facility] HospitalIn the event this information is protected by the Federal Confidentiality of Alcohol and Drug Abuse Patient Records regulations: The Federal rules restrict any use of the information to criminally investigate or prosecute any alcohol or drug abuse patient.[facility] Hospital[facility] the event this information is protected by the Federal Confidentiality of Alcohol and Drug Abuse Patient Records regulations: The Federal rules restrict any use of the information to criminally investigate or prosecute any alcohol or drug abuse patient.[facility] Hospital[facility] the event this information is protected by the Federal Confidentiality of Alcohol and Drug Abuse Patient Records regulations: The Federal rules restrict any use of the information to criminally investigate or prosecute any alcohol or drug abuse patient.[facility] HospitalIn the event this information is protected by the Federal Confidentiality of Alcohol and Drug Abuse Patient Records regulations: The Federal rules restrict any use of the information to criminally investigate or prosecute any alcohol or drug abuse patient.[facility] HospitalIn the event this information is protected by the Federal Confidentiality of Alcohol and Drug Abuse Patient Records regulations: The Federal rules restrict any use of the information to criminally investigate or prosecute any alcohol or drug abuse patient.[facility] HospitalIn the event this information is protected by the Federal Confidentiality of Alcohol and Drug Abuse Patient Records regulations: The Federal rules restrict any use of the information to criminally investigate or prosecute any alcohol or drug abuse patient.[facility] HospitalIn the event this information is protected by the Federal Confidentiality of Alcohol and Drug Abuse Patient Records regulations: The Federal rules restrict any use of the information to criminally investigate or prosecute any alcohol or drug abuse patient.[facility] Hospital[facility] the event this information is protected by the Federal Confidentiality of Alcohol and Drug Abuse Patient Records regulations: The Federal rules restrict any use of the information to criminally investigate or prosecute any alcohol or drug abuse patient.[facility] Reason for Visit (unrecogniz ed section and content) Reason Comments Consult Reason Comments Consult Prostate Cancer Reason Comments Oral Anti-cancer Agent Education Abirate spencer & Prednisone Reason Comments Care Coordination Abiraterone/Predniso ne Start Date Reason Comments Patient Education Reason Comments Prostate Cancer Reason Onset Date Comments Simulation Request Form 09/19/2023 Reason Comments Prostate Cancer Follow up Reason Comments Refill Request FOR RECORDS PERTAINING TO PATIENTS WHO ARE OR HAVE BEEN ENROLLED IN A CHEMICAL DEPENDENCY/SUBSTANCEABUSE PROGRAM, SOME INFORMATION MAY BE OMITTED. This clinical summary was aggregated from multiple sources. Caution should be exercised in using it in the provision of clinical care. This summary normalizes information from multiple sources, and as a consequence, information in this document may materially change the coding, format and clinical context of patient data. In addition, data may be omitted in some cases. CLINICAL DECISIONS SHOULD BE BASED ON THE PRIMARY CLINICAL RECORDS. [employer] provides no warranty or guarantee of the accuracy or completeness of information in this document.
[2024-01-07] MEDS: ONDANSETRON PF 4 MG/2 ML VIAL IV (09:16)
[2024-01-07] MEDS: 0.9 % SODIUM CHLORIDE 1,000 ML 1000 ML IV (09:16)
[2024-01-07 09:30] LABS: Hematocrit 39.6 % (42.0-54.0); Hemoglobin 12.3 g/dL (14.0-18.0); Mean Corpuscular HGB Conc 31.1 g/dL (29.9-35.2); Mean Corpuscular Hemoglobin 28.3 pg (25.9-34.0); Mean Corpuscular Volume 91.2 fL (80.0-94.0); Platelet Count 257 10^3/uL (150-450); Red Blood Count 4.34 10^6/uL (4.70-6.10); Red Cell Distribution Width 15.9 % (11.0-15.0); White Blood Count 7.2 10^3/uL (4.0-11.0)
[2024-01-07 09:54] LABS: Alanine Aminotransferase 30 U/L (16-63); Albumin Globulin Ratio 0.9; Albumin Level 3.5 g/dL (3.4-5.0); Alkaline Phosphatase 95 U/L (46-116); Anion Gap 18.1; Aspartate Amino Transferase 17 U/L (15-37); BUN Creatinine Ratio 17.4; Bilirubin Total 0.5 mg/dL (0.2-1.0); Calcium 9.1 mg/dL (8.5-10.1); Carbon Dioxide 26.8 mmol/L (21.0-32.0); Chloride 101 mmol/L (98-107); Estimated GFR (African America >60 (>=60); Estimated GFR (Non-African Ame >60 (>=60); Globulin 4.1 g/dL; Glucose 135 mg/dL (74-106); Potassium 3.9 mmol/L (3.5-5.1); Sodium 142 mmol/L (136-145); Total Protein 7.6 g/dL (6.4-8.2)
[2024-01-07 10:12] LABS: Band Neutrophils Absolute 0.5 10^3/uL (0.0-0.3); Eosinophils Absolute Manual 0.07 10^3/uL (0.00-0.70); Lymphocytes Absolute Manual 0.14 10^3/uL (1.20-3.80); Monocytes Absolute Manual 0.14 10^3/uL (0.30-0.80); Segmented Neut Absolute Manual 6.33 10^3/uL (1.4-6.5)
--- NOTE | 2024-01-07 16:08 | ED.GENADUL1 ---
HPI HPI - General Adult General Chief complaint: Nausea/Vomiting/Diarrhea Stated complaint: DEHYDRATION Time Seen by Provider: 01/07/24 09:03 Mode of arrival: ambulance History of Present Illness HPI narrative: Patient is coming to the ER with few hours history of nausea vomiting and diarrhea that started this morning, no other complaints other than that no chest pain no fever no chills he has been exposed to his son who have similar symptoms Related Data Home Medications ?Medication ?Instructions ?Recorded ?Confirmed bicalutamide 50 mg tablet 50 mg PO DAILY 08/08/23 08/16/23 colchicine 0.6 mg tablet 0.6 mg PO PRN PRN GOUT 08/08/23 08/16/23 diclofenac sodium 75 mg 75 mg PO Q12H PAIN 08/08/23 08/16/23 tablet,delayed release lisinopril 10 mg tablet 10 mg PO DAILY HYPERTENSION 08/08/23 08/16/23 Previous Rx's ?Medication ?Instructions ?Recorded ondansetron HCl 4 mg tablet 4 mg PO Q8H PRN nausea and 01/07/24 vomiting 3 days #10 tabs Allergies Allergy/AdvReac Type Severity Reaction Status Date / Time No Known Drug Allergies Allergy Verified 08/08/23 12:42 Opioid HPI Opioid Management Most Recent Opioid Data: Last Pain Scale 9 08/16/23 07:27 Last ED Pain Assessment 01/07/24 09:21 Review of Systems ROS Status of ROS 10 or more systems reviewed and unremarkable except as noted in history and below [facility] Medical History (Updated 01/07/24 @ 10:53 by Lisy Burns MD) Prostate cancer ?C61 - Malignant neoplasm of prostate (ICD-10) Abnormal TRUS (transrectal ultrasound), prostate ?R93.89 - Abnormal findings on diagnostic imaging of other specified body structures (ICD-10) Varicose ulcer of left lower extremity ?I83.029 - Varicose veins of left lower extremity with ulcer of unspecified site (ICD-10) ?L97.929 - Non-pressure chronic ulcer of unspecified part of left lower leg with unspecified severity (ICD-10) Morbid obesity ?E66.01 - Morbid (severe) obesity due to excess calories (ICD-10) Hypertension ?I10 - Essential (primary) hypertension (ICD-10) Headache ?R51.9 - Headache, unspecified (ICD-10) Elevated PSA ?R97.20 - Elevated prostate specific antigen [PSA] (ICD-10) BMI 45.0-49.9, adult ?Z68.42 - Body mass index [BMI] 45.0-49.9, adult (ICD-10) Anemia ?D64.9 - Anemia, unspecified (ICD-10) Gout attack ?M10.9 - Gout, unspecified (ICD-10) Surgical History (Updated 08/16/23 @ 07:33 by Pat Parrish RN) History of tonsillectomy ?Z90.89 - Acquired absence of other organs (ICD-10) H/O right inguinal hernia repair ?Z98.890 - Other specified postprocedural states (ICD-10) ?Z87.19 - Personal history of other diseases of the digestive system (ICD-10) Family History (Updated 08/08/23 @ 12:51 by Debby Mcdaniel) Father Family history of myocardial infarction Family history of diabetes mellitus Mother Acute Crohn's disease Rheumatoid arthritis Social History (Updated 08/16/23 @ 07:33 by Pat Parrish RN) Within the past year, how often did you have a drink containing alcohol: monthly or less Within the past year, how many standard drinks containing alcohol did you have on a typical day: 1 or 2 Within the past year, how often did you have six or more drinks on one occasion: less than monthly Total score: 1 Score interpretation: A score less than 4 is consistent with normal alcohol consumption. Smoking status: Former smoker Second hand tobacco smoke exposure: No Non-prescribed substance use: denies use Do you think of yourself as: straight/heterosexual Gender Identity: male Exam Narrative Exam Narrative: Nurses notes and vital signs reviewed and patient is not hypoxic. General: Well-appearing and in no apparent distress. Skin: Warm, dry, no pallor noted. No rash. Head: Normocephalic, atraumatic. Neck: Supple, non-tender. Eye: Pupils are equal, round and EOMI. No scleral icterus. Ears, Nose, Mouth, and Throat: TM are clear, no nasal mucosal hypertrophy. Oral mucosa is moist, no posterior oropharynx erythema, uvula is mid-line Cardiovascular: Regular Rate and Rhythm without murmur, gallop or rub. Respiratory: No accessory muscle use or respiratory distress. Lungs are clear to auscultation, no wheezing, rales or rhonchi Chest Wall: no tenderness Back: No midline thoracic or lumbar vertebral tenderness. No CVA tenderness Musculoskeletal: normal ROM, no calf or popliteal tenderness, no lower extremity edema/swelling GI: Abdomen is soft, non-distended. Normal bowel sounds. No masses appreciated. No tenderness to palpation. No rebound, guarding, or rigidity noted. Neurological: A&O x4. No cranial nerve dysfunction observed. No truncal ataxia. Moves all extremities. Sensation intact. Psychiatric: Cooperative and interactive. Normal mood and affect. Constitutional Vital Signs, click to edit/add: Last Vital Signs Temp 98.8 F 01/07/24 08:57 Pulse 98 H 01/07/24 11:12 Resp 18 01/07/24 11:12 BP 124/63 01/07/24 10:01 Pulse Ox 98 01/07/24 10:38 O2 Del Method Room Air 01/07/24 09:21 Course Vital Signs Vital signs: Vital Signs Temperature 98.8 F 01/07/24 08:57 Pulse Rate 95 H 01/07/24 08:57 Respiratory Rate 22 H 01/07/24 08:57 Blood Pressure 145/68 H 01/07/24 08:57 Pulse Oximetry 98 01/07/24 08:57 Oxygen Delivery Method Room Air 01/07/24 08:57 Temperature 98.8 F 01/07/24 08:57 Pulse Rate 98 H 01/07/24 11:12 Respiratory Rate 18 01/07/24 11:12 Blood Pressure 124/63 01/07/24 10:01 Pulse Oximetry 98 01/07/24 10:38 Oxygen Delivery Method Room Air 01/07/24 09:21 Medical Decision Making [facility] Narrative Medical decision making narrative: The patient CBC and chemistry showed no acute significant pathology except for mild decrease in the bicarb The patient was given a liter of fluid as well as Zofran after which she was feeling much better he was discharged home to continue supportive care The patient is to follow up with primary care physician in next 2-3 days or to return to the emergency department should any of the signs or symptoms worsen or new symptoms develop. The patient agrees with the following Diagnosis and Treatment plan and the patient will be discharged home. Lab Data Labs: Lab Results 01/07/24 Range/Units 09:20 WBC 7.2 (4.0-11.0) 10^3/uL RBC 4.34 L (4.70-6.10) 10^6/uL Hgb 12.3 L (14.0-18.0) g/dL Hct 39.6 L (42.0-54.0) % MCV 91.2 (80.0-94.0) fL MCH 28.3 (25.9-34.0) pg MCHC 31.1 (29.9-35.2) g/dL RDW 15.9 H (11.0-15.0) % Plt Count 257 (150-450) 10^3/uL MPV 10.0 (9.5-13.5) fL Seg Neuts % (Manual) 88.0 Band Neutrophils % 7.0 H (0-5) % Lymphocytes % (Manual) 2.0 L (20.5-60.0) % Monocytes % (Manual) 2.0 (1.7-12.0) % Eosinophils % (Manual) 1.0 (0.9-7.0) % Basophils % (Manual) 0.0 L (0.2-2.0) % Neutrophils # (Manual) 6.33 (1.4-6.5) 10^3/uL Band Neutrophils # 0.5 H (0.0-0.3) 10^3/uL Lymphocytes # (Manual) 0.14 L (1.20-3.80) 10^3/uL Monocytes # (Manual) 0.14 L (0.30-0.80) 10^3/uL Eosinophils # (Manual) 0.07 (0.00-0.70) 10^3/uL Basophils # (Manual) 0.00 (0.00-0.10) 10^3/uL Sodium 142 (136-145) mmol/L Potassium 3.9 (3.5-5.1) mmol/L Chloride 101 (98-107) mmol/L Carbon Dioxide 26.8 (21.0-32.0) mmol/L Anion Gap 18.1 BUN 20.0 H (7.0-18.0) mg/dL Creatinine 1.15 (0.70-1.30) mg/dL Est GFR ( Amer) >60 (>=60) Est GFR (Non-Af Amer) >60 (>=60) BUN/Creatinine Ratio 17.4 Glucose 135 H (74-106) mg/dL Calcium 9.1 (8.5-10.1) mg/dL Total Bilirubin 0.5 (0.2-1.0) mg/dL AST 17 (15-37) U/L ALT 30 (16-63) U/L Alkaline Phosphatase 95 (46-116) U/L Total Protein 7.6 (6.4-8.2) g/dL Albumin 3.5 (3.4-5.0) g/dL Globulin 4.1 g/dL Albumin/Globulin Ratio 0.9 Discharge Plan Discharge Stand Alone Forms: Portal Instructions Chief Complaint: Nausea/Vomiting/Diarrhea Clinical Impression: Gastroenteritis Patient Disposition: Home, Self-Care Time of Disposition Decision: 10:53 Condition: Good Prescriptions / Home Meds: New ondansetron HCl 4 mg tablet 4 mg PO Q8H PRN (Reason: nausea and vomiting) 3 Days Qty: 10 0RF No Action bicalutamide 50 mg tablet 50 mg PO DAILY lisinopril 10 mg tablet 10 mg PO DAILY diclofenac sodium 75 mg tablet,delayed release (DR/EC) 75 mg PO Q12H colchicine 0.6 mg tablet 0.6 mg PO PRN PRN (Reason: GOUT) Print Language: Azerbaijani Instructions: Gastroenteritis (ED) Referrals: Suleman Burden MD [Primary Care Provider] - 1 week Discharge Date/Time: 01/07/24 11:15
== END 2024-01-07 11:15 | disposition home or self-care (01) ==
PROVIDERS: Emergency Provider Emergency Medicine; PCP Family Medicine
DX: K52.9 Noninfective gastroenteritis and colitis, unspecified (principal); Z79.899 Other long term (current) drug therapy; Z85.46 Personal history of malignant neoplasm of prostate; E66.01 Morbid (severe) obesity due to excess calories; I10 Essential (primary) hypertension; M10.9 Gout, unspecified; Z90.89 Acquired absence of other organs; Z98.890 Other specified postprocedural states; Z87.891 Personal history of nicotine dependence; Z68.42 Body mass index [BMI] 45.0-49.9, adult
CPT/HCPCS: 36415; 80053; 85007; 85027; 96361; 96374; 99284

== ENCOUNTER 2024-05-07 06:54 | Outpatient (OUT) | payer BC, SELFPAY ==
--- NOTE | 2024-05-07 | US_ITS ---
[place] [address] Patient Name: 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 MRN: [id number] date: 1970 Sex: M Assigned Patient Location: US Current Patient Location: Accession/Order Number: [id number] Exam Date: 05/07/2024 07:00 Report Date: 05/07/2024 12:11 At the request of: THERESE BARNES Procedure: US venous doppler LE BI EXAM: US venous doppler LE BI HISTORY: localized swelling [id number] COMPARISON: None. TECHNIQUE: Grayscale, color and Doppler FINDINGS: Region: Bilateral legs Thrombus: None Flow: Normal Augmentation: Normal Compressibility: Normal Other: Bilateral moderate varicose veins US/US venous doppler LE BI IMPRESSION: No deep or superficial vein thrombus identified in the legs Electronically authenticated by: OSIEL FIGUEROA Date: 05/07/2024 12:11
--- OUTSIDE RECORDS SUMMARY | 2024-05-07 06:58 | XMS_ITS | CCD ---
Author Organization [facility] Care Team Providers Care 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 Name Role Phone RUEL JAFFE Consulting Unavailable ALANNAH, RUEL Primary Care Unavailable RUEL JAFFE Admitting Unavailable RUEL JAFFE Attending Unavailable ALANNAH, RUEL Primary Care Unavailable CASPER, DR VUONG Attending Unavailable CASPER, DR VUONG Consulting Unavailable DR CAROLANN SHIRLEY Admitting Unavailable HENRY, DR OSIEL Meza Consulting Unavailable Carolann Shirley Primary Care Physician [phone] Carolann Shirley MD Primary Care Provider [phone] Gonzales KETTLE LOADER.CREW PERSON, Damaris Unavailable Enmanuel STANTON, Javi Friedman Unavailable Lauren Paris MD Unavailable Kushal RN, Trisha Unavailable Carolann Shirley MD Primary Care Provider [phone] Carolann Shirley MD Primary Care Provider TOÑO, Yaneli R Attending Unavailable LUNDBERG, Yaneli R Attending Unavailable LUNDBERG, Yaneli R Attending Unavailable LUNDBERG, Yaneli R Admitting Unavailable NILL, Azeem R Attending Unavailable NILL, Azeem R Attending Unavailable LUNDBERG, Yaneli R Attending Unavailable LUNDBERG, Yaneli R Attending Unavailable LUNDBERG, Yaneli R Attending Unavailable LUNDBERG, Yaneli R Attending Unavailable TOÑO, Yaneli R Attending Unavailable Lauren PARIS Attending Unavailable CAROLANN SHIRLEY Primary Care Unavailable Lauren PARIS Referring Unavailable CAROLANN SHIRLEY Primary Care Unavailable TOÑO YANELI R Referring Unavailable Lauren PARIS Attending Unavailable CAROLANN SHIRLEY Primary Care Unavailable TOÑO YANELI R Referring Unavailable Lauren PARIS Referring Unavailable CAROLANN SHIRLEY [...] SINGER Attending Unavailable Lauren PARIS Referring Unavailable HOY, CAROLANN [...] Unavailable HOY, CAROLANN M Primary Care Unavailable Allergies Allergy Classification Reported Allergen(s) Allergy Type Date of Onset Reaction(s) Facility (1 source) No Known Medication Allergies; Translations: [No Known Medication Allergies] Propensity to adverse reactions (disorder) [facility] Repository Medications Current Medications Medication Drug Class(es) Dates Sig (Normalized) Sig (Original) abiraterone acetate 250 mg oral tablet (19 sources) Cytochrome P450 17A1 Inhibitor Start: 04-08-2024 take 4 tablets by mouth once daily abiraterone 250 mg tablet TAKE 4 TABLETS BY MOUTH 1 TIME A DAY 120 tablet 3 04/08/2024 Active Start: 08-21-2023 End: 04-08-2024 take 4 tablets by mouth once daily abiraterone 250 mg oral tablet 1,000 mg = 4 tab(s), Oral, Daily, # 120 tab(s) Start Date: 02/07/24 Status: Ordered Comment on above: Take 4 tablets by mo ut once daily. TAKE 4 TABLETS BY MO UT 1 TIME A DAY Calcium Carbonate / vitamin D3 (12 sources) take 1 tablet by mouth once daily calcium carbonate/vitamin D3 (CALCIUM WITH VITAMIN D ORAL) Take 1 tablet by mouth once daily. 0 Active Comment on above: Take 1 tablet by benjamín th once daily. ciprofloxacin 500 mg oral tablet (3 sources) Quinolone Antimicrobial Start: 3 End: 3 take 1 tablet by mouth twice daily Cipro 500 mg Tab 500 mg = 1 tab(s), Oral, BID, X 7 day(s), # 14 tab(s), Refills(s) 0, Pharmacy: [facility], 182, cm, 07/07/23 10:41:00 EDT, Height/Length Dosing, 154, kg, 07/07/23 10:41:00 EDT, Weight Dosing Start Date: 07/07/23 Stop Date: 07/14/23 Status: Ordered colchicine 0.6 mg oral tablet (20 sources) Start: 3 colchicine 0.6 mg tablet Take 0.6 mg [...] Take 1 tablet by benjamín th every 12 hours. lisinopril 10 mg oral [...] every afternoon. predniSONE 5 mg oral tablet (17 sources) Start: 08-21-2023 End: 11-14-2023 take 1 mg by mouth once daily predniSONE 5 mg Tab mg tab(s), Oral, Daily Start Date: 02/07/24 Status: Ordered Comment on above: Take 1 tablet by benjamín th once daily. Completed/Discontinued Medications Medication Drug Class(es) Dates Sig (Normalized) Sig (Original) bicalutamide 50 mg oral tablet (11 sources) Androgen Receptor Inhibitor Start: 07-24-2023 End: 09-12-2023 take 1 tablet by mouth once bicalutamide (CASODEX) 50 mg tablet Take 1 tablet by mouth every afternoon. 0 07/24/2023 09/12/2023 Discontinued Start: 07-24-2023 take 1 tablet by benjamín th every twenty-four hours Casodex 50 mg Tab 50 mg = 1 tab(s), Oral, q24hr, # 30 tab(s), Refills(s) 11, Pharmacy: [facility], 182, cm, 07/24/23 12:03:00 EDT, Height/Length Dosing, 154, kg, 07/24/23 12:03:00 EDT, Weight Dosing Start Date: 07/24/23 Status: Ordered Comment on above: Take 1 tablet by benjamín th every afternoon. Problems Active Problems Problem Classification Problem Date Documented Da te Episodic/Chronic Cancer of prostate (19 sources) Malignant neoplasm of prostate; Translations: [Malignant tumor of prostate] Onset: 07-24-2023 Chronic Deficiency and other anemia (1 source) Anemia due to chronic blood loss; Translations: [Iron deficiency anemia secondary to blood loss (chronic)] Onset: 07-19-2023 Chronic Deficiency and other anemia (5 sources) Anemia due to blood loss 07-19-2023 Chronic Deficiency and other anemia (8 sources) Anemia 07-06-2023 Episodic Essential hypertension (8 sources) Hypertensive disorder 07-07-2023 Chronic Gout and other crystal arthropathies (8 sources) Gout 07-06-2023 Chronic Headache; including migraine (8 sources) Headache 07-07-2023 Episodic Other non-traumatic joint disorders (4 sources) Pain in right ankle and joints of right foot; Translations: [PAIN IN RIGHT ANKLE] Onset: 08-05-2022 Episodic Other nutritional; endocrine; and metabolic disorders (5 sources) Body mass index 40+ - severely obese 07-19-2023 Chronic Other nutritional; endocrine; and metabolic disorders (5 sources) Morbid obesity 07-19-2023 Chronic Other screening for suspected conditions (not mental disorders or infectious disease) (10 sources) Raised prostate specific antigen; Translations: [Elevated prostate specific antigen [PSA]] Onset: 07-07-2023 Episodic Unclassified (3 sources) CONTACT W/AND (SUSP) EXPOS COVID-19; Translations: [CONTACT W/AND (SUSP) EXPOS COVID-19] Onset: 10-21-2021 Unclassified (1 source) COUGH, UNSPECIFIED; Translations: [COUGH, UNSPECIFIED] Onset: 10-21-2021 Varicose veins of lower extremity (8 sources) Varicose veins of lower extremity 07-06-2023 Episodic Past or Other Problems Problem Classification Problem Date Documented Da te Episodic/Chronic Other upper respiratory infections (1 source) Acute sinusitis, unspecified; Translations: [ACUTE SINUSITIS UNSPECIFIED] Onset: 10-21-2021 Episodic Unclassified (1 source) CONTACT W/AND (SUSP) EXPOS COVID-19; Translations: [CONTACT W/AND (SUSP) EXPOS COVID-19] Onset: 10-19-2021 Results Test Name Value Interpretation Reference Range Facil ity Lab Reportson 02-08-2024 Lab Reports [id number]#1.00TIFF Normal [facility] Lab Reports [id number]#1.00TIFF Normal [facility] Screenson 02-08-2024 Screens [id number]#1.00TIFF Normal [facility] Ambulatory Visit Summaryon 0 02-07-2024 Ambulatory Visit Summary 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 :1970 Visit Date:02/07/2024 Ambulatory Visit Instructions Your Diagnosis Prostate cancer Your Care Team Attending Physician - TOÑO STANTON, Yaneli Friedman Primary Care Physician - Carolann Shirley MD This Is Your Medications List Contact prescribing physician if questions or concerns abiraterone (abiraterone 250 mg oral tablet) colchicine (colchicine 0.6 mg Tab) diclofenac (diclofenac sodium 75 mg Oral EC Tab) lisinopril (lisinopril 10 mg Tab) predniSONE (predniSONE 5 mg Tab) [Image Removed: STOP]Stop taking these medications bicalutamide (Casodex 50 mg Tab) Procedures Performed Transrectal biopsy of prostate using ultrasound (US) guidance (07/12/2023), Repair of right inguinal hernia, Tonsillectomy. What to do next Scheduled Follow-Up Appointments Monday 8:45 AM EDT With: Yaneli LUNDBERG MD Where: [facility] Frandy Bernal [facility] Patient Educationon 02-07-20 Patient Education Oncology Hormone Suppression Therapy for Prostate Cancer Hormone [...] may be used in the following cases: ? When prostate cancer has spread too far to other places in the body and cannot be cured by surgery or radiation. ? When a person has health problems that prevent the use of surgery or radiation. ? Before radiation to help shrink the size of the cancer and make the radiation treatment more effective. ? If the prostate cancer remains or comes back following treatment with surgery or radiation. What are the types of hormone suppression therapy? Orchiectomy Orchiectomy, also called surgical castration, is a surgery to remove one or both testicles. The testicles make the two main androgens?testosterone and dihydrotestosterone (DHT). This surgery reduces the levels of testosterone in the blood, leading to decreased androgen production. Medicine therapy Medicine therapy, also called medical or chemical castration, involves taking medicines to keep your body from making or using androgens. Medicines can do this in one of three ways: 1. Reducing androgen production by the testicles. ? Luteinizing hormone-releasing hormone (LHRH) agonists. These medicines are injected or implanted under your skin to lower the amount of androgens that your testicles make. Depending on the medicine, they can be given monthly or up to every 3 to 6 months. If you take these medicines, you may also be prescribed other medicines to help with side effects. ? LHRH antagonists. These medicines also work to lower the amount of androgens made in the testicles, but they work faster than LHRH agonist medicines and have less severe side effects. They are given as a monthly injection under the skin, and they are used when prostate cancer is in an advanced stage. ? Estrogens. These medicines are female hormones that help to reduce androgen production by the testicles. Estrogens are not used as commonly as other types of hormone suppression therapy due to their side effects. However, they may be used if other treatments do not work. 2. Blocking androgen attachment throughout the body. ? Anti-androgen medicines, also called androgen receptor antagonists, block areas on the body where androgens attach. These are pills that are usually used in combination with other types of hormone suppression therapy, like orchiectomy and other medicines. 3. Blocking androgen production throughout the body. ? Androgen synthesis inhibitor medicines. These medicines help [...] suppression therapy may cause side effects, including: ? Hot flashes. ? Diarrhea and nausea. ? Itching. ? Sexual side effects, such as: ? Decrease or lack of sexual desire. ? Decrease in size of the penis or testicles. ? Inability to get an erection (erectile dysfunction, or impotence). ? Breast tenderness or increase in breast size. ? Fatigue. ? Weight gain. ? Anemia. ? Thinning of the bones (osteoporosis) and loss of muscle mass. ? Depression, mood swings, and trouble with thinking [...] same time. Treatments may be combined to: ? Help with side effects. ? Treat advanced cancer. Where to find more information ? [employer]: www.cancer.org ? [employer] [place]: www.cancer.gov Contact a health care provider if: ? You have pain or side effects that do not get better with treatment. ? You have trouble urinating. ? You have new side effects that do not go away. Get help right away if: ? You have severe chest pain. ? You have trouble breathing. ? You have an irregular heartbeat. ? You have numbness or paralysis in the lower half of your body. ? You are confused. ? You have trouble talking or understanding speech. These symptoms may be an emergenc (more content not included)... Normal [facility] Urology Office/Clinic Noteon 02-07-2024 Urology Office/Clinic Note HPI Staff Pt is here for a 6 month F/U with PSA, T-Levels and Lupron inj. Pt unable to give urine sample today. Last Lupron was 08/22/23 Previous DX; Prostate cancer 07/03/23 - 168.74 (first PSA ever) 07/07/23 - 180.42 11/14/23 - 0.60 02/05/24 - 0.13 Testosterone level 02/05/24 is <12 (193-824) Dysuria: denies pain and burning Incomplete bladder emptying: denies Hematuria: denies visible blood Frequency: 5-6x a day Urgency: denies Nocturia: a few times depending on fluid intake Stream: denies hesitancy Leaking: denies Post void dripping: denies Wearing pads/ Depends: denies Urge incontinence: denies Stress incontinence: denies Incontinence without Sensory Awareness: denies Abdominal pain: denies Flank pain: denies Sexual complaints: _ History of Present Illness Tests reviewed: reviewed UA, PSA, T level, consult note I have reviewed the previous health record information and history for this patient from Dr. Lundberg. I have reviewed and verified the staff HPI to be accurate for this encounter. There have been no associated fever, chills, flank pain, or blood in the urine. Denies any urinary infections since last encounter. Review of Systems ROS - Provider Constitutional: denies weight loss, denies hot flashes. Eyes: denies eye problems. Gastrointestinal: denies nausea, denies vomiting. Cardiovascular: denies chest pain or angina. Integumentary: no dryness Musculoskeletal: denies musculoskeletal symptoms. ENMT: denies otolaryngeal symptoms. Respiratory: no shortness of breath. Heme/Lymph: denies easy bleeding tendency, denies easy bruising tendency. Psychiatric: no confusion, no anxiety. Genitourinary: See HPI. Physical Exam General Appearance: alert, no distress, well nourished, well developed male. Genitourinary: normal scrotum, normal testes, normal urethra, normal epididymis, normal vas deferens/spermatic cord. Flank Pain: none. Bladder: nonpalpable. Assessment/Plan 1. Prostate cancer (C61: Malignant neoplasm of prostate) PSA: 07/03/23 - 168.74 (first PSA ever) 07/07/23 - 180.42 11/14/23 - 0.60 02/05/24 - 0.13 Testosterone (ref range 193-824): 02/05/24 - <12 Denies family hx of prostate cancer [1]. JESUS 07/07/23 - 30 gms, not accurate due to prostate being distant. S/p TRUS/Bx 07/12/23 - GS 7 (3+4) in 12/12 cores, lowest percentage of core involvement 35%, highest percentage of core involvement 97%. Prostate volume 35.7 cc. NM bone scan whole body 08/04/23 [facility] - Abnormal focus of radiotracer uptake in the anterior costochondral margin of right sixth rib; fracture vs neoplastic activity. PSMA PET Scan 08/09/23 - Avid uptake in the prostate region suspicious for PSMA expressing neoplasm, no evidence of PSMA expressing neoplastic process, mild activity Rt anterior sixth rib likely trauma. S/p first Lupron 08/22/23. S/p EBRT 10/10/23 - 11/16/23. Pt unable to provide urine sample today. Taking abiraterone and prednisone. Educated pt on total androgen blockage. Experiencing fatigue. PSA decreased and T level zero, both favorable. Will cont to monitor PSA. Voiding fine. Taking daily Ca and Vit D supplements. Lupron 45 mgIM injection given today with no complications. Right glute. Pt. denies side effects at this time. Follow up 6 mos with PSA, Lupron or sooner if needed. Pt understands and agrees with plan. Follow-up With When Contact Information TOÑO STANTON, Yaneli Friedman, URL [facility] [address], [place] [address]- Additional Instructions: 6 mos with PSA, Lupron Patient Education Hormone Suppression Therapy for Prostate Cancer I, Erin Pitt, personally scribed for Dr. Lundberg on 02/07/2024 08:52:54. . Documentation recorded by the scribe, Erin Pitt, accurately reflects the services(s) I performed and decisions made by me. Authenticated by Dr. Lundberg on 02/07/2024 08:53:42. Problem List/Past Medical History Ongoing Anemia Anemia due to GI blood loss BMI 45.0-49.9, adult Elevated PSA Gout Headache Hypertension Morbid obesity Prostate cancer Varicose veins of legs Historical No qualifying data Procedure/Surgical History Transrectal biopsy of prostate using ultrasound (US) guidance (07/12/2023), Repair of right inguinal hernia, Tonsillectomy. Medications abiraterone 250 mg oral tablet, 1000 mg= 4 tab(s), Oral, Daily Casodex 50 mg Tab, 50 mg= 1 tab(s), Oral, q24hr, 11 refills colchicine 0.6 mg Tab diclofenac sodium 75 mg Oral EC Tab lisinopril 10 mg Tab Lupron Depot 45 mg/6 months intramuscular injection, extended release, 45 mg, IntraMuscular, Once predniSONE 5 mg Tab, Oral, Daily Allergies No Known Medication Allergies Social History Alcohol - Denies Alcohol Use, 07/19/2023 Substance Abuse - Denies Substance Abuse, 07/19/2023 Tobacco quit 10 years ago Tobacco Use:. Never Smokeless Tobacco Use:. Cigarettes, 0.5 per day. Start (more content not included)... Normal [facility] Comment on above: Result Comment: Elec tronically Signed By: Yaneli LUNDBERG MD\.br\Date and Time Signed: 02/07/24 08:53 EDT\.br\Electronically Co-Signed By: Erin Pitt\.br\Date and Time Co-Signed: 02/07/24 08:53 EDT CBC W Auto Differential pane l (Bld)on 02-05-2024 Basophils (Bld) [#/Vol] 10*3/uL Normal <0.11 [facility] Comment on above: Order Comment: Speci men Type: BLOOD SPECIMENOrdering Facility: [facility] Address: [address] [place] [address] Performed By: #### 5 7021-8 ####[facility] [id number] [place] [address] Basophils/100 WBC (Bld) 0.4 % Normal [facility] Comment on above: Order Comment: Speci men Type: BLOOD SPECIMENOrdering Facility: [facility] Address: [address] [place] [address] Performed By: #### 5 7021-8 ####[facility] [id number] [place] [address] Differential cell count method Nom (Bld) Auto Normal [facility] Comment on above: Order Comment: Speci men Type: BLOOD SPECIMENOrdering Facility: [facility] Address: [address] [place] [address] Performed By: #### 5 7021-8 ####[facility] [id number] [place] [address] Eosinophils (Bld) [#/Vol] 0.14 10*3/uL Normal <0.46 [facility] Comment on above: Order Comment: Speci men Type: BLOOD SPECIMENOrdering Facility: [facility] Address: [address] [place] [address] Performed By: #### 5 7021-8 ####[facility] [id number] [place] [address] Eosinophils/100 WBC (Bld) 2.9 % Normal [facility] Comment on above: Order Comment: Speci men Type: BLOOD SPECIMENOrdering Facility: [facility] Address: [address] [place] [address] Performed By: #### 5 7021-8 ####[facility] [id number] [place] [address] Erythrocyte distribution width (RBC) [Ratio] 15.9 % High 11.5-15.0 [facility] Comment on above: Order Comment: Speci men Type: BLOOD SPECIMENOrdering Facility: [facility] Address: [address] [place] [address] Performed By: #### 5 7021-8 ####[facility] [id number] [place] [address] Hematocrit (Bld) [Volume fraction] 33.5 % Low 39.0-51.0 [facility] Comment on above: Order Comment: Speci men Type: BLOOD SPECIMENOrdering Facility: [facility] Address: [address] [place] [address] Performed By: #### 5 7021-8 ####[facility] [id number] [place] [address] Hemoglobin (Bld) [Mass/Vol] 10.5 g/dL Low 13.0-17.0 [facility] Comment on above: Order Comment: Speci men Type: BLOOD SPECIMENOrdering Facility: [facility] Address: [address] [place] [address] Performed By: #### 5 7021-8 ####[facility] [id number] [place] [address] Immature granulocytes (Bld) [#/Vol] 0.06 10*3/uL Normal <0.10 [facility] Comment on above: Order Comment: Speci men Type: BLOOD SPECIMENOrdering Facility: [facility] Address: [address] [place] [address] Performed By: #### 5 7021-8 ####[facility] [id number] [place] [address] Immature granulocytes/100 WBC (Bld) 1.2 % Normal [facility] Comment on above: Order Comment: Speci men Type: BLOOD SPECIMENOrdering Facility: [facility] Address: [address] [place] [address] Performed By: #### 5 7021-8 ####[facility] [id number] [place] [address] Lymphocytes (Bld) [#/Vol] 0.50 10*3/uL Low 1.00-4.00 [facility] Comment on above: Order Comment: Speci men Type: BLOOD SPECIMENOrdering Facility: [facility] Address: [address] [place] [address] Performed By: #### 5 7021-8 ####[facility] [id number] [place] [address] Lymphocytes/100 WBC (Bld) 10.4 % Normal [facility] Comment on above: Order Comment: Speci men Type: BLOOD SPECIMENOrdering Facility: [facility] Address: [address] [place] [address] Performed By: #### 5 7021-8 ####[facility] [id number] [place] [address] MCH (RBC) [Entitic mass] 27.5 pg Normal 26.0-34.0 [facility] Comment on above: Order Comment: Speci men Type: BLOOD SPECIMENOrdering Facility: [facility] Address: [address] [place] [address] Performed By: #### 5 7021-8 ####[facility] [id number] [place] [address] MCHC (RBC) [Mass/Vol] 31.3 g/dL Normal 30.5-36.0 [facility] Comment on above: Order Comment: Speci men Type: BLOOD SPECIMENOrdering Facility: [facility] Address: [address] [place] [address] Performed By: #### 5 7021-8 ####[facility] [id number] [place] [address] MCV (RBC) [Entitic vol] 87.7 fL Normal 80.0-100.0 [facility] Comment on above: Order Comment: Speci men Type: BLOOD SPECIMENOrdering Facility: [facility] Address: [address] [place] [address] Performed By: #### 5 7021-8 ####[facility] [id number] [place] [address] Monocytes (Bld) [#/Vol] 0.46 10*3/uL Normal <0.87 [facility] Comment on above: Order Comment: Speci men Type: BLOOD SPECIMENOrdering Facility: [facility] Address: [address] [place] [address] Performed By: #### 5 7021-8 ####[facility] [id number] [place] [address] Monocytes/100 WBC (Bld) 9.5 % Normal [facility] Comment on above: Order Comment: Speci men Type: BLOOD SPECIMENOrdering Facility: [facility] Address: [address] [place] [address] Performed By: #### 5 7021-8 ####[facility] [id number] [place] [address] Neutrophils (Bld) [#/Vol] 3.64 10*3/uL Normal 1.45-7.50 [facility] Comment on above: Order Comment: Speci men Type: BLOOD SPECIMENOrdering Facility: [facility] Address: [address] [place] [address] Performed By: #### 5 7021-8 ####[facility] [id number] [place] [address] Neutrophils/100 WBC (Bld) 75.6 % Normal [facility] Comment on above: Order Comment: Speci men Type: BLOOD SPECIMENOrdering Facility: [facility] Address: [address] [place] [address] Performed By: #### 5 7021-8 ####[facility] [id number] [place] [address] Nucleated RBC (Bld) [#/Vol] 10*3/uL Normal <0.01 [facility] Comment on above: Order Comment: Speci men Type: BLOOD SPECIMENOrdering Facility: [facility] Address: [address] [place] [address] Performed By: #### 5 7021-8 ####[facility] [id number] [place] [address] Nucleated RBC/100 WBC (Bld) [Ratio] 0.0 /100 WBC Normal [facility] Comment on above: Order Comment: Speci men Type: BLOOD SPECIMENOrdering Facility: [facility] Address: [address] [place] [address] Performed By: #### 5 7021-8 ####[facility] [id number] [place] [address] Platelet mean volume (Bld) [Entitic vol] 9.6 fL Normal 9.0-12.7 [facility] Comment on above: Order Comment: Speci men Type: BLOOD SPECIMENOrdering Facility: [facility] Address: [address] [place] [address] Performed By: #### 5 7021-8 ####[facility] [id number] [place] [address] Platelets (Bld) [#/Vol] 238 10*3/uL Normal 150-400 [facility] Comment on above: Order Comment: Speci men Type: BLOOD SPECIMENOrdering Facility: [facility] Address: [address] [place] [address] Performed By: #### 5 7021-8 ####[facility] [id number] [place] [address] RBC (Bld) [#/Vol] 3.82 10*6/uL Low 4.20-6.00 [facility] [facility] Comment on above: Order Comment: Speci men Type: BLOOD SPECIMENOrdering Facility: [facility] Address: [address] [place] [address] Performed By: #### 5 7021-8 ####[facility] LABCLIA [id number] [place] [address] WBC (Bld) [#/Vol] 4.82 10*3/uL Normal 3.70-11.00 [facility] Comment on above: Order Comment: Speci men Type: BLOOD SPECIMENOrdering Facility: [facility] Address: [address] [place] [address] Performed By: #### 5 7021-8 ####[facility] LABCLIA [id number] [place] [address] CNOVSPon 02-05-2024 CNOVSP Visit (SP) Office (HEMASA) ----- 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 ([id number]) 1970 Date Time Provider Department 02/05/24 9:00 AM JAVI SINGER During your visit today, we recorded the following information about you: Temperature Pulse Respiration Blood pressure 97.7 degrees 80/minute 18/minute 157/90 Weight Height 165.1 kg 1.829 m Javi Singer MD 02/07/2024 6:13 AM Signed PATIENT NAME: Osiel Cartwright DATE: 02/05/2024 PRIMARY CARE PHYSICIAN: Carolann Shirley MD OTHER PHYSICIANS: Dr. Lundberg, Dr. Paris Portions of this encounter note have been copied from my note from 11/14/2023 and has been updated where appropriate, and reflect my current medical decision making from today. CC: This is a 53 year old male with prostate cancer, seen for scheduled follow-up. INTERIM HISTORY: Since the patient's last visit here he apparently barbecues nausea/vomiting and diarrhea on 01/07/2024 and was seen at the [place] emergency room. His symptoms resolved with IV fluids and antiemetics. Presumably he had food poisoning. Otherwise he has had no significant medical changes. He remains on abiraterone/prednisone and appears to be tolerating the medications well. No difficulties with urination. No unusual pain. Overall feels well at this time. MEDICATIONS: Current Outpatient Medications Medication Sig abiraterone 250 mg tablet TAKE 4 TABLETS [...] Types: Cigarettes Quit date: 2012 Years since quittin.3 Passive exposure: Past Smokeless tobacco: Never Substance [...] anxiety, depression, or other. PHYSICAL EXAM: BP 157/90 Pulse 80 Temp 36.5 ?C (97.7 ?F) (Temporal) Resp 18 Ht 182.9 cm (6' 0.01 ) Wt (!) 165.1 kg (363 lb 15.7 oz) SpO2 94% BMI 49.35 kg/m? GENERAL EXAM: Well developed/well nourished; in [...] insight. NEUROLOGICAL: Alert, oriented x person, place, (more content not included)... Normal [facility] Comprehensive metabolic 2000 panelon 02-05-2024 Albumin [Mass/Vol] 3.9 g/dL Normal 3.9-4.9 [facility] Comment on above: Order Comment: Speci men Type: BLOOD SPECIMENOrdering Facility: [facility] Address: [address] [place] [address] Performed By: #### 2 4323-8 ####[facility] LABCLIA [id number] [place] [address] ALP [Catalytic activity/Vol] 81 U/L Normal 38-113 [facility] Comment on above: Order Comment: Speci men Type: BLOOD SPECIMENOrdering Facility: [facility] Address: [address] [place] [address] Performed By: #### 2 4323-8 ####[facility] LABCLIA [id number] [place] [address] ALT [Catalytic activity/Vol] 20 U/L Normal 10-54 [facility] Comment on above: Order Comment: Speci men Type: BLOOD SPECIMENOrdering Facility: [facility] Address: [address] [place], [place] [address] Performed By: #### 2 4323-8 ####[facility] LABCLIA [id number] [place] [address] Anion gap [Moles/Vol] 13 mmol/L Normal 9-18 [facility] Comment on above: Order Comment: Speci men Type: BLOOD SPECIMENOrdering Facility: [facility] Address: [address] [place] [address] Performed By: #### 2 4323-8 ####[facility] LABCLIA [id number] [place] [address] AST [Catalytic activity/Vol] 19 U/L Normal 14-40 [facility] Comment on above: Order Comment: Speci men Type: BLOOD SPECIMENOrdering Facility: [facility] Address: [address] [place], [place] [address] Performed By: #### 2 4323-8 ####[facility] LABCLIA [id number] [place] [address] Bilirubin [Mass/Vol] 0.4 mg/dL Normal 0.2-1.3 [facility] Comment on above: Order Comment: Speci men Type: BLOOD SPECIMENOrdering Facility: [facility] Address: [address] [place], [place] [address] Performed By: #### 2 4323-8 ####[facility] LABCLIA [id number] [place] [address] Calcium [Mass/Vol] 9.0 mg/dL Normal 8.5-10.2 [facility] Comment on above: Order Comment: Speci men Type: BLOOD SPECIMENOrdering Facility: [facility] Address: [address] [place] [address] Performed By: #### 2 4323-8 ####[facility] LABCLIA [id number] [place] [address] Chloride [Moles/Vol] 105 mmol/L Normal 97-105 [facility] Comment on above: Order Comment: Speci men Type: BLOOD SPECIMENOrdering Facility: [facility] Address: [address] [place] [address] Performed By: #### 2 4323-8 ####[facility] LABCLIA [id number] [place] [address] CO2 [Moles/Vol] 26 mmol/L Normal 22-30 [facility] Comment on above: Order Comment: Speci men Type: BLOOD SPECIMENOrdering Facility: [facility] Address: [address] [place] [address] Performed By: #### 2 4323-8 ####[facility] LABCLIA [id number] [place] [address] Creatinine [Mass/Vol] 0.83 mg/dL Normal 0.73-1.22 [facility] Comment on above: Order Comment: Speci men Type: BLOOD SPECIMENOrdering Facility: [facility] Address: [address] [place] [address] Performed By: #### 2 4323-8 ####[facility] LABCLIA [id number] [place] [address] Creatinine and Glomerular filtration rate.predicted panel (S/P/Bld) 105 mL/min/1.73m??? Normal >=60 [facility] Comment on above: Order Comment: Speci men Type: BLOOD SPECIMENOrdering Facility: [facility] Address: [address] [place] [address] Result Comment: Carmen mated Glomerular Filtration Rate [...] actual GFR. Performed By: #### 2 4323-8 ####[facility] LABCLIA [id number] [place] [address] Glucose [Mass/Vol] 121 mg/dL High 74-99 [facility] Comment on above: Order Comment: Speci men Type: BLOOD SPECIMENOrdering Facility: [facility] Address: [address] [place] [address] Result Comment: The [place] Diabetes Association (ADA) provides guidance for cutoff [...] Standards of Medical Care in Diabetes 2016, French Diabetes Association. Diabetes Care. 2016.39(Suppl 1). Performed By: #### 2 4323-8 ####[facility] LABCLIA [id number] [place] [address] Potassium [Moles/Vol] 3.8 mmol/L Normal 3.7-5.1 [facility] Comment on above: Order Comment: Migueli men Type: BLOOD SPECIMENOrdering Facility: [facility] Address: [address] [place] [address] Performed By: #### 2 4323-8 ####[facility] LABCLIA [id number] [place] [address] Protein [Mass/Vol] 6.5 g/dL Normal 6.3-8.0 [facility] Comment on above: Order Comment: Speci men Type: BLOOD SPECIMENOrdering Facility: [facility] Address: [address] [place] [address] Performed By: #### 2 4323-8 ####[facility] LABCLIA [id number] [place] [address] Sodium [Moles/Vol] 144 mmol/L Normal 136-144 [facility] Comment on above: Order Comment: Speci men Type: BLOOD SPECIMENOrdering Facility: [facility] Address: [address] [place] [address] Performed By: #### 2 4323-8 ####[facility] LABCLIA [id number] [place] [address] Urea nitrogen [Mass/Vol] 15 mg/dL Normal 9-24 [facility] Comment on above: Order Comment: Speci men Type: BLOOD SPECIMENOrdering Facility: [facility] Address: [address] [place] [address] Performed By: #### 2 4323-8 ####[facility] LABCLIA [id number] [place] [address] PSA SerPl-mCncon 02-05-2024 Prostate specific Ag [Mass/Vol] 0.13 ng/mL Normal <2.60 [facility] Comment on above: Order Comment: Speci men Type: BLOOD SPECIMENOrdering Facility: [facility] Address: [address] [place] [address] Result Comment: Tota l PSA test methodology used is the Electrochemiluminescence Immunoassay by [employer]. Total PSA values by differing methodologies cannot be interchanged. Performed By: #### 2 857-1 ####[facility] LABCLIA [id number] [place] [address] [place] Testost SerPl-mCncon 024 Testosterone [Mass/Vol] ng/dL Low 193-824 [facility] Comment on above: Order Comment: Speci men Type: BLOOD SPECIMENOrdering Facility: [facility] Address: [address], [place] [address] Result Comment: A te stosterone level in the 193-320 ng/dL range with associated clinical symptoms is considered low and may indicate hypogonadism (from NEJ 2010 363:123-135). Results >320 ng/dL are considered normal. Result rechecked. Performed By: #### 2 986-8 ####[facility] LABCLIA [id number] [address] [facility] CNOVon 12-06-2023 CNOV Office Visit (RADTSA ) ----- 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 ([id number]) 1970 M Date Time Provider Department 12/06/23 9:15 AM Lauren PARIS During your visit today, we recorded the following information about you: Temperature Pulse Respiration Blood pressure 96.5 degrees 92/minute 20/minute 123/80 Weight 160.3 kg Adrianne Weinstein RN 12/06/2023 9:02 AM Addendum AUA 9 EMILY Schaffer G Phillip, MD 12/06/2023 9:16 AM Signed Radiation Oncology - Follow Up Note PATIENT NAME: Osiel Cartwright PATIENT DIAGNOSIS: Prostate adenocarcinoma, initial PSA 180.42, biopsy [place] score 3 + 4 = 7 (grade [...] ASSESSMENT/PLAN: Prostate adenocarcinoma, initial PSA 180.42, biopsy [place] score 3 + 4 = 7 (grade [...] Paris MD cc: Carolann Shirley [address] [place] [address] No referring provider defined for this encounter. Allergies As of Date: 12/06/2023 (No Known Allergies) Date Reviewed: 12/06/2023 Reviewed by: Adrianne Weinstein RN - Fully Assessed Reason for Visit: Prostate Cancer [590] Primary Visit Diagnosis:Malignant neoplasm of prostate (HCC) [C61] Order(s):PSA/PROSTSPECAG DIAG [SQPSA] Order #: [id number] FUTURE Prescriptions as of 12/06/2023 - abiraterone [...] (None) Visit Notes: >> Adrianne Weinstein RN Wed Dec 06, 2023 8:57 AM Status: Addendum AUA 9 Adrianne Weinstein RN Disposition: Return in about 6 months (around 06/05/2024). Follow-up and Disposition History for Encounter Date Provider Department Center 12/06/2023 [id number]-ESDAHWDLauren PARIS [facility] Encounter Status:Closed by Lauren PARIS on 12/06/23 Normal [facility] Consultation Noteon 12-04-19 Consultation Note [id number]. [id number]#1.00TIFF Normal [facility] Consultation Noteon 11-20-19 Consultation Note [id number]#1.00TIFF Normal [facility] CBC W Auto Differential pane l (Bld)on 11-14-2023 Basophils (Bld) [#/Vol] 10*3/uL Normal <0.11 [facility] Comment on above: Order Comment: Speci men Type: BLOOD SPECIMENOrdering Facility: [facility] Address: [address] [place] [address] Performed By: #### 5 7021-8 ####[facility] LABCLIA [id number] [place] [address] Basophils/100 WBC (Bld) 0.4 % Normal [facility] Comment on above: Order Comment: Speci men Type: BLOOD SPECIMENOrdering Facility: [facility] Address: [address] [place] [address] Performed By: #### 5 7021-8 ####[facility] LABCLIA [id number] [place] [address] Differential cell count method Nom (Bld) Auto Normal [facility] Comment on above: Order Comment: Speci men Type: BLOOD SPECIMENOrdering Facility: [facility] Address: [address] [place] [address] Performed By: #### 5 7021-8 ####[facility] LABCLIA [id number] [place] [address] Eosinophils (Bld) [#/Vol] 0.09 10*3/uL Normal <0.46 [facility] Comment on above: Order Comment: Speci men Type: BLOOD SPECIMENOrdering Facility: [facility] Address: [address] [place] [address] Performed By: #### 5 7021-8 ####[facility] LABCLIA [id number] [place] [address] Eosinophils/100 WBC (Bld) 1.8 % Normal [facility] Comment on above: Order Comment: Speci men Type: BLOOD SPECIMENOrdering Facility: [facility] Address: [address] [place] [address] Performed By: #### 5 7021-8 ####[facility] LABCLIA [id number] [place] [address] Erythrocyte distribution width (RBC) [Ratio] 17.6 % High 11.5-15.0 [facility] Comment on above: Order Comment: Speci men Type: BLOOD SPECIMENOrdering Facility: [facility] Address: [address] [place] [address] Performed By: #### 5 7021-8 ####[facility] LABCLIA [id number] [place] [address] Hematocrit (Bld) [Volume fraction] 35.8 % Low 39.0-51.0 [facility] Comment on above: Order Comment: Speci men Type: BLOOD SPECIMENOrdering Facility: [facility] Address: [address] [place] [address] Performed By: #### 5 7021-8 ####[facility] LABCLIA [id number] [place] [address] Hemoglobin (Bld) [Mass/Vol] 11.5 g/dL Low 13.0-17.0 [facility] Comment on above: Order Comment: Speci men Type: BLOOD SPECIMENOrdering Facility: [facility] Address: [address] [place] [address] Performed By: #### 5 7021-8 ####[facility] LABCLIA [id number] [place] [address] Immature granulocytes (Bld) [#/Vol] 0.03 10*3/uL Normal <0.10 [facility] Comment on above: Order Comment: Speci men Type: BLOOD SPECIMENOrdering Facility: [facility] Address: [address] [place] [address] Performed By: #### 5 7021-8 ####[facility] LABCLIA [id number] [place] [address] Immature granulocytes/100 WBC (Bld) 0.6 % Normal [facility] Comment on above: Order Comment: Speci men Type: BLOOD SPECIMENOrdering Facility: [facility] Address: [address] [place] [address] Performed By: #### 5 7021-8 ####[facility] LABCLIA [id number] [place] [address] Lymphocytes (Bld) [#/Vol] 0.37 10*3/uL Low 1.00-4.00 [facility] Comment on above: Order Comment: Speci men Type: BLOOD SPECIMENOrdering Facility: [facility] Address: [address] [place] [address] Performed By: #### 5 7021-8 ####[facility] LABCLIA [id number] [place] [address] Lymphocytes/100 WBC (Bld) 7.3 % Normal [facility] Comment on above: Order Comment: Speci men Type: BLOOD SPECIMENOrdering Facility: [facility] Address: [address] [place] [address] Performed By: #### 5 7021-8 ####[facility] LABCLIA [id number] [place] [address] MCH (RBC) [Entitic mass] 27.7 pg Normal 26.0-34.0 [facility] Comment on above: Order Comment: Speci men Type: BLOOD SPECIMENOrdering Facility: [facility] Address: [address] [place] [address] Performed By: #### 5 7021-8 ####[facility] LABCLIA [id number] [place] [address] MCHC (RBC) [Mass/Vol] 32.1 g/dL Normal 30.5-36.0 [facility] Comment on above: Order Comment: Speci men Type: BLOOD SPECIMENOrdering Facility: [facility] Address: [address] [place] [address] Performed By: #### 5 7021-8 ####[facility] LABCLIA [id number] [place] [address] MCV (RBC) [Entitic vol] 86.3 fL Normal 80.0-100.0 [facility] Comment on above: Order Comment: Speci men Type: BLOOD SPECIMENOrdering Facility: [facility] Address: [address] [place] [address] Performed By: #### 5 7021-8 ####[facility] LABCLIA [id number] [place] [address] Monocytes (Bld) [#/Vol] 0.47 10*3/uL Normal <0.87 [facility] Comment on above: Order Comment: Speci men Type: BLOOD SPECIMENOrdering Facility: [facility] Address: [address] [place] [address] Performed By: #### 5 7021-8 ####[facility] LABCLIA [id number] [place] [address] Monocytes/100 WBC (Bld) 9.3 % Normal [facility] Comment on above: Order Comment: Speci men Type: BLOOD SPECIMENOrdering Facility: [facility] Address: [address] [place] [address] Performed By: #### 5 7021-8 ####[facility] LABCLIA [id number] [place] [address] Neutrophils (Bld) [#/Vol] 4.09 10*3/uL Normal 1.45-7.50 [facility] Comment on above: Order Comment: Speci men Type: BLOOD SPECIMENOrdering Facility: [facility] Address: [address] [place] [address] Performed By: #### 5 7021-8 ####[facility] LABCLIA [id number] [place] [address] Neutrophils/100 WBC (Bld) 80.6 % Normal [facility] Comment on above: Order Comment: Speci men Type: BLOOD SPECIMENOrdering Facility: [facility] Address: [address] [place] [address] Performed By: #### 5 7021-8 ####[facility] LABCLIA [id number] [place] [address] Nucleated RBC (Bld) [#/Vol] 10*3/uL Normal <0.01 [facility] Comment on above: Order Comment: Speci men Type: BLOOD SPECIMENOrdering Facility: [facility] Address: [address] [place] [address] Performed By: #### 5 7021-8 ####[facility] LABCLIA [id number] [place] [address] Nucleated RBC/100 WBC (Bld) [Ratio] 0.0 /100 WBC Normal [facility] Comment on above: Order Comment: Speci men Type: BLOOD SPECIMENOrdering Facility: [facility] Address: [address] [place] [address] Performed By: #### 5 7021-8 ####[facility] LABCLIA [id number] [place] [address] Platelet mean volume (Bld) [Entitic vol] 9.7 fL Normal 9.0-12.7 [facility] Comment on above: Order Comment: Speci men Type: BLOOD SPECIMENOrdering Facility: [facility] Address: [address] [place] [address] Performed By: #### 5 7021-8 ####[facility] LABCLIA [id number] [place] [address] Platelets (Bld) [#/Vol] 232 10*3/uL Normal 150-400 [facility] Comment on above: Order Comment: Speci men Type: BLOOD SPECIMENOrdering Facility: [facility] Address: [address] [place] [address] Performed By: #### 5 7021-8 ####[facility] LABIA [id number] [place] [address] RBC (Bld) [#/Vol] 4.15 10*6/uL Low 4.20-6.00 [facility] Comment on above: Order Comment: Speci men Type: BLOOD SPECIMENOrdering Facility: [facility] Address: [address] [place], [place] [address] Performed By: #### 5 7021-8 ####[facility] LABIA [id number] [place] [address] WBC (Bld) [#/Vol] 5.07 10*3/uL Normal 3.70-11.00 [facility] Comment on above: Order Comment: Speci men Type: BLOOD SPECIMENOrdering Facility: [facility] Address: [address] [place], [place] [address] Performed By: #### 5 7021-8 ####[facility] LABIA [id number] [place] [address] Basophils (Bld) [#/Vol] <0.11 k/uL [facility] Basophils/100 WBC (Bld) 0.4 % [facility] Differential cell count method Nom (Bld) Auto [facility] Eosinophils (Bld) [#/Vol] 0.09 10*3/uL <0.46 k/uL [facility] Eosinophils/100 WBC (Bld) 1.8 % [facility] Erythrocyte distribution width (RBC) [Ratio] 17.6 % High 11.5 - 15.0 % [facility] Hematocrit (Bld) [Volume fraction] 35.8 % Low 39.0 - 51.0 % [facility] Hemoglobin (Bld) [Mass/Vol] 11.5 g/dL Low 13.0 - 17.0 g/dL [facility] Immature granulocytes (Bld) [#/Vol] 0.03 10*3/uL <0.10 k/uL [facility] Immature granulocytes/100 WBC (Bld) 0.6 % [facility] Lymphocytes (Bld) [#/Vol] 0.37 10*3/uL Low 1.00 - 4.00 k/uL [facility] Lymphocytes/100 WBC (Bld) 7.3 % [facility] MCH (RBC) [Entitic mass] 27.7 pg 26.0 - 34.0 pg [facility] MCHC (RBC) [Mass/Vol] 32.1 g/dL 30.5 - 36.0 g/dL [facility] MCV (RBC) [Entitic vol] 86.3 fL 80.0 - 100.0 fL [facility] Monocytes (Bld) [#/Vol] 0.47 10*3/uL <0.87 k/uL [facility] Monocytes/100 WBC (Bld) 9.3 % [facility] Neutrophils (Bld) [#/Vol] 4.09 10*3/uL 1.45 - 7.50 k/uL [facility] Neutrophils/100 WBC (Bld) 80.6 % [facility] Nucleated RBC (Bld) [#/Vol] <0.01 k/uL [facility] Nucleated RBC/100 WBC (Bld) [Ratio] 0.0 /100 WBC [facility] Platelet mean volume (Bld) [Entitic vol] 9.7 fL 9.0 - 12.7 fL [facility] Platelets (Bld) [#/Vol] 232 10*3/uL 150 - 400 k/uL [facility] RBC (Bld) [#/Vol] 4.15 10*6/uL Low 4.20 - 6.00 m/uL [facility] WBC (Bld) [#/Vol] 5.07 10*3/uL 3.70 - 11.00 k/u L [facility] CNOVSPon 11-14-2023 CNOVSP Visit (SP) Office (HEMASA) ----- SUKHWINDEROSIEL MICHELE ([id number]) 1970 M Date Time Provider Department 11/14/23 [...] lla/achilles. MUSCULOSK (more content not included)... Normal [facility] metabolic 2000 panelon 11-14-2023 Albumin [Mass/Vol] 4.1 g/dL Normal 3.9-4.9 [facility] Comment on above: Order Comment: Speci men Type: BLOOD SPECIMENOrdering Facility: [facility] Address: [address] [place] [address] Performed By: #### 2 4323-8 ####[facility] LABCLIA [id number] [place] [address] ALP [Catalytic activity/Vol] 87 U/L Normal 38-113 [facility] Comment on above: Order Comment: Speci men Type: BLOOD SPECIMENOrdering Facility: [facility] Address: [address] [place] [address] Performed By: #### 2 4323-8 ####[facility] LABCLIA [id number] [place] [address] ALT [Catalytic activity/Vol] 24 U/L Normal 10-54 [facility] Comment on above: Order Comment: Speci men Type: BLOOD SPECIMENOrdering Facility: [facility] Address: [address] [place] [address] Performed By: #### 2 4323-8 ####[facility] LABCLIA [id number] [place] [address] Anion gap [Moles/Vol] 12 mmol/L Normal 9-18 [facility] Comment on above: Order Comment: Speci men Type: BLOOD SPECIMENOrdering Facility: [facility] Address: [address] [place] [address] Performed By: #### 2 4323-8 ####[facility] LABCLIA [id number] [place] [address] AST [Catalytic activity/Vol] 17 U/L Normal 14-40 [facility] Comment on above: Order Comment: Speci men Type: BLOOD SPECIMENOrdering Facility: [facility] Address: [address] [place] [address] Performed By: #### 2 4323-8 ####[facility] LABCLIA [id number] [place] [address] Bilirubin [Mass/Vol] 0.4 mg/dL Normal 0.2-1.3 [facility] Comment on above: Order Comment: Speci men Type: BLOOD SPECIMENOrdering Facility: [facility] Address: [address] [place] [address] Performed By: #### 2 4323-8 ####[facility] LABCLIA [id number] [place] [address] Calcium [Mass/Vol] 9.6 mg/dL Normal 8.5-10.2 [facility] Comment on above: Order Comment: Speci men Type: BLOOD SPECIMENOrdering Facility: [facility] Address: [address] [place] [address] Performed By: #### 2 4323-8 ####[facility] LABCLIA [id number] [place] [address] Chloride [Moles/Vol] 101 mmol/L Normal 97-105 [facility] Comment on above: Order Comment: Speci men Type: BLOOD SPECIMENOrdering Facility: [facility] Address: [address] [place] [address] Performed By: #### 2 4323-8 ####[facility] LABCLIA [id number] [place] [address] CO2 [Moles/Vol] 27 mmol/L Normal 22-30 [facility] Comment on above: Order Comment: Speci men Type: BLOOD SPECIMENOrdering Facility: [facility] Address: [address] [place] [address] Performed By: #### 2 4323-8 ####[facility] LABCLIA [id number] [place] [address] Creatinine [Mass/Vol] 0.83 mg/dL Normal 0.73-1.22 [facility] Comment on above: Order Comment: Speci men Type: BLOOD SPECIMENOrdering Facility: [facility] Address: [address] [place] [address] Performed By: #### 2 4323-8 ####[facility] LABCLIA [id number] [place] [address] Creatinine and Glomerular filtration rate.predicted panel (S/P/Bld) 106 mL/min/1.73m??? Normal >=60 [facility] Comment on above: Order Comment: Michelle contreras Type: BLOOD SPECIMENOrdering Facility: [facility] Address: [address] [place] [address] Result Comment: Carmen mated Glomerular Filtration Rate [...] actual GFR. Performed By: #### 2 4323-8 ####[facility] LABCLIA [id number] [place] [address] Glucose [Mass/Vol] 102 mg/dL High 74-99 [facility] Comment on above: Order Comment: Michelle contreras Type: BLOOD SPECIMENOrdering Facility: [facility] Address: [address] [place] [address] Result Comment: The [place] Diabetes Association (ADA) provides guidance for cutoff [...] Standards of Medical Care in Diabetes 2016, [employer]. Diabetes Care. 2016.39(Suppl 1). Performed By: #### 2 4323-8 ####[facility] LABCLIA [id number] [place] [address] Potassium [Moles/Vol] 4.2 mmol/L Normal 3.7-5.1 [facility] Comment on above: Order Comment: Speci men Type: BLOOD SPECIMENOrdering Facility: [facility] Address: [address] [place] [address] Performed By: #### 2 4323-8 ####[facility] LABCLIA [id number] [place] [address] Protein [Mass/Vol] 6.7 g/dL Normal 6.3-8.0 [facility] Comment on above: Order Comment: Speci men Type: BLOOD SPECIMENOrdering Facility: [facility] Address: [address] [place] [address] Performed By: #### 2 4323-8 ####[facility] LABCLIA [id number] [place] [address] Sodium [Moles/Vol] 140 mmol/L Normal 136-144 [facility] Comment on above: Order Comment: Speci men Type: BLOOD SPECIMENOrdering Facility: [facility] Address: [address] [place] [address] Performed By: #### 2 4323-8 ####[facility] LABCLIA [id number] [place] [address] Urea nitrogen [Mass/Vol] 18 mg/dL Normal 9-24 [facility] Comment on above: Order Comment: Speci men Type: BLOOD SPECIMENOrdering Facility: [facility] Address: [address] [place] [address] Performed By: #### 2 4323-8 ####[facility] LABIA [id number] [place] [address] Albumin [Mass/Vol] 4.1 g/dL 3.9 - 4.9 g/dL [facility] ALP [Catalytic activity/Vol] 87 U/L 38 - 113 U/L [facility] ALT [Catalytic activity/Vol] 24 U/L 10 - 54 U/L [facility] Anion gap [Moles/Vol] 12 mmol/L 9 - 18 mmol/L [facility] AST [Catalytic activity/Vol] 17 U/L 14 - 40 U/L [facility] Bilirubin [Mass/Vol] 0.4 mg/dL 0.2 - 1.3 mg/dL [facility] Calcium [Mass/Vol] 9.6 mg/dL 8.5 - 10.2 mg/dL [facility] Chloride [Moles/Vol] 101 mmol/L 97 - 105 mmol/L [facility] CO2 [Moles/Vol] 27 mmol/L 22 - 30 mmol/L [facility] Creatinine [Mass/Vol] 0.83 mg/dL 0.73 - 1.22 mg/dL [facility] Estimated Glomerular Filtration Rate 106 mL/min/1.73m >=60 mL/min/1.73m [facility] Glucose [Mass/Vol] 102 mg/dL High 74 - 99 mg/dL [facility] Potassium [Moles/Vol] 4.2 mmol/L 3.7 - 5.1 mmol/L [facility] Protein [Mass/Vol] 6.7 g/dL 6.3 - 8.0 g/dL [facility] Sodium [Moles/Vol] 140 mmol/L 136 - 144 mmol/L [facility] Urea nitrogen [Mass/Vol] 18 mg/dL 9 - 24 mg/dL [facility] PSA SerPl-mCncon 11-14-2023 Prostate specific Ag [Mass/Vol] 0.60 ng/mL Normal <2.60 [facility] Comment on above: Order Comment: Speci men Type: BLOOD SPECIMENOrdering Facility: [facility] Address: [address] [place] [address] Result Comment: Tota l PSA test methodology used is the Electrochemiluminescence Immunoassay by [employer]. Total PSA values by differing methodologies cannot be interchanged. Performed By: #### 2 857-1 ####[facility] LABCLIA [id number] [place] [address] [place] PSA/PROSTSPECAG DIAGon 11-14 Prostate specific Ag [Mass/Vol] 0.60 ng/mL <2.60 ng/mL [facility] CNOVon 11-13-2023 CNOV Office Visit (RADTSA ) ----- 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 ([id number]) 1970 M Date Time Provider Department 11/13/23 8:45 AM Lauren PARIS During your visit today, we recorded the following information about you: Temperature Pulse Respiration Blood pressure 96.7 degrees 79/minute 18/minute 143/92 Weight 160.7 kg Lauren Paris MD 11/13/2023 9:26 AM Signed Radiation Oncology - On Treatment Review (OTR) Note PATIENT NAME: Osiel Cartwright PATIENT DIAGNOSIS: Prostate adenocarcinoma, initial PSA 180.42, biopsy Blooms[place] score 3 + 4 = 7 (grade [...] Allergies) Date Reviewed: 11/13/2023 Reviewed by: Adrianne Weinstein, EMILY - Fully Assessed Primary Visit Diagnosis:Malignant neoplasm [...] Encounter Status:Closed by Lauren PARIS on 11/13/23 [facility] CNOVon 11-06-2023 CNOV Office Visit (RADTSA ) ----- 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 ([id number]) 1970 M Date Time Provider Department 11/06/23 8:45 AM Lauren PARIS During your visit today, we recorded the following information about you: Temperature Pulse Respiration Blood pressure 96.7 degrees 80/minute 18/minute 122/83 Weight 158.3 kg Lauren Paris MD 11/06/2023 10:42 AM Signed Radiation Oncology - On Treatment Review (OTR) Note PATIENT NAME: Osiel Cartwright PATIENT DIAGNOSIS: Prostate adenocarcinoma, initial PSA 180.42, biopsy Bloomsburg score 3 + 4 = 7 (grade [...] Encounter Status:Closed by Lauren PARIS on 11/06/23 [facility] CNOVon 10-30-2023 CNOV Office Visit (RADTSA ) ----- CHAYOSIEL Juan ([id number]) 1970 M Date Time Provider Department 10/30/23 8:45 AM Lauren PARIS During your visit today, we recorded the following information about you: Temperature Pulse Respiration Blood pressure 97.5 degrees 59/minute 18/minute 150/90 Weight 160 kg Lauren Paris MD 10/30/2023 10:49 AM Signed Radiation Oncology - On Treatment Review (OTR) Note PATIENT NAME: Osiel Prettysegundo PATIENT DIAGNOSIS: Prostate adenocarcinoma, initial PSA 180.42, biopsy Bloomsburg score 3 + 4 = 7 (grade [...] Encounter Status:Closed by Lauren PARIS on 10/30/23 [facility] Nehemias 10-30-2023 [facility] Telephone (appCREAR) ----- 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 ([id number]) 1970 M Date Time Provider Department 10/30/23 NEIL QUEZADA During your visit today, we recorded the following information about you: Neil Quezada [facility] 10/30/2023 3:08 PM Signed Results left on patient voicemail. Osiel Cartwright's Multi-Cancer panel through [employer] was negative for a pathogenic variant. Variant(s) of uncertain significance (VUS) detected: FLCN (c.175C>T). A VUS is a genetic variant for which insufficient data exists in order to determine if it is associated with disease (deleterious mutation) or is a normal genetic variant which can occur in the population without disease (benign polymorphism). Please see Saqina message for further discussion. Neil Quezada, MS, CGC Licensed, Certified Genetic Counselor Allergies As of [...] Encounter Status:Closed by NEIL QUEZADA on 10/30/23 Normal [facility] CNOVon 10-23-2023 CNOV Office Visit (RADTSA ) ----- 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 ([id number]) 1970 M Date Time Provider Department 10/23/23 [...] Encounter Status:Closed by Lauren PARIS on 10/23/23 [facility] SEND OUT TST 1on 2023 REFERRAL LAB [address] [facility] Comment on above: Order Comment: Speci men Type: BLOOD SPECIMENOrdering Facility: [facility] Address: [address] [place] [address] Performed By: #### M ISC1 ####NON-INTERFACED REF LABSCLIA SEE SCANNED RESULTS TEST 1 Multi Cancer Panel Normal [facility] Comment on above: Order Comment: Speci men Type: BLOOD SPECIMENOrdering Facility: [facility] Address: [address] [place] [address] Performed By: #### M ISC1 ####NON-INTERFACED REF LABSCLIA SEE SCANNED RESULTS TEST RESULTS 1 View results in Scan marguerite Documents link when available. Normal [facility] Comment on above: Order Comment: Speci men Type: BLOOD SPECIMENOrdering Facility: [facility] Address: [address] [place] [address] Performed By: #### M ISC1 ####NON-INTERFACED REF LABSCLIA SEE SCANNED RESULTS CNOVon 10-16-2023 CNOV Office Visit (RADTSA ) ----- 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 ([id number]) 1970 M Date Time Provider Department 10/16/23 9:00 AM Lauren PARIS During your visit today, we recorded the following information about you: Temperature Pulse Respiration Blood pressure 96.9 degrees 86/minute 18/minute 112/72 Weight 160 kg Lauren Paris MD 10/16/2023 9:24 AM Signed Radiation Oncology - On Treatment Review (OTR) Note PATIENT NAME: Osiel Cartwright PATIENT DIAGNOSIS: Prostate adenocarcinoma, initial PSA 180.42, biopsy Bloomsburg score 3 + 4 = 7 (grade [...] Encounter Status:Closed by Lauren PARIS on 10/16/23 [facility] CNOVon 10-10-2023 CNOV Office Visit (RADTSA ) ----- CHAYOSIEL Drake ([id number]) 1970 M Date Time Provider Department 10/10/23 9:00 AM Lauren PARIS RADTSA During your visit [...] Allergies) Date Reviewed: 10/10/2023 Reviewed by: Adrianne Weinstein, EMILY - Fully Assessed Primary Visit Diagnosis:Malignant neoplasm [...] Status:Closed by Lauren PARIS on 10/10/23 Normal [facility] Consultation Noteon 09-22-20 Consultation Note [id number]#1.00TIFF Normal [facility] CBC W Auto Differential pane l (Bld)on 09-19-2023 Basophils (Bld) [#/Vol] 0.05 10*3/uL Normal <0.11 [facility] Comment on above: Order Comment: Speci men Type: BLOOD SPECIMENOrdering Facility: [facility] Address: [address] [place] [address] Performed By: #### 5 7021-8 ####[facility] LABCLIA [id number] [place] [address] Basophils/100 WBC (Bld) 0.6 % Normal [facility] Comment on above: Order Comment: Speci men Type: BLOOD SPECIMENOrdering Facility: [facility] Address: [address] [place] [address] Performed By: #### 5 7021-8 ####[facility] LABCLIA [id number] [place] [address] Differential cell count method Nom (Bld) Auto Normal [facility] Comment on above: Order Comment: Speci men Type: BLOOD SPECIMENOrdering Facility: [facility] Address: [address] [place] [address] Performed By: #### 5 7021-8 ####[facility] LABCLIA [id number] [place] [address] Eosinophils (Bld) [#/Vol] 0.06 10*3/uL Normal <0.46 [facility] Comment on above: Order Comment: Speci men Type: BLOOD SPECIMENOrdering Facility: [facility] Address: [address] [place] [address] Performed By: #### 5 7021-8 ####[facility] LABCLIA [id number] [place] [address] Eosinophils/100 WBC (Bld) 0.7 % Normal [facility] Comment on above: Order Comment: Speci men Type: BLOOD SPECIMENOrdering Facility: [facility] Address: [address] [place] [address] Performed By: #### 5 7021-8 ####[facility] LABCLIA [id number] [place] [address] Erythrocyte distribution width (RBC) [Ratio] 16.2 % High 11.5-15.0 [facility] Comment on above: Order Comment: Speci men Type: BLOOD SPECIMENOrdering Facility: [facility] Address: [address] [place] [address] Performed By: #### 5 7021-8 ####[facility] LABCLIA [id number] [place] [address] Hematocrit (Bld) [Volume fraction] 40.3 % Normal 39.0-51.0 [facility] Comment on above: Order Comment: Speci men Type: BLOOD SPECIMENOrdering Facility: [facility] Address: [address] [place] [address] Performed By: #### 5 7021-8 ####[facility] LABCLIA [id number] [place] [address] Hemoglobin (Bld) [Mass/Vol] 13.0 g/dL Normal 13.0-17.0 [facility] Comment on above: Order Comment: Speci men Type: BLOOD SPECIMENOrdering Facility: [facility] Address: [address] [place] [address] Performed By: #### 5 7021-8 ####[facility] LABCLIA [id number] [place] [address] Immature granulocytes (Bld) [#/Vol] 0.05 10*3/uL Normal <0.10 [facility] Comment on above: Order Comment: Speci men Type: BLOOD SPECIMENOrdering Facility: [facility] Address: [address] [place] [address] Performed By: #### 5 7021-8 ####[facility] LABIA [id number] [place] [address] Immature granulocytes/100 WBC (Bld) 0.6 % Normal [facility] Comment on above: Order Comment: Speci men Type: BLOOD SPECIMENOrdering Facility: [facility] Address: [address] [place] [address] Performed By: #### 5 7021-8 ####[facility] LABCLIA [id number] [place] [address] Lymphocytes (Bld) [#/Vol] 1.45 10*3/uL Normal 1.00-4.00 [facility] Comment on above: Order Comment: Speci men Type: BLOOD SPECIMENOrdering Facility: [facility] Address: [address] [place] [address] Performed By: #### 5 7021-8 ####[facility] LABCLIA [id number] [place] [address] Lymphocytes/100 WBC (Bld) 17.3 % Normal [facility] Comment on above: Order Comment: Speci men Type: BLOOD SPECIMENOrdering Facility: [facility] Address: [address] [place] [address] Performed By: #### 5 7021-8 ####[facility] LABCLIA [id number] [place] [address] MCH (RBC) [Entitic mass] 26.4 pg Normal 26.0-34.0 [facility] Comment on above: Order Comment: Speci men Type: BLOOD SPECIMENOrdering Facility: [facility] Address: [address] [place] [address] Performed By: #### 5 7021-8 ####[facility] LABCLIA [id number] [place] [address] MCHC (RBC) [Mass/Vol] 32.3 g/dL Normal 30.5-36.0 [facility] Comment on above: Order Comment: Speci men Type: BLOOD SPECIMENOrdering Facility: [facility] Address: [address] [place] [address] Performed By: #### 5 7021-8 ####[facility] LABCLIA [id number] [place] [address] MCV (RBC) [Entitic vol] 81.9 fL Normal 80.0-100.0 [facility] Comment on above: Order Comment: Speci men Type: BLOOD SPECIMENOrdering Facility: [facility] Address: [address] [place] [address] Performed By: #### 5 7021-8 ####[facility] LABCLIA [id number] [place] [address] Monocytes (Bld) [#/Vol] 0.69 10*3/uL Normal <0.87 [facility] Comment on above: Order Comment: Speci men Type: BLOOD SPECIMENOrdering Facility: [facility] Address: [address] [place] [address] Performed By: #### 5 7021-8 ####[facility] LABCLIA [id number] [place] [address] Monocytes/100 WBC (Bld) 8.2 % Normal [facility] Comment on above: Order Comment: Speci men Type: BLOOD SPECIMENOrdering Facility: [facility] Address: [address] [place] [address] Performed By: #### 5 7021-8 ####[facility] LABCLIA [id number] [place] [address] Neutrophils (Bld) [#/Vol] 6.07 10*3/uL Normal 1.45-7.50 [facility] Comment on above: Order Comment: Speci men Type: BLOOD SPECIMENOrdering Facility: [facility] Address: [address] [place] [address] Performed By: #### 5 7021-8 ####[facility] LABCLIA [id number] [place] [address] Neutrophils/100 WBC (Bld) 72.6 % Normal [facility] Comment on above: Order Comment: Speci men Type: BLOOD SPECIMENOrdering Facility: [facility] Address: [address] [place] [address] Performed By: #### 5 7021-8 ####[facility] LABCLIA [id number] [place] [address] Nucleated RBC (Bld) [#/Vol] 10*3/uL Normal <0.01 [facility] Comment on above: Order Comment: Speci men Type: BLOOD SPECIMENOrdering Facility: [facility] Address: [address] [place] [address] Performed By: #### 5 7021-8 ####[facility] LABCLIA [id number] [place] [address] Nucleated RBC/100 WBC (Bld) [Ratio] 0.0 /100 WBC Normal [facility] Comment on above: Order Comment: Speci men Type: BLOOD SPECIMENOrdering Facility: [facility] Address: [address] [place] [address] Performed By: #### 5 7021-8 ####[facility] LABCLIA [id number] [place] [address] Platelet mean volume (Bld) [Entitic vol] 9.9 fL Normal 9.0-12.7 [facility] Comment on above: Order Comment: Speci men Type: BLOOD SPECIMENOrdering Facility: [facility] Address: [address] [place] [address] Performed By: #### 5 7021-8 ####[facility] LABCLIA [id number] [place] [address] Platelets (Bld) [#/Vol] 303 10*3/uL Normal 150-400 [facility] Comment on above: Order Comment: Speci men Type: BLOOD SPECIMENOrdering Facility: [facility] Address: [address] [place] [address] Performed By: #### 5 7021-8 ####[facility] LABCLIA [id number] [place] [address] RBC (Bld) [#/Vol] 4.92 10*6/uL Normal 4.20-6.00 [facility] Comment on above: Order Comment: Speci men Type: BLOOD SPECIMENOrdering Facility: [facility] Address: [address] [place] [address] Performed By: #### 5 7021-8 ####[facility] LABCLIA [id number] [place] [address] WBC (Bld) [#/Vol] 8.37 10*3/uL Normal 3.70-11.00 [facility] Comment on above: Order Comment: Speci men Type: BLOOD SPECIMENOrdering Facility: [facility] Address: [address] [place] [address] Performed By: #### 5 7021-8 ####[facility] LABCLIA [id number] [place] [address] CNOVon 09-19-2023 CNOV Office Visit (RADTSA ) ----- 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 ([id number]) 1970 M Date Time Provider Department 09/19/23 7:45 AM Lauren PARIS During your visit today, we recorded the following information about you: Allergies As of Date: 09/19/2023 (No Known Allergies) Date Reviewed: 09/12/2023 Reviewed by: Adrianne Weinstein, RN - Fully Assessed Reason for Visit: Simulation Request Form [9692] Primary Visit Diagnosis:Malignant neoplasm of prostate (HCC) [C61] Order(s):RADIATION TREATMENT PER RADIATION ONCOLOGIST PLAN [8980906] Order #: [id number]: 1 PT ED CANCER [9726464] Order #: [id number]: 1 CT SIM PLANNING RADIATION ONCOLOGY [7743542] Order #: [id number] Prescriptions as of 09/19/2023 - calcium carbonate/vitamin [...] Encounter Status:Closed by Lauren PARIS on 09/19/23 [facility] CNOVSPon 09-19-2023 CNOVS Visit (SP) Office (HEMASA) ----- CHAYOSIEL ([id number]) 1970 Date Time Provider Department 09/19/23 3:45 PM [...] vibration intact (more content not included)... Normal [facility] Comprehensive metabolic 2000 panelon 09-19-2023 Albumin [Mass/Vol] 4.3 g/dL Normal 3.9-4.9 [facility] Comment on above: Order Comment: Speci men Type: BLOOD SPECIMENOrdering Facility: [facility] Address: [address] [place] [address] Performed By: #### 2 4323-8 ####[facility] LABCLIA [id number] [place] [address] ALP [Catalytic activity/Vol] 116 U/L High 38-113 [facility] Comment on above: Order Comment: Speci men Type: BLOOD SPECIMENOrdering Facility: [facility] Address: [address] [place] [address] Performed By: #### 2 4323-8 ####[facility] LABCLIA [id number] [place] [address] ALT [Catalytic activity/Vol] 30 U/L Normal 10-54 [facility] Comment on above: Order Comment: Speci men Type: BLOOD SPECIMENOrdering Facility: [facility] Address: [address] [place] [address] Performed By: #### 2 4323-8 ####[facility] LABCLIA [id number] [place] [address] Anion gap [Moles/Vol] 10 mmol/L Normal 9-18 [facility] Comment on above: Order Comment: Speci men Type: BLOOD SPECIMENOrdering Facility: [facility] Address: [address] [place] [address] Performed By: #### 2 4323-8 ####[facility] LABCLIA [id number] [place] [address] AST [Catalytic activity/Vol] Normal [facility] Comment on above: Order Comment: Speci men Type: BLOOD SPECIMENOrdering Facility: [facility] Address: [address] [place] [address] Result Comment: Unab le to assay. Specimen significantly hemolyzed. Performed By: #### 2 4323-8 ####[facility] LABCLIA [id number] [place] [address] Bilirubin [Mass/Vol] 0.3 mg/dL Normal 0.2-1.3 [facility] Comment on above: Order Comment: Speci men Type: BLOOD SPECIMENOrdering Facility: [facility] Address: [address] [place] [address] Performed By: #### 2 4323-8 ####[facility] LABCLIA [id number] [place] [address] Calcium [Mass/Vol] 9.4 mg/dL Normal 8.5-10.2 [facility] Comment on above: Order Comment: Speci men Type: BLOOD SPECIMENOrdering Facility: [facility] Address: [address] [place] [address] Performed By: #### 2 4323-8 ####[facility] LABCLIA [id number] [place] [address] Chloride [Moles/Vol] 99 mmol/L Normal 97-105 [facility] Comment on above: Order Comment: Speci men Type: BLOOD SPECIMENOrdering Facility: [facility] Address: [address] [place] [address] Performed By: #### 2 4323-8 ####[facility] LABCLIA [id number] [place] [address] CO2 [Moles/Vol] 29 mmol/L Normal 22-30 [facility] Comment on above: Order Comment: Speci men Type: BLOOD SPECIMENOrdering Facility: [facility] Address: [address] [place] [address] Performed By: #### 2 4323-8 ####[facility] LABCLIA [id number] [place] [address] Creatinine [Mass/Vol] 1.03 mg/dL Normal 0.73-1.22 [facility] Comment on above: Order Comment: Speci men Type: BLOOD SPECIMENOrdering Facility: [facility] Address: [address] [place] [address] Performed By: #### 2 4323-8 ####[facility] LABCLIA [id number] [place] [address] Creatinine and Glomerular filtration rate.predicted panel (S/P/Bld) 88 mL/min/1.73m??? Normal >=60 [facility] Comment on above: Order Comment: Speci men Type: BLOOD SPECIMENOrdering Facility: [facility] Address: [address] [place] [address] Result Comment: Carmen mated Glomerular Filtration Rate [...] actual GFR. Performed By: #### 2 4323-8 ####[facility] LABCLIA [id number] [place] [address] Glucose [Mass/Vol] 104 mg/dL High 74-99 [facility] Comment on above: Order Comment: Speci men Type: BLOOD SPECIMENOrdering Facility: [facility] Address: [address] [place] [address] Result Comment: The [place] Diabetes Association (ADA) provides guidance for cutoff [...] Standards of Medical Care in Diabetes 2016, [employer] Diabetes [employer]. Diabetes Care. 2016.39(Suppl 1). Performed By: #### 2 4323-8 ####[facility] LABCLIA [id number] [place] [address] Potassium [Moles/Vol] 4.8 mmol/L Normal 3.7-5.1 [facility] Comment on above: Order Comment: Speci men Type: BLOOD SPECIMENOrdering Facility: [facility] Address: [address] [place] [address] Performed By: #### 2 4323-8 ####[facility] LABCLIA [id number] [place] [address] Protein [Mass/Vol] 7.2 g/dL Normal 6.3-8.0 [facility] Comment on above: Order Comment: Speci men Type: BLOOD SPECIMENOrdering Facility: [facility] Address: [address] [place] [address] Performed By: #### 2 4323-8 ####[facility] LABCLIA [id number] [place] [address] Sodium [Moles/Vol] 138 mmol/L Normal 136-144 [facility] Comment on above: Order Comment: Speci men Type: BLOOD SPECIMENOrdering Facility: [facility] Address: [address] [place] [address] Performed By: #### 2 4323-8 ####[facility] LABCLIA [id number] [place] [address] Urea nitrogen [Mass/Vol] 23 mg/dL Normal 9-24 [facility] Comment on above: Order Comment: Speci men Type: BLOOD SPECIMENOrdering Facility: [facility] Address: [address] [place] [address] Performed By: #### 2 4323-8 ####[facility] LABCLIA [id number] [place] [address] [facility] Prostate specific Ag [Mass/Vol] 6.08 ng/mL High <2.60 [facility] Comment on above: Order Comment: Speci men Type: BLOOD SPECIMENOrdering Facility: [facility] Address: [address] [place] [address] Result Comment: Tota l PSA test methodology [...] Mason M.D., Ph.D., Andre Espinoza M.D., Mary Blas M.P.H., Amelia Lassiter Sc.D. Effect of Verification Bias on Screening for Prostate Cancer by Measurement of Prostatic Specific Antigen. N Engl J Med 2003,349:335-42. Performed By: #### 2 857-1 ####[facility] LABIA [id number] [address] [facility] Consultation Noteon 09-15-20 23 Consultation Note [id number]#1.00TIFF Normal [facility] CNCOon 09-12-2023 CNCO Letter Text Normal [facility] CNOVon 09-12-2023 CNOV Office Visit (RADTSA ) ----- SUKHWINDEROSIEL MICHELE ([id number]) 1970 M Date Time Provider Department 09/12/23 9:00 AM Lauren PARIS During your visit today, we recorded the following information about you: Temperature Pulse Respiration Blood pressure 97.6 degrees 57/minute 18/minute 121/81 Weight 153.8 kg Lauren Paris MD 09/12/2023 11:10 AM Signed Radiation Oncology - Prostate Cancer New Patient/Consult Note PATIENT NAME: Osiel Cartwright PATIENT DIAGNOSIS: Prostate adenocarcinoma, initial PSA 180.42, biopsy [place] score 3 + 4 = 7 (grade [...] ASSESSMENT/PLAN: Prostate adenocarcinoma, initial PSA 180.42, biopsy Bloomsburg score 3 + 4 = 7 (grade group 2), clinical stage T2c, N0, M0, stage IIIA [T1-T2, N0, M0, PSA >=20, GG 1-4] (AJCC 8th ed.), s/p TRUS Random biopsy. Prostate cancer (C61), 2019 NCCN Risk Group: Very high risk group Clinical State: Localized Cancer - New Diagnosis Discussed again (more content not included)... [facility] [place] 09-05-2023 [facility] Telephone (JENNY) ----- 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 ([id number]) 1970 M Date Time Provider Department 09/05/23 [...] Encounter Status:Closed by TRISHA NIEVES on [facility]05/[facility] Telephone (HE[place]) ----- 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 ([id number]) 1970 M Date Time Provider Department 08/28/23 TRISHA NIEVES [place] During your visit today, we recorded the following information about you: Trisha Nieves RN 08/28/2023 9:23 AM Signed Patient started/will start taking Abiraterone AND Prednisone on 08/29/23. Trisha Nieves RN Allergies As of Date: 08/28/2023 (No Known Allergies) Date Reviewed: 08/28/2023 Reviewed by: Trisha Nieves RN - Fully Assessed Reason for Visit: Care Coordination [3491] Cmt: Abiraterone/Prednisone Start Date Prescriptions as of [...] Encounter Status:Closed by TRISHA NIEVES on 08/28/23 [facility] Consultation Noteon 08-25-20 Consultation Note [id number]#1.00TIFF [facility] 08-23-2023 Screens [id number]#1.00TIFF [facility] Ambulatory Visit Summaryon 1 10-22-2022 Ambulatory Visit Summary 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 :1970 Visit Date:08/22/2023 Ambulatory Visit Instructions Your Diagnosis Prostate cancer Your Care Team Attending Physician - TOÑO [...] STANTON, Yaneli Friedman Where: [facility] 08-22-2023 CNPN Telephone ([facility]) ----- CHAYOSIEL Drake ([id number]) 1970 M Date Time Provider Department 08/22/23 SISSY SHARP [facility] During your visit today, we recorded the following information about you: Sissy Sharp [facility] 08/22/2023 10:29 AM Signed Abiraterone to be filled through [employer] ([facility]) per insurance. Rx pended - Unaware of cost at this time since filling at another pharmacy. If assistance is required, patient will be instructed how to apply, etc. by [employer]. Patient notified of this plan. Chemo [...] Encounter Status:Closed by SISSY SHARP on 08/22/23 [facility] Telephone ([facility]) ----- 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 ([id number]) 1970 M Date Time Provider Department 08/22/23 SISSY SHARP MARIFER During your visit today, we recorded the following information about you: Allergies As of Date: 08/22/2023 (No Known Allergies) Date Reviewed: 08/21/2023 Reviewed by: Alba Issa MA - Fully Assessed Reason for Visit: Medication Update [8007] Prescriptions as of 02/27/2024 - abiraterone 250 mg tablet TAKE 4 [...] Problem List As Of Date: 08/22/2023 (None) Prescriptions ordered this encounter Disp Refills Start End ABIRATERONE 250 MG TABLET 120 * 3 08/22/2023 11/30/2023 Route: ORAL Sig: Take 4 tablets by mouth once daily. Medications Discontinued During This Encounter Prescriptions - abiraterone 250 mg tablet (Discontinued) Take 4 tablets by mouth once daily. Encounter Status:Closed by SISSY SHARP on 02/27/24 [facility] Patient Educationon 08-22-20 23 Patient Education Oncology Prostate Cancer The [...] likelihood that the cancer will spread. ? J-Oann 6 or lower: This indicates that the [...] external be (more content not included)... Normal [facility] Provider Letteron 08-22-2023 Provider Letter (Inserted Image. Sandhya ble to display) August 22, 2023 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 [address] [place] [id number] : 1970 To Whom It May Concern, Please excuse above patient from work. Date of Illness: From: 08/22/23 To: 08/22/23 May Return to Work On: 08/22/23 Restrictions: None Comments: Patient had an appointment with Dr. Lundberg today 08/22/23 Sincerely, [facility] Urology Office/Clinic Noteon 08-22-2023 Urology Office/Clinic [...] cc. NM bone scan whole body 08/04/23 [facility] - Abnormal focus of radiotracer uptake in [...] and Testosterone. Follow-up With When Contact Information TOÑO STANTON, DARIEL Jose In 6 months [facility] [address], [place] [address]- Additional Instructions: w/PSA, Testosterone, and Lurpon Patient Education Prostate Cancer I, Mare Toussaint , personally scribed for Dr. Lundberg on 08/22/2023 09:40:52. . Portions of this record may have been created with voice recognition artificial intelligence software, specifically [employer], [employer] and or [employer]. Substitutions may have occurred due to the inherent limitations of voice recognition and artificial intelligence software. Documentation recorded by the scribe, Mare Toussaint, accurately reflects the services(s) I performed and decisions made by me. Problem List/Past Medical History Ongoing Anemia Anemia due to GI blood loss BMI 45.0-49.9, adult E (more content not included)... Normal [facility] Comment on above: Result Comment: Elec tronically Signed By: Yaneli LUNDBERG MD\.br\Date and Time Signed: 08/22/23 09:42 EST\.br\Electronically Co-Signed By: Mare Toussaint\.br\Date and Time Co-Signed: 08/22/23 09:41 EST CNOVSPon 08-21-2023 CNOVSP Visit (SP) Office ([place]) ----- 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 ([id number]) 1970 M Date Time Provider Department 08/21/23 4:00 PM JAVI SINGER During your visit today, we recorded the following information about you: Temperature Pulse Respiration Blood pressure 97.8 degrees 64/minute 18/minute 154/90 Weight Height 153.4 kg 1.829 m Javi Singer MD 08/23/2023 7:13 AM Signed PATIENT NAME: Osiel Prettysegundo DATE: 08/21/2023 PRIMARY CARE PHYSICIAN: Carolann Shirley [...] 12 of 12 cores involved with adenocarcinoma, Bloomsburg 7. 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 MEDICATIONS: Current Outpatient Medications Medication Sig bicalutamide [...] respiratory eff (more content not included)... [facility] Consultation Noteon 08-18-20 Consultation Note [id number]#1.00TIFF [facility] Outside Colonoscopyon 2022 Outside Colonoscopy [id number]#1.00TIFF Normal [facility] Reminderson 08-17-2023 Reminders - From: Britt Acosta LPN To: N - Clinical; Sent: 08/17/2023 09:51:58 EST Show up: 07/16/2033 07:00:00 EDT Subject: colonoscopy recall Due Date/Time: 08/16/2033 07:00:00 EST Reminder/Recall Patient due for screening colonoscopy 08/16/2033. 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] with prostate adenocarcinoma, initial PSA 180.42, biopsy Bloomsburg score 3 + 4 = 7 (grade [...] cm? gland. All 12 cores involved with Bloomsburg 7 (3+4) adenocarcinoma. Perineural invasion described. Cribriform [...] No bon (more content not included)... Normal [facility] PET/CT PROSTATE WBon 11-0 NC PET/CT PROSTATE WB * * *Final Report* * * DATE OF EXAM: Aug 09 2023 3:28PM NRN 0093 - NC PET/CT PROSTATE WB / PROCEDURE REASON: Prostate Cancer * * * * Physician Interpretation * * * * RESULT: [id number] WHOLE BODY PET/CT SCAN HISTORY: 52-year-old man prostate cancer OTHER COMPARISON: Bone scan 08/04/2023 TECHNIQUE: 10.8 mCi of [id number]. The PET imaging was obtained between TOP [...] any questions regarding this interpretation, please call [phone]. If you are unable to reach us at the number above, please feel free to contact [facility] at [phone]. [id number] [facility] Patient Educationon 08-09-20 Patient Education Oncology Brachytherapy [...] including vitamins, herbs, eye drops, creams, and tnnb-poy-kgstucw medicines. ? Any problems you or family [...] tells you to take them. ? Taking grxh-uum-gymscjk medicines, vitamins, herbs, and supplements. ? Follow [...] anest (more content not included)... [facility] Urology Office/Clinic Noteon 08-09-2023 Urology Office/Clinic Note [...] cc. NM bone scan whole body 08/04/23 [facility] - Abnormal focus of radiotracer uptake in the anterior costochondral margin of right sixth rib; fracture vs neoplastic activity. UA today negative for blood and infection. IPSS 2.5. Started Casodex 50 mg qd at prior encounter. PSMA PET scan was originally denied by insurance, was finally approved. Getting done this afternoon. Reviewed bone scan with pt, explained abnormal activity may be sales development representative of metastatic prostate ca. Pt is [...] [facility] [address], [place] [address]- Additional Instructions: 2 wks for possible first [...] History Acute my (more content not included)... Normal [facility] Comment on above: Result Comment: Elec tronically Signed By: Yaneli LUNDBERG MD\.br\Date and Time Signed: 08/09/23 08:46 EDT\.br\Electronically Co-Signed By: Erin Pitt.br\Date and Time Co-Signed: 08/09/23 08:43 EDT Pre-Certification Formon Pre-Certification Form [id number]#1.00TIFF [facility] RAD - Pet Scan Reporton 07-11 RAD - Pet Scan Report [id number]#1.00TIFF [facility] C[facility] (NCCAP) ----- CHAYOSIEL ([id number]) 1970 M Date Time Provider Department 08/01/23 Lauren PARIS During your visit today, we recorded the following information about you: Owen Houser 08/01/2023 2:50 PM Signed This form is used for MAIN CAMPUS APPOINTMENTS ONLY. Is this request for a Main [place] PET scan appointment? 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 Other Contact: [facility] PLEASE ROUTE TO [place] MARTINEZ IN [place] Requesting Staff Dr lundberg Area Code + Phone/Pager: [phone] PET Orders (A delay in scheduling will result if the orders are not present at time of review): External. Has the External Clinical Order been scanned into [employer]? Yes ADDITIONAL ACTION MAY BE REQUIRED IF [...] Authorization date range: PSMA Primary Insurance: Luca [id number] Diagnosis: Prostate cancer C61 DX Imaging: N/A Pathology: 07-12-23 Adenocarcinoma Jo-Ann Score 7 3+4 Labs: 06-02-23 PSA 168.74 07-07-23 PSA 180.42 Clinical Notes Reviewed: 07-24-23 Urology Date of last: Plan to start Casodex and Lupron Additional Information: N/A Radiologist Reviewed: N/A Initial/Subsequent: Initial Treatment Strategy: 0093 PET Protocol: PSMA Diagnostic Imaging Requested: No Is this a Pretreatment and/or an initial Pet scan: No - Schedule as requested Comments for [place]: Frandy ROUTE TO SCHEDULERS COACHELLA P PET INDUSTRIAL REFRIGERATION MECHANIC or P NM SPECIAL STUDIES Alba Hwang RN 08/01/2023 4:14 PM Signed PET/Ct Prostate scan CPT 63851 with PSMA A9595 DX C61 approved by ordering physician auth [id number] from 07-24-23 to 08-22-23 1 dos Auth letter scanned into [employer] Allergies As of Date: 08/01/2023 (Not on File) Date Reviewed: Never Reviewed Reason for Visit: Nm Pet Request [3598] Problem List As Of Date: 08/01/2023 (None) Encounter Status:Closed by OWEN HOUSER on 08/02/23 [facility] Insurance Correspondenceon 1 Insurance Correspondence [id number]#1.00TIFF Normal [facility] Insurance Correspondenceon 1 Insurance Correspondence [id number]#1.00TIFF Normal [facility] Insurance Correspondence [id number]#1.00TIFF Normal [facility] Pre-Certification Formon Pre-Certification Form [id number]#1.00TIFF [facility] Ambulatory Visit Summaryon 1 Ambulatory Visit Summary 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 :1970 Visit Date:07/24/2023 Ambulatory Visit Instructions Your Diagnosis Prostate cancer Tests Performed Urnls Dip Stick Auto w/o Microscopy POC 48504 Bone Scan Whole Body -- Results Pending -- PET w/ CT Whole Body -- Results Pending -- Please visit your patient portal for your results or contact your primary care physician. Your Care Team Attending Physician - TOÑO [...] Following Appointments Follow Up with TOÑO STANTON, DARIEL Jose When: In 2 weeks Comments: w/PSMA PET Scan and Bone Scan Where: [facility] [address], [place] [address]- Medications What When Instructions Unchanged colchicine (colchicine 0.6 mg Tab) Contact prescribing physician if questions or concerns Unchanged diclofenac (diclofenac sodium 75 mg Oral EC Tab) Contact prescribing physician if questions or concerns Unchanged lisinopril (lisinopril 10 mg Tab) Contact prescribing physician if questions or concerns Test Results Urnls Dip Stick Auto w/o Microscopy POC 02732 (07/24/2023) Bilirubin Urine Dipstick - Negative Blood Urine Dipstick - 2+ Moderate Glucose Urine Dipstick - Negative Ketones Urine Dipstick - Negative Leukocytes Urine Dipstick - Negative Nitrite Urine Dipstick - Negative Protein Urine Dipstick - Negative Specific [place] Urine Dipstick - 1.025 Urine Appearance Urine [...] not sp (more content not included)... Normal [facility] Insurance Correspondenceon 1 Insurance Correspondence [id number]#1.00TIFF Normal [facility] Patient Educationon 07-24-20 23 Patient Education Oncology [...] likelihood that the cancer will spread. ? Bloomsburg 6 or lower: This indicates that the cancer cells look similar to normal prostate cells (well differentiated). ? Bloomsburg 7: This indicates that the cancer cells [...] external be (more content not included)... Normal [facility] Urology Office/Clinic Noteon 10-16-2023 Urology Office/Clinic Note Chief Complaint elevated PSA, [...] Follow-up With When Contact Information TOÑO STANTON, DARIEL Jose In 2 weeks [facility] [address], [place] [address]- Additional Instructions: w/PSMA PET Scan and Bone [...] (07/24/23 11:57:00) Leukocy (more content not included)... [facility] Comment on above: Result Comment: Elec tronically Signed By: TOÑO STANTON, Yaneli Friedman\.br\Date and Time Signed: 07/24/23 12:59 EDT\.br\Electronically Co-Signed By: Mare Toussaint\.br\Date and Time Co-Signed: 07/24/23 12:55 EDT Consent for Procedure/Surger yon 07-20-2023 Consent for Procedure/Surgery [id number]#1.00TIF [facility] [id number]#1.00TIFF [facility] Ambulatory Visit Summaryon 1 Ambulatory Visit [...] Follow-Up Appointments Monday 11:45 AM EDT With: Yaneli LUNDBERG MD Where: [facility] [place] [facility] Prostate Histology ([facility]4 Labs) on 07-19-2023 Prostate Histology Diagnosis Info Invalid Interpretation Code [facility] Comment on above: Result Comment: A:Pr ostate,Left Lateral Base:Needle Biopsy Interpretation - - Acinar adenocarcinoma of prostate; Jo-Ann score 7(3+4); Tumor measures 1.2 cm in length; 85% of the core involved by tumor; 1 of 1 core involved; Perineural invasion identified. MicroScopic Description - B:Prostate,Left Lateral Mid:Needle Biopsy Interpretation - - Acinar adenocarcinoma of prostate; Bloomsburg score 7(3+4); Tumor measures 1.43 cm in length; 89% of the core involved by tumor; 1 of 1 core involved. MicroScopic Description - C:Prostate,Left Lateral Cuttyhunk:Needle Biopsy Interpretation - - Acinar adenocarcinoma of prostate; Bloomsburg score 7(3+4); Tumor measures 0.5 cm in length; 35% of the core involved by tumor; 1 of 2 cores involved. MicroScopic Description - D:Prostate,Left Base:Needle Biopsy Interpretation - - Acinar adenocarcinoma of prostate; Jo-Ann score 7(3+4); Tumor measures 1.46 cm in length; 97% of the core involved by tumor; 1 of 1 core involved. MicroScopic Description - E:Prostate,Left Mid:Needle Biopsy Interpretation - - Acinar adenocarcinoma of prostate; Jo-Ann score 7(3+4); Tumor measures 1 cm in length; 66% of the core involved by tumor; 1 of 1 core involved. MicroScopic Description - F:Prostate,Left Cuttyhunk:Needle Biopsy Interpretation - - Acinar adenocarcinoma of prostate; Jo-Ann score 7(3+4); Tumor measures 0.66 cm in [...] of prostate; Jo-Ann score 7(3+4); Tumor measures 1 cm in length; 58% of the core involved by tumor; 1 of 1 core involved. MicroScopic Description - I:Prostate,Right Cuttyhunk:Needle Biopsy Interpretation - - Acinar adenocarcinoma of prostate; Jo-Ann score 7(3+4); Tumor measures 0.85 cm in [...] core involved. MicroScopic Description - L:Prostate,Right Lateral Cuttyhunk:Needle Biopsy Interpretation - - Acinar adenocarcinoma of prostate; Bloomsburg score 7(3+4); Tumor measures 0.8 cm in [...] and the World Health Organization (WHO). CPT 54796 x 12 Electronically signed by : on: 07/19/2023 11:44:55 Performed By: #### 1 [id number] ####[facility] [address] [place] [address] RAD - Ultrasound Reporton RAD - Ultrasound Report [id number]#1.00TIFF Normal [facility] Lab Reportson 07-14-2023 Lab Reports [id number]#1.00TIFF Normal [facility] Consent for Procedure/Surger yon 07-13-2023 Consent for Procedure/Surgery [id number]#1.00CD:12 7 Normal [facility] Ambulatory Visit Summaryon 1 Ambulatory Visit Summary [...] With: Azeem DANIELS MD Where: [facility] [place] [facility] [address] [place] [address] [place] [address]- \.br\ You Need to Schedule the Following Appointments\.br\ Follow Up with Yaneli LUNDBERG MD, URL When: \.br\ Comments:\.br\ f/u scheduled 07/24/23 to review path\.br\ Where:\.br\ [facility] [address] [place]\.br\ [place] [address]-\.br\ [id number]\.br\ Medications\.br\ What How Much When Instructions\.br\ Unchanged [...] your rectum, especially while sitting.\.br\ ? \.br\ Randall-colored urine due to small amounts of blood in your urine.\.br\ ? \.br\ A burning feeling while urinating.\.br\ ? \.br\ Blood in your stool (feces) or bleeding from your rectum.\.br\ ? \.br\ Blood in your semen.\.br\ Follow these instructions at home:\.br\ Medicines\.br\ ? \.br\ Take ijxg-eda-kceytqz and prescription medicines only as told by [...] provider.\.br\ Document Revised: 03/21/2022 Document Reviewed: 03/21/2022 [employer] Patient Education ? 2022 [employer].\.br\ \.br\ [facility] Formson 07-12-2023 Forms [id number]#1.00CD:12 7 Normal [facility] Lab Reportson 07-12-2023 Lab Reports [id number]#1.00CD:12 7 Normal [facility] Patient Educationon 07-12-20 Patient Education Oncology Transrectal [...] near your rectum, especially while sitting. ? Randall-colored urine due to small amounts of blood in your urine. ? A burning feeling while urinating. ? Blood in your stool (feces) or bleeding from your rectum. ? Blood in your semen. Follow these instructions at home: Medicines ? Take dyiy-ogb-gwtjrvr and prescription medicines only as told by [...] provider. Document Revised: 03/21/2022 Document Reviewed: 03/21/2022 [employer] Patient Education ? 2022 [employer] Normal [facility] Physician Referralon 023 Physician Referral [id number]#1.00CD:12 7 Normal [facility] Physician Referral [id number]#1.00CD:1 27 Normal [facility] Prostate Histology ( Labs) on 07-12-2023 PH Method of Extraction Needle Biopsy Normal [facility] Comment on above: Performed By: #### 1 [id number] ####[facility] [address] [place] [address] PH Number of Jars 2 Invalid Interpretation Code [facility] Comment on above: Performed By: #### 1 [id number] ####[facility] [address] [place] [address] PH Specimen 1 R Base Prostate Normal [facility] Comment on above: Performed By: #### 1 [id number] ####[facility] [address] [place] [address] PH Specimen 10 L Lat Mid Prost Normal [facility] Comment on above: Performed By: #### 1 [id number] ####[facility] [address] [place] [address] PH Specimen 11 L Apx Prostate Normal [facility] Comment on above: Performed By: #### 1 [id number] ####[facility] [address] [place] [address] PH Specimen 12 L Lat Apx Prost Normal [facility] Comment on above: Performed By: #### 1 [id number] ####[facility] [address] [place] [address] PH Specimen 2 R Lat Bse Prost Normal [facility] Comment on above: Performed By: #### 1 [id number] ####[facility] [address] [place] [address] PH Specimen 3 R Mid Prostate Normal [facility] Comment on above: Performed By: #### 1 [id number] ####[facility] [address] [place] [address] PH Specimen 4 R Lat Mid Prost Normal [facility] Comment on above: Performed By: #### 1 [id number] ####[facility] [address] [place] [address] PH Specimen 5 R Apx Prostate Normal [facility] Comment on above: Performed By: #### 1 [id number] ####[facility] [address] [place] [address] PH Specimen 6 R Lat Apx Prost Normal [facility] Comment on above: Performed By: #### 1 [id number] ####[facility] [address] [place] [address] PH Specimen 7 L Base Prostate Normal [facility] Comment on above: Performed By: #### 1 [id number] ####[facility] [address] [place] [address] PH Specimen 8 L Lat Bse Prost Normal [facility] Comment on above: Performed By: #### 1 [id number] ####[facility] [address] [place] [address] PH Specimen 9 L Mid Prostate Normal [facility] Comment on above: Performed By: #### 1 [id number] ####[facility] [address] [place] [address] PH Type of Service Technical Only Normal [facility] Comment on above: Performed By: #### 1 [id number] ####[facility] [address] [place] [address] Screenson 07-12-2023 Screens [id number]:1 27 Normal [facility] Urology Office/Clinic Noteon 07-12-2023 Urology Office/Clinic Note [...] [facility] [address], [place] [phone] Additional Instructions: f/u scheduled 07/24/23 to review path Patient Education Transrectal Ultrasound-Guided Prostate Biopsy, Care After ICecily, personally scribed for Dr. Lundberg on 07/12/2023 13:35:24. . Documentation recorded by the scribeCecily, accurately reflects the services(s) I performed and [...] type 2: Father. Rheumatoid arthritis: Mother. 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 :1970 Visit Date:07/07/2023 Ambulatory Visit Instructions Your [...] With: Azeem DANIELS MD Where: General Surgery Frances/Abdulkadir Rojas [facility] [address] [place] [address] [place] [address]- \.br\ You Need to Schedule the Following Appointments\.br\ Follow Up with Yaneli LUNDBERG MD R, URL When: \.br\ Comments:\.br\ Sched TRUS/bx of prostate\.br\ Where:\.br\ [facility] [address]\.br\ [place] [address]-\.br\ Medications\.br\ What How Much When Instructions\.br\ New ciprofloxacin (Cipro 500 mg Tab) 1 Tablets By Mouth 2 times a day Duration: 7 Days Pickup at [facility]\.br\ Unchanged colchicine (colchicine 0.6 mg Tab) Contact prescribing physician if questions or concerns \.br\ Unchanged diclofenac (diclofenac sodium 75 mg Oral EC Tab) Contact prescribing physician if questions or concerns \.br\ Unchanged lisinopril (lisinopril 10 mg Tab) Contact prescribing physician if questions or concerns \.br\ Pharmacy Information\.br\ [facility]: [address] [place] [id number] [phone]\.br\ Allergies\.br\ No Known Allergies\.br\ No Known Medication [...] to find more information\.br\ ? \.br\ The [employer]: www.cancer.org\.b r\ ? \.br\ [employer]: www.auanet.org\.b r\ Contact a health [...] provider.\.br\ Document Revised: 03/21/2022 Document Reviewed: 03/21/2022 [employer] Patient Education ? 2022 [facility] Patient Educationon 07-07-20 23 Patient Education Oncology [...] Where to find more information ? The [employer]: www.cancer.org ? [employer] Association: www.auanet.org Contact a health care [...] gland adds flu (more content not included)... [facility] 07-07[facility]2023 Provider Letter (Inserted Image. Sandhya ble to display) July 07, 2023 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 [address] [place] [id number] : 1970 To Whom It May Concern, Please excuse above patient from work. Date of Illness: From: 07/07/2023 To: 07/07/2023 May Return to Work On:07/07/23 Restrictions: None Comments: Patient had an appointment at [facility] on 07/07/2023. 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 Follow-up With When Contact Information Yaneli LUNDBERG MD, URL [facility] [address] [place] [address]- Additional Instructions: Sched TRUS/bx of prostate Patient Education Prostate Cancer Screening Jose G, Mare Toussaint , personally scribed for Dr. [...] Medications colchici (more content not included)... Normal [facility] Comment on above: Result Comment: Elec tronically Signed By: Yaneli LUNDBERG MD\.br\Date and Time Signed: 07/07/23 11:55 EDT\.br\Electronically Co-Signed By: Mare Toussaint\.br\Date and Time Co-Signed: 07/07/23 11:47 EDT\.br\Electronically Co-Signed By: Mare Toussaint\.br\Date and Time Co-Signed: 07/07/23 11:51 EDT Physician Referralon 023 Physician Referral [id number]:127 Normal [facility] Covid-19 PCR (CVDTB)on 10-09 SARS-CoV-2 (COVID-19) RNA ELVIS+probe Ql (Unsp spec) Not detected Normal NOT DETECTED [facility] Comment on above: Result Comment: This test is not yet approved or cleared by the [place] FDA. When there are no FDA-approved or cleared tests available, and other criteria are met, FDA can make tests available under an emergency access mechanism called an Emergency Use Authorization (EUA). The EUA for this test is supported by the [place] of Health and Human Service's (HHS's) declaration [...] consistent with SARS-CoV-2. Performed By: #### C VDTBH #### [facility] [address] [place] [address] Dr. Katja Mendoza Vital Signs Date Time Vital Sign Value Performing Clinician Facility 02-05-2024 08:50-0400 Body height 182.9 cm Javi Singer MD Work Phone: [facility] 02-05-2024 08:50-0400 Body mass index (BMI) [Ratio] 49.35 kg/m2 Javi Singer MD Work Phone: [facility] 02-05-2024 08:50-0400 Body temperature 97.7 [degF] Javi Singer MD Work Phone: [facility] 02-05-2024 08:50-0400 Body weight 165.1 kg Javi Singer MD Work Phone: [facility] 02-05-2024 08:50-0400 Diastolic blood pressure 90 mm[Hg] Javi Singer MD Work Phone: [facility] 02-05-2024 08:50-0400 Heart rate 80 /min Javi Singer MD Work Phone: [facility] 02-05-2024 08:50-0400 Respiratory rate 18 /min Javi Singer MD Work Phone: [facility] 02-05-2024 08:50-0400 SaO2% (BldA) [Mass fraction] 94 % Javi Singer MD Work Phone: [facility] 02-05-2024 08:50-0400 Systolic blood pressure 157 mm[Hg] Javi Singer MD Work Phone: [facility] 12-06-2023 08:57-0500 Body temperature 96.49 [degF] TUCKER Paris MD Work Phone: [facility] 12-06-2023 08:57-0500 Body weight 160.3 kg TUCKER Paris MD Work Phone: [facility] 12-06-2023 08:57-0500 Diastolic blood pressure 80 mm[Hg] TUCKER Paris MD Work Phone: [facility] 12-06-2023 08:57-0500 Heart rate 92 /min TUCKER Paris MD Work Phone: [facility] 12-06-2023 08:57-0500 Respiratory rate 20 /min TUCKER Paris MD Work Phone: [facility] 12-06-2023 08:57-0500 SaO2% (BldA) [Mass fraction] 98 % TUCKER Paris MD Work Phone: [facility] 12-06-2023 08:57-0500 Systolic blood pressure 123 mm[Hg] TUCKER Paris MD Work Phone: [facility] 11-14-2023 09:16-0500 Diastolic blood pressure 80 mm[Hg] Javi Singer MD Work Phone: [facility] 11-14-2023 09:16-0500 Systolic blood pressure 138 mm[Hg] Javi Singer MD Work Phone: [facility] 11-14-2023 09:12-0500 Body height 182.9 cm Javi Singer MD Work Phone: [facility] 11-14-2023 09:12-0500 Body temperature 97.5 [degF] Javi Singer MD Work Phone: [facility] 11-14-2023 09:12-0500 Body weight 161.1 kg Javi Singer MD Work Phone: [facility] 11-14-2023 09:12-0500 Heart rate 76 /min Javi Singer MD Work Phone: [facility] 11-14-2023 09:12-0500 Respiratory rate 18 /min Javi Singer MD Work Phone: [facility] 11-14-2023 09:12-0500 SaO2% (BldA) [Mass fraction] 99 % Javi Singer MD Work Phone: [facility] 09-12-2023 08:59-0500 Body temperature 97.59 [degF] TUCKER Paris MD Work Phone: [facility] 09-12-2023 08:59-0500 Body weight 153.77 kg TUCKER Paris MD Work Phone: [facility] 09-12-2023 08:59-0500 Diastolic blood pressure 81 mm[Hg] TUCKER Paris MD Work Phone: [facility] 09-12-2023 08:59-0500 Heart rate 57 /min TUCKER Paris MD Work Phone: [facility] 09-12-2023 08:59-0500 Respiratory rate 18 /min TUCKER Paris MD Work Phone: [facility] 09-12-2023 08:59-0500 SaO2% (BldA) [Mass fraction] 98 % TUCKER Paris MD Work Phone: [facility] 09-12-2023 08:59-0500 Systolic blood pressure 121 mm[Hg] TUCKER Paris MD Work Phone: [facility] 08-22-2023 08:42-0500 Blood Pressure Location Yaneli LUNDBERG [facility] 08-22-2023 08:42-0500 Diastolic blood pressure 84 mm[Hg] Yaneli LUNDBERG [facility] 08-22-2023 08:42-0500 Systolic blood pressure 132 mm[Hg] Yaneli LUNDBERG [facility] 08-21-2023 15:35-0500 Body height 182.9 cm Javi Singer MD Work Phone: [facility] 08-21-2023 15:35-0500 Body temperature 97.81 [degF] Javi Singer MD Work Phone: [facility] 08-21-2023 15:35-0500 Body weight 153.41 kg Javi Singer MD Work Phone: [facility] 08-21-2023 15:35-0500 Diastolic blood pressure 90 mm[Hg] Javi Singer MD Work Phone: [facility] 08-21-2023 15:35-0500 Heart rate 64 /min Javi Singer MD Work Phone: [facility] 08-21-2023 15:35-0500 Respiratory rate 18 /min Javi Singer MD Work Phone: [facility] 08-21-2023 15:35-0500 SaO2% (BldA) [Mass fraction] 99 % Javi Singer MD Work Phone: [facility] 08-21-2023 15:35-0500 Systolic blood pressure 154 mm[Hg] Javi Singer MD Work Phone: [facility] 08-09-2023 15:35-0400 Body height 182.9 cm TUCKER Paris MD Work Phone: [facility] 08-09-2023 15:35-0400 Body temperature 97.7 [degF] TUCKER Paris MD Work Phone: [facility] 08-09-2023 15:35-0400 Body weight 153.77 kg TUCKER Paris MD Work Phone: [facility] 08-09-2023 15:35-0400 Diastolic blood pressure 82 mm[Hg] TUCKER Paris MD Work Phone: [facility] 08-09-2023 15:35-0400 Heart rate 63 /min TUCKER Paris MD Work Phone: [facility] 08-09-2023 15:35-0400 Respiratory rate 18 /min TUCKER Paris MD Work Phone: [facility] 08-09-2023 15:35-0400 SaO2% (BldA) [Mass fraction] 98 % TUCKER Paris MD Work Phone: [facility] 08-09-2023 15:35-0400 Systolic blood pressure 144 mm[Hg] TUCKER Paris MD Work Phone: [facility] 08-09-2023 07:59-0400 Blood Pressure Location Yaneli LUNDBERG [facility] 08-09-2023 07:59-0400 Diastolic blood pressure 84 mm[Hg] Yaneli LUNDBERG [facility] 08-09-2023 07:59-0400 Systolic blood pressure 124 mm[Hg] Yaneli LUNDBERG [facility] 07-24-2023 11:50-0400 Blood Pressure Location Yanelimicah LUNDBERG [facility] 07-24-2023 11:50-0400 Diastolic blood pressure 86 mm[Hg] Yaneli LUNDBERG [facility] 07-24-2023 11:50-0400 Heart rate 68 /min Yanelimicah LUNDBERG [facility] 07-24-2023 11:50-0400 Respiratory rate 16 /min Yaneli LUNDBERG [facility] 07-24-2023 11:50-0400 Systolic blood pressure 132 mm[Hg] Yaneli LUNDBERG [facility] 07-19-2023 15:49-0400 Blood Pressure Location Azeem DANIELS [facility] 07-19-2023 15:49-0400 Diastolic blood pressure 94 mm[Hg] Azeem DANIELS [facility] 07-19-2023 15:49-0400 Heart rate 72 /min Azeem DANIELS [facility] [place] 10-11-2023 15:49-0400 Respiratory rate 16 /min Azeem ABRAHAMDrake [facility] [place] 07-19-2023 15:49-0400 Systolic blood pressure 138 mm[Hg] Azeem DANIELS [facility] [place] 07-12-2023 13:03-0400 Blood Pressure Location Yaneli LUNDBERG [facility] 07-12-2023 13:03-0400 Diastolic blood pressure 88 mm[Hg] Yaneli LUNDBERG [facility] 07-12-2023 13:03-0400 Heart rate 89 /min Yaneli LUNDBERG [facility] 07-12-2023 13:03-0400 Systolic blood pressure 140 mm[Hg] Yaneli LUNDBERG [facility] 07-07-2023 10:34-0400 Blood Pressure Location Yaneli LUNDBERG [facility] 07-07-2023 10:34-0400 Body temperature 98.24 [degF] Yaneli LUNDBERG [facility] 07-07-2023 10:34-0400 Diastolic blood pressure 84 mm[Hg] Yaneli LUNDBERG [facility] 07-07-2023 10:34-0400 Heart rate 78 /min Yaneli LUNDBERG [facility] 07-07-2023 10:34-0400 Systolic blood pressure 128 mm[Hg] Yaneli LUNDBERG [facility] Encounters Encounter Date Encounter Type Care Provider Facility Start: 08-07-2024 ambulatory Yaneli Tripp ty:[facility] [place] Start: 04-08-2024 Refill Javi Singer MD Work Phone: Hematology/Oncology Comment on above: Refill Request Start: 02-07-2024 End: 02-08-2024 ambulatory Yaneli LUNDBERG Facility:[facility] Start: 02-07-2024 End: 02-07-2024 Patient encounter procedure Yaneli Friedman LUNDBERG [facility] Start: 02-05-2024 End: 02-05-2024 ambulatory Javi Singer MD Work Phone: Hematology/Oncology Comment on above: Prostate cancer (HCC ) (Primary Dx) Start: 02-05-2024 End: 02-05-2024 Patient encounter procedure Javi Singer MD Work Phone: Hematology/Oncology Start: 12-06-2023 End: 12-06-2023 ambulatory Lauren PARIS Facility:[facility] Start: 12-06-2023 End: 12-06-2023 Patient encounter procedure Lauren Paris MD Work Phone: Radiation Oncology Comment on above: Malignant neoplasm o f prostate (HCC) (Primary Dx) Start: 11-30-2023 Refill Javi Singer MD Work Phone: Hematology/Oncology Comment on above: Refill Request Start: 11-16-2023 Patient encounter procedure Lauren Paris MD Work Phone: [facility] Start: 11-16-2023 Radiation Oncology Note G Cirilo Paris MD Work Phone: Radiation Oncology Comment on above: Completion Note Start: 11-16-2023 End: 11-16-2023 ambulatory Lauren PARIS Facility:[facility] Start: 11-15-2023 End: 11-15-2023 ambulatory Lauren PARIS Facility:[facility] Start: 11-14-2023 End: 11-14-2023 ambulatory Javi Sinegr MD Work Phone: Hematology/Oncology Comment on above: Prostate cancer (HCC ) (Primary Dx) Start: 11-14-2023 End: 11-14-2023 Patient encounter procedure Javi Singer MD Work Phone: [facility] Start: 11-13-2023 End: 11-13-2023 ambulatory G GAURAV ENGELER Facility:[facility] Start: 11-10-2023 End: 11-10-2023 ambulatory G GAURAV ENGELER Facility:[facility] Start: 11-09-2023 End: 11-09-2023 ambulatory G GAURAV ENGELER Facility:[facility] Start: 11-08-2023 End: 11-08-2023 ambulatory G GAURAV LUISAELER Facility:[facility] Start: 11-07-2023 End: 11-07-2023 ambulatory G GAURAV LUISAELER Facility:[facility] Start: 11-06-2023 End: 11-06-2023 ambulatory G GAURAV LUISAELER Facility:[facility] Start: 11-03-2023 End: 11-03-2023 ambulatory G GAURAV ENGELER Facility:[facility] Start: 11-02-2023 End: 11-02-2023 ambulatory G GAURAV LUISAELER Facility:[facility] Start: 11-01-2023 End: 11-01-2023 ambulatory G GAURAV ENGELER Facility:[facility] Start: 10-31-2023 End: 10-31-2023 ambulatory G GAURAV ENGELER Facility:[facility] Start: 10-30-2023 End: 10-30-2023 ambulatory G GAURAV ENGELER Facility:[facility] Start: 10-27-2023 End: 10-27-2023 ambulatory G GAURAV ENGELER Facility:[facility] Start: 10-26-2023 End: 10-26-2023 ambulatory G GAURAV ENGELER Facility:[facility] Start: 10-25-2023 End: 10-25-2023 ambulatory G GAURAV ENGELER Facility:[facility] Start: 10-24-2023 End: 10-24-2023 ambulatory G GAURAV ENGELER Facility:[facility] Start: 10-23-2023 End: 10-23-2023 ambulatory Lauren GAURAV LUISAJUAN Facility:[facility] Start: 10-20-2023 End: 10-20-2023 ambulatory Lauren GAURAV PARIS Facility:[facility] Start: 10-19-2023 End: 10-19-2023 ambulatory Lauren GAURAV PARIS Facility:[facility] Start: 10-18-2023 End: 10-18-2023 ambulatory JAVI SINGER Facility:[facility] Start: 10-17-2023 End: 10-17-2023 ambulatory Lauren GAURAV PARIS Facility:[facility] Start: 10-16-2023 End: 10-16-2023 ambulatory Lauren GAURAV PARIS Facility:[facility] Start: 10-13-2023 End: 10-13-2023 ambulatory Lauren GAURAV PARIS Facility:[facility] Start: 10-12-2023 End: 10-12-2023 ambulatory Lauren GAURAV PARIS Facility:[facility] Start: 10-11-2023 End: 10-11-2023 ambulatory Lauren GAURAV PARIS Facility:[facility] Start: 10-10-2023 End: 10-10-2023 ambulatory Lauren GAURAV PARIS Facility:[facility] Start: 09-19-2023 End: 09-19-2023 ambulatory JAVI SINGER Facility:[facility] Start: 09-19-2023 End: 09-19-2023 Patient encounter procedure Lauren Paris MD Work Phone: Radiation Oncology Comment on above: Malignant neoplasm o f prostate (HCC) (Primary Dx) Start: 09-19-2023 Radiation Oncology Note Lauren Paris MD Work Phone: Radiation Oncology Comment on above: Treatment Planning Start: 09-19-2023 End: 09-20-2023 ambulatory Lauren PARIS Facility:[facility] Start: 09-12-2023 End: 09-12-2023 ambulatory Adrianne Weinstein [...] Start Date) Start: 08-22-2023 Telephone encounter Sissy Jackson [facility] HB-3 Comment on above: Medication Update Start: 08-22-2023 End: 08-23-2023 ambulatory Yaneli LUNDBERG Facility: [facility] Start: 08-22-2023 End: 08-22-2023 Patient encounter procedure Yaneli LUNDBERG [facility] Start: 08-21-2023 End: 08-21-2023 ambulatory Javi Singer MD Work Phone: Hematology/Oncology Comment on above: Prostate cancer (HCC ) (Primary Dx) Start: 08-21-2023 End: 08-21-2023 Patient encounter procedure Javi Singer MD Work Phone: [facility] Start: 08-16-2023 End: 08-17-2023 ambulatory Azeem DANIELS Facility:[id number] Start: 08-15-2023 Patient encounter procedure [facility] Provider [facility] Department Start: 08-09-2023 End: 08-10-2023 ambulatory Lauren PARIS Facility:[facility] Start: 08-09-2023 End: 08-09-2023 ambulatory YANELI LUNDBERG Facility:[facility] Start: 08-09-2023 End: 08-09-2023 Patient encounter procedure Lauren Paris MD Work Phone: Radiation Oncology Comment on above: Malignant neoplasm o f prostate (HCC) (Primary Dx) Start: 08-09-2023 End: 08-10-2023 ambulatory Yaneli LUNDBERG Facility:[facility] Start: 08-09-2023 End: 08-09-2023 Patient encounter procedure Yaneli LUNDBERG [facility] Start: 07-24-2023 End: 07-25-2023 ambulatory Yaneli Elder LUNDBERG Facility:[facility] [place] Start: 07-24-2023 End: 07-24-2023 Patient encounter procedure [facility]eli Elder [facility]DBERG [facility] Start: 07-19-2023 End: 07-20-2023 ambulatory Azeem R NILL Facility: [place] Start: 07-19-2023 End: 07-19-2023 Patient encounter procedure Azeem R NILL [facility] Nill/[facility] [place] Start: 07-14-2023 ambulatory Yanelimicah LUNDBERG Facility : [place] Start: 07-12-2023 End: 07-13-2023 ambulatory Yaneli LUNDBERG Facility:[facility] Start: 07-12-2023 End: 07-13-2023 ambulatory Yaneli Elder LUNDBERG Facility:[facility] Start: 07-12-2023 End: 07-12-2023 Lab Drop off Yaneli LUNDBERG [facility] Start: 07-12-2023 End: 07-12-2023 Patient encounter procedure Yaneli R OTÑO [facility] Start: 07-11-2023 ambulatory Yaneli LUNDBERG Facility :[facility] [place] Start: 07-07-2023 End: 07-08-2023 ambulatory Yanelimicah LUNDBERG Facility:[facility] [place] Start: 07-07-2023 End: 07-07-2023 Patient encounter procedure [facility]eli LUNDBERG [facility] Start: 07-03-2023 ambulatory Yaneli LUNDBERG Facility :[facility] Start: 08-05-2022 End: 08-06-2022 ambulatory RUELEUSEBIO JAFFE Facility:[facility] Start: 10-19-2021 End: 10-19-2021 ambulatory RUEL JAFFE Facility: Procedures Date Procedure Procedure Detail Performing Clinician Start: 07-12-2023 Transrectal biopsy o f prostate using ultrasound guidance Yaneli LUNDBERG Repair of right ingu inal hernia Yaneli LUNDBERG Tonsillectomy Yaneli LUNDBERG Plan of Treatment Date Care Activity Detail Author Start: 02-04-2027 Diabetes Screening Diabetes Screenin g [facility] Start: 11-14-2026 Diabetes Screening Diabetes Screenin [facility] Start: 09-19-2026 Diabetes Screening Diabetes Screenin [facility] Start: 06-13-2024 End: 06-13-2024 Patient encounter procedure 06/13/2024 9:00 AM EDT Office Visit [facility] [address] [facility] [place] [address] Lauren Paris MD [address] [place] [address] 6 month rv Radiation Oncology Comment on above: 6 month rv Start: 06-09-2024 Influenza vaccination [facility] Start: 06-06-2024 End: 06-06-2024 Patient encounter procedure 06/06/2024 9:15 AM EDT Office Visit [facility] [address] [place] [address] lab [facility] Comment on above: lab Start: 06-05-2024 End: 09-04-2024 Prostate specific Ag [Mass/volume] in Serum or Plasma PSA/PROSTSPECAG DIAG Lab Routine Malignant neoplasm of prostate (HCC) Expected: 06/05/2024 (Approximate), Expires: 09/04/2024 [facility] Work Phone: Comment on above: Expected: 06/05/2024 (Approximate), Expires: 09/04/2024 Start: 05-06-2024 End: 05-06-2024 Follow-up encounter 05/06/2024 9:00 AM EDT Visit (SP) Office Hematology/Oncology [address] [place] [address] Javi Singer MD [address] [address] 3 month follow up lab / needs early am due to work Hematology/Oncology Comment on above: 3 month follow up la b / needs early am due to work Start: 05-06-2024 End: 05-06-2024 Patient encounter procedure 05/06/2024 8:45 AM EDT Office Visit [facility] [address] [place] [address] [place] [address] 3 month follow up lab / needs early am due to work [facility] Comment on above: 3 month follow up la b / needs early am due to work Start: 02-06-2024 End: 05-07-2024 CBC W Auto Differential panel - Blood CBC + DIFF Lab Routine Prostate cancer (HCC) Expected: 02/06/2024, Expires: 05/07/2024 [facility] Work Phone: Comment on above: Expected: 02/06/2024 , Expires: 05/07/2024 Start: 02-06-2024 End: 05-07-2024 Comprehensive metabolic 2000 panel - Serum or Plasma COMP METABOLIC PANEL Lab Routine Prostate cancer (HCC) Expected: 02/06/2024, Expires: 05/07/2024 [facility] Work Phone: Comment on above: Expected: 02/06/2024 , Expires: 05/07/2024 Start: 02-06-2024 End: 05-07-2024 Prostate specific Ag [Mass/volume] in Serum or Plasma PSA/PROSTSPECAG DIAG Lab Routine Prostate cancer (HCC) Expected: 02/06/2024, Expires: 05/07/2024 [facility] Work Phone: Comment on above: Expected: 02/06/2024 , Expires: 05/07/2024 Start: 02-06-2024 End: 05-07-2024 Testosterone [Mass/volume] in Serum or Plasma TESTOSTERONE TOTAL Lab Routine Prostate cancer (HCC) Expected: 02/06/2024, Expires: 05/07/2024 [facility] Work Phone: Comment on above: Expected: 02/06/2024 , Expires: 05/07/2024 Start: 10-09-2023 Behavioral Health Screening Behavioral Health Screening [facility] Start: 10-09-2023 [facility] Start: 06-09-2023 Covid-19 Vaccine () Covid-19 Vaccine () [facility] Start: 06-09-2023 Influenza vaccination Influenza Vacc ine (#1) [facility] Start: 10-09-2022 Depression Assessment Depression Ass essment [facility] Start: 12-13-2021 Shingrix Vaccine (1 of 2) Shingrix Vaccine (1 of 2) [facility] Start: 12-13-2016 Cologuard (FIT-DNA) Cologuard (FIT-D NA) [facility] Start: 12-13-2016 Colonoscopy Colonoscopy [facility] Start: 12-13-2016 Colorectal Cancer Screening Colorectal Cancer Screening [facility] Start: 12-13-[address] Colonography [facility] Start: 12-13-2016 Diabetes Screening Diabetes Screenin g [facility] Start: 12-13-2016 Fecal Occult Blood Fecal Occult Bloo d [facility] Start: 12-13-2016 Screening for malign ant neoplasm of colon [facility] Start: 12-13-2016 [facility] Start: 12-13-2006 Lipid 1996 panel - S gale or Plasma Lipid Screening [facility] Start: 12-13-2006 Lipid panel [facility] Start: 12-13-1990 Hepatitis B Vaccine (1 of 3 - 19+ 3-dose series) Hepatitis B Vaccine (1 of 3 - 19+ 3-dose series) [facility] Start: 12-13-1990 Urine microalbumin profile DTaP,Tdap,Td Vaccine (1 - Tdap) [facility] Start: 12-13-1989 Hepatitis C Screening Hepatitis C [facility] Start: 12-13-1989 Hepatitis C screening Hepatitis C [facility] Start: 12-13-1989 HIV Screening HIV Screening [facility] Start: 12-13-1989 HIV screening HIV Screening [facility] Start: 06-15-1972 Covid-19 Vaccine (#1) Covid-19 Vacci ne (#1) [facility] Start: 1970 Hepatitis B Vaccine (1 of 3 - 3-dose series) Hepatitis B Vaccine (1 of 3 - 3-dose series) [facility] CT SIM PLANNING RADIATION ONCOLOGY CT SIM PLANNING RADIATION ONCOLOGY Radiology Routine Malignant neoplasm of prostate (HCC) Ordered: 09/19/2023 [facility] Work Phone: Comment on above: Or[facility]: [facility]19/[facility]23 [facility] Immunizations Immunization Date Immunization Notes Care Provider Drew brown NEGATED: Highlighted row has not occurred!02-07-2024 influenza virus vaccine, unspecified formulation Yaneli TOÑO [facility] Payers Date Payer Category Payer Unknown [id number] 2022 Unknown LUCA OSORIO PPO [id number] 2022-Present [phone] [id number] [place] [address] PPO [id number] 1971 Unknown [id number] 1971 Unknown [id number] 1971 Unknown [id number] 1971 Unknown [id number] [id number] 1971 Unknown [id number] [id number] 1971 Unknown [id number] [id number] 1971 Unknown [id number] [id number]. 1971 Unknown [id number] [id number] 1971 Unknown [id number] [id number]. 1971 Unknown [id number] [id number] 1971 Unknown [id number] [id number]. 1971 Unknown [id number] 1959 Unknown [id number] 1959 Unknown [id number] Social History Date Type Detail Facility Start: 07-07-2023 End: 02-07-2024 Tobacco smoking status Never [facility] Start: 08-09-2023 End: 08-21-2023 Sex Assigned At Male [facility] Start: 07-19-2023 End: 08-16-2023 Tobacco smoking status Ex-smoker (finding) [facility] [place] End: 10-09-2012 History of tobacco use Current smoker [facility] End: 10-09-2012 History of tobacco use Cigarette Smoker [facility] Start: 08-09-2023 End: 08-21-2023 Cigarettes smoked current (pack per day) - Reported 0.5 [facility] Start: 08-09-2023 End: 08-16-2023 Tobacco use and exposure Smokeless tobacco non-user [facility] Start: 08-09-2023 End: 02-05-2024 Alcohol intake Current drinker of alcohol (finding) [facility] Start: 08-09-2023 Alcohol Comment socially [facility] Start: 1970 Sex Assigned At Not on file [facility] History of tobacco use Passive smoker [facility] Start: 1970 [facility] Start: 09-10-2023 Sexual orientation Heterosexual (fin megan) [facility] Functional Status Date Assessment Result Facility 08-22-2023 Functional Status N/A [facility] 08-09-2023 Functional Status N/A [facility] 07-24-2023 Functional Status N/A [facility] 07-19-2023 Functional Status N/A [facility] Functional Status N/A [facility] 07-07-2023 Functional Status N/A [facility] Clinical Notes 08-05-2022 to 02-07-2024 Javi Singer MD - 02/04/2024 11:30 AM Lauren Finn MD - 12/06/2023 9:15 AM Adrianne Becerra RN - 12/06/2023 8:57 AM Lauren Del Real MD - 11/16/2023 12:00 AM EST Note Date & Type Note Facility 02-07-2024 Hospital Discharge instructions Patient Education 02/07/2024 08:51:24 Hormone Suppression Therapy for Prostate Cancer Hormone [...] advanced cancer. Where to find more information French Cancer Society: www.cancer.org National Cancer [place]: www.cancer.gov Contact a health care provider if: [...] provider. Document Revised: 01/06/2022 Document Reviewed: 01/06/2022 [employer] Patient Education 2022 Te[employer]af. Follow Up Care 08/22/2023 09:45:47 With:TOÑO STANTONYaneli, URL Address: [facility] [address] [place] [address]- When: Unknown [facility] 02-04-2024 Note HNO ID: [id number] Author: JAVI SINGER MD Service: ? Author Type: Physician Type: Progress Notes Filed: 02/07/2024 06:13 Note Text: PATIENT NAME: Osiel Cartwright DATE: 02/05/2024 PRIMARY CARE PHYSICIAN: Carolann Shirley MD OTHER PHYSICIANS: Dr. Lundberg, Dr. Paris Portions of this encounter note have been copied from my note from 11/14/2023 and has been updated where appropriate, and reflect my current medical decision making from today. CC: This is a 53 year old male with prostate cancer, seen for scheduled follow-up. INTERIM HISTORY: Since the patient's last visit here he apparently barbecues nausea/vomiting and diarrhea on 01/07/2024 and was seen at the [place] emergency room. His symptoms resolved with IV fluids and antiemetics. Presumably he had food poisoning. Otherwise he has had no significant medical changes. He remains on abiraterone/prednisone and appears to be tolerating the medications well. No difficulties with urination. No unusual pain. Overall feels well at this time. MEDICATIONS: Current Outpatient Medications Medication Sig abiraterone 250 mg tablet TAKE 4 TABLETS [...] Types: Cigarettes Quit date: 2012 Years since quittin.3 Passive exposure: Past Smokeless tobacco: Never Substance [...] anxiety, depression, or other. PHYSICAL EXAM: BP 157/90 Pulse 80 Temp 36.5 ?C (97.7 ?F) (Temporal) Resp 18 Ht 182.9 cm (6' 0.01 ) Wt (!) 165.1 kg (363 lb 15.7 oz) SpO2 94% BMI 49.35 kg/m? GENERAL EXAM: Well developed/well nourished; in [...] extremities for inspection, percussion, and palpation. Negative fo (more content not included)... [facility] 02-04-2024 History of Present illness Narrative PATIENT NAME: Osiel Cartwright DATE: 02/05/2024 PRIMARY CARE PHYSICIAN: Carolann Shirley MD OTHER PHYSICIANS: Dr. Lundberg, Dr. Paris Portions of this encounter note have been copied from my note from 11/14/2023 and has been updated where appropriate, and reflect my current medical decision making from today. CC: This is a 53 year old male with prostate cancer, seen for scheduled follow-up. INTERIM HISTORY: Since the patient's last visit here he apparently barbecues nausea/vomiting and diarrhea on 01/07/2024 and was seen at the [place] emergency room. His symptoms resolved with IV fluids and antiemetics. Presumably he had food poisoning. Otherwise he has had no significant medical changes. He remains on abiraterone/prednisone and appears to be tolerating the medications well. No difficulties with urination. No unusual pain. Overall feels well at this time. MEDICATIONS: Current Outpatient Medications Medication Sig abiraterone 250 mg tablet TAKE 4 TABLETS [...] Types: Cigarettes Quit date: 2012 Years since quittin.3 Passive exposure: Past Smokeless tobacco: Never Substance [...] anxiety, depression, or other. PHYSICAL EXAM: BP 157/90 Pulse 80 Temp 36.5 C (97.7 F) (Temporal) Resp 18 Ht 182.9 cm (6' 0.01 ) Wt (!) 165.1 kg (363 lb 15.7 oz) SpO2 94% BMI 49.35 kg/m GENERAL EXAM: Well developed/well nourished; in [...] and atrophy. PATHOLOGY: 07/12/2023 TRUS Prostate biopsy ([facility]) Acinar adenocarcinoma prostate, Jo-Ann score 7 (3+4). Grade 4 pattern identified. 12 of 12 cores involved. LABS: Hemoglobin (g/dL) Date Value 02/05/2024 10.5 Hematocrit (%) Date Value 02/05/2024 33.5 WBC (k/uL) Date Value 02/05/2024 4.82 Platelet Count (k/uL) Date Value 02/05/2024 238 PSA 07/01/2023 168.7 07/07/2023 180.4 09/19/2023 6.08 11/14/2023 0.60 02/05/2024 0.13 RADIOLOGY/OTHER STUDIES: 08/09/2023 PSMA PET scan IMPRESSION: Head and neck: -No suspicious PSMA expressing neoplastic process. Chest: -No evidence of PSMA expressing neoplastic process Abdomens and Pelvis: -Avid uptake in the prostatic region suspicious for PSMA expressing neoplasm. Bones and soft tissues: - No evidence of PSMA expressing neoplastic process. Mild activity right anterior sixth rib likely trauma. 08/04/2023 Nuclear bone scan ([facility]) Abnormal focus of radiotracer uptake in the [...] 12 of 12 cores involved with adenocarcinoma, [place] 7. PSMA PET scan 08/09/2023 revealed uptake [...] patient received involved field radiation with EBRT 10/10/2023 through 11/16/2023. Currently stable and minimally symptomatic. At this time the patient will continue his current medications. He anticipates his next Lupron injection per Dr. Lundberg 02/07/2024. I will see him back in 3 months for follow-up and labs. 2. Hypertension Diagnosed age 51. Stable on current medications. Continue management per PCP. 3. History of intermittent gout Stable on current medications. Continue management per PCP. Javi Singer MD CC: Dr. Yaneli Lundberg, [facility] Urology documented in this encounter [facility] 12-06-2023 Note HNO ID: [id number] Author: Lauren PARIS MD Service: ? Author Type: Physician Type: Progress Notes Filed: 12/06/2023 09:16 Note Text: Radiation Oncology - Follow Up Note PATIENT NAME: Osiel Cartwright PATIENT DIAGNOSIS: Prostate adenocarcinoma, initial PSA 180.42, biopsy Bloomsburg score 3 + 4 = 7 (grade [...] ASSESSMENT/PLAN: Prostate adenocarcinoma, initial PSA 180.42, biopsy [place]burg score 3 + 4 = 7 (grade [...] Lauren Paris MD cc: Carolann Shirley [address] [place] [address] No referring provider defined for this encounter. [facility] 12-06-2023 History of Present illness Narrative Radiation Oncology - Follow Up Note PATIENT NAME: Osiel Cartwright PATIENT DIAGNOSIS: Prostate adenocarcinoma, initial PSA 180.42, biopsy [place] score 3 + 4 = 7 (grade [...] ASSESSMENT/PLAN: Prostate adenocarcinoma, initial PSA 180.42, biopsy [place] score 3 + 4 = 7 (grade [...] by: Lauren Paris MD cc: Carolann Shirley [address] [place] [address] No referring provider defined for this encounter. documented in this encounter [facility] 12-06-2023 Nurse Note AUA 9 Adrianne Weinstein, RN documented in this encounter [facility] 11-16-2023 Note HNO ID: [id number] Author: Lauren PARIS MD Service: ? Author Type: Physician Type: Progress Notes Filed: 11/29/2023 15:22 Note Text: [facility] Department RADIATION ONCOLOGY - COMPLETION NOTE PATIENT: [...] follow-up. Staff Physician Gaurav Paris M.D. / SULLY 43:22 PM Electronically Signed cc: Dr. Casper Singer [facility] 11-16-2023 History of Present illness Narrative [facility] Department RADIATION ONCOLOGY - COMPLETION NOTE PATIENT: 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: 1970 DATES OF TREATMENT: 10/10/2023 to 11/16/2023 DIAGNOSIS: Prostate adenocarcinoma, initial PSA 180.42, biopsy [place] score 3 + 4 = 7 (grade [...] follow-up. Staff Physician Gaurav Paris M.D. / SULLY 43:22 PM Electronically Signed cc: Dr. Casper Singer documented in this encounter [facility] 11-14-2023 Note HNO ID: [id number] Author: JAVI SINGER MD Service: ? Author [...] Negative for s (more content not included)... [facility] 11-14-2023 History of Present illness Narrative PATIENT [...] and atrophy. PATHOLOGY: 07/12/2023 TRUS Prostate biopsy ([facility]) Acinar adenocarcinoma prostate, [place] score 7 (3+4). Grade 4 pattern identified. [...] rib likely trauma. 08/04/2023 Nuclear bone scan ([facility]) Abnormal focus of radiotracer uptake in the [...] 12 cores involved with adenocarcinoma, Jo-Ann 7. PSMA PET scan 08/09/2023 revealed uptake [...] Javi Singer MD CC: Dr. Yaneli Lundberg, [facility] Urology documented in this encounter [facility] 11-13-2023 Note HNO ID: [id number] Author: Lauren PARIS MD Service: ? Author Type: Physician Type: Progress Notes Filed: 11/13/2023 09:26 Note Text: Radiation Oncology - On Treatment Review (OTR) Note PATIENT NAME: Osiel Cartwright PATIENT DIAGNOSIS: Prostate adenocarcinoma, initial PSA 180.42, biopsy Bloomsburg score 3 + 4 = 7 (grade [...] 4 weeks for follow-up. Lauren Paris MD [facility] 11-06-2023 Note HNO ID: [id number] Author: Lauren PARIS MD Service: ? Author Type: Physician Type: Progress Notes Filed: 11/06/2023 10:42 Note Text: Radiation Oncology - On Treatment Review (OTR) Note PATIENT NAME: Osiel Cartwright PATIENT DIAGNOSIS: Prostate adenocarcinoma, initial PSA 180.42, biopsy Blo[place]burg score 3 + 4 = 7 (grade [...] for now. Continue radiation. Lauren Paris MD [facility] 10-30-2023 Note HNO ID: [id number] Author: Lauren PARIS MD Service: ? Author [...] Continue treatment as outlined. Lauren Paris MD [facility] 10-23-2023 Note HNO ID: [id number] Author: Lauren PARIS MD Service: ? Author [...] Continue treatment as outlined. Lauren Paris MD [facility] 10-18-2023 Note HNO ID: [id number] Author: NEIL QUEZADA LGC Service: ? Author Type: Genetic Counselor Type: Progress Notes Filed: 10/18/2023 09:45 Note Text: [facility] Consultation Note Genetic Counselor: Neil Quezada, , [place] [facility] Patient: Osiel Cartwright Patient Name and confirmed at initiation of visit. Appointment occurred with audiovisual communication through [employer] [facility]. I have communicated my name and active licensure. The patient's identity and physical location were verified at the time of this visit. Either the patient or their legal sales development representative has been informed of the risks [...] on his personal history of high- or cven-sxkw-onwg group prostate cancer. We discussed that identification [...] appropriate standard National Comprehensive Cancer Network and French Cancer Society guidelines, with consideration of their personal and family history risk factors. In this case, the patient will be referred back to their care providers for discussions of management. Based on this assessment of the patient's family and personal history, genetic testing is recommended. The patient was offered Multi-Cancer panel through [facility]. After considering the risks, benefits, and limitations, [...] NTHL1, PALB2, PDGFRA, PMS2, POLD1, POLE, POT1, XGMDX1A, PTCH1, PTEN, RAD51C, RAD51D, RB1, RET, SDHA, SDHAF2, SDHB, SDHC, SDHD, SMAD4, SMARCA4, SMARCB1, SMARCE1, STK11, SUFU, [id number] (more content not included)... [facility] 10-16-2023 Note HNO ID: [id number] Author: Lauren PARIS MD Service: ? Author Type: Physician Type: Progress Notes Filed: 10/16/2023 09:24 Note Text: Radiation Oncology - On Treatment Review (OTR) Note PATIENT NAME: Osiel Cartwright PATIENT DIAGNOSIS: Prostate adenocarcinoma, initial PSA 180.42, biopsy Blo[place]burg score 3 + 4 = 7 (grade [...] Continue treatment as outlined. Lauren Paris MD [facility] 10-10-2023 Note HNO ID: [id number] Author: Lauren Paris MD Service: ? Author Type: Physician Type: Progress Notes Filed: 10/10/2023 9:43 AM Note Text: Radiation Oncology - On Treatment Review (OTR) Note PATIENT NAME: Osiel Cartwright PATIENT DIAGNOSIS: Prostate adenocarcinoma, initial PSA 180.42, biopsy Bloomsburg score 3 + 4 = 7 (grade [...] Continue radiation as prescribed. Lauren Paris MD [facility] 09-19-2023 Note HNO ID: [id number] Author: Lauren Paris MD Service: ? Author Type: Physician Type: Progress Notes Filed: 09/21/2023 12:36 AM Note Text: 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 [id number] 09/19/2023 [facility] Radiation Oncology Department SIMULATION NOTE DATE OF SIMULATION: 09/19/2023 THERAPIST: Amina Cesar MACHINE: [employer] DIAGNOSIS: Malignant neoplasm of crussjpyD21 AREA: PELVIS CONTRAST: None Consent in Epic: [...] Gaurav Paris M.D. / ANJEL :43 PM [facility] 09-19-2023 Note HNO ID: [id number] Author: Lauren Paris MD Service: ? Author Type: Physician Type: Progress Notes Filed: 09/30/2023 12:33 AM Note Text: 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 [id number] 09/19/2023 [facility] Department of Radiation Oncology Treatment Planning Note [...] Electronically Signed Gaurav Paris M.D. 0:04 AM [facility] 09-19-2023 Note HNO ID: [id number] Author: Javi Singer MD Service: ? Author [...] mass, effusions. Ran (more content not included)... [facility] 09-19-2023 History of Present illness Narrative 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 [id number] 09/19/2023 [facility] Department of Radiation Oncology Treatment Planning Note [...] M.D. 0:04 AM documented in this encounter [facility] 09-12-2023 Note Education (HEMASA) 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 ([id number]) 1970 M Date Time Provider Department 09/12/23 ADRIANNE WEINSTEIN Reason for Visit: Patient Education [91] During your visit today, we recorded the following information about you: Allergies As of Date: 09/12/2023 (No Known Allergies) Date Reviewed: 09/12/2023 Reviewed by: Adrianne Weinsteni RN - Fully Assessed Prescriptions as of [...] Encounter Status:Closed by ADRIANNE WEINSTEIN on 09/12/23 [facility] 09-12-2023 Note HNO ID: [id number] Author: Adrianne Weinsetin RN Service: ? Author Type: Registered Nurse Type: Progress Notes Filed: 09/12/2023 9:33 AM Note Text: Radiation Therapy - Patient Education Note PATIENT NAME: Osiel Cartwright PATIENT September 12, 2023 [facility] FACILITY/LOCATION: [facility] READINESS TO LEARN Cognitive Ability: Alert and [...] need for social work, van service, and aircraft accessories mechanic. Was approved? No Signed by: Adrianne Weinstein RN [facility] 09-12-2023 Note HNO ID: [id number] Author: Lauren Paris MD Service: ? Author [...] will plan to (more content not included)... [facility] 09-12-2023 History of Present illness Narrative Radiation Therapy - Patient Education Note PATIENT NAME: Osiel Cartwright PATIENT September 12, 2023 [facility] FACILITY/LOCATION: [facility] READINESS TO LEARN Cognitive Ability: Alert and [...] need for social work, van service, and aircraft accessories mechanic. Was approved? No Signed by: Adrianne Weinstein RN documented in this encounter [facility] 09-12-2023 History of Present illness Narrative Radiation Oncology - Prostate Cancer New Patient/Consult Note PATIENT NAME: Osiel Cartwright PATIENT DIAGNOSIS: Prostate adenocarcinoma, initial PSA 180.42, biopsy Blo[place]burg score 3 + 4 = 7 (grade [...] Types: Cigarettes Quit date: 2012 Years since quittin. Passive exposure: Past Smokeless tobacco: Never Substance [...] by: Lauren Paris MD cc: Carolann Shirley [address] [place] [phone] Yaneli Elder Lundberg [address] [place] [facility] [address] [address] Singer documented in this encounter [facility] 09-12-2023 Nurse Note AUA 4 Adrianne Weinstein, RN documented in this encounter [facility] 08-28-2023 Note Education (JENNY) 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 ([id number]) 1970 M Date Time Provider Department 08/28/23 TRISHA NIEVES Reason for Visit: Oral Anti-cancer Agent Education [2497] Cmt: Abiraterone AND Prednisone Primary Visit Diagnosis:Prostate cancer (HCC) [C61] During your visit today, we recorded the following information about you: Allergies As of Date: 08/28/2023 (No Known Allergies) Date Reviewed: 08/28/2023 Reviewed by: Trisha Nieves, RN - Fully Assessed Prescriptions as of [...] Encounter Status:Closed by TRISHA NIEVES on 08/28/23 [facility] 08-28-2023 Note HNO ID: [id number] Author: Trisha Nieves, RN Service: ? Author Type: Registered Nurse [...] refill process. Yes - Phone number for [facility] pharmacy provided. DRUG-SPECIFIC EDUCATION: 1.) Verified patient [...] teaching topics as needed. Trisha Nieves RN [facility] 08-28-2023 Miscellaneous Notes Patient started/will start taking Abiraterone & Prednisone on 08/29/23. Trisha Nieves RN documented in this encounter [facility] 08-28-2023 History of Present illness Narrative [...] refill process. Yes - Phone number for [facility] pharmacy provided. DRUG-SPECIFIC EDUCATION: 1.) Verified patient [...] Trisha Nieves RN documented in this encounter [facility] 08-22-2023 Hospital Discharge instructions Patient Education [...] similar to normal prostate cells (moderately differentiated). Bl[place]burg 8, 9, or 10: This indicates that [...] stress of having cancer. General instructions Take mesv-zon-xtajvvh and prescription medicines only as told by your health care provider. If you have to go to the hospital, notify your cancer specialist (oncologist). Keep all follow-up visits. This is important. Where to find more information French Cancer Society: www.cancer.org French Society of Clinical Oncology: www.cancer.net National Cancer [place]: www.cancer.gov Contact a health care provider if: [...] provider. Document Revised: 12/22/2021 Document Reviewed: 12/22/2021 [employer] Patient Education 2022 Te[employer]. Follow Up Care 08/09/2023 08:54:33 With:TOÑO STANTON, Yaneli Friedman, URL Address: [facility] [address], [place] [address]- When:Within 6 Month(s) Comments:w/PSA, Testosterone, and Lurpon [facility] [place] 08-22-2023 Miscellaneous Notes Abiraterone to be filled through [facility] ([facility]) per insurance. Rx pended - Unaware of cost at this time since filling at another pharmacy. If assistance is required, patient will be instructed how to apply, etc. by [facility]. Patient notified of this plan. Chemo Ed scheduled for 08/28/23. documented in this encounter [facility] 08-21-2023 Note HNO ID: [id number] Author: Javi Singer MD Service: ? Author [...] 12 of 12 cores involved with adenocarcinoma, [place] 7. 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 MEDICATIONS: Current Outpatient Medications Medication Sig bicalutamide [...] and judgement an (more content not included)... [facility] 08-21-2023 History of Present illness Narrative PATIENT [...] 12 of 12 cores involved with adenocarcinoma, [place] 7. 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 MEDICATIONS: Current Outpatient Medications Medication Sig bicalutamide [...] and atrophy. PATHOLOGY: 07/12/2023 TRUS Prostate biopsy ([facility]) Acinar adenocarcinoma prostate, Jo-Ann score 7 (3+4). [...] rib likely trauma. 08/04/2023 Nuclear bone scan ([facility]) Abnormal focus of radiotracer uptake in the [...] 12 cores involved with adenocarcinoma, Jo-Ann 7. PSMA PET scan 08/09/2023 revealed uptake [...] Javi Singer MD CC: Dr. Yaneli Lundberg, [facility] Urology documented in this encounter [facility] 08-09-2023 Note HNO ID: [id number] Author: Lauren Paris MD Service: ? Author [...] - New Diag (more content not included)... [facility] 08-09-2023 History of Present illness Narrative Radiation Oncology - Prostate Cancer New Patient/Consult Note PATIENT NAME: Osiel Cartwright PATIENT REQUESTING PROVIDER: Dr. Lundberg DIAGNOSIS: 52 year old male with prostate adenocarcinoma, initial PSA 180.42, biopsy Bloomsburg score 3 + 4 = 7 (grade [...] cm gland. All 12 cores involved with Jo-Ann [...] Lauren Paris MD cc: Carolann Shirley [address] [place] [address] Yaneli Lundberg [address] [facility] [address] documented in this encounter [facility] 08-09-2023 Nurse Note AUA= 2 documented in this encounter [facility] 08-09-2023 Note HNO ID: [id number] Author: Trisha Martinez RT(R) Service: ? Author Type: Technologist Type: Progress Notes Filed: 08/09/2023 1:54 PM Note Text: RADIOLOGY SERVICE PROGRESS NOTE SERVICE DATE: 08/09/2023 SERVICE TIME: 1:53 PM PATIENT IDENTITY VERIFICATION COMPLETED USING TWO (2) STANDARD IDENTIFIERS: Name and Date of confirmed by patient verbally POST EXAM PIV STATUS: Discontinued PROCEDURE TYPE: NM INJECT: PET/CT BODY SCAN. 10.8 mCi N96-ILVN. No other medications given.. ADMINISTRATION TIME: 1337 PATIENT DISCHARGED TO: Ambulatory patient, left [place] department area. A Diagnostic radioactive procedure has taken place, with no further precautions necessary other than routine body substance precautions. More information regarding radiation safety can be found using this link: [email or web address] [email or web address] SIGNATURE: RT Alejandro(R) PATIENT NAME: Osiel Cartwright DATE: August 09, 2023 TIME: 1:53 PM PAGER/CONTACT #: [facility] 08-09-2023 Note HNO ID: [id number] Author: Kaleigh Daniels RN Service: ? Author [...] DATE: August 09, 2023 TIME: 1:39 PM [facility] 08-09-2023 Hospital Discharge instructions Patient Education 08/09/2023 [...] including vitamins, herbs, eye drops, creams, and xelt-pcs-dzfcdtb medicines. Any problems you or family members [...] provider tells you to take them. ?Taking oygh-zvi-qqsaghp medicines, vitamins, herbs, and supplements. Follow your [...] provider. Document Revised: 12/22/2021 Document Reviewed: 12/22/2021 [employer] Patient Education 2022 [employer]. 08/09/2023 08:03:55 Hormone Suppression Therapy for Prostate [...] advanced cancer. Where to find more information French Cancer Society: www.cancer.org National Cancer [place]: www.cancer.gov Contact a health care provider if: [...] provider. Document Revised: 01/06/2022 Document Reviewed: 01/06/2022 [employer] Patient Education 2022 Tealeaf. Follow Up Care 07/24/2023 13:01:11 With:TOÑO STANTON, Yaneli Friedman, URL Address: [facility] [address] , [place] [address]- When: Unknown [facility] 07-24-2023 Hospital Discharge instructions Patient Education 07/24/2023 [...] under a microscope. This is called the Bloomsburg score and the total score can range from 6 10, indicating how likely it is that the cancer will spread (metastasize) to other parts of the body. The higher the score, the greater the likelihood that the cancer will spread. Bloomsburg 6 or lower: This indicates that the cancer cells look similar to normal prostate cells (well differentiated). Bloomsburg 7: This indicates that the cancer cells look somewhat similar to normal prostate cells (moderately differentiated). Jo-Ann 8, 9, or 10: This indicates [...] stress of having cancer. General instructions Take yunp-ves-ehxodum and prescription medicines only as told by your health care provider. If you have to go to the hospital, notify your cancer specialist (oncologist). Keep all follow-up visits. This is important. Where to find more information French Cancer Society: www.cancer.org French Society of Clinical Oncology: www.cancer.net National Cancer [place]: www.cancer.gov Contact a health care provider if: [...] provider. Document Revised: 12/22/2021 Document Reviewed: 12/22/2021 [employer] Patient Education 2022 Tealeaf. Follow Up Care 07/07/2023 12:01:52 With:Yaneli LUNDBERG MD, URL Address: [facility] [address] , [place] [address]- When:Within 2 Week(s) Comments:w/PSMA PET Scan and Bone Scan [facility] 07-19-2023 Note Chief Complaint consultation for [...] mellitus type 2: Father. Rheumatoid arthritis: Mother. [facility] Comment on above: Result Comment: Elec tronically [...] discomfort near your rectum, especially while sitting. Randall-colored urine due to small amounts of blood in your urine. A burning feeling while urinating. Blood in your stool (feces) or bleeding from your rectum. Blood in your semen. Follow these instructions at home: Medicines Take lshp-khh-bhxyjec and prescription medicines only as told by [...] provider. Document Revised: 03/21/2022 Document Reviewed: 03/21/2022 [employer] Patient Education 2022 Tealeaf. Follow Up Care 07/07/2023 14:11:29 With:TOÑO STANTON, Yaneli Friedman, URL Address: [facility] [address] , [place] [address]- [phone] When: Unknown Comments:f/u scheduled 07/24/23 to review path [facility] 07-07-2023 Hospital Discharge instructions Patient Education 07/07/2023 [...] treatment? Where to find more information The French Cancer Society: www.cancer.org French U[employer] Association: www.auanet.org Contact a health care [...] provider. Document Revised: 03/21/2022 Document Reviewed: 03/21/2022 [employer] Patient Education 2022 Tealeaf. Follow Up Care 07/03/2023 12:08:52 With:TOÑO STANTON, Yaneli Friedman, URL Address: [facility] [address] , [place] [address]- When: Unknown Comments:Sched TRUS/bx of prostate [facility] 08-05-2022 Note PROCEDURE: XR ANKLE RT MIN 3 VIEWS COMPARISON: None. HISTORY: Arthralgia of the ankle and/or foot FINDINGS: BONES:No acute fracture or dislocation. Moderate enthesopathic spurring of the calcaneus. Mild degenerative changes. SOFT TISSUES:Mild diffuse soft tissue swelling EFFUSION:Moderate ankle joint effusion OTHER: Negative. IMPRESSION: Degenerative changes and joint effusion No acute fracture Electronically authenticated by: OSIEL FIGUEROA Date: 2022-08-05 18:23 [facility] Evaluation + Plan note Future Appointments Appointment Date:07/12/2023 01:00:00 PM Scheduled Provider:Yaneli LUNDBERG MD Location:[facility] Appointment Type:URO Procedure 30 min Appointment Date:07/19/2023 03:40:00 PM Scheduled Provider:Azeem DANIELS MD Location:[facility] Appointment Type: Appointment Date:07/24/2023 11:45:00 AM Scheduled Provider:Yaneli LUNDBERG MD Location:[facility] Appointment Type:URO Office Visit Diagnostic Tests PendingPSA Total 07/07/23 [facility] Evaluation + Plan note Future Appointments Appointment Date:07/19/2023 03:40:00 PM Scheduled Provider:Azeem DANIELS MD Location:[facility] Appointment Type: Appointment Date:07/24/2023 11:45:00 AM Scheduled Provider:Yaneli LUNDBERG MD Location:[facility] Appointment Type:URO Office Visit [facility] Evaluation + Plan note Future Appointments Appointment Date:07/19/2023 03:40:00 PM Scheduled Provider:Azeem DANIELS MD Location:[facility] Appointment Type: Appointment Date:07/24/2023 11:45:00 AM Scheduled Provider:[facility]O Office Visit Diagnostic Tests PendingProstate Histology ([facility]) 07/12/23 [facility] Evaluation + Plan note Future Appointments Appointment Date:07/24/2023 11:45:00 AM Scheduled Provider:Yaneli LUNDBERG MD Location:[facility] Appointment Type:URO Office Visit General Surgery [place] Evaluation + Plan note Future Appointments Appointment Date:08/09/2023 08:00:00 AM Scheduled Provider:Yaneli LUNDBERG MD Location:[facility] [place] Appointment Type:URO Office Visit [facility] [place] Evaluation + Plan note Future Appointments Appointment Date:08/22/2023 08:45:00 AM Scheduled Provider:Yaneli LUNDBERG MD Location:[facility] [place] Appointment Type:URO Office Visit [facility] Evaluation + Plan note Future Appointments Appointment Date:02/07/2024 08:00:00 AM Scheduled Provider:Yaneli LUNDBERG MD Location:[facility] [place] Appointment Type:URO Office Visit Diagnostic Tests PendingPSA Total 08/22/23Testosterone Level Total 08/22/23 [facility] Evaluation + Plan note Future Appointments Appointment Date:08/07/2024 08:45:00 AM Scheduled Provider:Yaneli LUNDBERG MD Location:[facility] [place] Appointment Type:URO Office Visit Diagnostic Tests PendingPSA Total 02/07/24 [facility] Evaluation note Diagnosis Malignant neoplasm of prostate (HCC)- Primary Malignant neoplasm of prostate [facility] Diagnosis Prostate cancer (HCC)- Primary Malignant neoplasm of prostate [facility] Diagnosis Prostate cancer (HCC)- Primary Malignant neoplasm of prostate [facility] Diagnosis Malignant neoplasm of prostate (HCC)- Primary Malignant neoplasm of prostate [facility] Diagnosis Malignant neoplasm of prostate (HCC)- Primary Malignant neoplasm of prostate [facility] Diagnosis Prostate cancer (HCC)- Primary Malignant neoplasm of prostate [facility] Diagnosis Malignant neoplasm of prostate (HCC)- Primary Malignant neoplasm of prostate [facility] Diagnosis Prostate cancer (HCC)- Primary Malignant neoplasm of prostate [facility] N[facility] No data available for this section [facility] [employer] Hospital Discharge instructions No data available for this section [facility] No data available for this section [facility] [employer] Summary Purpose Family History No Family History [...] Referral Specialty Diagnoses / Procedures Referred By Yony guardado Referred To Contact Diagnoses Malignant neoplasm of prostate (HCC) Procedures CT SIM PLANNING RADIATION ONCOLOGY THER RAD SIMULAJ-AIDED FIELD SETTING COMPLEX Lauren Paris MD [address] [place] [address] [place] [address] Referral ID Status Reason Start Date Expiration Date Visits Requested Visits Authorized [id number] Pending Review PCP Requested Referral 3 12/18/2023 1 1 Specialty Diagnoses / Procedures Referred By Yony guardado Referred To Contact Diagnoses Prostate cancer (HCC) Procedures CONSULT TO MEDICAL GENETICS - CANCER MEDICAL GENETICS COUNSELING EACH 30 MINUTES Javi Singer MD [address] [place] [address] [place] [address] [address] Referral ID Status Reason Start Date Expiration Date Visits Requested Visits Authorized [id number] Pending Review PCP Requested Referral Auto-Generate d Referral 3 08/20/2024 1 1 Specialty Diagnoses / Procedures Referred By Yony guardado Referred To Contact Oncology Diagnoses Malignant neoplasm of prostate (HCC) Procedures CONSULT TO ONCOLOGY OFFICE/OUTPATIENT [facility] 60-74 MINUTES Lauren Prais MD [address] [place] [address] [place] [address] Referral ID Status Reason Start Date Expiration Date Visits Requested Visits Authorized [id number] Authorized PCP Requested Referral 08/09/2023 08/08/2024 1 1 Additional Source Comments (unrecognized sect ion and content) No Status Records FoundNo Status Records FoundNo Status Records Found INFORMATION SOURCE (unrecogn ized section and content) DATE CREATED AUTHOR 08/09/2022 [facility] [place] [facility] DATE CREATED AUTHOR AUTHOR'S ORGANIZ ATION 02/10/2024 [facility] DATE CREATED AUTHOR AUTHOR'S ORGANIZ ATION 02/29/2024 [facility] Patient Care team informatio n (unrecognized section and content) 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 Relationship Specialty Start Date End Date Carolann Shirley MD [address] [place] [address] PCP - General Family Medicine 08/09/23 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 Relationship Specialty Start Date End Date Carolann Shirley MD [address] [place] [address] PCP - General Family Medicine 08/09/23 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 Relationship Specialty Start Date End Date Carolann Shirley MD [address] [place] [address] PCP - General Family Medicine 08/09/23 Damaris Rolon APRN.CREW PERSON [address] [place] [address] Nurse Practitioner Hematology/Oncology 08/22/23 Javi Singer MD [address] [place] [address] Physician Hematology/Oncology 08/22/23 Lauren Paris MD [address] [place] [address] Physician Radiation Oncology 08/22/23 Trisha Nieves, EMILY [address] [place] [address] Specialty Silver Cleaner Hematology/Oncology 08/22/23 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 Relationship Specialty Start Date End Date Carolann Shirley MD [address] [place] [facility] [place] [address] PCP - General Family Medicine 08/09/23 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 Relationship Specialty Start Date End Date Carolann Shirley MD [address] [place] [facility] [place] [address] PCP - General Family Medicine 08/09/23 Damaris Rolon, KETTLE LOADER.CREW PERSON [address] [place] Nurse Practitioner Hematology/Oncology 08/22/23 Javi Singer MD [address] [address] Physician Hematology/Oncology 08/22/23 Lauren Paris MD [address] [address] Physician Radiation Oncology 08/22/23 Trisha Nieves, EMILY [address] [place] [address] Specialty Silver Cleaner Hematology/Oncology 08/22/23 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 Relationship Specialty Start Date End Date Carolann Shirley MD [address] [place] [facility] [place] [address] PCP - General Family Medicine 08/09/23 Damaris Rolon, KETTLE LOADER.CREW PERSON [address] [address] Nurse Practitioner Hematology/Oncology 08/22/23 Javi Singer MD [address] [address] Physician Hematology/Oncology 08/22/23 Lauren Paris MD [address] [address] Physician Radiation Oncology 08/22/23 Trisha Nieves, EMILY [address] [place] [address] Specialty Silver Cleaner Hematology/Oncology 08/22/23 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 Relationship Specialty Start Date End Date Carolann Shirley MD [address] [place] [phone] PCP - General Family Medicine 08/09/23 Damaris Rolon, CYNTHIA.CREW PERSON [address] [address] Nurse Practitioner Hematology/Oncology 08/22/23 Javi Singer MD [address] [place] [address] Physician Hematology/Oncology 08/22/23 Lauren Paris MD [address] [address] Physician Radiation Oncology 08/22/23 Trisha Nieves, EMILY [address] [place] [address] Specialty Silver Cleaner Hematology/Oncology 08/22/23 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 Relationship Specialty Start Date End Date Carolann Shirley MD [address] [place] [facility] [place] [address] PCP - General Family Medicine 08/09/23 Damaris Rolon, KETTLE LOADER.CREW PERSON [address] [facility] [place] [place] [address] Nurse Practitioner Hematology/Oncology 08/22/23 Javi Singer MD [address] [facility] [place] [place] [address] Physician Hematology/Oncology 08/22/23 Lauren Paris MD [address] [facility] [place] [place] [address] Physician Radiation Oncology 08/22/23 Trisha Nieves, EMILY [address] [facility] [place] [place] [address] Specialty Silver Cleaner Hematology/Oncology 08/22/23 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 Relationship Specialty Start Date End Date Carolann Shirley MD [address] [place] [address] PCP - General Family Medicine 08/09/23 Damaris Rolon, KETTLE LOADER.CREW PERSON [address] [facility] [place] [place] [address] Nurse Practitioner Hematology/Oncology 08/22/23 Javi Singer MD [address] [place] [address] Physician Hematology/Oncology 08/22/23 Lauren Paris MD [address] [facility] [address] Physician Radiation Oncology 08/22/23 Trisha Nieves, EMILY [address] [place] [address] Specialty Silver Cleaner Hematology/Oncology 08/22/23 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 Relationship Specialty Start Date End Date Carolann Shirley MD [facility] [place] [address] PCP - General Family Medicine 08/09/23 Damaris Rolon, CYNTHIA.CREW PERSON [address] [place] [address] [place] [address] Nurse Practitioner Hematology/Oncology 08/22/23 Javi Singer MD [address] [place] [address] [place] [address] Physician Hematology/Oncology 08/22/23 Lauren Paris MD [address] [place] [address] [place] [address] Physician Radiation Oncology 08/22/23 Trisha Nieves, EMILY [address] [place] [address] Specialty Silver Cleaner Hematology/Oncology 08/22/23 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 Relationship Specialty Start Date End Date Carolann Shirley MD [address] [place] [address] PCP - General Family Medicine 08/09/23 Damaris Rolon, CYNTHIA.CREW PERSON [address] [facility] [place] [address] Nurse Practitioner Hematology/Oncology 08/22/23 Javi Singer MD [address] [facility] [address] Physician Hematology/Oncology 08/22/23 Lauren Paris MD [address] [facility] [address] Physician Radiation Oncology 08/22/23 Trisha Nieves, RN [address] [facility] [address] Specialty Silver Cleaner Hematology/Oncology 08/22/23 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 Relationship Specialty Start Date End Date Carolann Shirley MD [address] [place] [address] PCP - General Family Medicine 08/09/23 Damaris Rolon APRN.CREW PERSON [address] [place] [address] Nurse Practitioner Hematology/Oncology 08/22/23 Javi Singer MD [address] [place] [address] Physician Hematology/Oncology 08/22/23 Lauren Paris MD [address] [place] [address] Physician Radiation Oncology 08/22/23 Trisha Nieves, RN [address] [place] [address] Specialty Silver Cleaner Hematology/Oncology 08/22/23 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 Relationship Specialty Start Date End Date Carolann Shirley MD [address] [place] [address] PCP - General Family Medicine 08/09/23 Damaris Rolon, KETTLE LOADER.CREW PERSON [address] [facility] [place] [address] Nurse Practitioner Hematology/Oncology 08/22/23 Javi Singer MD [address] [facility] [address] Physician Hematology/Oncology 08/22/23 Lauren Paris MD [address] [place] [address] Physician Radiation Oncology 08/22/23 Trisha Nieves, EMILY [address] [place] [address] Specialty Silver Cleaner Hematology/Oncology 08/22/23 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 Relationship Specialty Start Date End Date Carolann [place] MD [address] [place] [address], [place] [address] PCP - General Family Medicine 08/09/23 Damaris Rolon, KETTLE LOADER.CREW PERSON [address] [facility] [address] Nurse Practitioner Hematology/Oncology 08/22/23 Javi Singer MD [address] [place] [address] Physician Hematology/Oncology 08/22/23 Lauren Paris MD [address] [place] [address] Physician Radiation Oncology 08/22/23 Trisha Nieves, EMILY [address] [place] [address] Specialty Silver Cleaner Hematology/Oncology 08/22/23 Source Comments (unrecognize d section and content) In the event this informatio n is protected by the Federal Confidentiality of Alcohol and Drug Abuse Patient Records regulations: The Federal rules restrict any use of the information to criminally investigate or prosecute any alcohol or drug abuse patient.[facility] the event this information is protected by the Federal Confidentiality of Alcohol and Drug Abuse Patient Records regulations: The Federal rules restrict any use of the information to criminally investigate or prosecute any alcohol or drug abuse patient.[facility] Hospital[facility] the event this information is protected by the Federal Confidentiality of Alcohol and Drug Abuse Patient Records regulations: The Federal rules restrict any use of the information to criminally investigate or prosecute any alcohol or drug abuse patient.[facility] Hospital[facility] the event this information is protected by the Federal Confidentiality of Alcohol and Drug Abuse Patient Records regulations: The Federal rules restrict any use of the information to criminally investigate or prosecute any alcohol or drug abuse patient.[facility] HospitalIn the event this information is protected by the Federal Confidentiality of Alcohol and Drug Abuse Patient Records regulations: The Federal rules restrict any use of the information to criminally investigate or prosecute any alcohol or drug abuse patient.[facility] HospitalIn the event this information is protected by the Federal Confidentiality of Alcohol and Drug Abuse Patient Records regulations: The Federal rules restrict any use of the information to criminally investigate or prosecute any alcohol or drug abuse patient.[facility] HospitalIn the event this information is protected by the Federal Confidentiality of Alcohol and Drug Abuse Patient Records regulations: The Federal rules restrict any use of the information to criminally investigate or prosecute any alcohol or drug abuse patient.[facility] HospitalIn the event this information is protected by the Federal Confidentiality of Alcohol and Drug Abuse Patient Records regulations: The Federal rules restrict any use of the information to criminally investigate or prosecute any alcohol or drug abuse patient.[facility] HospitalIn the event this information is protected by the Federal Confidentiality of Alcohol and Drug Abuse Patient Records regulations: The Federal rules restrict any use of the information to criminally investigate or prosecute any alcohol or drug abuse patient.[facility] Hospital[facility] the event this information is protected by the Federal Confidentiality of Alcohol and Drug Abuse Patient Records regulations: The Federal rules restrict any use of the information to criminally investigate or prosecute any alcohol or drug abuse patient.[facility] HospitalIn the event this information is protected by the Federal Confidentiality of Alcohol and Drug Abuse Patient Records regulations: The Federal rules restrict any use of the information to criminally investigate or prosecute any alcohol or drug abuse patient.[facility] HospitalIn the event this information is protected by the Federal Confidentiality of Alcohol and Drug Abuse Patient Records regulations: The Federal rules restrict any use of the information to criminally investigate or prosecute any alcohol or drug abuse patient.[facility] HospitalIn the event this information is protected by the Federal Confidentiality of Alcohol and Drug Abuse Patient Records regulations: The Federal rules restrict any use of the information to criminally investigate or prosecute any alcohol or drug abuse patient.[facility] HospitalIn the event this information is protected by the Federal Confidentiality of Alcohol and Drug Abuse Patient Records regulations: The Federal rules restrict any use of the information to criminally investigate or prosecute any alcohol or drug abuse patient.[facility] HospitalIn the event this information is protected by the Federal Confidentiality of Alcohol and Drug Abuse Patient Records regulations: The Federal rules restrict any use of the information to criminally investigate or prosecute any alcohol or drug abuse patient.[facility] HospitalIn the event this information is protected by the Federal Confidentiality of Alcohol and Drug Abuse Patient Records regulations: The Federal rules restrict any use of the information to criminally investigate or prosecute any alcohol or drug abuse patient.[facility] HospitalIn the event this information is protected by the Federal Confidentiality of Alcohol and Drug Abuse Patient Records regulations: The Federal rules restrict any use of the information to criminally investigate or prosecute any alcohol or drug abuse patient.[facility] Reason for Visit (unrecogniz ed section and content) Reason Comments Consult Reason Comments Consult Prostate Cancer Reason Comments Oral Anti-cancer Agent Education Abirate spencer & Prednisone Reason Comments Care Coordination Abiraterone/Predniso ne Start Date Reason Comments Patient Education Reason Comments Prostate Cancer Reason Onset Date Comments Simulation Request Form 09/19/2023 Reason Comments Prostate Cancer Follow up Reason Comments Refill Request Reason Comments Medication Update FOR RECORDS PERTAINING TO PATIENTS WHO ARE [...] BE BASED ON THE PRIMARY CLINICAL RECORDS. [employer] [facility]. provides no warranty or guarantee of the accuracy or completeness of information in this document.
== END 2024-05-07 06:55 | disposition home or self-care (01) ==
LOC: US 06:55
PROVIDERS: PCP Family Medicine; Visit Provider Internal Medicine Hematology & Oncology
DX: R22.43 Localized swelling, mass and lump, lower limb, bilateral (principal)
CPT/HCPCS: 93970